=== PATIENT | male | born 1995 | race American Indian/Alaskan Native ===

== ENCOUNTER 2018-01-07 13:49 | Inpatient (IN) | payer OTHER ==
--- NOTE | 2018-01-07 14:10 | C.PDOC ---
History Of Present Illness 22 y/o male, BIB EMS, presents to the ER complaining of SOB and diffuse, sharp chest pain over the past two days. He reports the pain is slightly alleviated when he leans forward. The patient admits to being diagnosed with pneumonia that required hospital admission one month ago. He denies any drug use, productive cough or fever. Time Seen by Provider: 01/07/18 14:14 Chief Complaint (Nursing): Weakness/Neurological Deficit History Per: Patient History/Exam Limitations: no limitations Onset/Duration Of Symptoms: Days Current Symptoms Are (Timing): Still Present Recent travel outside of the [place] States: No Past Medical History Reviewed: Historical Data, Nursing Documentation, Vital Signs Vital Signs: Last Vital Signs Temp 97.9 F 01/07/18 16:30 Pulse 102 H 01/07/18 18:00 Resp 38 H 01/07/18 18:00 BP 110/61 01/07/18 17:36 Pulse Ox 97 01/07/18 18:04 - Medical History PMH: Asthma, Fractures (lt.shoulder dislocation in the past) Denies: Chronic Kidney Disease Surgical History: No Surg Hx Family History: States: Unknown Family Hx - Social History Hx Alcohol Use: No Hx Substance Use: No - Immunization History Hx Tetanus Toxoid Vaccination: Yes (june 2015) Hx Influenza Vaccination: No Hx Pneumococcal Vaccination: No Review Of Systems Except As Marked, All Systems Reviewed And Found Negative. Constitutional: Negative for: Fever Cardiovascular: Positive for: Chest Pain Respiratory: Positive for: Shortness of Breath. Negative for: Cough Physical Exam - Physical Exam Appears: Other (Mild/ Moderate Distress) Skin: Normal Color, Warm, Dry Head: Atraumatic, Normacephalic Eye(s): bilateral: Normal Inspection, PERRL, EOMI Ear(s): Bilateral: Normal Nose: Normal Oral Mucosa: Moist Throat: Normal Neck: Normal ROM Cardiovascular: Rhythm Regular, No JVD Respiratory: Normal Breath Sounds, No Rales, No Rhonchi, No Wheezing Gastrointestinal/Abdominal: Normal Exam, Bowel Sounds, Soft, No Tenderness Extremity: Normal ROM Extremity: Bilateral: Atraumatic, Normal Color And Temperature, Normal ROM Pulses: Left Radial: Normal, Right Radial: Normal Neurological/Psych: Oriented x3 Gait: Steady ED Course And Treatment - Laboratory Results Result Diagrams: 01/07/18 14:26 08/09/18 14:26 ECG Rhythm: Sinus Rhythm (sinus tachycardic (110bpm)) Interpretation Of ECG: Normal [place]. MT interval shows depressions and diffuse ST elevation in all leads. O2 Sat by Pulse Oximetry: 97 (RA) Pulse Ox Interpretation: Normal - Other Rad Chest X-Ray: Viewed By Me, Read By Radiologist Interpretation: FINDINGS: LUNGS: Perihilar infiltrate right lung. Mild volume loss sella show elevation of the right hemidiaphragm. These are new findings compared to the prior study. PLEURA: No pneumothorax or pleural fluid seen. CARDIOVASCULAR: Normal. OSSEOUS STRUCTURES: No significant abnormalities. VISUALIZED UPPER ABDOMEN: Normal. OTHER FINDINGS: None. IMPRESSION: Left upper lobe/ perihilar infiltrate. Secondary signs of atelectasis/volume loss. - CT Scan/US Chest Other Rad Studies (CT/US): Read By Radiologist, Radiology Report Reviewed CT/US Interpretation: FINDINGS: LUNGS: Right lower lobe consolidation with air bronchograms. Minimal left lower lobe consolidation/ atelectasis. MEDIASTINUM: Unremarkable thoracic aorta. No aneurysm. Normal sized heart. Moderate pericardial effusion. No dilatation of the main pulmonary artery. No lymphadenopathy. PLEURA: There is a body contacts pleural fluid collection along the right posterior chest wall measuring approximately 2.7 x 5.6 x 6.7 cm. Cannot rule out empyema. No free pleural effusion bilaterally. No pneumothorax. BONES: No fracture. No destructive lesion. UPPER ABDOMEN: Grossly unremarkable. OTHER FINDINGS: None. IMPRESSION: Moderate pericardial effusion. Loculated biconvex pleural fluid collection along the right posterior chest wall. Right lower lobe consolidation with left lower lobe consolidations/ bandlike atelectasis. No additional abnormality. Medical Decision Making Medical Decision Making: Impression: 22 y/o male c/o SOB and diffuse, sharp chest pain Plan: --VBG --EKG --CMP --Troponin I --Echo --CBC --D-Dimer --PTT --PT --Chest X-Ray --Duoneb 3mg/0.5 mg (3ml) --SOLU-Medrol 125 mg IV --IV Fluids --Toradol 30 mg IV --Blood Culture --Nebulizer Treatment --Peak Flow pre/post Tx BID --Vasclab Progress note: Spoke to intesivist who recommended admission to ICU. Medicine consulting it architect agreed to admission to ICU. ICU team contacted CT surgery after bedside echocardiogram complete. Critical care time: 2hrs Disposition - Disposition Disposition: HOSPITALIZED Disposition Time: 16:00 Condition: CRITICAL - Clinical Impression Clinical Impression: Pericarditis, Pericardial effusion - PA / EMT / Resident Statement MD/DO has reviewed & agrees with the documentation as recorded. - Scribe Statement The provider has reviewed the documentation as recorded by the Scribe (Amparo Dai) Provider Attestation: All medical record entries made by the Scribe were at my direction and personally dictated by me. I have reviewed the chart and agree that the record accurately reflects my personal performance of the history, physical exam, medical decision making, and the department course for this patient. I have also personally directed, reviewed, and agree with the discharge instructions and disposition.
[2018-01-07] MEDS ORDERED: Albuterol-Ipratrop 3 mg / 0.5 (3 ml) UD INH STA (14:11)
[2018-01-07] MEDS ORDERED: Albuterol-Ipratrop 3 mg / 0.5 (3 ml) UD ONE (14:23)
[2018-01-07 14:30] LABS: BASO # 0.2 K/uL (0.0-0.2); BASO % 0.8 % (0.0-2.0); LYMPH # 0.7 K/uL (1.0-4.3); LYMPH % 2.3 % (20.0-40.0); MEAN CORPUSCULAR HEMOGLOBIN 22.6 pg (27.0-31.0); MEAN CORPUSCULAR HGB CONC 32.6 g/dL (33.0-37.0); MEAN PLATELET VOLUME 7.3 fL (7.2-11.7); MONO # 2.2 K/uL (0.0-0.8); MONO % 7.1 % (0.0-10.0); NEUT # 27.7 K/uL (1.8-7.0); NEUT % 89.8 % (50.0-75.0)
[2018-01-07 14:37] LABS: HEMOGLOBIN 10.2 g/dL (12.0-18.0); MEAN CELL VOLUME 69.1 fL (80.0-94.0); PLATELET COUNT 773 K/uL (130-400); WHITE BLOOD COUNT 30.9 K/uL (4.8-10.8)
[2018-01-07 14:43] LABS: VENOUS BLOOD GAS BASE EXCESS -7.5 mmol/L (0.0-2.0); VENOUS BLOOD GAS PCO2 37 mmHg (40-60); VENOUS BLOOD GAS PO2 20 mm/Hg (30-55)
[2018-01-07 14:47] LABS: ALB/GLOB RATIO 1.3 (1.0-2.1); ALBUMIN 3.5 g/dL (3.5-5.0); ALT/SGPT 190 U/L (21-72); AST/SGOT 316 U/L (17-59); BLOOD UREA NITROGEN 28 mg/dL (9-20); GFR AFRICAN-AMERICAN > 60; GFR NON-AFRICAN AMERICAN > 60
[2018-01-07 15:01] LABS: BANDS 9 % (0-2); LYMPHOCYTE 3 % (20-40); MONOCYTE 8 % (0-10); NEUTROPHIL 80 % (50-75); TOTAL CELLS COUNTED 100
[2018-01-07 15:02] LABS: ANISOCYTOSIS SLIGHT; HYPOCHROMIC SLIGHT; MICROCYTOSIS SLIGHT; PLATELET ESTIMATE INCREASED (NORMAL)
[2018-01-07] MEDS ORDERED: Sodium Chloride 0.9% 1,000 ML IV ONE ×2 (15:13→16:05)
[2018-01-07] MEDS ORDERED: Sodium Chloride 0.9% 1,000 ML ONE (15:19)
--- NOTE | 2018-01-07 15:27 | RAD ---
Date of service: 01/07/2018 PROCEDURE: CHEST RADIOGRAPH, 1 VIEW HISTORY: SOB COMPARISON: 10/28/2015. FINDINGS: LUNGS: Perihilar infiltrate right lung. Mild volume loss sella show elevation of the right hemidiaphragm. These are new findings compared to the prior study. PLEURA: No pneumothorax or pleural fluid seen. CARDIOVASCULAR: Normal. OSSEOUS STRUCTURES: No significant abnormalities. VISUALIZED UPPER ABDOMEN: Normal. OTHER FINDINGS: None. IMPRESSION: Left upper lobe/ perihilar infiltrate. Secondary signs of atelectasis/volume loss.
[2018-01-07 15:35] LABS: INR 1.6
[2018-01-07] MEDS ORDERED: Vancomycin 1 gm/NS 200 ml 1 GM/200 ML BAG IVPB SCH ×2 (16:00→20:00)
[2018-01-07] MEDS ORDERED: Moxifloxacin IV 400mg/250ml NS 400 MG/250 ML BAG IVPB ONE (16:04)
--- NOTE | 2018-01-07 16:45 | CP.PCM.CON ---
<Felipe Garcia - Last Filed: 01/07/18 18:26> Meds Allergies/Adverse Reactions: Allergies Allergy/AdvReac Type Severity Reaction Status Date / Time Penicillins Allergy Verified 10/27/15 21:39 - Medications Medications: Current Medications Colchicine (Colocrys) 0.6 mg PO BID [facility] Vancomycin/Sodium Chloride (Vancomycin 1 Gm/Ns 200 Ml) 1 gm in 200 mls @ 133.333 mls/hr IVPB Q24H [facility] PRN Reason: Protocol Stop: 01/12/18 16:01 Last Admin: 01/07/18 16:37 Dose: 133.333 mls/hr Sodium Chloride (Sodium Chloride 0.9%) 1,000 mls @ 150 mls/hr IV .Q6H40M [facility] Last Admin: 01/07/18 18:02 Dose: 150 mls/hr Ibuprofen (Motrin Tab) 600 mg PO Q8H [facility] Last Admin: 01/07/18 17:32 Dose: 600 mg Pantoprazole Sodium (Protonix Ec Tab) 40 mg PO DAILY [facility] Last Admin: 01/07/18 17:33 Dose: 40 mg Results - Vital Signs Recent Vital Signs: Last Vital Signs Temp 97.9 F 01/07/18 16:30 Pulse 102 H 01/07/18 18:00 Resp 38 H 01/07/18 18:00 BP 110/61 01/07/18 17:36 Pulse Ox 97 01/07/18 18:04 - Labs Result Diagrams: 01/07/18 14:26 01/07/18 14:26 Labs: Laboratory Results - last 24 hr 01/07/18 01/07/18 01/07/18 14:26 14:26 14:26 WBC 30.9 H D RBC 4.50 Hgb 10.2 L D Hct 31.1 L MCV 69.1 L D MCH 22.6 L MCHC 32.6 L RDW 17.0 H Plt Count 773 H D MPV 7.3 Neut % (Auto) 89.8 H Lymph % (Auto) 2.3 L Cowley % (Auto) 7.1 Eos % (Auto) 0.0 Baso % (Auto) 0.8 Neut # (Auto) 27.7 H Lymph # (Auto) 0.7 L Cowley # (Auto) 2.2 H Eos # (Auto) 0.0 Baso # (Auto) 0.2 Neutrophils % (Manual) 80 H Band Neutrophils % 9 H Lymphocytes % (Manual) 3 L Monocytes % (Manual) 8 Platelet Estimate Increased H Hypochromasia (manual) Slight Anisocytosis (manual) Slight Microcytosis (manual) Slight PT INR APTT D-Dimer, Quantitative 2632 H pO2 VBG pH VBG pCO2 VBG HCO3 VBG Total CO2 VBG O2 Sat (Calc) VBG Base Excess VBG Potassium Glucose Lactate Sodium 137 Potassium 5.4 H Chloride 95 L Carbon Dioxide 22 Anion Gap 26 H BUN 28 H Creatinine 1.3 Est GFR ( Amer) > 60 Est GFR (Non-Af Amer) > 60 Random Glucose 150 H Calcium 9.0 Total Bilirubin 4.8 H AST 316 H ALT 190 H D Alkaline Phosphatase 339 H Troponin I < 0.0120 Total Protein 6.2 L Albumin 3.5 D Globulin 2.8 Albumin/Globulin Ratio 1.3 Venous Blood Potassium Influenza Typ A,B (EIA) 01/07/18 01/07/18 01/07/18 14:40 15:19 17:46 WBC RBC Hgb Hct MCV MCH MCHC RDW Plt Count MPV Neut % (Auto) Lymph % (Auto) Cowley % (Auto) Eos % (Auto) Baso % (Auto) Neut # (Auto) Lymph # (Auto) Cowley # (Auto) Eos # (Auto) Baso # (Auto) Neutrophils % (Manual) Band Neutrophils % Lymphocytes % (Manual) Monocytes % (Manual) Platelet Estimate Hypochromasia (manual) Anisocytosis (manual) Microcytosis (manual) PT 17.0 H INR 1.6 APTT 30 D-Dimer, Quantitative pO2 20 L VBG pH 7.30 L VBG pCO2 37 L VBG HCO3 17.1 VBG Total CO2 19.3 L VBG O2 Sat (Calc) 23.9 L VBG Base Excess -7.5 L VBG Potassium 4.3 Glucose 126 H Lactate 3.6 H Sodium 137.0 Potassium Chloride 102.0 Carbon Dioxide Anion Gap BUN Creatinine Est GFR ( Amer) Est GFR (Non-Af Amer) Random Glucose Calcium Total Bilirubin AST ALT Alkaline Phosphatase Troponin I Total Protein Albumin Globulin Albumin/Globulin Ratio Venous Blood Potassium 4.3 Influenza Typ A,B (EIA) Negative for flu a/b Attending/Attestation - Attestation I have personally seen and examined this patient.: Yes I have fully participated in the care of the patient.: Yes I have reviewed all pertinent clinical information: Yes Notes (Text): 01/07/18 18:26 I have seen and examined the patient. Medical records, lab studies, and imaging were reviewed by me and a management plan was formulated on multidisciplinary rounds with resident Dr. Batista. I agree with their documented assessment and plan. Patient p/w pericarditis of unknown etiology, possibly viral with recent unresolving pneumonia. Empiric tx with abx, Avelox and Vancomycin, f/u blood cultures, f/u flu testing. ID consulted - Dr. Croft. Fluid bolusing and maintenance of NS@150. Dr. Adams - Cardiology consulted. Diagnostic pericardiocentesis scheduled for tomorrow. No signs of tamponade on echo currently. Continue on colchicine and high dose ibuprofen. CT surgery consulted - Dr. Silva, no intervention needed currently. Continue monitoring in ICU. Critical Care Time 35 minutes. Multi-disciplinary rounds were performed with house staff, nursing, speech therapy, respiratory therapy, pharmacy and nutrition with integrated input from the primary team/attending and other consulting services. The documented time is cumulative and includes review of patient data/exams/labs/chart review and examination of the patient on rounds and throughout the day; time is exclusive of any procedures or teaching time. <Bari Batista - Last Filed: 01/07/18 18:59> History of Present Illness - History of Present Illness History of Present Illness: Bari Batista DO PGY-1, ICU consult note for Dr. Garcia Pt chart and records were reviewed prior to evaluation. This is a 22 year old AA male who was BIBA to the ED with complaints of chest pain, shortness of breath and lightheadedness. In the ED, pt received solumedrol an 125 mg IVP, toradol 30 mg IVP, duoneb and NS 1 L IV bolus. ICU was consulted due to chest pain, shortness of breath with diffuse st elevations consistent with pericarditis. Pt was seen and examined at bedside. Pt is complaining of a left sided chest pain associated with intermittent shortness of breath for the past few days, worsening today. Chest pain is described as constant, 10/10 left sided chest pain that is nonradiating at baseline. When the pt coughs, the pain goes to his bilateral chest and upper abdomen. Pain is alleviated when he sits up and leans forward. Pt also reports a cough productive of yellow sputum. He endorses tactile fevers, with night sweats and decreased appetite over the past few days. He denies visual changes, falls, trauma, abdominal pain at rest, n/v/d, numbness or tingling, recent travel, sick contacts. A 12-point ROS was reviewed and is otherwise unremarkable. Pt reports being treated for pneumonia twice over the past 2 months. He states the was seen in [facility] ED in early november due to cough productive of dark yellow sputum and left sided chest pain, where he was diagnosed with left sided pneumonia and discharged with levoquin po. He states that he finished the entire course of levaquin and felt better for 1 week. At that time his same cough returned, and he had right sided chest pain. Approximately 3 weeks ago, pt was admitted to [facility] with right sided pneumonia and treated with IV antibiotics (he thinks levaquin) for 6 days. He felt better after being discharged, but his cough returned again. Approximately 1 week ago, pt states that he was in [facility] ER due to shortness of breath and cough, where they gave him breathing treatments and he was discharged after feeling better. PMHx: Asthma (no history of intubations, and states that he rarely uses his inhaler), elbow fracture PSH: unsure FMhx: no immediate family members with medical problems Meds: Asthma inhaler (rarely used) Allx: PCN (anaphylaxis as a child) Social history: works at [email or web address], denies illicit drug use, smoking Review of Systems - Review of Systems All systems: reviewed and no additional remarkable complaints except (see HPI) Past Patient History - Infectious Disease Hx of Infectious Diseases: None - Past Medical History & Family History Past Medical History?: Yes - Past Social History Smoking Status: Never Smoked - CARDIAC Hx Cardiac Disorders: No - PULMONARY Hx Asthma: Yes - NEUROLOGICAL Hx Neurological Disorder: No - HEENT Hx HEENT Problems: No - RENAL Hx Chronic Kidney Disease: No - ENDOCRINE/METABOLIC Hx Endocrine Disorders: No - HEMATOLOGICAL/ONCOLOGICAL Hx Blood Disorders: No - INTEGUMENTARY Hx Dermatological Problems: No - MUSCULOSKELETAL/RHEUMATOLOGICAL Hx Fractures: Yes (lt.shoulder dislocation in the past) - GASTROINTESTINAL Hx Gastrointestinal Disorders: No - GENITOURINARY/GYNECOLOGICAL Hx Genitourinary Disorders: No - PSYCHIATRIC Hx Substance Use: No - SURGICAL HISTORY Hx Surgeries: No - ANESTHESIA Hx Anesthesia: No Hx Anesthesia Reactions: No Hx Malignant Hyperthermia: No Meds - Medications Medications: Current Medications Colchicine (Colocrys) 0.[address] Vancomycin/Sodium Chloride (Vancomycin 1 Gm/Ns 200 Ml) 1 gm in 200 mls @ 133.333 mls/hr IVPB Q24H AVE PRN Reason: Protocol Stop: 01/12/18 16:01 Moxifloxacin HCl (Avelox Iv 400mg/250ml Ns) 400 mg in 250 mls @ 167 mls/hr IVPB ONCE ONE PRN Reason: Protocol Stop: 01/07/18 17:33 Sodium Chloride (Sodium Chloride 0.9%) 1,000 mls @ 1,000 mls/hr IV .Q1H ONE Stop: 01/07/18 17:04 Last Admin: 01/07/18 16:12 Dose: 1,000 mls/hr Ibuprofen (Motrin Tab) [address] Pantoprazole Sodium (Protonix Ec Tab) [address] Physical Exam - Constitutional Appears: In Acute Distress - Head Exam Head Exam: ATRAUMATIC, NORMAL INSPECTION - Eye Exam Eye Exam: EOMI, Normal appearance Pupil Exam: PERRL - ENT Exam ENT Exam: Mucous Membranes Moist - Neck Exam Neck exam: Positive for: Full Rom, Normal Inspection. Negative for: Meningismus , Tenderness Additional comments: (-) jvd - Respiratory Exam Respiratory Exam: Accessory Muscle Use, Clear to Auscultation Bilateral, Respiratory Distress (tachypnea in the 50s) - Cardiovascular Exam Cardiovascular Exam: Tachycardia, +S1, +S2. absent: Gallop, Rubs - GI/Abdominal Exam GI & Abdominal Exam: Normal Bowel Sounds, Soft. absent: Tenderness - Extremities Exam Extremities exam: Positive for: normal inspection, pedal pulses present. Negative for: pedal edema, tenderness - Back Exam Back exam: NORMAL INSPECTION - Neurological Exam Neurological exam: Alert, Oriented x3 - Psychiatric Exam Psychiatric exam: Normal Affect, Normal Mood - Skin Skin Exam: Dry, Normal Color, Warm Results - Vital Signs Recent Vital Signs: Last Vital Signs Temp 97.8 F 01/07/18 15:09 Pulse 109 H 01/07/18 15:09 Resp 40 H 01/07/18 15:09 BP 101/57 L 01/07/18 15:09 Pulse Ox 100 01/07/18 15:09 - Labs Result Diagrams: 01/07/18 14:26 01/07/18 14:26 Labs: Laboratory Results - last 24 hr 01/07/18 01/07/18 01/07/18 14:26 14:26 14:26 WBC 30.9 H D RBC 4.50 Hgb 10.2 L D Hct 31.1 L MCV 69.1 L D MCH 22.6 L MCHC 32.6 L RDW 17.0 H Plt Count 773 H D MPV 7.3 Neut % (Auto) 89.8 H Lymph % (Auto) 2.3 L Cowley % (Auto) 7.1 Eos % (Auto) 0.0 Baso % (Auto) 0.8 Neut # (Auto) 27.7 H Lymph # (Auto) 0.7 L Cowley # (Auto) 2.2 H Eos # (Auto) 0.0 Baso # (Auto) 0.2 Neutrophils % (Manual) 80 H Band Neutrophils % 9 H Lymphocytes % (Manual) 3 L Monocytes % (Manual) 8 Platelet Estimate Increased H Hypochromasia (manual) Slight Anisocytosis (manual) Slight Microcytosis (manual) Slight PT INR APTT D-Dimer, Quantitative 2632 H pO2 VBG pH VBG pCO2 VBG HCO3 VBG Total CO2 VBG O2 Sat (Calc) VBG Base Excess VBG Potassium Glucose Lactate Sodium 137 Potassium 5.4 H Chloride 95 L Carbon Dioxide 22 Anion Gap 26 H BUN 28 H Creatinine 1.3 Est GFR ( Amer) > 60 Est GFR (Non-Af Amer) > 60 Random Glucose 150 H Calcium 9.0 Total Bilirubin 4.8 H AST 316 H ALT 190 H D Alkaline Phosphatase 339 H Troponin I < 0.0120 Total Protein 6.2 L Albumin 3.5 D Globulin 2.8 Albumin/Globulin Ratio 1.3 Venous Blood Potassium 01/07/18 01/07/18 14:40 15:19 WBC RBC Hgb Hct MCV MCH MCHC RDW Plt Count MPV Neut % (Auto) Lymph % (Auto) Cowley % (Auto) Eos % (Auto) Baso % (Auto) Neut # (Auto) Lymph # (Auto) Cowley # (Auto) Eos # (Auto) Baso # (Auto) Neutrophils % (Manual) Band Neutrophils % Lymphocytes % (Manual) Monocytes % (Manual) Platelet Estimate Hypochromasia (manual) Anisocytosis (manual) Microcytosis (manual) PT 17.0 H INR 1.6 APTT 30 D-Dimer, Quantitative pO2 20 L VBG pH 7.30 L VBG pCO2 37 L VBG HCO3 17.1 VBG Total CO2 19.3 L VBG O2 Sat (Calc) 23.9 L VBG Base Excess -7.5 L VBG Potassium 4.3 Glucose 126 H Lactate 3.6 H Sodium 137.0 Potassium Chloride 102.0 Carbon Dioxide Anion Gap BUN Creatinine Est GFR ( Amer) Est GFR (Non-Af Amer) Random Glucose Calcium Total Bilirubin AST ALT Alkaline Phosphatase Troponin I Total Protein Albumin Globulin Albumin/Globulin Ratio Venous Blood Potassium 4.3 Assessment & Plan - Assessment and Plan (Free Text) Assessment: This is a 22 year old AA male who was BIBA to the ED with complaints of chest pain, shortness of breath and lightheadedness. In the ED, pt received solumedrol an 125 mg IVP, toradol 30 mg IVP, duoneb and NS 1 L IV bolus. ICU was consulted due to chest pain, shortness of breath with diffuse st elevations consistent with pericarditis. CXR in the ED showed a much larger cardiac silhouette than prior CXR done in 2016. Labile BP noted (SBP 90-110, DBP in the 60s, MAP in the 70s); tachypnea in the 50s, no jvd. Stat echocardiogram showed moderately sized pericardial effusion. Cardiothoracic surgeon consulted. baby nurse consulted. Pt will be accepted to the ICU for cardiovascular and neurological monitoring. Neuro: - monitor for mental status changes - Pt is AAOx3 Cardio: - CXR shows large cardiac silhouette, HALEY perihilar infiltrate, secondary signs of atelectasis/volume loss - Chest CT w/o contrast shows pericardial effusion. Loculated biconvex plueral fluid collection along the right posterior chest wall. Right lower lobe consolidation with left lower consolidations/bandlike atelectasis. - Echocardiogram shows LVEF of 72.6%. Large eccentric pericardial effusion Anterio>posterior with fibrin densities suggestive of an exudate. IVC plethora noted with spontaneous echogenic smoke noted in the right chambers suggestive of stasis/slow flow. Right ventricle appears dilated in the short axis views with no evidence of collapse. There is no definitive evidence of tamponade. Left ventricle is normal in size and systolic function. Mild concentric thickening. Mild aortic sclerosis; normal mitral valve. - ekg shows st at 110, diffuse ST elevations - colchicine and high dose ibuprofen for pericarditis of unknown origin - sinus tachycardia in the low 100s - hypotension (sbp in 100s, dbp in 60s, MAP in 70s) - troponin negative x1 - NS 1L IV bolus x2, followed by NS at 150 mL/hr - cardiothoracic surgery consult, who states that there is no need for intervention at this time - interventional cardiology consulted, who plans for diagnostic pericardiocentesis tommorrow Pulm: - cxr shows HALEY/perihilar infiltrate - empiric antibiotics and ID consult - maintain spo2 >95% - spo2 is currently >95% on ra GI: - transaminitis of unknown etiology - f/u hepatitis panel - NPO past midnight due to planned diagnostic pericardiocentesis tomorrow - protonix for pud ppx Renal: - BUN/cr is wnl - continue NS IVF at 150 mL/hr after 2L bolus - maintain euvolemia ID: - pericarditis of unknown etiology, possibly viral due to recent unresolving pneumonia - empiric treatment with avelox, vancomycin - leukocytosis (30.9) with bandemia (9) - lactate elevated at 4.4 - f/u blood culture - flu a and b are negative - Infectious disease consulted, recs appreciated Endo: - maintain euglycemia - accucheck achs Heme: - microcytic anemia - ddimer elvated at 2632 - prelim bilateral lower extremity dopplar study is negative for dvt bilaterally - f/u official dopplar reading - no anticoagulation at this time due to planned pericardiocentesis tomorrow - SCDs for vte ppx PPX: protonix for pud; scds for vte Dispo: Continue to monitor in the ICU Case was reviewed and discussed with attending physician, Dr. Garcia.
[2018-01-07] MEDS ORDERED: Sodium Chloride 0.9% 2,000 ML IV ONE (16:48)
--- NOTE | 2018-01-07 16:51 | CT ---
Date of service: 01/07/2018 PROCEDURE: CT Chest without contrast HISTORY: pericardial effusion COMPARISON: None available. TECHNIQUE: Contiguous axial images were obtained through the chest without intravenous contrast enhancement. Sagittal and coronal reconstructions were performed. Radiation dose (DLP): 234.59 mGy-cm. This CT exam was performed using one or more of the following dose reduction techniques: Automated exposure control, adjustment of the mA and/or kV according to patient size, and/or use of iterative reconstruction technique. FINDINGS: LUNGS: Right lower lobe consolidation with air bronchograms. Minimal left lower lobe consolidation/ atelectasis. MEDIASTINUM: Unremarkable thoracic aorta. No aneurysm. Normal sized heart. Moderate pericardial effusion. No dilatation of the main pulmonary artery. No lymphadenopathy. PLEURA: There is a body contacts pleural fluid collection along the right posterior chest wall measuring approximately 2.7 x 5.6 x 6.7 cm. Cannot rule out empyema. No free pleural effusion bilaterally. No pneumothorax. BONES: No fracture. No destructive lesion. UPPER ABDOMEN: Grossly unremarkable. OTHER FINDINGS: None. IMPRESSION: Moderate pericardial effusion. Loculated biconvex pleural fluid collection along the right posterior chest wall. Right lower lobe consolidation with left lower lobe consolidations/ bandlike atelectasis. No additional abnormality.
--- NOTE | 2018-01-07 16:57 | CARD ---
APPROVED REPORT Date of service: 01/07/2018 EXAM: Two-dimensional and M-mode echocardiogram with Doppler and color Doppler. INDICATION Pericardial Effusion Dyspnea 2D DIMENSIONS IVSd1.1 (0.7-1.1cm)Aortic Root (2D)2.5 (2.0-3.7cm) LVDd3.3 (3.9-5.9cm)PWd1.3 (0.7-1.1cm) LVDs2.0 (2.5-4.0cm)FS (%) 40.6 % LVEF (%)72.6 (>50%) M-Mode DIMENSIONS RVDd2.43 (2.1-3.2cm)Left Atrium (MM)2.64 (2.5-4.0cm) IVSd1.28 (0.7-1.1cm)Aortic Root2.40 (2.2-3.7cm) LVDd3.58 (4.0-5.6cm)Aortic Cusp Exc.2.28 (1.5-2.0cm) PWd1.28 (0.7-1.1cm)FS (%) 37 % LVDs2.25 (2.0-3.8cm)LVEF (%)68 (>50%) Mitral Valve MV E Eahcmzip60.7cm/sMV A Xhpyqzrj18.4cm/sE/A ratio1.8 TDI E/Lateral E'0.0E/Medial E'0.0 Tricuspid Valve TR Peak Eqkshgwg249yd/sTR Peak Gr.[id number] <Conclusion> Large eccencentric pericardial effusion Anterio>posterior with fibrin densities suggestive of an exudate; IVC plethora noted with spontaneous echogenic smoke noted in the right chambers suggestive of stasis/slow flow Right ventricle appears dilated in the short axis views with no evidence of collapse Transvalvular phasic variation was indeterminate There is no definitive evidence of tamponade The left ventricle is normal in size and systolic function Mild concentric thickening Mild aortic sclerosis; Normal mitral valve
[2018-01-07] MEDS: Pantoprazole 40 mg EC Tab PO SCH (17:33)
--- NOTE | 2018-01-07 18:01 | PCM.SEPTIC ---
<Felipe Garcia - Last Filed: 01/07/18 18:02> Sepsis Progress Note - Non Invasive Reassessment Vital Sign (Latest): Temp Pulse Resp BP Pulse Ox 97.9 F 102 H 61 H 110/61 97 01/07/18 16:30 01/07/18 17:50 01/07/18 17:50 01/07/18 17:36 01/07/18 17:59 Attending/Attestation - Attestation I have personally seen and examined this patient.: Yes I have fully participated in the care of the patient.: Yes I have reviewed all pertinent clinical information, including history, physical exam and plan: Yes <Bari Batista - Last Filed: 01/07/18 18:34> Sepsis Progress Note - Reassessment Type Date of Evaluation: 01/07/18 Time of Evaluation: 17:00 Reassessment Type: Non-invasive reassessment - Non Invasive Reassessment Were the most recent vital sign reviewed: Yes Vital Sign (Latest): Temp Pulse Resp BP Pulse Ox 97.9 F 102 H 61 H 110/61 97 01/07/18 16:30 01/07/18 17:50 01/07/18 17:50 01/07/18 17:36 01/07/18 17:59 Cardiovascular: Yes: Tachycardia. No: Friction Rub Respiratory: Yes: Accessory Muscle Use, Respiratory Distress (tachypnew in the 40s). No: Rales, Rhonchi, Stridor, Wheezing Capillary Refill: Normal (Less than 2 sec) Pulses: Normal Radial, Normal Dorsalis Pedis, Normal Posterior Tibialis Skin: Warm, Dry
[2018-01-07] MEDS: Sodium Chloride 0.9% 1,000 ML IV SCH (18:02)
--- NOTE | 2018-01-07 18:20 | CP.PCM.CON ---
History of Present Illness - History of Present Illness History of Present Illness: THORACIC SURGERY CONSULT NOTE FOR DR. MELARA 22yo M with PMHx of asthma, pneumonia presents to the ED with Chest pain, SOB and lightheadedness. The symptoms have been present for the past few days but worsened today. The CP is on the left and non radiating. Pt also reports a cough productive of yellow sputum. He endorses tactile fevers, with night sweats and decreased appetite over the past few days. He denies visual changes, falls, trauma, abdominal pain at rest, n/v/d, numbness or tingling, recent travel, sick contacts. Pt reports being treated for pneumonia twice over the past 2 months at [facility] Pt found to have large pericardial effusion. ECHO did not show signs of tamponade. Pt being admitted to ICU. PMHx: Asthma (no history of intubations, and states that he rarely uses his inhaler), elbow fracture, pneumonia treated at [facility] PSH: denies Meds: Asthma inhaler (rarely used) Allx: PCN (anaphylaxis as a child) Social history: works at [employer], denies illicit drug use, smoking Review of Systems - Review of Systems All systems: reviewed and no additional remarkable complaints except (as per HPI ) Past Patient History - Infectious Disease Hx of Infectious Diseases: None - Past Medical History & Family History Past Medical History?: Yes - Past Social History Smoking Status: Never Smoked - CARDIAC Hx Cardiac Disorders: No - PULMONARY Hx Asthma: Yes - NEUROLOGICAL Hx Neurological Disorder: No - HEENT Hx HEENT Problems: No - RENAL Hx Chronic Kidney Disease: No - ENDOCRINE/METABOLIC Hx Endocrine Disorders: No - HEMATOLOGICAL/ONCOLOGICAL Hx Blood Disorders: No - INTEGUMENTARY Hx Dermatological Problems: No - MUSCULOSKELETAL/RHEUMATOLOGICAL Hx Fractures: Yes (lt.shoulder dislocation in the past) - GASTROINTESTINAL Hx Gastrointestinal Disorders: No - GENITOURINARY/GYNECOLOGICAL Hx Genitourinary Disorders: No - PSYCHIATRIC Hx Substance Use: No - SURGICAL HISTORY Hx Surgeries: No - ANESTHESIA Hx Anesthesia: No Hx Anesthesia Reactions: No Hx Malignant Hyperthermia: No Meds Allergies/Adverse Reactions: Allergies Allergy/AdvReac Type Severity Reaction Status Date / Time Penicillins Allergy Verified 10/27/15 21:39 - Medications Medications: Current Medications Colchicine (Colocrys) 0.[address] Vancomycin/Sodium Chloride (Vancomycin 1 Gm/Ns 200 Ml) 1 gm in 200 mls @ 133.333 mls/hr IVPB Q24H [facility] PRN Reason: Protocol Stop: 01/12/18 16:01 Last Admin: 01/07/18 16:37 Dose: 133.333 mls/hr Sodium Chloride (Sodium Chloride 0.9%) 1,000 mls @ 150 mls/hr IV .Q6H40M [facility] Last Admin: 01/07/18 18:02 Dose: 150 mls/hr Ibuprofen (Motrin Tab) 600 mg PO Q8H [facility] Last Admin: 01/07/18 17:32 Dose: 600 mg Pantoprazole Sodium (Protonix Ec Tab) 40 mg PO DAILY [facility] Last Admin: 01/07/18 17:33 Dose: 40 mg Physical Exam - Constitutional Appears: Non-toxic - Neck Exam Neck exam: Positive for: Normal Inspection (no JVD) - Respiratory Exam Additional comments: tachypneic - Cardiovascular Exam Cardiovascular Exam: Tachycardia - GI/Abdominal Exam GI & Abdominal Exam: Soft. absent: Tenderness - Neurological Exam Neurological exam: Alert, Oriented x3 - Psychiatric Exam Psychiatric exam: Anxious - Skin Skin Exam: Dry, Warm Results - Vital Signs Recent Vital Signs: Last Vital Signs Temp 97.9 F 01/07/18 16:30 Pulse 102 H 01/07/18 18:00 Resp 38 H 01/07/18 18:00 BP 110/61 01/07/18 17:36 Pulse Ox 97 01/07/18 18:04 - Labs Result Diagrams: 01/07/18 14:26 01/07/18 14:26 Labs: Laboratory Results - last 24 hr 01/07/18 01/07/18 01/07/18 14:26 14:26 14:26 WBC 30.9 H D RBC 4.50 Hgb 10.2 L D Hct 31.1 L MCV 69.1 L D MCH 22.6 L MCHC 32.6 L RDW 17.0 H Plt Count 773 H D MPV 7.3 Neut % (Auto) 89.8 H Lymph % (Auto) 2.3 L [place] % (Auto) 7.1 Eos % (Auto) 0.0 Baso % (Auto) 0.8 Neut # (Auto) 27.7 H Lymph # (Auto) 0.7 L [place] # (Auto) 2.2 H Eos # (Auto) 0.0 Baso # (Auto) 0.2 Neutrophils % (Manual) 80 H Band Neutrophils % 9 H Lymphocytes % (Manual) 3 L Monocytes % (Manual) 8 Platelet Estimate Increased H Hypochromasia (manual) Slight Anisocytosis (manual) Slight Microcytosis (manual) Slight PT INR APTT D-Dimer, Quantitative 2632 H pO2 VBG pH VBG pCO2 VBG HCO3 VBG Total CO2 VBG O2 Sat (Calc) VBG Base Excess VBG Potassium Glucose Lactate Sodium 137 Potassium 5.4 H Chloride 95 L Carbon Dioxide 22 Anion Gap 26 H BUN 28 H Creatinine 1.3 Est GFR ( Amer) > 60 Est GFR (Non-Af Amer) > 60 Random Glucose 150 H Calcium 9.0 Total Bilirubin 4.8 H AST 316 H ALT 190 H D Alkaline Phosphatase 339 H Troponin I < 0.0120 Total Protein 6.2 L Albumin 3.5 D Globulin 2.8 Albumin/Globulin Ratio 1.3 Venous Blood Potassium Influenza Typ A,B (EIA) 01/07/18 01/07/18 01/07/18 14:40 15:19 17:46 WBC RBC Hgb Hct MCV MCH MCHC RDW Plt Count MPV Neut % (Auto) Lymph % (Auto) [place] % (Auto) Eos % (Auto) Baso % (Auto) Neut # (Auto) Lymph # (Auto) [place] # (Auto) Eos # (Auto) Baso # (Auto) Neutrophils % (Manual) Band Neutrophils % Lymphocytes % (Manual) Monocytes % (Manual) Platelet Estimate Hypochromasia (manual) Anisocytosis (manual) Microcytosis (manual) PT 17.0 H INR 1.6 APTT 30 D-Dimer, Quantitative pO2 20 L VBG pH 7.30 L VBG pCO2 37 L VBG HCO3 17.1 VBG Total CO2 19.3 L VBG O2 Sat (Calc) 23.9 L VBG Base Excess -7.5 L VBG Potassium 4.3 Glucose 126 H Lactate 3.6 H Sodium 137.0 Potassium Chloride 102.0 Carbon Dioxide Anion Gap BUN Creatinine Est GFR ( Amer) Est GFR (Non-Af Amer) Random Glucose Calcium Total Bilirubin AST ALT Alkaline Phosphatase Troponin I Total Protein Albumin Globulin Albumin/Globulin Ratio Venous Blood Potassium 4.3 Influenza Typ A,B (EIA) Negative for flu a/b Assessment & Plan - Assessment and Plan (Free Text) Assessment: 22yo M with PMHx of asthma, pneumonia presents with Chest pain, SOB and found to have pericardial effusion of unknown etiology without signs of tamponade on ECHO - ECHO: large eccencentric pericardial effusion with fibrin densities suggestive of an exudate, no definitive evidence of tamponade - CT Chest: moderate pericardial effusion, loculated biconvex pleural fluid collection along right posterior chest wall, right lower consolidation w/ left lower lobe consolidations/bandlike atelectasis, no aneurysm - No surgical intervention unless pt decompensates or develops tamponade - Recommend cardiology for drainage to determine etiology - Discussed plan with Dr. Shira Costa PGY-4
[2018-01-07 18:37] LABS: HEPATITIS B SURFACE AG Negative (NEGATIVE)
[2018-01-07 18:43] LABS: HEPATITIS A IGM NEGATIVE (NEGATIVE); HEPATITIS B CORE AB NEGATIVE (NEGATIVE)
[2018-01-07 18:54] LABS: HEPATITIS C ANTIBODY NEGATIVE (NEGATIVE)
--- NOTE | 2018-01-07 19:06 | CP.PCM.CON ---
History of Present Illness - History of Present Illness History of Present Illness: 22yo M with\ recent hx of pneumonia x2 a [facility] presents to the ED with mid Chest pain, SOB Pt also reports a cough productive of yellow sputum. He endorses tactile fevers, with night sweats and decreased appetite over the past few days. He denies visual changes, falls, trauma, abdominal pain at rest, n/v/d, numbness or tingling, recent travel, sick contacts. Pt reports being treated for pneumonia twice over the past 2 months at [facility]. PMHx: Asthma (no history of intubations, and states that he rarely uses his inhaler), elbow fracture, pneumonia treated at [facility] PSH: denies Meds: Asthma inhaler (rarely used) Allx: PCN (anaphylaxis as a child) Social history: works at [employer], denies illicit drug use, smoking Review of Systems - Review of Systems All systems: reviewed and no additional remarkable complaints except - Constitutional Constitutional: As Per HPI - EENT Eyes: absent: As Per HPI, Blind Spots, Blurred Vision, Change in Vision, Decreased Night Vision, Diplopia, Discharge, Dry Eye, Exophthalmos, Floaters, Irritation, Itchy Eyes, Loss of Peripheral Vision, Pain, Photophobia, Requires Corrective Lenses, Sees Flashes, Spots in Vision, Tunnel Vision, Other Visual Disturbances, Loss of Vision, Other Ears: absent: As Per HPI, Decreased Hearing, Ear Discharge, Ear Pain, Tinnitus, Abnormal Hearing, Disequilibrium, Dizziness, Other Nose/Mouth/Throat: absent: As Per HPI, Epistaxis, Nasal Congestion, Nasal Discharge, Nasal Obstruction, Nasal Trauma, Nose Pain, Post Nasal Drip, Sinus Pain, Sinus Pressure, Bleeding Gums, Change in Voice, Dental Pain, Dry Mouth, Dysphagia, Halitosis, Hoarsness, Lip Swelling, Mouth Lesions, Mouth Pain, Odynophagia, Sore Throat, Throat Swelling, Tongue Swelling, Facial Pain, Neck Pain, Neck Mass, Other - Cardiovascular Cardiovascular: As Per HPI - Respiratory Respiratory: As Per HPI, Cough - Gastrointestinal Gastrointestinal: absent: As Per HPI, Abdominal Pain, Belching, Bloating, Change in Bowel Habits, Change in Stool Character, Coffee Ground Emesis, Constipation, Cramping, Diarrhea, Dyspepsia, Dysphagia, Early Satiety, Excessive Flatus, Fecal Incontinence, Heartburn, Hematemesis, Hematochezia, Loose Stools, Melena, Nausea, Odynophagia, Temesmus, Vomiting, Other - Genitourinary Genitourinary: absent: As Per HPI, Change in Urinary Stream, Difficulty Urinating, Dysuria, Flank Pain, Hematuria, Pyuria, Nocturia, Urinary Incontinence, Urinary Frequency, Urinary Hesitance, Urinary Urgency, Voiding Freq/Small Amts, Freq UTI, Hx Renal/Bladder Calculi, Hx /Renal Surgery, Bladder Distension, Other - Musculoskeletal Musculoskeletal: absent: As Per HPI, Abnormal Gait, Arthralgias, Atrophy, Back Pain, Deformity, Joint Swelling, Limited Range of Motion, Loss of Height, Muscle Cramps, Muscle Weakness, Myalgias, Neck Pain, Numbness, Radiating Pain into Limb, Stiffness, Tingling, Other - Integumentary Integumentary: absent: As Per HPI, Acne, Alopecia, Bleeding Lesions, Change in Hair, Change in Nails, Change in Pigmentation, Changing Lesions, Dry Skin, Erythema, Furuncle, Hirsutism, Lesions, New Lesions, Non-Healing Lesions, Photosensitivity, Pruritus, Rash, Skin Pain, Skin Ulcer, Sores, Striae, Swelling , Unusual Bruising, Wounds, Jaundice, Other - Neurological Neurological: absent: As Per HPI, Abnormal Gait, Abnormal Hearing, Abnormal Movements, Abnormal Speech, Behavioral Changes, Burning Sensations, Confusion, Convulsions, Disequilibrium, Dizziness, Numbness, Focal Weakness, Frequent Falls , Headaches, Lack of Coordination, Loss of Vision, Memory Loss, Paresthesias, Radicular Pain, Restless Legs, Sensory Deficit, Syncope, Tingling, Tremor, Vertigo, Weakness, Other Visual Disturbances, Other - Psychiatric Psychiatric: absent: As Per HPI, Abnormal Sleep Pattern, Anhedonia, Anxiety, Auditory Hallucinations, Behavioral Changes, Change in Appetite, Change in Libido, Confusion, Depression, Difficulty Concentrating, Hallucinations, Homicidal Ideation, Hopelessness, Irritability, Memory Loss, Mood Swings, Panic Attacks, Paranoia, Suicidal Ideation, Visual Hallucinations, Tactile Hallucinations, Other - Endocrine Endocrine: absent: As Per HPI, Change in Body Appearance, Change in Libido, Cold Intolorance, Deepening of Voice, Excessive Sweating, Fatigue, Flushing, Heat Intolorance, Increase in Ring/Shoe/Hat Size, Palpitations, Polydipsia, Polyphagia, Polyuria, Other - Hematologic/Lymphatic Hematologic: absent: As Per HPI, Easy Bleeding, Easy Bruising, Lymphadenopathy, Other Past Patient History - Infectious Disease Hx of Infectious Diseases: None - Past Medical History & Family History Past Medical History?: Yes - Past Social History Smoking Status: Never Smoked - CARDIAC Hx Cardiac Disorders: No - PULMONARY Hx Asthma: Yes - NEUROLOGICAL Hx Neurological Disorder: No - HEENT Hx HEENT Problems: No - RENAL Hx Chronic Kidney Disease: No - ENDOCRINE/METABOLIC Hx Endocrine Disorders: No - HEMATOLOGICAL/ONCOLOGICAL Hx Blood Disorders: No - INTEGUMENTARY Hx Dermatological Problems: No - MUSCULOSKELETAL/RHEUMATOLOGICAL Hx Fractures: Yes (lt.shoulder dislocation in the past) - GASTROINTESTINAL Hx Gastrointestinal Disorders: No - GENITOURINARY/GYNECOLOGICAL Hx Genitourinary Disorders: No - PSYCHIATRIC Hx Substance Use: No - SURGICAL HISTORY Hx Surgeries: No - ANESTHESIA Hx Anesthesia: No Hx Anesthesia Reactions: No Hx Malignant Hyperthermia: No Meds Allergies/Adverse Reactions: Allergies Allergy/AdvReac Type Severity Reaction Status Date / Time Penicillins Allergy Verified 10/27/15 21:39 - Medications Medications: Current Medications Colchicine (Colocrys) 0.6 mg PO BID [facility] Last Admin: 01/07/18 18:56 Dose: 0.6 mg Vancomycin/Sodium Chloride (Vancomycin 1 Gm/Ns 200 Ml) 1 gm in 200 mls @ 133.333 mls/hr IVPB Q24H [facility] PRN Reason: Protocol Stop: 01/12/18 16:01 Last Admin: 01/07/18 16:37 Dose: 133.333 mls/hr Sodium Chloride (Sodium Chloride 0.9%) 1,000 mls @ 150 mls/hr IV .Q6H40M [facility] Last Admin: 01/07/18 18:02 Dose: 150 mls/hr Ibuprofen (Motrin Tab) 600 mg PO Q8H [facility] Last Admin: 01/07/18 17:32 Dose: 600 mg Pantoprazole Sodium (Protonix Ec Tab) 40 mg PO DAILY [facility] Last Admin: 01/07/18 17:33 Dose: 40 mg Physical Exam - Constitutional Appears: No Acute Distress - Head Exam Head Exam: ATRAUMATIC, NORMOCEPHALIC - Eye Exam Eye Exam: absent: Nystagmus - ENT Exam ENT Exam: Mucous Membranes Dry, Normal External Ear Exam - Neck Exam Neck exam: Negative for: Lymphadenopathy - Respiratory Exam Respiratory Exam: Decreased Breath Sounds, Rales, Rhonchi - Cardiovascular Exam Cardiovascular Exam: REGULAR RHYTHM, +S1, +S2 - GI/Abdominal Exam GI & Abdominal Exam: Diminished Bowel Sounds, Soft. absent: Tenderness - Rectal Exam Rectal Exam: Deferred - Exam Exam: NORMAL INSPECTION - Extremities Exam Extremities exam: Positive for: pedal pulses present. Negative for: calf tenderness, pedal edema, tenderness - Back Exam Back exam: absent: CVA tenderness (L), CVA tenderness (R), paraspinal tenderness - Neurological Exam Neurological exam: Alert, CN II-XII Intact, Oriented x3, Reflexes Normal - Psychiatric Exam Psychiatric exam: Normal Mood - Skin Skin Exam: Dry, Intact Results - Vital Signs Recent Vital Signs: Last Vital Signs Temp 97.9 F 01/07/18 16:30 Pulse 102 H 01/07/18 18:00 Resp 38 H 01/07/18 18:00 BP 110/61 01/07/18 17:36 Pulse Ox 97 01/07/18 18:48 - Labs Result Diagrams: 01/07/18 14:26 01/07/18 14:26 Labs: Laboratory Results - last 24 hr 01/07/18 01/07/18 01/07/18 14:26 14:26 14:26 WBC 30.9 H D RBC 4.50 Hgb 10.2 L D Hct 31.1 L MCV 69.1 L D MCH 22.6 L MCHC 32.6 L RDW 17.0 H Plt Count 773 H D MPV 7.3 Neut % (Auto) 89.8 H Lymph % (Auto) 2.3 L [place] % (Auto) 7.1 Eos % (Auto) 0.0 Baso % (Auto) 0.8 Neut # (Auto) 27.7 H Lymph # (Auto) 0.7 L [place] # (Auto) 2.2 H Eos # (Auto) 0.0 Baso # (Auto) 0.2 Neutrophils % (Manual) 80 H Band Neutrophils % 9 H Lymphocytes % (Manual) 3 L Monocytes % (Manual) 8 Platelet Estimate Increased H Hypochromasia (manual) Slight Anisocytosis (manual) Slight Microcytosis (manual) Slight PT INR APTT D-Dimer, Quantitative 2632 H pO2 VBG pH VBG pCO2 VBG HCO3 VBG Total CO2 VBG O2 Sat (Calc) VBG Base Excess VBG Potassium Glucose Lactate Sodium 137 Potassium 5.4 H Chloride 95 L Carbon Dioxide 22 Anion Gap 26 H BUN 28 H Creatinine 1.3 Est GFR ( Amer) > 60 Est GFR (Non-Af Amer) > 60 Random Glucose 150 H Lactic Acid Calcium 9.0 Total Bilirubin 4.8 H AST 316 H ALT 190 H D Alkaline Phosphatase 339 H Troponin I < 0.0120 Total Protein 6.2 L Albumin 3.5 D Globulin 2.8 Albumin/Globulin Ratio 1.3 Venous Blood Potassium Hepatitis A IgM Ab Hep Bs Antigen Hep B Core IgM Ab Hepatitis C Antibody Influenza Typ A,B (EIA) 01/07/18 01/07/18 01/07/18 14:40 15:19 17:46 WBC RBC Hgb Hct MCV MCH MCHC RDW Plt Count MPV Neut % (Auto) Lymph % (Auto) [place] % (Auto) Eos % (Auto) Baso % (Auto) Neut # (Auto) Lymph # (Auto) [place] # (Auto) Eos # (Auto) Baso # (Auto) Neutrophils % (Manual) Band Neutrophils % Lymphocytes % (Manual) Monocytes % (Manual) Platelet Estimate Hypochromasia (manual) Anisocytosis (manual) Microcytosis (manual) PT 17.0 H INR 1.6 APTT 30 D-Dimer, Quantitative pO2 20 L VBG pH 7.30 L VBG pCO2 37 L VBG HCO3 17.1 VBG Total CO2 19.3 L VBG O2 Sat (Calc) 23.9 L VBG Base Excess -7.5 L VBG Potassium 4.3 Glucose 126 H Lactate 3.6 H Sodium 137.0 Potassium Chloride 102.0 Carbon Dioxide Anion Gap BUN Creatinine Est GFR ( Amer) Est GFR (Non-Af Amer) Random Glucose Lactic Acid Calcium Total Bilirubin AST ALT Alkaline Phosphatase Troponin I Total Protein Albumin Globulin Albumin/Globulin Ratio Venous Blood Potassium 4.3 Hepatitis A IgM Ab Hep Bs Antigen Hep B Core IgM Ab Hepatitis C Antibody Influenza Typ A,B (EIA) Negative for flu a/b 01/07/18 01/07/18 17:46 17:56 WBC RBC Hgb Hct MCV MCH MCHC RDW Plt Count MPV Neut % (Auto) Lymph % (Auto) [place] % (Auto) Eos % (Auto) Baso % (Auto) Neut # (Auto) Lymph # (Auto) [place] # (Auto) Eos # (Auto) Baso # (Auto) Neutrophils % (Manual) Band Neutrophils % Lymphocytes % (Manual) Monocytes % (Manual) Platelet Estimate Hypochromasia (manual) Anisocytosis (manual) Microcytosis (manual) PT INR APTT D-Dimer, Quantitative pO2 VBG pH VBG pCO2 VBG HCO3 VBG Total CO2 VBG O2 Sat (Calc) VBG Base Excess VBG Potassium Glucose Lactate Sodium Potassium Chloride Carbon Dioxide Anion Gap BUN Creatinine Est GFR ( Amer) Est GFR (Non-Af Amer) Random Glucose Lactic Acid 4.4 H* Calcium Total Bilirubin AST ALT Alkaline Phosphatase Troponin I Total Protein Albumin Globulin Albumin/Globulin Ratio Venous Blood Potassium Hepatitis A IgM Ab Negative Hep Bs Antigen Negative Hep B Core IgM Ab Negative Hepatitis C Antibody Negative Influenza Typ A,B (EIA) Assessment & Plan (1) Pericarditis Status: Acute (2) Sepsis Status: Acute (3) Pneumonia Status: Acute (4) Pneumonia Status: Acute (5) Pleurisy with effusion Status: Acute - Assessment and Plan (Free Text) Assessment: acute pericarditis with tamponade hx or recurrent pneumonia r/o infectious, autoimmune, malignant, inflammatory may need pericardiocentesis empiric IV antibiotics
[2018-01-07] MEDS: Moxifloxacin IV 400mg/250ml NS 400 MG/250 ML BAG IVPB SCH (20:10)
--- NOTE | 2018-01-07 20:51 | CP.PCM.PN ---
Subjective - Date & Time of Evaluation Date of Evaluation: 01/07/18 Time of Evaluation: 20:51 - Subjective Subjective: H & P dictated # [id number] Objective - Vital Signs/Intake and Output Vital Signs (last 24 hours): Temp Pulse Resp BP Pulse Ox 97.9 F 97 H 43 H 110/62 99 01/07/18 16:30 01/07/18 19:36 01/07/18 19:36 01/07/18 19:36 01/07/18 19:36 Intake and Output: 01/07/18 01/08/18 18:59 06:59 Intake Total 1670 150 Output Total 200 Balance 1470 150 - Medications Medications: Current Medications Colchicine (Colocrys) 0.6 mg PO BID [facility] Last Admin: 01/07/18 18:56 Dose: 0.6 mg Sodium Chloride (Sodium Chloride 0.9%) 1,000 mls @ 150 mls/hr IV .Q6H40M [facility] Last Admin: 01/07/18 18:02 Dose: 150 mls/hr Moxifloxacin HCl (Avelox Iv 400mg/250ml Ns) 400 mg in 250 mls @ 167 mls/hr IVPB Q24H [facility]VE PRN Reason: Protocol Vancomycin/Sodium Chloride (Vancomycin 1 Gm/Ns 200 Ml) 1 gm in 200 mls @ 133 mls/hr IVPB Q12H [facility] PRN Reason: Protocol Stop: 01/13/18 04:31 Ibuprofen (Motrin Tab) 600 mg PO Q8H [facility] Last Admin: 01/07/18 17:32 Dose: 600 mg Pantoprazole Sodium (Protonix Ec Tab) 40 mg PO DAILY [facility] Last Admin: 01/07/18 17:33 Dose: 40 mg Vitamin A (Vitamin A & D Oint Ud Foilpak) 1 ea TOP Q8 PRN PRN Reason: Dry mouth - Labs Labs: 01/07/18 14:26 01/07/18 14:26 PT 17.0 SECONDS (9.7-12.2) H 01/07/18 15:19 INR 1.6 01/07/18 15:19 APTT 30 SECONDS (21-34) 01/07/18 15:19
[2018-01-07] MEDS: Vitamins A & D Oint UD Foilpak TOP PRN (21:00)
[2018-01-08 02:00] LABS: SQUAMOUS EPITHIAL 1 /hpf (0-5); URINE BILIRUBIN 1+ (NEGATIVE); URINE BLOOD 2+ (NEGATIVE); URINE CLARITY Hazy (Clear); URINE COLOR Amber (YELLOW); URINE GLUCOSE (UA) NORMAL (Normal); URINE LEUKOCYTE ESTERASE TRACE Leu/uL (Negative); URINE PROTEIN 1+ mg/dL (NEGATIVE)
[2018-01-08 02:01] LABS: IRON 19 ug/dL (49-181)
[2018-01-08 02:06] LABS: BARBITURATES, UR NEGATIVE (NEGATIVE); BENZODIAZEPINES, UR NEGATIVE (NEGATIVE); OPIATES, UR NEGATIVE (NEGATIVE); PHENCYCLIDINE, UR NEGATIVE (NEGATIVE)
[2018-01-08 02:09] LABS: COMPLEMENT C4 24.1 mg/dL (14.0-44.0)
[2018-01-08 02:12] LABS: % IRON SATURATION 9 (20-55); TOTAL IRON BINDING CAPACITY 206 ug/dL (250-450)
[2018-01-08 03:27] LABS: FOLATE 12.2 ng/mL
[2018-01-08] MEDS: Sodium Chloride 0.9% 1,000 ML IV SCH ×3 (05:00→17:11)
[2018-01-08] MEDS: Vancomycin 1 gm/NS 200 ml 1 GM/200 ML BAG IVPB SCH ×2 (05:30→17:11)
[2018-01-08 06:11] LABS: BASO # 0.5 K/uL (0.0-0.2); BASO % 1.4 % (0.0-2.0); HEMOGLOBIN 8.4 g/dL (12.0-18.0); LYMPH # 0.8 K/uL (1.0-4.3); LYMPH % 2.3 % (20.0-40.0); MEAN CORPUSCULAR HEMOGLOBIN 22.3 pg (27.0-31.0); MEAN CORPUSCULAR HGB CONC 32.3 g/dL (33.0-37.0); MEAN PLATELET VOLUME 7.8 fL (7.2-11.7); MONO # 1.6 K/uL (0.0-0.8); MONO % 4.6 % (0.0-10.0); NEUT # 31.9 K/uL (1.8-7.0); NEUT % 91.7 % (50.0-75.0); RBC 3.75 Mil/uL (4.40-5.90); RED CELL DISTRIBUTION WIDTH 17.1 % (11.5-14.5); WHITE BLOOD COUNT 34.8 K/uL (4.8-10.8)
[2018-01-08 06:15] LABS: PLATELET COUNT 541 K/uL (130-400)
[2018-01-08 06:24] LABS: INR 1.9; PROTHROMBIN TIME 20.8 SECONDS (9.7-12.2)
--- NOTE | 2018-01-08 06:31 | HP ---
Copied To: Luke Lu MD Attending MD: Luke Lu MD CHIEF COMPLAINT: Progressive worsening of chest pain, shortness of breath, orthopnea, and PND over the past three to four days. HISTORY OF PRESENT ILLNESS: Mr. Martinez is a 22-year-old male with past medical history of asthma since childhood, who was admitted to [facility] for pneumonia in the month of November. Initially, he was treated in the emergency room with Levaquin, and he went back to [facility] with failed outpatient therapy where the patient was admitted to the hospital for one week. He was given medications and kept in the hospital for a week and discharged home with Levaquin for five days. Until he completed the course of antibiotics, he was feeling okay for about two weeks, then he developed right knee swelling for which he was evaluated by primary care physician, who recommended him to follow up with Orthopedics because the swelling was more and he was not able to ambulate. He was again evaluated at the [facility] for right knee swelling about two weeks ago, and the patient was given pain medication. Then he started having cough with a [id number] sputum production for the past few days. Cough was progressively getting worse. Denies any fever, but complaining of dizziness, and for the past three to four days, his cough was worse and he developed sharp left-sided chest pain, worse with deep inspiration and gets better with a bending forward position. He also developed orthopnea, PND, not able to sleep at night, and diaphoresis which made him come to the emergency room today. He denies any fever, complaining of decreased appetite, and has been having dark urine. Denies any headache. Denies any nausea, vomiting, abdominal pain, diarrhea, or constipation. His right knee swelling has improved, and now there is no swelling. Denies any other joint swelling. Denies any joint pains or any other neurologic symptoms. In the emergency room, the patient was found to be tachypneic, tachycardic, and his chest x-ray was consistent with cardiomegaly, elevated D-dimers, elevated WBC count, and the patient is being admitted for further evaluation. PAST MEDICAL HISTORY: Asthma since childhood, bladder infection when he was in his teens. PAST SURGICAL HISTORY: Underwent some kind of skin surgery at age 4, unknown to him. FAMILY HISTORY: Diabetes mellitus in grandmother and hypertension in great grandmother. PERSONAL HISTORY: He is single, not , claims he is not sexually active. Lives with his aunt and uncle. He works at [employer]. SOCIAL HISTORY: Denies smoking, alcohol, or any drug abuse. ALLERGIES: HE IS ALLERGIC TO PENICILLIN. MEDICATIONS: His home medications include naproxen 500 mg daily, Ventolin inhaler as needed. REVIEW OF SYSTEMS: As described in history of present illness. All other systems reviewed and were found to be negative. PHYSICAL EXAMINATION: GENERAL: Young, thin-built male, lying in bed, in mild distress. VITAL SIGNS: Blood pressure is 110/62, pulse 97, respirations in 40s, O2 sats 99% on room air. HEENT: Pupils equal, round, reacting to light and accommodation. Extraocular muscles intact. No icterus. Slight pallor. No oral thrush. Dry mucous membranes. No pharyngeal congestion. NECK: Supple. No JVD. LUNGS: Bilateral vesicular breath sounds. No wheezing. Basal rhonchi heard. CVS: S1, S2 present, tachycardic. ABDOMEN: Soft and nontender. Bowel sounds present. No guarding. No rigidity. No rebound tenderness noted. COW RIDER: Alert, awake, and oriented x3. No focal deficits noted. EXTREMITIES: No edema. Palpable peripheral pulses. LABORATORY DATA: Labs done from the emergency room: WBC 30.9, hemoglobin 10.2, hematocrit 31.1, MCV 69.1, platelets 773, bands 9%, lactic acid 4.4. Hepatitis serology negative. HIV negative. Influenza A and B negative. Procalcitonin is 15.89. Troponin less than 0.0120. AST 316, ALT 190, alkaline phosphatase 339, total bilirubin 4.8. Calcium 9, glucose 150, creatinine 1.3, BUN 28, bicarb 22, chloride 95, potassium 5.4, sodium 137. Blood cultures sent from the ED. Chest x-ray consistent with left upper lobe perihilar infiltrate, secondary signs of atelectasis, volume loss. Echocardiogram shows large eccentric pericardial effusion, anterior more than posterior with fibrin density suggestive of an exudate. IVC plethora noted with spontaneous echogenic smoke noted in the right chamber, suggestive of stasis, slow flow. Right ventricle appears dilated in the short axis views with no evidence of collapse. Transvalvular space variation was indeterminate. There is no definitive evidence of tamponade. The left ventricle is normal in size and systolic function. Mild concentric thickening. Mild aortic sclerosis. Normal mitral valve. CT of the chest consistent with moderate pericardial effusion, loculated biconvex pleural fluid collection along the right posterior chest wall. Right lower lobe consolidation with left lower lobe consolidations, band-like atelectasis. ASSESSMENT: Young male with a history of asthma with recent history of pneumonia x2, admitted to [facility] in the month of November, was in the hospital for a week, was given Levaquin upon discharge for five days, developed right knee effusion, given anti-inflammatory medications with which his symptoms improved, came into the emergency room with three- to four-day history of sharp left-sided chest pain, pleuritic chest pain, orthopnea, paroxysmal nocturnal dyspnea , diaphoresis, and dizziness progressively getting worse over the past few days. In the emergency department, the patient was found to be tachycardic, tachypneic with elevated WBC counts, elevated bands, abnormal liver function test, and elevated D-dimer. The patient was given Solu-Medrol nebulizer treatments, and the patient underwent echocardiogram which showed pericardial effusion, and the patient is being admitted for further management. 1. Pericardial effusion. 2. Bilateral lower lobe infiltrates with loculated pleural effusion, rule out infectious versus inflammatory etiology. 3. Elevated white blood cell count with elevated procalcitonin and lactate level with tachycardia, tachypnea consistent with possible sepsis. 4. Anemia. 5. Thrombocytosis. 6. Abnormal liver function test. 7. History of asthma. PLAN: The patient is being admitted to ICU. We will monitor his respiratory status closely. The patient was given nebulizer treatments. We will continue with nebulizer treatments [id number]. Continue with fluid resuscitation. We will do serial cardiac enzymes. The patient is being started on colchicine and NSAIDs. Cardiothoracic Surgery and Cardiology consults were requested. Infectious Disease consult appreciated. The patient is being started on vancomycin and Avelox. We will obtain pulmonary evaluation. We will monitor liver function test. Hepatitis serology is negative. Viral titers were ordered. HIV is negative. We will check iron studies. We will give Protonix for GI prophylaxis. We will hold DVT prophylaxis as the patient is being scheduled for possible pericardiocentesis in a.m. We will keep the patient n.p.o. We will monitor the patient closely. We will add further recommendations as his clinical course progresses. Luke Lu MD
[2018-01-08 08:14] LABS: ANISOCYTOSIS SLIGHT; BANDS 9 % (0-2); HYPOCHROMIC MODERATE; LYMPHOCYTE 4 % (20-40); MONOCYTE 6 % (0-10); NEUTROPHIL 81 % (50-75); OVALOCYTES SLIGHT; PLATELET ESTIMATE INCREASED (NORMAL); POIKILOCYTOSIS SLIGHT; TOTAL CELLS COUNTED 100
[2018-01-08 08:15] LABS: BURR CELLS SLIGHT; TARGET CELLS SLIGHT
--- NOTE | 2018-01-08 08:28 | RAD ---
Date of service: 01/08/2018 HISTORY: pneumonia, pericardial effusion COMPARISON: 01/07/2018. FINDINGS: LUNGS: The lungs are well inflated. There is hazy opacity in the perihilar regions. PLEURA: No significant pleural effusion identified, no pneumothorax apparent. CARDIOVASCULAR: Persistent cardiomegaly with globular appearance of the heart consistent with known pericardial effusion. OSSEOUS STRUCTURES: No significant abnormalities. VISUALIZED UPPER ABDOMEN: Normal. OTHER FINDINGS: None. IMPRESSION: Cardiomegaly and developing pulmonary edema.
[2018-01-08 08:47] LABS: ALB/GLOB RATIO 1.2 (1.0-2.1); ALBUMIN 2.9 g/dL (3.5-5.0); ALT/SGPT 560 U/L (21-72); AST/SGOT 681 U/L (17-59); BLOOD UREA NITROGEN 25 mg/dL (9-20); CALCIUM 8.4 mg/dl (8.6-10.4); GFR AFRICAN-AMERICAN > 60; GFR NON-AFRICAN AMERICAN > 60
--- NOTE | 2018-01-08 09:59 | CP.CCUPN ---
<Bari Batista - Last Filed: 01/08/18 13:11> CCU Subjective - Physician Review Subjective (Free Text): Bari Batista DO PGY-1, ICU progress note for Dr. Marlene Sadler Pt was seen and examined at bedside. Pt states that he feels slightly better than yesterday. Pt continues to complain of left sided chest pain that does not radiate and is worse with coughing and improved with leaning forward. Pt denies fever, chills, lightheadedness, weakness, numbness or tingling, shortness of breath, abdominal pain, n/v/d. Overnight, Pt's blood pressure has been stable and his oxygen saturation has been >95 % on 3L NC. A 12 point ROS was reviewed and is otherwise unremarkable. CCU Objective - Vital Signs / Intake & Output Vital Signs (Last 4 hours): Vital Signs Temp Pulse Resp BP Pulse Ox 01/08/18 08:10 86 46 H 100 01/08/18 08:06 83 35 H 106/52 L 100 01/08/18 08:05 83 38 H 109/61 100 01/08/18 08:04 81 39 H 110/60 100 01/08/18 08:00 77 33 H 100 01/08/18 07:50 80 34 H 100 01/08/18 07:48 82 37 H 108/61 100 01/08/18 07:40 71 32 H 100 01/08/18 07:36 82 32 H 113/70 100 01/08/18 07:30 77 35 H 100 01/08/18 07:20 77 35 H 99 01/08/18 07:10 82 39 H 100 01/08/18 07:00 82 39 H 100 01/08/18 06:50 79 31 H 100 01/08/18 06:41 80 35 H 105/60 100 01/08/18 06:40 83 39 H 100 01/08/18 06:30 88 37 H 100 01/08/18 06:20 78 33 H 100 01/08/18 06:10 81 40 H 100 01/08/18 06:00 97.9 F 90 29 H 105/60 100 Intake and Output (Last 8hrs): Intake & Output 01/07/18 01/08/18 01/08/18 22:59 06:59 14:59 Intake Total 2270 1250 300 Output Total 500 750 0 Balance 1770 500 300 Weight 69.853 kg 75 kg Intake: Intake, IV Amount 2150 1250 300 Left AC 400 Left Antecubital 1750 1250 300 Oral 120 0 Output: Urine 500 750 Urine, Voided 500 750 Emesis 0 Other: # Voids Urine, Voided 1 1 # Bowel Movements 1 0 - Physical Exam Head: Positive for: Atraumatic, Normocephalic Pupils: Positive for: PERRL Extroacular Muscles: Positive for: EOMI Conjunctiva: Positive for: Normal Mouth: Positive for: Moist Mucous Membranes Neck: Positive for: Normal Range of Motion Respiratory/Chest: Positive for: Clear to Auscultation. Negative for: Respiratory Distress (tachypnea in the 30s), Accessory Muscle Use, Wheezes Cardiovascular: Positive for: Regular Rate and Rhythm, Normal S1, S2. Negative for: Murmurs Abdomen: Positive for: Tenderness (diffuse chest pain on palpation of abdomen), Normal Bowel Sounds, Guarding Upper Extremity: Positive for: Normal Inspection, NORMAL PULSES. Negative for: Edema Lower Extremity: Positive for: Normal Inspection, NORMAL PULSES. Negative for: Edema, CALF TENDERNESS Neurological: Positive for: GCS=15, CN II-XII Intact, Speech Normal Skin: Positive for: Warm, Dry, Normal Color Psychiatric: Positive for: Alert, Oriented x 3 - Medications Active Medications: Active Medications Generic Name Dose Route Start Last Admin Trade Name Freq PRN Reason Stop Dose Admin Colchicine 0.6 mg 01/07/18 18:00 01/07/18 18:[address] Colocrys PO 0.[address] Administration Sodium Chloride 1,000 mls @ 150 mls/hr 01/07/18 19:00 01/08/18 05:00 Sodium Chloride 0.9% IV 150 mls/hr .[id number] AVE Administration Moxifloxacin HCl 400 mg in 250 mls @ 167 mls/hr 01/07/18 20:00 01/07/18 20:10 Avelox Iv 400mg/250ml Ns IVPB Not Given Q24H AVE Protocol Vancomycin/Sodium Chloride 1 gm in 200 mls @ 133 mls/hr 01/08/18 04:30 05:30 Vancomycin 1 Gm/Ns 200 Ml IVPB 01/13/18 04:31 133 mls/hr Q12H AVE Administration Protocol Ibuprofen 600 mg 01/07/18 15:30 01/08/18 07:30 Motrin Tab PO Not Given Q8H AVE Pantoprazole Sodium 40 mg 01/07/18 15:30 01/07/18 17:33 Protonix Ec Tab PO [address] Administration Vitamin A 1 ea 01/07/18 20:44 01/07/18 21:00 Vitamin A & D Oint Ud Foilpak TOP 1 ea Q8 PRN Administration Dry mouth - Patient Studies Lab Studies: Microbiology Studies 01/07/18 14:59 Gram Stain - Final Blood 01/07/18 14:59 Gram Stain - Final Blood Lab Studies 01/08/18 01/08/18 01/08/18 Range/Units 08:27 08:13 06:55 WBC (4.8-10.8) K/uL RBC (4.40-5.90) Mil/uL Hgb (12.0-18.0) g/dL Hct (35.0-51.0) % MCV (80.0-94.0) fL MCH (27.0-31.0) pg MCHC (33.0-37.0) g/dL RDW (11.5-14.5) % Plt Count (130-400) K/uL MPV (7.2-11.7) fL Neut % (Auto) (50.0-75.0) % Lymph % (Auto) (20.0-40.0) % [place] % (Auto) (0.0-10.0) % Eos % (Auto) (0.0-4.0) % Baso % (Auto) (0.0-2.0) % Neut # (Auto) (1.8-7.0) K/uL Lymph # (Auto) (1.0-4.3) K/uL [place] # (Auto) (0.0-0.8) K/uL Eos # (Auto) (0.0-0.7) K/uL Baso # (Auto) (0.0-0.2) K/uL Neutrophils % (Manual) (50-75) % Band Neutrophils % (0-2) % Lymphocytes % (Manual) (20-40) % Monocytes % (Manual) (0-10) % Platelet Estimate (NORMAL) Hypochromasia (manual) Poikilocytosis (manual Anisocytosis (manual) Microcytosis (manual) Target Cells Ovalocytes [place] Cells Retic Count (0.5-1.5) % PT (9.7-12.2) SECONDS INR APTT (21-34) SECONDS D-Dimer, Quantitative (0-243) ng/mlDDU pO2 (30-55) mm/Hg VBG pH (7.32-7.43) VBG pCO2 (40-60) mmHg VBG HCO3 mmol/L VBG Total CO2 (22-28) mmol/L VBG O2 Sat (Calc) (40-65) % VBG Base Excess (0.0-2.0) mmol/L VBG Potassium (3.6-5.2) mmol/L Glucose (75-110) mg/dl Lactate (0.7-2.1) mmol/L Sodium 137 (132-148) mmol/L Potassium 5.3 H (3.6-5.2) mmol/L Chloride 104 (98-107) mmol/L Carbon Dioxide 22 (22-30) mmol/L Anion Gap 17 (10-20) BUN 25 H (9-20) mg/dL Creatinine 0.8 (0.8-1.5) mg/dL Est GFR ( Amer) > 60 Est GFR (Non-Af Amer) > 60 Random Glucose 120 H (75-110) mg/dL Hemoglobin A1c (4.2-6.5) % Lactic Acid (0.7-2.1) mmol/L Calcium 8.4 L (8.6-10.4) mg/dl Phosphorus 3.7 (2.5-4.5) mg/dL Magnesium 2.1 (1.6-2.3) mg/dL Iron (49-181) ug/dL TIBC (250-450) ug/dL % Saturation (20-55) Ferritin ng/mL Total Bilirubin 1.7 H (0.2-1.3) mg/dL AST 681 H D (17-59) U/L ALT 560 H D (21-72) U/L Alkaline Phosphatase 272 H (38-126) U/L Troponin I < 0.0120 (0.00-0.120) ng/mL Total Protein 5.4 L (6.3-8.3) g/dL Albumin 2.9 L (3.5-5.0) g/dL Globulin 2.5 (2.2-3.9) gm/dL Albumin/Globulin Ratio 1.2 (1.0-2.1) Vitamin B12 (239-931) pg/mL Folate ng/mL Procalcitonin (0.19-0.49) NG/ML Venous Blood Potassium (3.6-5.2) mmol/L Urine Color (YELLOW) Urine Clarity (Clear) Urine pH (5.0-8.0) Ur Specific [place] (1.003-1.030) Urine Protein (NEGATIVE) mg/dL Urine Glucose (UA) (Normal) mg/dL Urine Ketones (NEGATIVE) mg/dL Urine Blood (NEGATIVE) Urine Nitrate (NEGATIVE) Urine Bilirubin (NEGATIVE) Urine Urobilinogen (0.2-1.0) mg/dL Ur Leukocyte Esterase (Negative) Chapis/uL Urine WBC (Auto) (0-5) /hpf Urine RBC (Auto) (0-3) /hpf Ur Squamous Epith Cells (0-5) /hpf Hyaline Casts (0-2) /lpf Urine Opiates Screen (NEGATIVE) Urine Methadone Screen (NEGATIVE) Ur Barbiturates Screen (NEGATIVE) Ur Phencyclidine Scrn (NEGATIVE) Ur Amphetamines Screen (NEGATIVE) U Benzodiazepines Scrn (NEGATIVE) U Oth Cocaine Metabols (NEGATIVE) U Cannabinoids Screen (NEGATIVE) Complement C3 (88.0-165.0) mg/dL Complement C4 (14.0-44.0) mg/dL Hepatitis A IgM Ab (NEGATIVE) Hep Bs Antigen (NEGATIVE) Hep B Core IgM Ab (NEGATIVE) Hepatitis C Antibody (NEGATIVE) HIV 1&2 Antibody Screen (NEGATIVE) Influenza Typ A,B (EIA) (NEGATIVE) Grp A Beta Strep Ag Negative (NEGATIVE) Blood Type O POSITIVE Antibody Screen Negative 01/08/18 01/08/18 01/08/18 Range/Units 06:06 06:06 06:06 WBC (4.8-10.8) K/uL RBC (4.40-5.90) Mil/uL Hgb (12.0-18.0) g/dL Hct (35.0-51.0) % MCV (80.0-94.0) fL MCH (27.0-31.0) pg MCHC (33.0-37.0) g/dL RDW (11.5-14.5) % Plt Count (130-400) K/uL MPV (7.2-11.7) fL Neut % (Auto) (50.0-75.0) % Lymph % (Auto) (20.0-40.0) % [place] % (Auto) (0.0-10.0) % Eos % (Auto) (0.0-4.0) % Baso % (Auto) (0.0-2.0) % Neut # (Auto) (1.8-7.0) K/uL Lymph # (Auto) (1.0-4.3) K/uL [place] # (Auto) (0.0-0.8) K/uL Eos # (Auto) (0.0-0.7) K/uL Baso # (Auto) (0.0-0.2) K/uL Neutrophils % (Manual) (50-75) % Band Neutrophils % (0-2) % Lymphocytes % (Manual) (20-40) % Monocytes % (Manual) (0-10) % Platelet Estimate (NORMAL) Hypochromasia (manual) Poikilocytosis (manual Anisocytosis (manual) Microcytosis (manual) Target Cells Ovalocytes [place] Cells Retic Count 2.3 H (0.5-1.5) % PT (9.7-12.2) SECONDS INR APTT (21-34) SECONDS D-Dimer, Quantitative (0-243) ng/mlDDU pO2 (30-55) mm/Hg VBG pH (7.32-7.43) VBG pCO2 (40-60) mmHg VBG HCO3 mmol/L VBG Total CO2 (22-28) mmol/L VBG O2 Sat (Calc) (40-65) % VBG Base Excess (0.0-2.0) mmol/L VBG Potassium (3.6-5.2) mmol/L Glucose (75-110) mg/dl Lactate (0.7-2.1) mmol/L Sodium (132-148) mmol/L Potassium (3.6-5.2) mmol/L Chloride (98-107) mmol/L Carbon Dioxide (22-30) mmol/L Anion Gap (10-20) BUN (9-20) mg/dL Creatinine (0.8-1.5) mg/dL Est GFR ( Amer) Est GFR (Non-Af Amer) Random Glucose (75-110) mg/dL Hemoglobin A1c 6.3 (4.2-6.5) % Lactic Acid 2.5 H (0.7-2.1) mmol/L Calcium (8.6-10.4) mg/dl Phosphorus (2.5-4.5) mg/dL Magnesium (1.6-2.3) mg/dL Iron (49-181) ug/dL TIBC (250-450) ug/dL % Saturation (20-55) Ferritin ng/mL Total Bilirubin (0.2-1.3) mg/dL AST (17-59) U/L ALT (21-72) U/L Alkaline Phosphatase (38-126) U/L Troponin I (0.00-0.120) ng/mL Total Protein (6.3-8.3) g/dL Albumin (3.5-5.0) g/dL Globulin (2.2-3.9) gm/dL Albumin/Globulin Ratio (1.0-2.1) Vitamin B12 (239-931) pg/mL Folate ng/mL Procalcitonin (0.19-0.49) NG/ML Venous Blood Potassium (3.6-5.2) mmol/L Urine Color (YELLOW) Urine Clarity (Clear) Urine pH (5.0-8.0) Ur Specific [place] (1.003-1.030) Urine Protein (NEGATIVE) mg/dL Urine Glucose (UA) (Normal) mg/dL Urine Ketones (NEGATIVE) mg/dL Urine Blood (NEGATIVE) Urine Nitrate (NEGATIVE) Urine Bilirubin (NEGATIVE) Urine Urobilinogen (0.2-1.0) mg/dL Ur Leukocyte Esterase (Negative) Chap[place]/uL Urine WBC (Auto) (0-5) /hpf Urine RBC (Auto) (0-3) /hpf Ur Squamous Epith Cells (0-5) /hpf Hyaline Casts (0-2) /lpf Urine Opiates Screen (NEGATIVE) Urine Methadone Screen (NEGATIVE) Ur Barbiturates Screen (NEGATIVE) Ur Phencyclidine Scrn (NEGATIVE) Ur Amphetamines Screen (NEGATIVE) U Benzodiazepines Scrn (NEGATIVE) U Oth Cocaine Metabols (NEGATIVE) U Cannabinoids Screen (NEGATIVE) Complement C3 (88.0-165.0) mg/dL Complement C4 (14.0-44.0) mg/dL Hepatitis A IgM Ab (NEGATIVE) Hep Bs Antigen (NEGATIVE) Hep B Core IgM Ab (NEGATIVE) Hepatitis C Antibody (NEGATIVE) HIV 1&2 Antibody Screen (NEGATIVE) Influenza Typ A,B (EIA) (NEGATIVE) Grp A Beta Strep Ag (NEGATIVE) Blood Type Antibody Screen 01/08/18 01/08/18 01/08/18 Range/Units 06:06 06:06 02:47 WBC 34.8 H (4.8-10.8) K/uL RBC 3.75 L (4.40-5.90) Mil/uL Hgb 8.4 L (12.0-18.0) g/dL Hct 25.9 L (35.0-51.0) % MCV 69.0 L (80.0-94.0) fL MCH 22.3 L (27.0-31.0) pg MCHC 32.3 L (33.0-37.0) g/dL RDW 17.1 H (11.5-14.5) % Plt Count 541 H D (130-400) K/uL MPV 7.8 (7.2-11.7) fL Neut % (Auto) 91.7 H (50.0-75.0) % Lymph % (Auto) 2.3 L (20.0-40.0) % [place] % (Auto) 4.6 (0.0-10.0) % Eos % (Auto) 0.0 (0.0-4.0) % Baso % (Auto) 1.4 (0.0-2.0) % Neut # (Auto) 31.9 H (1.8-7.0) K/uL Lymph # (Auto) 0.8 L (1.0-4.3) K/uL [place] # (Auto) 1.6 H (0.0-0.8) K/uL Eos # (Auto) 0.0 (0.0-0.7) K/uL Baso # (Auto) 0.5 H (0.0-0.2) K/uL Neutrophils % (Manual) 81 H (50-75) % Band Neutrophils % 9 H (0-2) % Lymphocytes % (Manual) 4 L (20-40) % Monocytes % (Manual) 6 (0-10) % Platelet Estimate Increased H (NORMAL) Hypochromasia (manual) Moderate Poikilocytosis (manual Slight Anisocytosis (manual) Slight Microcytosis (manual) Target Cells Slight Ovalocytes Slight [place] Cells Slight Retic Count (0.5-1.5) % PT 20.8 H (9.7-12.2) SECONDS INR 1.9 APTT 20 L D (21-34) SECONDS D-Dimer, Quantitative (0-243) ng/mlDDU pO2 (30-55) mm/Hg VBG pH (7.32-7.43) VBG pCO2 (40-60) mmHg VBG HCO3 mmol/L VBG Total CO2 (22-28) mmol/L VBG O2 Sat (Calc) (40-65) % VBG Base Excess (0.0-2.0) mmol/L VBG Potassium (3.6-5.2) mmol/L Glucose (75-110) mg/dl Lactate (0.7-2.1) mmol/L Sodium (132-148) mmol/L Potassium (3.6-5.2) mmol/L Chloride (98-107) mmol/L Carbon Dioxide (22-30) mmol/L Anion Gap (10-20) BUN (9-20) mg/dL Creatinine (0.8-1.5) mg/dL Est GFR ( Amer) Est GFR (Non-Af Amer) Random Glucose (75-110) mg/dL Hemoglobin A1c (4.2-6.5) % Lactic Acid (0.7-2.1) mmol/L Calcium (8.6-10.4) mg/dl Phosphorus (2.5-4.5) mg/dL Magnesium (1.6-2.3) mg/dL Iron (49-181) ug/dL TIBC (250-450) ug/dL % Saturation (20-55) Ferritin ng/mL Total Bilirubin (0.2-1.3) mg/dL AST (17-59) U/L ALT (21-72) U/L Alkaline Phosphatase (38-126) U/L Troponin I < 0.0120 (0.00-0.120) ng/mL Total Protein (6.3-8.3) g/dL Albumin (3.5-5.0) g/dL Globulin (2.2-3.9) gm/dL Albumin/Globulin Ratio (1.0-2.1) Vitamin B12 (239-931) pg/mL Folate ng/mL Procalcitonin (0.19-0.49) NG/ML Venous Blood Potassium (3.6-5.2) mmol/L Urine Color (YELLOW) Urine Clarity (Clear) Urine pH (5.0-8.0) Ur Specific [place] (1.003-1.030) Urine Protein (NEGATIVE) mg/dL Urine Glucose (UA) (Normal) mg/dL Urine Ketones (NEGATIVE) mg/dL Urine Blood (NEGATIVE) Urine Nitrate (NEGATIVE) Urine Bilirubin (NEGATIVE) Urine Urobilinogen (0.2-1.0) mg/dL Ur Leukocyte Esterase (Negative) Chapis/uL Urine WBC (Auto) (0-5) /hpf Urine RBC (Auto) (0-3) /hpf Ur Squamous Epith Cells (0-5) /hpf Hyaline Casts (0-2) /lpf Urine Opiates Screen (NEGATIVE) Urine Methadone Screen (NEGATIVE) Ur Barbiturates Screen (NEGATIVE) Ur Phencyclidine Scrn (NEGATIVE) Ur Amphetamines Screen (NEGATIVE) U Benzodiazepines Scrn (NEGATIVE) U Oth Cocaine Metabols (NEGATIVE) U Cannabinoids Screen (NEGATIVE) Complement C3 (88.0-165.0) mg/dL Complement C4 (14.0-44.0) mg/dL Hepatitis A IgM Ab (NEGATIVE) Hep Bs Antigen (NEGATIVE) Hep B Core IgM Ab (NEGATIVE) Hepatitis C Antibody (NEGATIVE) HIV 1&2 Antibody Screen (NEGATIVE) Influenza Typ A,B (EIA) (NEGATIVE) Grp A Beta Strep Ag (NEGATIVE) Blood Type Antibody Screen 01/08/18 01/08/18 01/08/18 Range/Units 01:40 01:40 01:40 WBC (4.8-10.8) K/uL RBC (4.40-5.90) Mil/uL Hgb (12.0-18.0) g/dL Hct (35.0-51.0) % MCV (80.0-94.0) fL MCH (27.0-31.0) pg MCHC (33.0-37.0) g/dL RDW (11.5-14.5) % Plt Count (130-400) K/uL MPV (7.2-11.7) fL Neut % (Auto) (50.0-75.0) % Lymph % (Auto) (20.0-40.0) % [place] % (Auto) (0.0-10.0) % Eos % (Auto) (0.0-4.0) % Baso % (Auto) (0.0-2.0) % Neut # (Auto) (1.8-7.0) K/uL Lymph # (Auto) (1.0-4.3) K/uL [place] # (Auto) (0.0-0.8) K/uL Eos # (Auto) (0.0-0.7) K/uL Baso # (Auto) (0.0-0.2) K/uL Neutrophils % (Manual) (50-75) % Band Neutrophils % (0-2) % Lymphocytes % (Manual) (20-40) % Monocytes % (Manual) (0-10) % Platelet Estimate (NORMAL) Hypochromasia (manual) Poikilocytosis (manual Anisocytosis (manual) Microcytosis (manual) Target Cells Ovalocytes [place] Cells Retic Count (0.5-1.5) % PT (9.7-12.2) SECONDS INR APTT (21-34) SECONDS D-Dimer, Quantitative (0-243) ng/mlDDU pO2 (30-55) mm/Hg VBG pH (7.32-7.43) VBG pCO2 (40-60) mmHg VBG HCO3 mmol/L VBG Total CO2 (22-28) mmol/L VBG O2 Sat (Calc) (40-65) % VBG Base Excess (0.0-2.0) mmol/L VBG Potassium (3.6-5.2) mmol/L Glucose (75-110) mg/dl Lactate (0.7-2.1) mmol/L Sodium (132-148) mmol/L Potassium (3.6-5.2) mmol/L Chloride (98-107) mmol/L Carbon Dioxide (22-30) mmol/L Anion Gap (10-20) BUN (9-20) mg/dL Creatinine (0.8-1.5) mg/dL Est GFR ( Amer) Est GFR (Non-Af Amer) Random Glucose (75-110) mg/dL Hemoglobin A1c (4.2-6.5) % Lactic Acid 2.9 H (0.7-2.1) mmol/L Calcium (8.6-10.4) mg/dl Phosphorus (2.5-4.5) mg/dL Magnesium (1.6-2.3) mg/dL Iron (49-181) ug/dL TIBC (250-450) ug/dL % Saturation (20-55) Ferritin ng/mL Total Bilirubin (0.2-1.3) mg/dL AST (17-59) U/L ALT (21-72) U/L Alkaline Phosphatase (38-126) U/L Troponin I (0.00-0.120) ng/mL Total Protein (6.3-8.3) g/dL Albumin (3.5-5.0) g/dL Globulin (2.2-3.9) gm/dL Albumin/Globulin Ratio (1.0-2.1) Vitamin B12 (239-931) pg/mL Folate ng/mL Procalcitonin (0.19-0.49) NG/ML Venous Blood Potassium (3.6-5.2) mmol/L Urine Color (YELLOW) Urine Clarity (Clear) Urine pH (5.0-8.0) Ur Specific [place] (1.003-1.030) Urine Protein (NEGATIVE) mg/dL Urine Glucose (UA) (Normal) mg/dL Urine Ketones (NEGATIVE) mg/dL Urine Blood (NEGATIVE) Urine Nitrate (NEGATIVE) Urine Bilirubin (NEGATIVE) Urine Urobilinogen (0.2-1.0) mg/dL Ur Leukocyte Esterase (Negative) Chapis/uL Urine WBC (Auto) (0-5) /hpf Urine RBC (Auto) (0-3) /hpf Ur Squamous Epith Cells (0-5) /hpf Hyaline Casts (0-2) /lpf Urine Opiates Screen Negative (NEGATIVE) Urine Methadone Screen Negative (NEGATIVE) Ur Barbiturates Screen Negative (NEGATIVE) Ur Phencyclidine Scrn Negative (NEGATIVE) Ur Amphetamines Screen Negative (NEGATIVE) U Benzodiazepines Scrn Negative (NEGATIVE) U Oth Cocaine Metabols Negative (NEGATIVE) U Cannabinoids Screen Negative (NEGATIVE) Complement C3 101.0 (88.0-165.0) mg/dL Complement C4 24.1 (14.0-44.0) mg/dL Hepatitis A IgM Ab (NEGATIVE) Hep Bs Antigen (NEGATIVE) Hep B Core IgM Ab (NEGATIVE) Hepatitis C Antibody (NEGATIVE) HIV 1&2 Antibody Screen (NEGATIVE) Influenza Typ A,B (EIA) (NEGATIVE) Grp A Beta Strep Ag (NEGATIVE) Blood Type Antibody Screen 01/08/18 01/08/18 01/07/18 Range/Units 01:40 01:40 23:11 WBC (4.8-10.8) K/uL RBC (4.40-5.90) Mil/uL Hgb (12.0-18.0) g/dL Hct (35.0-51.0) % MCV (80.0-94.0) fL MCH (27.0-31.0) pg MCHC (33.0-37.0) g/dL RDW (11.5-14.5) % Plt Count (130-400) K/uL MPV (7.2-11.7) fL Neut % (Auto) (50.0-75.0) % Lymph % (Auto) (20.0-40.0) % [place] % (Auto) (0.0-10.0) % Eos % (Auto) (0.0-4.0) % Baso % (Auto) (0.0-2.0) % Neut # (Auto) (1.8-7.0) K/uL Lymph # (Auto) (1.0-4.3) K/uL [place] # (Auto) (0.0-0.8) K/uL Eos # (Auto) (0.0-0.7) K/uL Baso # (Auto) (0.0-0.2) K/uL Neutrophils % (Manual) (50-75) % Band Neutrophils % (0-2) % Lymphocytes % (Manual) (20-40) % Monocytes % (Manual) (0-10) % Platelet Estimate (NORMAL) Hypochromasia (manual) Poikilocytosis (manual Anisocytosis (manual) Microcytosis (manual) Target Cells Ovalocytes [place] Cells Retic Count (0.5-1.5) % PT (9.7-12.2) SECONDS INR APTT (21-34) SECONDS D-Dimer, Quantitative (0-243) ng/mlDDU pO2 (30-55) mm/Hg VBG pH (7.32-7.43) VBG pCO2 (40-60) mmHg VBG HCO3 mmol/L VBG Total CO2 (22-28) mmol/L VBG O2 Sat (Calc) (40-65) % VBG Base Excess (0.0-2.0) mmol/L VBG Potassium (3.6-5.2) mmol/L Glucose (75-110) mg/dl Lactate (0.7-2.1) mmol/L Sodium (132-148) mmol/L Potassium (3.6-5.2) mmol/L Chloride (98-107) mmol/L Carbon Dioxide (22-30) mmol/L Anion Gap (10-20) BUN (9-20) mg/dL Creatinine (0.8-1.5) mg/dL Est GFR ( Amer) Est GFR (Non-Af Amer) Random Glucose (75-110) mg/dL Hemoglobin A1c (4.2-6.5) % Lactic Acid (0.7-2.1) mmol/L Calcium (8.6-10.4) mg/dl Phosphorus (2.5-4.5) mg/dL Magnesium (1.6-2.3) mg/dL Iron 19 L (49-181) ug/dL TIBC 206 L (250-450) ug/dL % Saturation 9 L (20-55) Ferritin 1570.0 ng/mL Total Bilirubin (0.2-1.3) mg/dL AST (17-59) U/L ALT (21-72) U/L Alkaline Phosphatase (38-126) U/L Troponin I (0.00-0.120) ng/mL Total Protein (6.3-8.3) g/dL Albumin (3.5-5.0) g/dL Globulin (2.2-3.9) gm/dL Albumin/Globulin Ratio (1.0-2.1) Vitamin B12 846 (239-931) pg/mL Folate 12.2 ng/mL Procalcitonin (0.19-0.49) NG/ML Venous Blood Potassium (3.6-5.2) mmol/L Urine Color [place] (YELLOW) Urine Clarity Hazy (Clear) Urine pH 5.0 (5.0-8.0) Ur Specific [place] 1.027 (1.003-1.030) Urine Protein 1+ H (NEGATIVE) mg/dL Urine Glucose (UA) Normal (Normal) mg/dL Urine Ketones Negative (NEGATIVE) mg/dL Urine Blood 2+ H (NEGATIVE) Urine Nitrate Negative (NEGATIVE) Urine Bilirubin 1+ H (NEGATIVE) Urine Urobilinogen 4.0 (0.2-1.0) mg/dL Ur Leukocyte Esterase Trace (Negative) [place]/uL Urine WBC (Auto) 7 H (0-5) /hpf Urine RBC (Auto) 41 H (0-3) /hpf Ur Squamous Epith Cells 1 (0-5) /hpf Hyaline Casts 11-20 H (0-2) /lpf Urine Opiates Screen (NEGATIVE) Urine Methadone Screen (NEGATIVE) Ur Barbiturates Screen (NEGATIVE) Ur Phencyclidine Scrn (NEGATIVE) Ur Amphetamines Screen (NEGATIVE) U Benzodiazepines Scrn (NEGATIVE) U Oth Cocaine Metabols (NEGATIVE) U Cannabinoids Screen (NEGATIVE) Complement C3 (88.0-165.0) mg/dL Complement C4 (14.0-44.0) mg/dL Hepatitis A IgM Ab (NEGATIVE) Hep Bs Antigen (NEGATIVE) Hep B Core IgM Ab (NEGATIVE) Hepatitis C Antibody (NEGATIVE) HIV 1&2 Antibody Screen (NEGATIVE) Influenza Typ A,B (EIA) (NEGATIVE) Grp A Beta Strep Ag (NEGATIVE) Blood Type Antibody Screen 01/07/18 01/07/18 01/07/18 Range/Units 21:36 20:57 20:57 WBC (4.8-10.8) K/uL RBC (4.40-5.90) Mil/uL Hgb (12.0-18.0) g/dL Hct (35.0-51.0) % MCV (80.0-94.0) fL MCH (27.0-31.0) pg MCHC (33.0-37.0) g/dL RDW (11.5-14.5) % Plt Count (130-400) K/uL MPV (7.2-11.7) fL Neut % (Auto) (50.0-75.0) % Lymph % (Auto) (20.0-40.0) % [place] % (Auto) (0.0-10.0) % Eos % (Auto) (0.0-4.0) % Baso % (Auto) (0.0-2.0) % Neut # (Auto) (1.8-7.0) K/uL Lymph # (Auto) (1.0-4.3) K/uL [place] # (Auto) (0.0-0.8) K/uL Eos # (Auto) (0.0-0.7) K/uL Baso # (Auto) (0.0-0.2) K/uL Neutrophils % (Manual) (50-75) % Band Neutrophils % (0-2) % Lymphocytes % (Manual) (20-40) % Monocytes % (Manual) (0-10) % Platelet Estimate (NORMAL) Hypochromasia (manual) Poikilocytosis (manual Anisocytosis (manual) Microcytosis (manual) Target Cells Ovalocytes [place] Cells Retic Count (0.5-1.5) % PT (9.7-12.2) SECONDS INR APTT (21-34) SECONDS D-Dimer, Quantitative (0-243) ng/mlDDU pO2 (30-55) mm/Hg VBG pH (7.32-7.43) VBG pCO2 (40-60) mmHg VBG HCO3 mmol/L VBG Total CO2 (22-28) mmol/L VBG O2 Sat (Calc) (40-65) % VBG Base Excess (0.0-2.0) mmol/L VBG Potassium (3.6-5.2) mmol/L Glucose (75-110) mg/dl Lactate (0.7-2.1) mmol/L Sodium (132-148) mmol/L Potassium (3.6-5.2) mmol/L Chloride (98-107) mmol/L Carbon Dioxide (22-30) mmol/L Anion Gap (10-20) BUN (9-20) mg/dL Creatinine (0.8-1.5) mg/dL Est GFR ( Amer) Est GFR (Non-Af Amer) Random Glucose (75-110) mg/dL Hemoglobin A1c (4.2-6.5) % Lactic Acid 3.2 H (0.7-2.1) mmol/L Calcium (8.6-10.4) mg/dl Phosphorus (2.5-4.5) mg/dL Magnesium (1.6-2.3) mg/dL Iron (49-181) ug/dL TIBC (250-450) ug/dL % Saturation (20-55) Ferritin ng/mL Total Bilirubin (0.2-1.3) mg/dL AST (17-59) U/L ALT (21-72) U/L Alkaline Phosphatase (38-126) U/L Troponin I (0.00-0.120) ng/mL Total Protein (6.3-8.3) g/dL Albumin (3.5-5.0) g/dL Globulin (2.2-3.9) gm/dL Albumin/Globulin Ratio (1.0-2.1) Vitamin B12 (239-931) pg/mL Folate ng/mL Procalcitonin 15.89 H (0.19-0.49) NG/ML Venous Blood Potassium (3.6-5.2) mmol/L Urine Color (YELLOW) Urine Clarity (Clear) Urine pH (5.0-8.0) Ur Specific [place] (1.003-1.030) Urine Protein (NEGATIVE) mg/dL Urine Glucose (UA) (Normal) mg/dL Urine Ketones (NEGATIVE) mg/dL Urine Blood (NEGATIVE) Urine Nitrate (NEGATIVE) Urine Bilirubin (NEGATIVE) Urine Urobilinogen (0.2-1.0) mg/dL Ur Leukocyte Esterase (Negative) [place]/uL Urine WBC (Auto) (0-5) /hpf Urine RBC (Auto) (0-3) /hpf Ur Squamous Epith Cells (0-5) /hpf Hyaline Casts (0-2) /lpf Urine Opiates Screen (NEGATIVE) Urine Methadone Screen (NEGATIVE) Ur Barbiturates Screen (NEGATIVE) Ur Phencyclidine Scrn (NEGATIVE) Ur Amphetamines Screen (NEGATIVE) U Benzodiazepines Scrn (NEGATIVE) U Oth Cocaine Metabols (NEGATIVE) U Cannabinoids Screen (NEGATIVE) Complement C3 (88.0-165.0) mg/dL Complement C4 (14.0-44.0) mg/dL Hepatitis A IgM Ab (NEGATIVE) Hep Bs Antigen (NEGATIVE) Hep B Core IgM Ab (NEGATIVE) Hepatitis C Antibody (NEGATIVE) HIV 1&2 Antibody Screen Negative (NEGATIVE) Influenza Typ A,B (EIA) (NEGATIVE) Grp A Beta Strep Ag (NEGATIVE) Blood Type Antibody Screen 01/07/18 01/07/18 01/07/18 Range/Units 17:56 17:46 17:46 WBC (4.8-10.8) K/uL RBC (4.40-5.90) Mil/uL Hgb (12.0-18.0) g/dL Hct (35.0-51.0) % MCV (80.0-94.0) fL MCH (27.0-31.0) pg MCHC (33.0-37.0) g/dL RDW (11.5-14.5) % Plt Count (130-400) K/uL MPV (7.2-11.7) fL Neut % (Auto) (50.0-75.0) % Lymph % (Auto) (20.0-40.0) % [place] % (Auto) (0.0-10.0) % Eos % (Auto) (0.0-4.0) % Baso % (Auto) (0.0-2.0) % Neut # (Auto) (1.8-7.0) K/uL Lymph # (Auto) (1.0-4.3) K/uL [place] # (Auto) (0.0-0.8) K/uL Eos # (Auto) (0.0-0.7) K/uL Baso # (Auto) (0.0-0.2) K/uL Neutrophils % (Manual) (50-75) % Band Neutrophils % (0-2) % Lymphocytes % (Manual) (20-40) % Monocytes % (Manual) (0-10) % Platelet Estimate (NORMAL) Hypochromasia (manual) Poikilocytosis (manual Anisocytosis (manual) Microcytosis (manual) Target Cells Ovalocytes [place] Cells Retic Count (0.5-1.5) % PT (9.7-12.2) SECONDS INR APTT (21-34) SECONDS D-Dimer, Quantitative (0-243) ng/mlDDU pO2 (30-55) mm/Hg VBG pH (7.32-7.43) VBG pCO2 (40-60) mmHg VBG HCO3 mmol/L VBG Total CO2 (22-28) mmol/L VBG O2 Sat (Calc) (40-65) % VBG Base Excess (0.0-2.0) mmol/L VBG Potassium (3.6-5.2) mmol/L Glucose (75-110) mg/dl Lactate (0.7-2.1) mmol/L Sodium (132-148) mmol/L Potassium (3.6-5.2) mmol/L Chloride (98-107) mmol/L Carbon Dioxide (22-30) mmol/L Anion Gap (10-20) BUN (9-20) mg/dL Creatinine (0.8-1.5) mg/dL Est GFR ( Amer) Est GFR (Non-Af Amer) Random Glucose (75-110) mg/dL Hemoglobin A1c (4.2-6.5) % Lactic Acid 4.4 H* (0.7-2.1) mmol/L Calcium (8.6-10.4) mg/dl Phosphorus (2.5-4.5) mg/dL Magnesium (1.6-2.3) mg/dL Iron (49-181) ug/dL TIBC (250-450) ug/dL % Saturation (20-55) Ferritin ng/mL Total Bilirubin (0.2-1.3) mg/dL AST (17-59) U/L ALT (21-72) U/L Alkaline Phosphatase (38-126) U/L Troponin I (0.00-0.120) ng/mL Total Protein (6.3-8.3) g/dL Albumin (3.5-5.0) g/dL Globulin (2.2-3.9) gm/dL Albumin/Globulin Ratio (1.0-2.1) Vitamin B12 (239-931) pg/mL Folate ng/mL Procalcitonin (0.19-0.49) NG/ML Venous Blood Potassium (3.6-5.2) mmol/L Urine Color (YELLOW) Urine Clarity (Clear) Urine pH (5.0-8.0) Ur Specific [place] (1.003-1.030) Urine Protein (NEGATIVE) mg/dL Urine Glucose (UA) (Normal) mg/dL Urine Ketones (NEGATIVE) mg/dL Urine Blood (NEGATIVE) Urine Nitrate (NEGATIVE) Urine Bilirubin (NEGATIVE) Urine Urobilinogen (0.2-1.0) mg/dL Ur Leukocyte Esterase (Negative) [place]/uL Urine WBC (Auto) (0-5) /hpf Urine RBC (Auto) (0-3) /hpf Ur Squamous Epith Cells (0-5) /hpf Hyaline Casts (0-2) /lpf Urine Opiates Screen (NEGATIVE) Urine Methadone Screen (NEGATIVE) Ur Barbiturates Screen (NEGATIVE) Ur Phencyclidine Scrn (NEGATIVE) Ur Amphetamines Screen (NEGATIVE) U Benzodiazepines Scrn (NEGATIVE) U Oth Cocaine Metabols (NEGATIVE) U Cannabinoids Screen (NEGATIVE) Complement C3 (88.0-165.0) mg/dL Complement C4 (14.0-44.0) mg/dL Hepatitis A IgM Ab Negative (NEGATIVE) Hep Bs Antigen Negative (NEGATIVE) Hep B Core IgM Ab Negative (NEGATIVE) Hepatitis C Antibody Negative (NEGATIVE) HIV 1&2 Antibody Screen (NEGATIVE) Influenza Typ A,B (EIA) Negative for flu a/b (NEGATIVE) Grp A Beta Strep Ag (NEGATIVE) Blood Type Antibody Screen 01/07/18 01/07/18 01/07/18 Range/Units 15:19 14:40 14:26 WBC (4.8-10.8) K/uL RBC (4.40-5.90) Mil/uL Hgb (12.0-18.0) g/dL Hct (35.0-51.0) % MCV (80.0-94.0) fL MCH (27.0-31.0) pg MCHC (33.0-37.0) g/dL RDW (11.5-14.5) % Plt Count (130-400) K/uL MPV (7.2-11.7) fL Neut % (Auto) (50.0-75.0) % Lymph % (Auto) (20.0-40.0) % [place] % (Auto) (0.0-10.0) % Eos % (Auto) (0.0-4.0) % Baso % (Auto) (0.0-2.0) % Neut # (Auto) (1.8-7.0) K/uL Lymph # (Auto) (1.0-4.3) K/uL [place] # (Auto) (0.0-0.8) K/uL Eos # (Auto) (0.0-0.7) K/uL Baso # (Auto) (0.0-0.2) K/uL Neutrophils % (Manual) (50-75) % Band Neutrophils % (0-2) % Lymphocytes % (Manual) (20-40) % Monocytes % (Manual) (0-10) % Platelet Estimate (NORMAL) Hypochromasia (manual) Poikilocytosis (manual Anisocytosis (manual) Microcytosis (manual) Target Cells Ovalocytes [place] Cells Retic Count (0.5-1.5) % PT 17.0 H (9.7-12.2) SECONDS INR 1.6 APTT 30 (21-34) SECONDS D-Dimer, Quantitative (0-243) ng/mlDDU pO2 20 L (30-55) mm/Hg VBG pH 7.30 L (7.32-7.43) VBG pCO2 37 L (40-60) mmHg VBG HCO3 17.1 mmol/L VBG Total CO2 19.3 L (22-28) mmol/L VBG O2 Sat (Calc) 23.9 L (40-65) % VBG Base Excess -7.5 L (0.0-2.0) mmol/L VBG Potassium 4.3 (3.6-5.2) mmol/L Glucose 126 H (75-110) mg/dl Lactate 3.6 H (0.7-2.1) mmol/L Sodium 137.0 137 (132-148) mmol/L Potassium 5.4 H (3.6-5.2) mmol/L Chloride 102.0 95 L (98-107) mmol/L Carbon Dioxide 22 (22-30) mmol/L Anion Gap 26 H (10-20) BUN 28 H (9-20) mg/dL Creatinine 1.3 (0.8-1.5) mg/dL Est GFR ( Amer) > 60 Est GFR (Non-Af Amer) > 60 Random Glucose 150 H (75-110) mg/dL Hemoglobin A1c (4.2-6.5) % Lactic Acid (0.7-2.1) mmol/L Calcium 9.0 (8.6-10.4) mg/dl Phosphorus (2.5-4.5) mg/dL Magnesium (1.6-2.3) mg/dL Iron (49-181) ug/dL TIBC (250-450) ug/dL % Saturation (20-55) Ferritin ng/mL Total Bilirubin 4.8 H (0.2-1.3) mg/dL AST 316 H (17-59) U/L ALT 190 H D (21-72) U/L Alkaline Phosphatase 339 H (38-126) U/L Troponin I < 0.0120 (0.00-0.120) ng/mL Total Protein 6.2 L (6.3-8.3) g/dL Albumin 3.5 D (3.5-5.0) g/dL Globulin 2.8 (2.2-3.9) gm/dL Albumin/Globulin Ratio 1.3 (1.0-2.1) Vitamin B12 (239-931) pg/mL Folate ng/mL Procalcitonin (0.19-0.49) NG/ML Venous Blood Potassium 4.3 (3.6-5.2) mmol/L Urine Color (YELLOW) Urine Clarity (Clear) Urine pH (5.0-8.0) Ur Specific [place] (1.003-1.030) Urine Protein (NEGATIVE) mg/dL Urine Glucose (UA) (Normal) mg/dL Urine Ketones (NEGATIVE) mg/dL Urine Blood (NEGATIVE) Urine Nitrate (NEGATIVE) Urine Bilirubin (NEGATIVE) Urine Urobilinogen (0.2-1.0) mg/dL Ur Leukocyte Esterase (Negative) [place]/uL Urine WBC (Auto) (0-5) /hpf Urine RBC (Auto) (0-3) /hpf Ur Squamous Epith Cells (0-5) /hpf Hyaline Casts (0-2) /lpf Urine Opiates Screen (NEGATIVE) Urine Methadone Screen (NEGATIVE) Ur Barbiturates Screen (NEGATIVE) Ur Phencyclidine Scrn (NEGATIVE) Ur Amphetamines Screen (NEGATIVE) U Benzodiazepines Scrn (NEGATIVE) U Oth Cocaine Metabols (NEGATIVE) U Cannabinoids Screen (NEGATIVE) Complement C3 (88.0-165.0) mg/dL Complement C4 (14.0-44.0) mg/dL Hepatitis A IgM Ab (NEGATIVE) Hep Bs Antigen (NEGATIVE) Hep B Core IgM Ab (NEGATIVE) Hepatitis C Antibody (NEGATIVE) HIV 1&2 Antibody Screen (NEGATIVE) Influenza Typ A,B (EIA) (NEGATIVE) Grp A Beta Strep Ag (NEGATIVE) Blood Type Antibody Screen 01/07/18 01/07/18 Range/Units 14:26 14:26 WBC 30.9 H D (4.8-10.8) K/uL RBC 4.50 (4.40-5.90) Mil/uL Hgb 10.2 L D (12.0-18.0) g/dL Hct 31.1 L (35.0-51.0) % MCV 69.1 L D (80.0-94.0) fL MCH 22.6 L (27.0-31.0) pg MCHC 32.6 L (33.0-37.0) g/dL RDW 17.0 H (11.5-14.5) % Plt Count 773 H D (130-400) K/uL MPV 7.3 (7.2-11.7) fL Neut % (Auto) 89.8 H (50.0-75.0) % Lymph % (Auto) 2.3 L (20.0-40.0) % [place] % (Auto) 7.1 (0.0-10.0) % Eos % (Auto) 0.0 (0.0-4.0) % Baso % (Auto) 0.8 (0.0-2.0) % Neut # (Auto) 27.7 H (1.8-7.0) K/uL Lymph # (Auto) 0.7 L (1.0-4.3) K/uL [place] # (Auto) 2.2 H (0.0-0.8) K/uL Eos # (Auto) 0.0 (0.0-0.7) K/uL Baso # (Auto) 0.2 (0.0-0.2) K/uL Neutrophils % (Manual) 80 H (50-75) % Band Neutrophils % 9 H (0-2) % Lymphocytes % (Manual) 3 L (20-40) % Monocytes % (Manual) 8 (0-10) % Platelet Estimate Increased H (NORMAL) Hypochromasia (manual) Slight Poikilocytosis (manual Anisocytosis (manual) Slight Microcytosis (manual) Slight Target Cells Ovalocytes [place] Cells Retic Count (0.5-1.5) % PT (9.7-12.2) SECONDS INR APTT (21-34) SECONDS D-Dimer, Quantitative 2632 H (0-243) ng/mlDDU pO2 (30-55) mm/Hg VBG pH (7.32-7.43) VBG pCO2 (40-60) mmHg VBG HCO3 mmol/L VBG Total CO2 (22-28) mmol/L VBG O2 Sat (Calc) (40-65) % VBG Base Excess (0.0-2.0) mmol/L VBG Potassium (3.6-5.2) mmol/L Glucose (75-110) mg/dl Lactate (0.7-2.1) mmol/L Sodium (132-148) mmol/L Potassium (3.6-5.2) mmol/L Chloride (98-107) mmol/L Carbon Dioxide (22-30) mmol/L Anion Gap (10-20) BUN (9-20) mg/dL Creatinine (0.8-1.5) mg/dL Est GFR ( Amer) Est GFR (Non-Af Amer) Random Glucose (75-110) mg/dL Hemoglobin A1c (4.2-6.5) % Lactic Acid (0.7-2.1) mmol/L Calcium (8.6-10.4) mg/dl Phosphorus (2.5-4.5) mg/dL Magnesium (1.6-2.3) mg/dL Iron (49-181) ug/dL TIBC (250-450) ug/dL % Saturation (20-55) Ferritin ng/mL Total Bilirubin (0.2-1.3) mg/dL AST (17-59) U/L ALT (21-72) U/L Alkaline Phosphatase (38-126) U/L Troponin I (0.00-0.120) ng/mL Total Protein (6.3-8.3) g/dL Albumin (3.5-5.0) g/dL Globulin (2.2-3.9) gm/dL Albumin/Globulin Ratio (1.0-2.1) Vitamin B12 (239-931) pg/mL Folate ng/mL Procalcitonin (0.19-0.49) NG/ML Venous Blood Potassium (3.6-5.2) mmol/L Urine Color (YELLOW) Urine Clarity (Clear) Urine pH (5.0-8.0) Ur Specific [place] (1.003-1.030) Urine Protein (NEGATIVE) mg/dL Urine Glucose (UA) (Normal) mg/dL Urine Ketones (NEGATIVE) mg/dL Urine Blood (NEGATIVE) Urine Nitrate (NEGATIVE) Urine Bilirubin (NEGATIVE) Urine Urobilinogen (0.2-1.0) mg/dL Ur Leukocyte Esterase (Negative) [place]/uL Urine WBC (Auto) (0-5) /hpf Urine RBC (Auto) (0-3) /hpf Ur Squamous Epith Cells (0-5) /hpf Hyaline Casts (0-2) /lpf Urine Opiates Screen (NEGATIVE) Urine Methadone Screen (NEGATIVE) Ur Barbiturates Screen (NEGATIVE) Ur Phencyclidine Scrn (NEGATIVE) Ur Amphetamines Screen (NEGATIVE) U Benzodiazepines Scrn (NEGATIVE) U Oth Cocaine Metabols (NEGATIVE) U Cannabinoids Screen (NEGATIVE) Complement C3 (88.0-165.0) mg/dL Complement C4 (14.0-44.0) mg/dL Hepatitis A IgM Ab (NEGATIVE) Hep Bs Antigen (NEGATIVE) Hep B Core IgM Ab (NEGATIVE) Hepatitis C Antibody (NEGATIVE) HIV 1&2 Antibody Screen (NEGATIVE) Influenza Typ A,B (EIA) (NEGATIVE) Grp A Beta Strep Ag (NEGATIVE) Blood Type Antibody Screen Laboratory Results - last 24 hr 01/07/18 01/07/18 01/07/18 14:26 14:26 14:26 WBC 30.9 H D RBC 4.50 Hgb 10.2 L D Hct 31.1 L MCV 69.1 L D MCH 22.6 L MCHC 32.6 L RDW 17.0 H Plt Count 773 H D MPV 7.3 Neut % (Auto) 89.8 H Lymph % (Auto) 2.3 L [place] % (Auto) 7.1 Eos % (Auto) 0.0 Baso % (Auto) 0.8 Neut # (Auto) 27.7 H Lymph # (Auto) 0.7 L [place] # (Auto) 2.2 H Eos # (Auto) 0.0 Baso # (Auto) 0.2 Neutrophils % (Manual) 80 H Band Neutrophils % 9 H Lymphocytes % (Manual) 3 L Monocytes % (Manual) 8 Platelet Estimate Increased H Hypochromasia (manual) Slight Poikilocytosis (manual Anisocytosis (manual) Slight Microcytosis (manual) Slight Target Cells Ovalocytes [place] Cells Retic Count PT INR APTT D-Dimer, Quantitative 2632 H pO2 VBG pH VBG pCO2 VBG HCO3 VBG Total CO2 VBG O2 Sat (Calc) VBG Base Excess VBG Potassium Glucose Lactate Sodium 137 Potassium 5.4 H Chloride 95 L Carbon Dioxide 22 Anion Gap 26 H BUN 28 H Creatinine 1.3 Est GFR ( Amer) > 60 Est GFR (Non-Af Amer) > 60 Random Glucose 150 H Hemoglobin A1c Lactic Acid Calcium 9.0 Phosphorus Magnesium Iron TIBC % Saturation Ferritin Total Bilirubin 4.8 H AST 316 H ALT 190 H D Alkaline Phosphatase 339 H Troponin I < 0.0120 Total Protein 6.2 L Albumin 3.5 D Globulin 2.8 Albumin/Globulin Ratio 1.3 Vitamin B12 Folate Procalcitonin Venous Blood Potassium Urine Color Urine Clarity Urine pH Ur Specific [place] Urine Protein Urine Glucose (UA) Urine Ketones Urine Blood Urine Nitrate Urine Bilirubin Urine Urobilinogen Ur Leukocyte Esterase Urine WBC (Auto) Urine RBC (Auto) Ur Squamous Epith Cells Hyaline Casts Urine Opiates Screen Urine Methadone Screen Ur Barbiturates Screen Ur Phencyclidine Scrn Ur Amphetamines Screen U Benzodiazepines Scrn U Oth Cocaine Metabols U Cannabinoids Screen Complement C3 Complement C4 Hepatitis A IgM Ab Hep Bs Antigen Hep B Core IgM Ab Hepatitis C Antibody HIV 1&2 Antibody Screen Influenza Typ A,B (EIA) Grp A Beta Strep Ag Blood Type Antibody Screen 01/07/18 01/07/18 01/07/18 14:40 15:19 17:46 WBC RBC Hgb Hct MCV MCH MCHC RDW Plt Count MPV Neut % (Auto) Lymph % (Auto) [place] % (Auto) Eos % (Auto) Baso % (Auto) Neut # (Auto) Lymph # (Auto) [place] # (Auto) Eos # (Auto) Baso # (Auto) Neutrophils % (Manual) Band Neutrophils % Lymphocytes % (Manual) Monocytes % (Manual) Platelet Estimate Hypochromasia (manual) Poikilocytosis (manual Anisocytosis (manual) Microcytosis (manual) Target Cells Ovalocytes [place] Cells Retic Count PT 17.0 H INR 1.6 APTT 30 D-Dimer, Quantitative pO2 20 L VBG pH 7.30 L VBG pCO2 37 L VBG HCO3 17.1 VBG Total CO2 19.3 L VBG O2 Sat (Calc) 23.9 L VBG Base Excess -7.5 L VBG Potassium 4.3 Glucose 126 H Lactate 3.6 H Sodium 137.0 Potassium Chloride 102.0 Carbon Dioxide Anion Gap BUN Creatinine Est GFR ( Amer) Est GFR (Non-Af Amer) Random Glucose Hemoglobin A1c Lactic Acid Calcium Phosphorus Magnesium Iron TIBC % Saturation Ferritin Total Bilirubin AST ALT Alkaline Phosphatase Troponin I Total Protein Albumin Globulin Albumin/Globulin Ratio Vitamin B12 Folate Procalcitonin Venous Blood Potassium 4.3 Urine Color Urine Clarity Urine pH Ur Specific [place] Urine Protein Urine Glucose (UA) Urine Ketones Urine Blood Urine Nitrate Urine Bilirubin Urine Urobilinogen Ur Leukocyte Esterase Urine WBC (Auto) Urine RBC (Auto) Ur Squamous Epith Cells Hyaline Casts Urine Opiates Screen Urine Methadone Screen Ur Barbiturates Screen Ur Phencyclidine Scrn Ur Amphetamines Screen U Benzodiazepines Scrn U Oth Cocaine Metabols U Cannabinoids Screen Complement C3 Complement C4 Hepatitis A IgM Ab Hep Bs Antigen Hep B Core IgM Ab Hepatitis C Antibody HIV 1&2 Antibody Screen Influenza Typ A,B (EIA) Negative for flu a/b Grp A Beta Strep Ag Blood Type Antibody Screen 01/07/18 01/07/18 01/07/18 17:46 17:56 20:57 WBC RBC Hgb Hct MCV MCH MCHC RDW Plt Count MPV Neut % (Auto) Lymph % (Auto) [place] % (Auto) Eos % (Auto) Baso % (Auto) Neut # (Auto) Lymph # (Auto) [place] # (Auto) Eos # (Auto) Baso # (Auto) Neutrophils % (Manual) Band Neutrophils % Lymphocytes % (Manual) Monocytes % (Manual) Platelet Estimate Hypochromasia (manual) Poikilocytosis (manual Anisocytosis (manual) Microcytosis (manual) Target Cells Ovalocytes [place] Cells Retic Count PT INR APTT D-Dimer, Quantitative pO2 VBG pH VBG pCO2 VBG HCO3 VBG Total CO2 VBG O2 Sat (Calc) VBG Base Excess VBG Potassium Glucose Lactate Sodium Potassium Chloride Carbon Dioxide Anion Gap BUN Creatinine Est GFR ( Amer) Est GFR (Non-Af Amer) Random Glucose Hemoglobin A1c Lactic Acid 4.4 H* Calcium Phosphorus Magnesium Iron TIBC % Saturation Ferritin Total Bilirubin AST ALT Alkaline Phosphatase Troponin I Total Protein Albumin Globulin Albumin/Globulin Ratio Vitamin B12 Folate Procalcitonin 15.89 H Venous Blood Potassium Urine Color Urine Clarity Urine pH Ur Specific [place] Urine Protein Urine Glucose (UA) Urine Ketones Urine Blood Urine Nitrate Urine Bilirubin Urine Urobilinogen Ur Leukocyte Esterase Urine WBC (Auto) Urine RBC (Auto) Ur Squamous Epith Cells Hyaline Casts Urine Opiates Screen Urine Methadone Screen Ur Barbiturates Screen Ur Phencyclidine Scrn Ur Amphetamines Screen U Benzodiazepines Scrn U Oth Cocaine Metabols U Cannabinoids Screen Complement C3 Complement C4 Hepatitis A IgM Ab Negative Hep Bs Antigen Negative Hep B Core IgM Ab Negative Hepatitis C Antibody Negative HIV 1&2 Antibody Screen Influenza Typ A,B (EIA) Grp A Beta Strep Ag Blood Type Antibody Screen 01/07/18 01/07/18 01/07/18 20:57 21:36 23:11 WBC RBC Hgb Hct MCV MCH MCHC RDW Plt Count MPV Neut % (Auto) Lymph % (Auto) [place] % (Auto) Eos % (Auto) Baso % (Auto) Neut # (Auto) Lymph # (Auto) [place] # (Auto) Eos # (Auto) Baso # (Auto) Neutrophils % (Manual) Band Neutrophils % Lymphocytes % (Manual) Monocytes % (Manual) Platelet Estimate Hypochromasia (manual) Poikilocytosis (manual Anisocytosis (manual) Microcytosis (manual) Target Cells Ovalocytes [place] Cells Retic Count PT INR APTT D-Dimer, Quantitative pO2 VBG pH VBG pCO2 VBG HCO3 VBG Total CO2 VBG O2 Sat (Calc) VBG Base Excess VBG Potassium Glucose Lactate Sodium Potassium Chloride Carbon Dioxide Anion Gap BUN Creatinine Est GFR ( Amer) Est GFR (Non-Af Amer) Random Glucose Hemoglobin A1c Lactic Acid 3.2 H Calcium Phosphorus Magnesium Iron TIBC % Saturation Ferritin 1570.0 Total Bilirubin AST ALT Alkaline Phosphatase Troponin I Total Protein Albumin Globulin Albumin/Globulin Ratio Vitamin B12 846 Folate 12.2 Procalcitonin Venous Blood Potassium Urine Color Urine Clarity Urine pH Ur Specific [place] Urine Protein Urine Glucose (UA) Urine Ketones Urine Blood Urine Nitrate Urine Bilirubin Urine Urobilinogen Ur Leukocyte Esterase Urine WBC (Auto) Urine RBC (Auto) Ur Squamous Epith Cells Hyaline Casts Urine Opiates Screen Urine Methadone Screen Ur Barbiturates Screen Ur Phencyclidine Scrn Ur Amphetamines Screen U Benzodiazepines Scrn U Oth Cocaine Metabols U Cannabinoids Screen Complement C3 Complement C4 Hepatitis A IgM Ab Hep Bs Antigen Hep B Core IgM Ab Hepatitis C Antibody HIV 1&2 Antibody Screen Negative Influenza Typ A,B (EIA) Grp A Beta Strep Ag Blood Type Antibody Screen 01/08/18 01/08/18 01/08/18 01:40 01:40 01:40 WBC RBC Hgb Hct MCV MCH MCHC RDW Plt Count MPV Neut % (Auto) Lymph % (Auto) [place] % (Auto) Eos % (Auto) Baso % (Auto) Neut # (Auto) Lymph # (Auto) [place] # (Auto) Eos # (Auto) Baso # (Auto) Neutrophils % (Manual) Band Neutrophils % Lymphocytes % (Manual) Monocytes % (Manual) Platelet Estimate Hypochromasia (manual) Poikilocytosis (manual Anisocytosis (manual) Microcytosis (manual) Target Cells Ovalocytes [place] Cells Retic Count PT INR APTT D-Dimer, Quantitative pO2 VBG pH VBG pCO2 VBG HCO3 VBG Total CO2 VBG O2 Sat (Calc) VBG Base Excess VBG Potassium Glucose Lactate Sodium Potassium Chloride Carbon Dioxide Anion Gap BUN Creatinine Est GFR ( Amer) Est GFR (Non-Af Amer) Random Glucose Hemoglobin A1c Lactic Acid Calcium Phosphorus Magnesium Iron 19 L TIBC 206 L % Saturation 9 L Ferritin Total Bilirubin AST ALT Alkaline Phosphatase Troponin I Total Protein Albumin Globulin Albumin/Globulin Ratio Vitamin B12 Folate Procalcitonin Venous Blood Potassium Urine Color [place] Urine Clarity Hazy Urine pH 5.0 Ur Specific [place] 1.027 Urine Protein 1+ H Urine Glucose (UA) Normal Urine Ketones Negative Urine Blood 2+ H Urine Nitrate Negative Urine Bilirubin 1+ H Urine Urobilinogen 4.0 Ur Leukocyte Esterase Trace Urine WBC (Auto) 7 H Urine RBC (Auto) 41 H Ur Squamous Epith Cells 1 Hyaline Casts 11-20 H Urine Opiates Screen Urine Methadone Screen Ur Barbiturates Screen Ur Phencyclidine Scrn Ur Amphetamines Screen U Benzodiazepines Scrn U Oth Cocaine Metabols U Cannabinoids Screen Complement C3 101.0 Complement C4 24.1 Hepatitis A IgM Ab Hep Bs Antigen Hep B Core IgM Ab Hepatitis C Antibody HIV 1&2 Antibody Screen Influenza Typ A,B (EIA) Grp A Beta Strep Ag Blood Type Antibody Screen 01/08/18 01/08/18 01/08/18 01:40 01:40 02:47 WBC RBC Hgb Hct MCV MCH MCHC RDW Plt Count MPV Neut % (Auto) Lymph % (Auto) [place] % (Auto) Eos % (Auto) Baso % (Auto) Neut # (Auto) Lymph # (Auto) [place] # (Auto) Eos # (Auto) Baso # (Auto) Neutrophils % (Manual) Band Neutrophils % Lymphocytes % (Manual) Monocytes % (Manual) Platelet Estimate Hypochromasia (manual) Poikilocytosis (manual Anisocytosis (manual) Microcytosis (manual) Target Cells Ovalocytes [place] Cells Retic Count PT INR APTT D-Dimer, Quantitative pO2 VBG pH VBG pCO2 VBG HCO3 VBG Total CO2 VBG O2 Sat (Calc) VBG Base Excess VBG Potassium Glucose Lactate Sodium Potassium Chloride Carbon Dioxide Anion Gap BUN Creatinine Est GFR ( Amer) Est GFR (Non-Af Amer) Random Glucose Hemoglobin A1c Lactic Acid 2.9 H Calcium Phosphorus Magnesium Iron TIBC % Saturation Ferritin Total Bilirubin AST ALT Alkaline Phosphatase Troponin I < 0.0120 Total Protein Albumin Globulin Albumin/Globulin Ratio Vitamin B12 Folate Procalcitonin Venous Blood Potassium Urine Color Urine Clarity Urine pH Ur Specific [place] Urine Protein Urine Glucose (UA) Urine Ketones Urine Blood Urine Nitrate Urine Bilirubin Urine Urobilinogen Ur Leukocyte Esterase Urine WBC (Auto) Urine RBC (Auto) Ur Squamous Epith Cells Hyaline Casts Urine Opiates Screen Negative Urine Methadone Screen Negative Ur Barbiturates Screen Negative Ur Phencyclidine Scrn Negative Ur Amphetamines Screen Negative U Benzodiazepines Scrn Negative U Oth Cocaine Metabols Negative U Cannabinoids Screen Negative Complement C3 Complement C4 Hepatitis A IgM Ab Hep Bs Antigen Hep B Core IgM Ab Hepatitis C Antibody HIV 1&2 Antibody Screen Influenza Typ A,B (EIA) Grp A Beta Strep Ag Blood Type Antibody Screen 01/08/18 01/08/18 01/08/18 06:06 06:06 06:06 WBC 34.8 H RBC 3.75 L Hgb 8.4 L Hct 25.9 L MCV 69.0 L MCH 22.3 L MCHC 32.3 L RDW 17.1 H Plt Count 541 H D MPV 7.8 Neut % (Auto) 91.7 H Lymph % (Auto) 2.3 L [place] % (Auto) 4.6 Eos % (Auto) 0.0 Baso % (Auto) 1.4 Neut # (Auto) 31.9 H Lymph # (Auto) 0.8 L [place] # (Auto) 1.6 H Eos # (Auto) 0.0 Baso # (Auto) 0.5 H Neutrophils % (Manual) 81 H Band Neutrophils % 9 H Lymphocytes % (Manual) 4 L Monocytes % (Manual) 6 Platelet Estimate Increased H Hypochromasia (manual) Moderate Poikilocytosis (manual Slight Anisocytosis (manual) Slight Microcytosis (manual) Target Cells Slight Ovalocytes Slight [place] Cells Slight Retic Count 2.3 H PT 20.8 H INR 1.9 APTT 20 L D D-Dimer, Quantitative pO2 VBG pH VBG pCO2 VBG HCO3 VBG Total CO2 VBG O2 Sat (Calc) VBG Base Excess VBG Potassium Glucose Lactate Sodium Potassium Chloride Carbon Dioxide Anion Gap BUN Creatinine Est GFR ( Amer) Est GFR (Non-Af Amer) Random Glucose Hemoglobin A1c Lactic Acid Calcium Phosphorus Magnesium Iron TIBC % Saturation Ferritin Total Bilirubin AST ALT Alkaline Phosphatase Troponin I Total Protein Albumin Globulin Albumin/Globulin Ratio Vitamin B12 Folate Procalcitonin Venous Blood Potassium Urine Color Urine Clarity Urine pH Ur Specific [place] Urine Protein Urine Glucose (UA) Urine Ketones Urine Blood Urine Nitrate Urine Bilirubin Urine Urobilinogen Ur Leukocyte Esterase Urine WBC (Auto) Urine RBC (Auto) Ur Squamous Epith Cells Hyaline Casts Urine Opiates Screen Urine Methadone Screen Ur Barbiturates Screen Ur Phencyclidine Scrn Ur Amphetamines Screen U Benzodiazepines Scrn U Oth Cocaine Metabols U Cannabinoids Screen Complement C3 Complement C4 Hepatitis A IgM Ab Hep Bs Antigen Hep B Core IgM Ab Hepatitis C Antibody HIV 1&2 Antibody Screen Influenza Typ A,B (EIA) Grp A Beta Strep Ag Blood Type Antibody Screen 01/08/18 01/08/18 01/08/18 06:06 06:06 06:55 WBC RBC Hgb Hct MCV MCH MCHC RDW Plt Count MPV Neut % (Auto) Lymph % (Auto) [place] % (Auto) Eos % (Auto) Baso % (Auto) Neut # (Auto) Lymph # (Auto) [place] # (Auto) Eos # (Auto) Baso # (Auto) Neutrophils % (Manual) Band Neutrophils % Lymphocytes % (Manual) Monocytes % (Manual) Platelet Estimate Hypochromasia (manual) Poikilocytosis (manual Anisocytosis (manual) Microcytosis (manual) Target Cells Ovalocytes [place] Cells Retic Count PT INR APTT D-Dimer, Quantitative pO2 VBG pH VBG pCO2 VBG HCO3 VBG Total CO2 VBG O2 Sat (Calc) VBG Base Excess VBG Potassium Glucose Lactate Sodium Potassium Chloride Carbon Dioxide Anion Gap BUN Creatinine Est GFR ( Amer) Est GFR (Non-Af Amer) Random Glucose Hemoglobin A1c 6.3 Lactic Acid 2.5 H Calcium Phosphorus Magnesium Iron TIBC % Saturation Ferritin Total Bilirubin AST ALT Alkaline Phosphatase Troponin I Total Protein Albumin Globulin Albumin/Globulin Ratio Vitamin B12 Folate Procalcitonin Venous Blood Potassium Urine Color Urine Clarity Urine pH Ur Specific [place] Urine Protein Urine Glucose (UA) Urine Ketones Urine Blood Urine Nitrate Urine Bilirubin Urine Urobilinogen Ur Leukocyte Esterase Urine WBC (Auto) Urine RBC (Auto) Ur Squamous Epith Cells Hyaline Casts Urine Opiates Screen Urine Methadone Screen Ur Barbiturates Screen Ur Phencyclidine Scrn Ur Amphetamines Screen U Benzodiazepines Scrn U Oth Cocaine Metabols U Cannabinoids Screen Complement C3 Complement C4 Hepatitis A IgM Ab Hep Bs Antigen Hep B Core IgM Ab Hepatitis C Antibody HIV 1&2 Antibody Screen Influenza Typ A,B (EIA) Grp A Beta Strep Ag Negative Blood Type Antibody Screen 01/08/18 01/08/18 08:13 08:27 WBC RBC Hgb Hct MCV MCH MCHC RDW Plt Count MPV Neut % (Auto) Lymph % (Auto) [place] % (Auto) Eos % (Auto) Baso % (Auto) Neut # (Auto) Lymph # (Auto) [place] # (Auto) Eos # (Auto) Baso # (Auto) Neutrophils % (Manual) Band Neutrophils % Lymphocytes % (Manual) Monocytes % (Manual) Platelet Estimate Hypochromasia (manual) Poikilocytosis (manual Anisocytosis (manual) Microcytosis (manual) Target Cells Ovalocytes [place] Cells Retic Count PT INR APTT D-Dimer, Quantitative pO2 VBG pH VBG pCO2 VBG HCO3 VBG Total CO2 VBG O2 Sat (Calc) VBG Base Excess VBG Potassium Glucose Lactate Sodium 137 Potassium 5.3 H Chloride 104 Carbon Dioxide 22 Anion Gap 17 BUN 25 H Creatinine 0.8 Est GFR ( Amer) > 60 Est GFR (Non-Af Amer) > 60 Random Glucose 120 H Hemoglobin A1c Lactic Acid Calcium 8.4 L Phosphorus 3.7 Magnesium 2.1 Iron TIBC % Saturation Ferritin Total Bilirubin 1.7 H AST 681 H D ALT 560 H D Alkaline Phosphatase 272 H Troponin I < 0.0120 Total Protein 5.4 L Albumin 2.9 L Globulin 2.5 Albumin/Globulin Ratio 1.2 Vitamin B12 Folate Procalcitonin Venous Blood Potassium Urine Color Urine Clarity Urine pH Ur Specific [place] Urine Protein Urine Glucose (UA) Urine Ketones Urine Blood Urine Nitrate Urine Bilirubin Urine Urobilinogen Ur Leukocyte Esterase Urine WBC (Auto) Urine RBC (Auto) Ur Squamous Epith Cells Hyaline Casts Urine Opiates Screen Urine Methadone Screen Ur Barbiturates Screen Ur Phencyclidine Scrn Ur Amphetamines Screen U Benzodiazepines Scrn U Oth Cocaine Metabols U Cannabinoids Screen Complement C3 Complement C4 Hepatitis A IgM Ab Hep Bs Antigen Hep B Core IgM Ab Hepatitis C Antibody HIV 1&2 Antibody Screen Influenza Typ A,B (EIA) Grp A Beta Strep Ag Blood Type O POSITIVE Antibody Screen Negative EKG/Cardiology Studies: Cardiology / EKG Studies 01/07/18 14:10 ELECTROCARDIOGRAM Stat Comment: Mode Of Transportation: BED Reason For Exam: SOB 01/08/18 06:00 EKG [ELECTROCARDIOGRAM] DAILY Comment: Mode Of Transportation: Reason For Exam: pericarditis Review of Systems - Review of Systems All systems: reviewed and no additional remarkable complaints except (as per HPI ) Critical Care Progress Note - Prophylaxis GI Prophylaxis GI: PPI - Prophylaxis DVT Prophylaxis DVT: SCDs - Nutrition Nutrition: Nutrition Category Date Time Status NPO Diet [DIET] Diets 01/08/18 Breakfast Active Assessment/Plan - Assessment and Plan (Free Text) Assessment: This is a 22 year old AA male who was BIBA to the ED with complaints of chest pain, shortness of breath and lightheadedness. In the ED, pt received solumedrol an 125 mg IVP, toradol 30 mg IVP, duoneb and NS 1 L IV bolus. ICU was consulted due to chest pain, shortness of breath with diffuse st elevations consistent with pericarditis. CXR in the ED showed a much larger cardiac silhouette than prior CXR done in 2016. Labile BP noted (SBP 90-110, DBP in the 60s, MAP in the 70s); tachypnea in the 50s, no jvd. Stat echocardiogram showed moderately sized pericardial effusion. Cardiothoracic surgeon consulted. commissary officer consulted. On 01/08, pericardiocentesis by interventional cardiology was unsuccessful. Pt is in the ICU for cardiovascular and neurological monitoring. Neuro: - monitor for mental status changes - Pt is AAOx3 Cardio: - CXR (01/08) shows cardiomegaly and developing pulmonary edema. - Chest CT (01/07) w/o contrast shows pericardial effusion. Loculated biconvex plueral fluid collection along the right posterior chest wall. Right lower lobe consolidation with left lower consolidations/bandlike atelectasis. - Echocardiogram (01/07) shows LVEF of 72.6%. Large eccentric pericardial effusion Anterio>posterior with fibrin densities suggestive of an exudate. IVC plethora noted with spontaneous echogenic smoke noted in the right chambers suggestive of stasis/slow flow. Right ventricle appears dilated in the short axis views with no evidence of collapse. There is NO DEFINITIVE EVIDENCE OF TAMPONADE. Left ventricle is normal in size and systolic function. Mild concentric thickening. Mild aortic sclerosis; normal mitral valve. - ekg shows NSR at 80, diffuse ST elevations consistent with pericarditis - continue colchicine and high dose ibuprofen for pericarditis of unknown origin - hypotension is unchanged (sbp in 100s, dbp in 60s, MAP in 70s). May be baseline for pt. - troponin negative x3 - diagnositic pericardiocentesis by interventional cardiology was unsuccessfu; recommended cardiothoracic surgery evaluation - cardiothoracic surgery reports that there is no need for intervention at this time - will closely monitor pt's vital signs Pulm: - CXR (01/08) shows cardiomegaly and developing pulmonary edema. - continue antibiotics for CAP - maintain spo2 >95% - spo2 is currently >95% on 3L NC GI: - uptrending transaminitis of unknown etiology - hepatitis panel is negative for Hepatis a, b and c - NPO as there is potential for cardiothoracic procedure - protonix for pud ppx Renal: - BUN/cr is wnl - continue NS IVF at 150 mL/hr - maintain euvolemia ID: - pericarditis of unknown etiology, possibly viral due to recent unresolving pneumonia - gram positive cocci in chains in the blood culture - empiric CAP treatment with avelox, vancomycin - leukocytosis is uptrending (34.8) with bandemia (9) - lactate is downtrending (2.5) - f/u blood culture - flu a and b are negative - Infectious disease consulted, recs appreciated Endo: - maintain euglycemia - accucheck achs Heme: - microcytic anemia - bilateral lower extremity dopplar shows no evidence of thrombosis bilaterally - no anticoagulation at this time due to potential for procedure - SCDs for vte ppx PPX: protonix for pud; scds for vte Dispo: Continue to monitor in the ICU Case was reviewed and discussed with attending physician, Dr. Marlene Sadler. <Bonita Sadler - Last Filed: 01/08/18 18:14> CCU Objective - Vital Signs / Intake & Output Intake and Output (Last 8hrs): Intake & Output 01/08/18 01/08/18 01/08/18 06:59 14:59 22:59 Intake Total 1250 845 Output Total 750 200 Balance 500 645 Weight 165 lb 5.547 oz 165 lb Intake: Intake, IV Amount 1250 725 Left AC 0 Left Antecubital 1250 725 Oral 120 Output: Urine 750 200 Urine, Voided 750 200 Emesis 0 Other: # Voids Urine, Voided 1 1 # Bowel Movements 0 - Medications Active Medications: Active Medications Generic Name Dose Route Start Last Admin Trade Name Freq PRN Reason Stop Dose Admin Colchicine 0.6 mg 01/07/18 18:00 01/08/18 17:[address]ocrys PO 0.[address] Administration Moxifloxacin HCl 400 mg in 250 mls @ 167 mls/hr 01/07/18 20:00 01/07/18 20:10 Avelox Iv 400mg/250ml Ns IVPB Not Given Q24H AVE Protocol Vancomycin/Sodium Chloride 1 gm in 200 mls @ 133 mls/hr 01/08/18 04:30 17:11 Vancomycin 1 Gm/Ns 200 Ml IVPB 01/13/18 04:31 133 mls/hr Q12H AVE Administration Protocol Sodium Chloride 1,000 mls @ 75 mls/hr 01/08/18 15:45 01/08/18 17:11 Sodium Chloride 0.9% IV Not Given .[id number] AVE Ibuprofen 600 mg 01/07/18 15:30 01/08/18 17:14 Motrin Tab PO [address] Administration Pantoprazole Sodium 40 mg 01/07/18 15:30 01/08/18 14:11 Protonix Ec Tab PO Not Given DAILY AVE Vitamin A 1 ea 01/07/18 20:44 01/07/18 21:00 Vitamin A & D Oint Ud Foilpak TOP 1 ea Q8 PRN Administration Dry mouth - Patient Studies Lab Studies: Microbiology Studies 01/07/18 06:10 Gram Stain - Final Sputum 01/07/18 14:59 Gram Stain - Final Blood 01/07/18 14:59 Gram Stain - Final Blood Lab Studies 01/08/18 01/08/18 01/08/18 Range/Units 08:27 08:13 06:55 WBC (4.8-10.8) K/uL RBC (4.40-5.90) Mil/uL Hgb (12.0-18.0) g/dL Hct (35.0-51.0) % MCV (80.0-94.0) fL MCH (27.0-31.0) pg MCHC (33.0-37.0) g/dL RDW (11.5-14.5) % Plt Count (130-400) K/uL MPV (7.2-11.7) fL Neut % (Auto) (50.0-75.0) % Lymph % (Auto) (20.0-40.0) % [place] % (Auto) (0.0-10.0) % Eos % (Auto) (0.0-4.0) % Baso % (Auto) (0.0-2.0) % Neut # (Auto) (1.8-7.0) K/uL Lymph # (Auto) (1.0-4.3) K/uL [place] # (Auto) (0.0-0.8) K/uL Eos # (Auto) (0.0-0.7) K/uL Baso # (Auto) (0.0-0.2) K/uL Neutrophils % (Manual) (50-75) % Band Neutrophils % (0-2) % Lymphocytes % (Manual) (20-40) % Monocytes % (Manual) (0-10) % Platelet Estimate (NORMAL) Hypochromasia (manual) Poikilocytosis (manual Anisocytosis (manual) Target Cells Ovalocytes [place] Cells Retic Count (0.5-1.5) % PT (9.7-12.2) SECONDS INR APTT (21-34) SECONDS Sodium 137 (132-148) mmol/L Potassium 5.3 H (3.6-5.2) mmol/L Chloride 104 (98-107) mmol/L Carbon Dioxide 22 (22-30) mmol/L Anion Gap 17 (10-20) BUN 25 H (9-20) mg/dL Creatinine 0.8 (0.8-1.5) mg/dL Est GFR ( Amer) > 60 Est GFR (Non-Af Amer) > 60 Random Glucose 120 H (75-110) mg/dL Hemoglobin A1c (4.2-6.5) % Lactic Acid (0.7-2.1) mmol/L Calcium 8.4 L (8.6-10.4) mg/dl Phosphorus 3.7 (2.5-4.5) mg/dL Magnesium 2.1 (1.6-2.3) mg/dL Iron (49-181) ug/dL TIBC (250-450) ug/dL % Saturation (20-55) Ferritin ng/mL Total Bilirubin 1.7 H (0.2-1.3) mg/dL AST 681 H D (17-59) U/L ALT 560 H D (21-72) U/L Alkaline Phosphatase 272 H (38-126) U/L Troponin I < 0.0120 (0.00-0.120) ng/mL Total Protein 5.4 L (6.3-8.3) g/dL Albumin 2.9 L (3.5-5.0) g/dL Globulin 2.5 (2.2-3.9) gm/dL Albumin/Globulin Ratio 1.2 (1.0-2.1) Vitamin B12 (239-931) pg/mL Folate ng/mL Procalcitonin (0.19-0.49) NG/ML Urine Color (YELLOW) Urine Clarity (Clear) Urine pH (5.0-8.0) Ur Specific [place] (1.003-1.030) Urine Protein (NEGATIVE) mg/dL Urine Glucose (UA) (Normal) mg/dL Urine Ketones (NEGATIVE) mg/dL Urine Blood (NEGATIVE) Urine Nitrate (NEGATIVE) Urine Bilirubin (NEGATIVE) Urine Urobilinogen (0.2-1.0) mg/dL Ur Leukocyte Esterase (Negative) Chapis/uL Urine WBC (Auto) (0-5) /hpf Urine RBC (Auto) (0-3) /hpf Ur Squamous Epith Cells (0-5) /hpf Hyaline Casts (0-2) /lpf Urine Opiates Screen (NEGATIVE) Urine Methadone Screen (NEGATIVE) Ur Barbiturates Screen (NEGATIVE) Ur Phencyclidine Scrn (NEGATIVE) Ur Amphetamines Screen (NEGATIVE) U Benzodiazepines Scrn (NEGATIVE) U Oth Cocaine Metabols (NEGATIVE) U Cannabinoids Screen (NEGATIVE) Cold Agglutinins (NEGATIVE) Complement C3 (88.0-165.0) mg/dL Complement C4 (14.0-44.0) mg/dL Hepatitis A IgM Ab (NEGATIVE) Hep Bs Antigen (NEGATIVE) Hep B Core IgM Ab (NEGATIVE) Hepatitis C Antibody (NEGATIVE) HIV 1&2 Antibody Screen (NEGATIVE) Ur L.pneumophila Ag (NEGATIVE) Grp A Beta Strep Ag Negative (NEGATIVE) Blood Type O POSITIVE Antibody Screen Negative 01/08/18 01/08/18 01/08/18 Range/Units 06:06 06:06 06:06 WBC (4.8-10.8) K/uL RBC (4.40-5.90) Mil/uL Hgb (12.0-18.0) g/dL Hct (35.0-51.0) % MCV (80.0-94.0) fL MCH (27.0-31.0) pg MCHC (33.0-37.0) g/dL RDW (11.5-14.5) % Plt Count (130-400) K/uL MPV (7.2-11.7) fL Neut % (Auto) (50.0-75.0) % Lymph % (Auto) (20.0-40.0) % [place] % (Auto) (0.0-10.0) % Eos % (Auto) (0.0-4.0) % Baso % (Auto) (0.0-2.0) % Neut # (Auto) (1.8-7.0) K/uL Lymph # (Auto) (1.0-4.3) K/uL [place] # (Auto) (0.0-0.8) K/uL Eos # (Auto) (0.0-0.7) K/uL Baso # (Auto) (0.0-0.2) K/uL Neutrophils % (Manual) (50-75) % Band Neutrophils % (0-2) % Lymphocytes % (Manual) (20-40) % Monocytes % (Manual) (0-10) % Platelet Estimate (NORMAL) Hypochromasia (manual) Poikilocytosis (manual Anisocytosis (manual) Target Cells Ovalocytes [place] Cells Retic Count 2.3 H (0.5-1.5) % PT (9.7-12.2) SECONDS INR APTT (21-34) SECONDS Sodium (132-148) mmol/L Potassium (3.6-5.2) mmol/L Chloride (98-107) mmol/L Carbon Dioxide (22-30) mmol/L Anion Gap (10-20) BUN (9-20) mg/dL Creatinine (0.8-1.5) mg/dL Est GFR ( Amer) Est GFR (Non-Af Amer) Random Glucose (75-110) mg/dL Hemoglobin A1c 6.3 (4.2-6.5) % Lactic Acid 2.5 H (0.7-2.1) mmol/L Calcium (8.6-10.4) mg/dl Phosphorus (2.5-4.5) mg/dL Magnesium (1.6-2.3) mg/dL Iron (49-181) ug/dL TIBC (250-450) ug/dL % Saturation (20-55) Ferritin ng/mL Total Bilirubin (0.2-1.3) mg/dL AST (17-59) U/L ALT (21-72) U/L Alkaline Phosphatase (38-126) U/L Troponin I (0.00-0.120) ng/mL Total Protein (6.3-8.3) g/dL Albumin (3.5-5.0) g/dL Globulin (2.2-3.9) gm/dL Albumin/Globulin Ratio (1.0-2.1) Vitamin B12 (239-931) pg/mL Folate ng/mL Procalcitonin (0.19-0.49) NG/ML Urine Color (YELLOW) Urine Clarity (Clear) Urine pH (5.0-8.0) Ur Specific [place] (1.003-1.030) Urine Protein (NEGATIVE) mg/dL Urine Glucose (UA) (Normal) mg/dL Urine Ketones (NEGATIVE) mg/dL Urine Blood (NEGATIVE) Urine Nitrate (NEGATIVE) Urine Bilirubin (NEGATIVE) Urine Urobilinogen (0.2-1.0) mg/dL Ur Leukocyte Esterase (Negative) [place]/uL Urine WBC (Auto) (0-5) /hpf Urine RBC (Auto) (0-3) /hpf Ur Squamous Epith Cells (0-5) /hpf Hyaline Casts (0-2) /lpf Urine Opiates Screen (NEGATIVE) Urine Methadone Screen (NEGATIVE) Ur Barbiturates Screen (NEGATIVE) Ur Phencyclidine Scrn (NEGATIVE) Ur Amphetamines Screen (NEGATIVE) U Benzodiazepines Scrn (NEGATIVE) U Oth Cocaine Metabols (NEGATIVE) U Cannabinoids Screen (NEGATIVE) Cold Agglutinins (NEGATIVE) Complement C3 (88.0-165.0) mg/dL Complement C4 (14.0-44.0) mg/dL Hepatitis A IgM Ab (NEGATIVE) Hep Bs Antigen (NEGATIVE) Hep B Core IgM Ab (NEGATIVE) Hepatitis C Antibody (NEGATIVE) HIV 1&2 Antibody Screen (NEGATIVE) Ur L.pneumophila Ag (NEGATIVE) Grp A Beta Strep Ag (NEGATIVE) Blood Type Antibody Screen 01/08/18 01/08/18 01/08/18 Range/Units 06:06 06:06 02:47 WBC 34.8 H (4.8-10.8) K/uL RBC 3.75 L (4.40-5.90) Mil/uL Hgb 8.4 L (12.0-18.0) g/dL Hct 25.9 L (35.0-51.0) % MCV 69.0 L (80.0-94.0) fL MCH 22.3 L (27.0-31.0) pg MCHC 32.3 L (33.0-37.0) g/dL RDW 17.1 H (11.5-14.5) % Plt Count 541 H D (130-400) K/uL MPV 7.8 (7.2-11.7) fL Neut % (Auto) 91.7 H (50.0-75.0) % Lymph % (Auto) 2.3 L (20.0-40.0) % [place] % (Auto) 4.6 (0.0-10.0) % Eos % (Auto) 0.0 (0.0-4.0) % Baso % (Auto) 1.4 (0.0-2.0) % Neut # (Auto) 31.9 H (1.8-7.0) K/uL Lymph # (Auto) 0.8 L (1.0-4.3) K/uL [place] # (Auto) 1.6 H (0.0-0.8) K/uL Eos # (Auto) 0.0 (0.0-0.7) K/uL Baso # (Auto) 0.5 H (0.0-0.2) K/uL Neutrophils % (Manual) 81 H (50-75) % Band Neutrophils % 9 H (0-2) % Lymphocytes % (Manual) 4 L (20-40) % Monocytes % (Manual) 6 (0-10) % Platelet Estimate Increased H (NORMAL) Hypochromasia (manual) Moderate Poikilocytosis (manual Slight Anisocytosis (manual) Slight Target Cells Slight Ovalocytes Slight [place] Cells Slight Retic Count (0.5-1.5) % PT 20.8 H (9.7-12.2) SECONDS INR 1.9 APTT 20 L D (21-34) SECONDS Sodium (132-148) mmol/L Potassium (3.6-5.2) mmol/L Chloride (98-107) mmol/L Carbon Dioxide (22-30) mmol/L Anion Gap (10-20) BUN (9-20) mg/dL Creatinine (0.8-1.5) mg/dL Est GFR ( Amer) Est GFR (Non-Af Amer) Random Glucose (75-110) mg/dL Hemoglobin A1c (4.2-6.5) % Lactic Acid (0.7-2.1) mmol/L Calcium (8.6-10.4) mg/dl Phosphorus (2.5-4.5) mg/dL Magnesium (1.6-2.3) mg/dL Iron (49-181) ug/dL TIBC (250-450) ug/dL % Saturation (20-55) Ferritin ng/mL Total Bilirubin (0.2-1.3) mg/dL AST (17-59) U/L ALT (21-72) U/L Alkaline Phosphatase (38-126) U/L Troponin I < 0.0120 (0.00-0.120) ng/mL Total Protein (6.3-8.3) g/dL Albumin (3.5-5.0) g/dL Globulin (2.2-3.9) gm/dL Albumin/Globulin Ratio (1.0-2.1) Vitamin B12 (239-931) pg/mL Folate ng/mL Procalcitonin (0.19-0.49) NG/ML Urine Color (YELLOW) Urine Clarity (Clear) Urine pH (5.0-8.0) Ur Specific [place] (1.003-1.030) Urine Protein (NEGATIVE) mg/dL Urine Glucose (UA) (Normal) mg/dL Urine Ketones (NEGATIVE) mg/dL Urine Blood (NEGATIVE) Urine Nitrate (NEGATIVE) Urine Bilirubin (NEGATIVE) Urine Urobilinogen (0.2-1.0) mg/dL Ur Leukocyte Esterase (Negative) [place]/uL Urine WBC (Auto) (0-5) /hpf Urine RBC (Auto) (0-3) /hpf Ur Squamous Epith Cells (0-5) /hpf Hyaline Casts (0-2) /lpf Urine Opiates Screen (NEGATIVE) Urine Methadone Screen (NEGATIVE) Ur Barbiturates Screen (NEGATIVE) Ur Phencyclidine Scrn (NEGATIVE) Ur Amphetamines Screen (NEGATIVE) U Benzodiazepines Scrn (NEGATIVE) U Oth Cocaine Metabols (NEGATIVE) U Cannabinoids Screen (NEGATIVE) Cold Agglutinins (NEGATIVE) Complement C3 (88.0-165.0) mg/dL Complement C4 (14.0-44.0) mg/dL Hepatitis A IgM Ab (NEGATIVE) Hep Bs Antigen (NEGATIVE) Hep B Core IgM Ab (NEGATIVE) Hepatitis C Antibody (NEGATIVE) HIV 1&2 Antibody Screen (NEGATIVE) Ur L.pneumophila Ag (NEGATIVE) Grp A Beta Strep Ag (NEGATIVE) Blood Type Antibody Screen 01/08/18 01/08/18 01/08/18 Range/Units 01:40 01:40 01:40 WBC (4.8-10.8) K/uL RBC (4.40-5.90) Mil/uL Hgb (12.0-18.0) g/dL Hct (35.0-51.0) % MCV (80.0-94.0) fL MCH (27.0-31.0) pg MCHC (33.0-37.0) g/dL RDW (11.5-14.5) % Plt Count (130-400) K/uL MPV (7.2-11.7) fL Neut % (Auto) (50.0-75.0) % Lymph % (Auto) (20.0-40.0) % [place] % (Auto) (0.0-10.0) % Eos % (Auto) (0.0-4.0) % Baso % (Auto) (0.0-2.0) % Neut # (Auto) (1.8-7.0) K/uL Lymph # (Auto) (1.0-4.3) K/uL [place] # (Auto) (0.0-0.8) K/uL Eos # (Auto) (0.0-0.7) K/uL Baso # (Auto) (0.0-0.2) K/uL Neutrophils % (Manual) (50-75) % Band Neutrophils % (0-2) % Lymphocytes % (Manual) (20-40) % Monocytes % (Manual) (0-10) % Platelet Estimate (NORMAL) Hypochromasia (manual) Poikilocytosis (manual Anisocytosis (manual) Target Cells Ovalocytes [place] Cells Retic Count (0.5-1.5) % PT (9.7-12.2) SECONDS INR APTT (21-34) SECONDS Sodium (132-148) mmol/L Potassium (3.6-5.2) mmol/L Chloride (98-107) mmol/L Carbon Dioxide (22-30) mmol/L Anion Gap (10-20) BUN (9-20) mg/dL Creatinine (0.8-1.5) mg/dL Est GFR ( Amer) Est GFR (Non-Af Amer) Random Glucose (75-110) mg/dL Hemoglobin A1c (4.2-6.5) % Lactic Acid 2.9 H (0.7-2.1) mmol/L Calcium (8.6-10.4) mg/dl Phosphorus (2.5-4.5) mg/dL Magnesium (1.6-2.3) mg/dL Iron (49-181) ug/dL TIBC (250-450) ug/dL % Saturation (20-55) Ferritin ng/mL Total Bilirubin (0.2-1.3) mg/dL AST (17-59) U/L ALT (21-72) U/L Alkaline Phosphatase (38-126) U/L Troponin I (0.00-0.120) ng/mL Total Protein (6.3-8.3) g/dL Albumin (3.5-5.0) g/dL Globulin (2.2-3.9) gm/dL Albumin/Globulin Ratio (1.0-2.1) Vitamin B12 (239-931) pg/mL Folate ng/mL Procalcitonin (0.19-0.49) NG/ML Urine Color (YELLOW) Urine Clarity (Clear) Urine pH (5.0-8.0) Ur Specific [place] (1.003-1.030) Urine Protein (NEGATIVE) mg/dL Urine Glucose (UA) (Normal) mg/dL Urine Ketones (NEGATIVE) mg/dL Urine Blood (NEGATIVE) Urine Nitrate (NEGATIVE) Urine Bilirubin (NEGATIVE) Urine Urobilinogen (0.2-1.0) mg/dL Ur Leukocyte Esterase (Negative) Chap[place]/uL Urine WBC (Auto) (0-5) /hpf Urine RBC (Auto) (0-3) /hpf Ur Squamous Epith Cells (0-5) /hpf Hyaline Casts (0-2) /lpf Urine Opiates Screen Negative (NEGATIVE) Urine Methadone Screen Negative (NEGATIVE) Ur Barbiturates Screen Negative (NEGATIVE) Ur Phencyclidine Scrn Negative (NEGATIVE) Ur Amphetamines Screen Negative (NEGATIVE) U Benzodiazepines Scrn Negative (NEGATIVE) U Oth Cocaine Metabols Negative (NEGATIVE) U Cannabinoids Screen Negative (NEGATIVE) Cold Agglutinins (NEGATIVE) Complement C3 101.0 (88.0-165.0) mg/dL Complement C4 24.1 (14.0-44.0) mg/dL Hepatitis A IgM Ab (NEGATIVE) Hep Bs Antigen (NEGATIVE) Hep B Core IgM Ab (NEGATIVE) Hepatitis C Antibody (NEGATIVE) HIV 1&2 Antibody Screen (NEGATIVE) Ur L.pneumophila Ag (NEGATIVE) Grp A Beta Strep Ag (NEGATIVE) Blood Type Antibody Screen 01/08/18 01/08/18 01/08/18 Range/Units 01:40 01:40 01:40 WBC (4.8-10.8) K/uL RBC (4.40-5.90) Mil/uL Hgb (12.0-18.0) g/dL Hct (35.0-51.0) % MCV (80.0-94.0) fL MCH (27.0-31.0) pg MCHC (33.0-37.0) g/dL RDW (11.5-14.5) % Plt Count (130-400) K/uL MPV (7.2-11.7) fL Neut % (Auto) (50.0-75.0) % Lymph % (Auto) (20.0-40.0) % [place] % (Auto) (0.0-10.0) % Eos % (Auto) (0.0-4.0) % Baso % (Auto) (0.0-2.0) % Neut # (Auto) (1.8-7.0) K/uL Lymph # (Auto) (1.0-4.3) K/uL [place] # (Auto) (0.0-0.8) K/uL Eos # (Auto) (0.0-0.7) K/uL Baso # (Auto) (0.0-0.2) K/uL Neutrophils % (Manual) (50-75) % Band Neutrophils % (0-2) % Lymphocytes % (Manual) (20-40) % Monocytes % (Manual) (0-10) % Platelet Estimate (NORMAL) Hypochromasia (manual) Poikilocytosis (manual Anisocytosis (manual) Target Cells Ovalocytes [place] Cells Retic Count (0.5-1.5) % PT (9.7-12.2) SECONDS INR APTT (21-34) SECONDS Sodium (132-148) mmol/L Potassium (3.6-5.2) mmol/L Chloride (98-107) mmol/L Carbon Dioxide (22-30) mmol/L Anion Gap (10-20) BUN (9-20) mg/dL Creatinine (0.8-1.5) mg/dL Est GFR ( Amer) Est GFR (Non-Af Amer) Random Glucose (75-110) mg/dL Hemoglobin A1c (4.2-6.5) % Lactic Acid (0.7-2.1) mmol/L Calcium (8.6-10.4) mg/dl Phosphorus (2.5-4.5) mg/dL Magnesium (1.6-2.3) mg/dL Iron 19 L (49-181) ug/dL TIBC 206 L (250-450) ug/dL % Saturation 9 L (20-55) Ferritin ng/mL Total Bilirubin (0.2-1.3) mg/dL AST (17-59) U/L ALT (21-72) U/L Alkaline Phosphatase (38-126) U/L Troponin I (0.00-0.120) ng/mL Total Protein (6.3-8.3) g/dL Albumin (3.5-5.0) g/dL Globulin (2.2-3.9) gm/dL Albumin/Globulin Ratio (1.0-2.1) Vitamin B12 (239-931) pg/mL Folate ng/mL Procalcitonin (0.19-0.49) NG/ML Urine Color [place] (YELLOW) Urine Clarity Hazy (Clear) Urine pH 5.0 (5.0-8.0) Ur Specific [place] 1.027 (1.003-1.030) Urine Protein 1+ H (NEGATIVE) mg/dL Urine Glucose (UA) Normal (Normal) mg/dL Urine Ketones Negative (NEGATIVE) mg/dL Urine Blood 2+ H (NEGATIVE) Urine Nitrate Negative (NEGATIVE) Urine Bilirubin 1+ H (NEGATIVE) Urine Urobilinogen 4.0 (0.2-1.0) mg/dL Ur Leukocyte Esterase Trace (Negative) Chap[place]/uL Urine WBC (Auto) 7 H (0-5) /hpf Urine RBC (Auto) 41 H (0-3) /hpf Ur Squamous Epith Cells 1 (0-5) /hpf Hyaline Casts 11-20 H (0-2) /lpf Urine Opiates Screen (NEGATIVE) Urine Methadone Screen (NEGATIVE) Ur Barbiturates Screen (NEGATIVE) Ur Phencyclidine Scrn (NEGATIVE) Ur Amphetamines Screen (NEGATIVE) U Benzodiazepines Scrn (NEGATIVE) U Oth Cocaine Metabols (NEGATIVE) U Cannabinoids Screen (NEGATIVE) Cold Agglutinins (NEGATIVE) Complement C3 (88.0-165.0) mg/dL Complement C4 (14.0-44.0) mg/dL Hepatitis A IgM Ab (NEGATIVE) Hep Bs Antigen (NEGATIVE) Hep B Core IgM Ab (NEGATIVE) Hepatitis C Antibody (NEGATIVE) HIV 1&2 Antibody Screen (NEGATIVE) Ur L.pneumophila Ag Negative (NEGATIVE) Grp A Beta Strep Ag (NEGATIVE) Blood Type Antibody Screen 01/07/18 01/07/18 01/07/18 Range/Units 23:11 21:36 20:57 WBC (4.8-10.8) K/uL RBC (4.40-5.90) Mil/uL Hgb (12.0-18.0) g/dL Hct (35.0-51.0) % MCV (80.0-94.0) fL MCH (27.0-31.0) pg MCHC (33.0-37.0) g/dL RDW (11.5-14.5) % Plt Count (130-400) K/uL MPV (7.2-11.7) fL Neut % (Auto) (50.0-75.0) % Lymph % (Auto) (20.0-40.0) % [place] % (Auto) (0.0-10.0) % Eos % (Auto) (0.0-4.0) % Baso % (Auto) (0.0-2.0) % Neut # (Auto) (1.8-7.0) K/uL Lymph # (Auto) (1.0-4.3) K/uL [place] # (Auto) (0.0-0.8) K/uL Eos # (Auto) (0.0-0.7) K/uL Baso # (Auto) (0.0-0.2) K/uL Neutrophils % (Manual) (50-75) % Band Neutrophils % (0-2) % Lymphocytes % (Manual) (20-40) % Monocytes % (Manual) (0-10) % Platelet Estimate (NORMAL) Hypochromasia (manual) Poikilocytosis (manual Anisocytosis (manual) Target Cells Ovalocytes [place] Cells Retic Count (0.5-1.5) % PT (9.7-12.2) SECONDS INR APTT (21-34) SECONDS Sodium (132-148) mmol/L Potassium (3.6-5.2) mmol/L Chloride (98-107) mmol/L Carbon Dioxide (22-30) mmol/L Anion Gap (10-20) BUN (9-20) mg/dL Creatinine (0.8-1.5) mg/dL Est GFR ( Amer) Est GFR (Non-Af Amer) Random Glucose (75-110) mg/dL Hemoglobin A1c (4.2-6.5) % Lactic Acid 3.2 H (0.7-2.1) mmol/L Calcium (8.6-10.4) mg/dl Phosphorus (2.5-4.5) mg/dL Magnesium (1.6-2.3) mg/dL Iron (49-181) ug/dL TIBC (250-450) ug/dL % Saturation (20-55) Ferritin 1570.0 ng/mL Total Bilirubin (0.2-1.3) mg/dL AST (17-59) U/L ALT (21-72) U/L Alkaline Phosphatase (38-126) U/L Troponin I (0.00-0.120) ng/mL Total Protein (6.3-8.3) g/dL Albumin (3.5-5.0) g/dL Globulin (2.2-3.9) gm/dL Albumin/Globulin Ratio (1.0-2.1) Vitamin B12 846 (239-931) pg/mL Folate 12.2 ng/mL Procalcitonin (0.19-0.49) NG/ML Urine Color (YELLOW) Urine Clarity (Clear) Urine pH (5.0-8.0) Ur Specific [place] (1.003-1.030) Urine Protein (NEGATIVE) mg/dL Urine Glucose (UA) (Normal) mg/dL Urine Ketones (NEGATIVE) mg/dL Urine Blood (NEGATIVE) Urine Nitrate (NEGATIVE) Urine Bilirubin (NEGATIVE) Urine Urobilinogen (0.2-1.0) mg/dL Ur Leukocyte Esterase (Negative) [place]/uL Urine WBC (Auto) (0-5) /hpf Urine RBC (Auto) (0-3) /hpf Ur Squamous Epith Cells (0-5) /hpf Hyaline Casts (0-2) /lpf Urine Opiates Screen (NEGATIVE) Urine Methadone Screen (NEGATIVE) Ur Barbiturates Screen (NEGATIVE) Ur Phencyclidine Scrn (NEGATIVE) Ur Amphetamines Screen (NEGATIVE) U Benzodiazepines Scrn (NEGATIVE) U Oth Cocaine Metabols (NEGATIVE) U Cannabinoids Screen (NEGATIVE) Cold Agglutinins Negative (NEGATIVE) Complement C3 (88.0-165.0) mg/dL Complement C4 (14.0-44.0) mg/dL Hepatitis A IgM Ab (NEGATIVE) Hep Bs Antigen (NEGATIVE) Hep B Core IgM Ab (NEGATIVE) Hepatitis C Antibody (NEGATIVE) HIV 1&2 Antibody Screen (NEGATIVE) Ur L.pneumophila Ag (NEGATIVE) Grp A Beta Strep Ag (NEGATIVE) Blood Type Antibody Screen 01/07/18 01/07/18 01/07/18 Range/Units 20:57 20:57 17:56 WBC (4.8-10.8) K/uL RBC (4.40-5.90) Mil/uL Hgb (12.0-18.0) g/dL Hct (35.0-51.0) % MCV (80.0-94.0) fL MCH (27.0-31.0) pg MCHC (33.0-37.0) g/dL RDW (11.5-14.5) % Plt Count (130-400) K/uL MPV (7.2-11.7) fL Neut % (Auto) (50.0-75.0) % Lymph % (Auto) (20.0-40.0) % [place] % (Auto) (0.0-10.0) % Eos % (Auto) (0.0-4.0) % Baso % (Auto) (0.0-2.0) % Neut # (Auto) (1.8-7.0) K/uL Lymph # (Auto) (1.0-4.3) K/uL [place] # (Auto) (0.0-0.8) K/uL Eos # (Auto) (0.0-0.7) K/uL Baso # (Auto) (0.0-0.2) K/uL Neutrophils % (Manual) (50-75) % Band Neutrophils % (0-2) % Lymphocytes % (Manual) (20-40) % Monocytes % (Manual) (0-10) % Platelet Estimate (NORMAL) Hypochromasia (manual) Poikilocytosis (manual Anisocytosis (manual) Target Cells Ovalocytes [place] Cells Retic Count (0.5-1.5) % PT (9.7-12.2) SECONDS INR APTT (21-34) SECONDS Sodium (132-148) mmol/L Potassium (3.6-5.2) mmol/L Chloride (98-107) mmol/L Carbon Dioxide (22-30) mmol/L Anion Gap (10-20) BUN (9-20) mg/dL Creatinine (0.8-1.5) mg/dL Est GFR ( Amer) Est GFR (Non-Af Amer) Random Glucose (75-110) mg/dL Hemoglobin A1c (4.2-6.5) % Lactic Acid (0.7-2.1) mmol/L Calcium (8.6-10.4) mg/dl Phosphorus (2.5-4.5) mg/dL Magnesium (1.6-2.3) mg/dL Iron (49-181) ug/dL TIBC (250-450) ug/dL % Saturation (20-55) Ferritin ng/mL Total Bilirubin (0.2-1.3) mg/dL AST (17-59) U/L ALT (21-72) U/L Alkaline Phosphatase (38-126) U/L Troponin I (0.00-0.120) ng/mL Total Protein (6.3-8.3) g/dL Albumin (3.5-5.0) g/dL Globulin (2.2-3.9) gm/dL Albumin/Globulin Ratio (1.0-2.1) Vitamin B12 (239-931) pg/mL Folate ng/mL Procalcitonin 15.89 H (0.19-0.49) NG/ML Urine Color (YELLOW) Urine Clarity (Clear) Urine pH (5.0-8.0) Ur Specific [place] (1.003-1.030) Urine Protein (NEGATIVE) mg/dL Urine Glucose (UA) (Normal) mg/dL Urine Ketones (NEGATIVE) mg/dL Urine Blood (NEGATIVE) Urine Nitrate (NEGATIVE) Urine Bilirubin (NEGATIVE) Urine Urobilinogen (0.2-1.0) mg/dL Ur Leukocyte Esterase (Negative) [place]/uL Urine WBC (Auto) (0-5) /hpf Urine RBC (Auto) (0-3) /hpf Ur Squamous Epith Cells (0-5) /hpf Hyaline Casts (0-2) /lpf Urine Opiates Screen (NEGATIVE) Urine Methadone Screen (NEGATIVE) Ur Barbiturates Screen (NEGATIVE) Ur Phencyclidine Scrn (NEGATIVE) Ur Amphetamines Screen (NEGATIVE) U Benzodiazepines Scrn (NEGATIVE) U Oth Cocaine Metabols (NEGATIVE) U Cannabinoids Screen (NEGATIVE) Cold Agglutinins (NEGATIVE) Complement C3 (88.0-165.0) mg/dL Complement C4 (14.0-44.0) mg/dL Hepatitis A IgM Ab Negative (NEGATIVE) Hep Bs Antigen Negative (NEGATIVE) Hep B Core IgM Ab Negative (NEGATIVE) Hepatitis C Antibody Negative (NEGATIVE) HIV 1&2 Antibody Screen Negative (NEGATIVE) Ur L.pneumophila Ag (NEGATIVE) Grp A Beta Strep Ag (NEGATIVE) Blood Type Antibody Screen 01/07/18 Range/Units 17:46 WBC (4.8-10.8) K/uL RBC (4.40-5.90) Mil/uL Hgb (12.0-18.0) g/dL Hct (35.0-51.0) % MCV (80.0-94.0) fL MCH (27.0-31.0) pg MCHC (33.0-37.0) g/dL RDW (11.5-14.5) % Plt Count (130-400) K/uL MPV (7.2-11.7) fL Neut % (Auto) (50.0-75.0) % Lymph % (Auto) (20.0-40.0) % [place] % (Auto) (0.0-10.0) % Eos % (Auto) (0.0-4.0) % Baso % (Auto) (0.0-2.0) % Neut # (Auto) (1.8-7.0) K/uL Lymph # (Auto) (1.0-4.3) K/uL [place] # (Auto) (0.0-0.8) K/uL Eos # (Auto) (0.0-0.7) K/uL Baso # (Auto) (0.0-0.2) K/uL Neutrophils % (Manual) (50-75) % Band Neutrophils % (0-2) % Lymphocytes % (Manual) (20-40) % Monocytes % (Manual) (0-10) % Platelet Estimate (NORMAL) Hypochromasia (manual) Poikilocytosis (manual Anisocytosis (manual) Target Cells Ovalocytes [place] Cells Retic Count (0.5-1.5) % PT (9.7-12.2) SECONDS INR APTT (21-34) SECONDS Sodium (132-148) mmol/L Potassium (3.6-5.2) mmol/L Chloride (98-107) mmol/L Carbon Dioxide (22-30) mmol/L Anion Gap (10-20) BUN (9-20) mg/dL Creatinine (0.8-1.5) mg/dL Est GFR ( Amer) Est GFR (Non-Af Amer) Random Glucose (75-110) mg/dL Hemoglobin A1c (4.2-6.5) % Lactic Acid 4.4 H* (0.7-2.1) mmol/L Calcium (8.6-10.4) mg/dl Phosphorus (2.5-4.5) mg/dL Magnesium (1.6-2.3) mg/dL Iron (49-181) ug/dL TIBC (250-450) ug/dL % Saturation (20-55) Ferritin ng/mL Total Bilirubin (0.2-1.3) mg/dL AST (17-59) U/L ALT (21-72) U/L Alkaline Phosphatase (38-126) U/L Troponin I (0.00-0.120) ng/mL Total Protein (6.3-8.3) g/dL Albumin (3.5-5.0) g/dL Globulin (2.2-3.9) gm/dL Albumin/Globulin Ratio (1.0-2.1) Vitamin B12 (239-931) pg/mL Folate ng/mL Procalcitonin (0.19-0.49) NG/ML Urine Color (YELLOW) Urine Clarity (Clear) Urine pH (5.0-8.0) Ur Specific [place] (1.003-1.030) Urine Protein (NEGATIVE) mg/dL Urine Glucose (UA) (Normal) mg/dL Urine Ketones (NEGATIVE) mg/dL Urine Blood (NEGATIVE) Urine Nitrate (NEGATIVE) Urine Bilirubin (NEGATIVE) Urine Urobilinogen (0.2-1.0) mg/dL Ur Leukocyte Esterase (Negative) [place]/uL Urine WBC (Auto) (0-5) /hpf Urine RBC (Auto) (0-3) /hpf Ur Squamous Epith Cells (0-5) /hpf Hyaline Casts (0-2) /lpf Urine Opiates Screen (NEGATIVE) Urine Methadone Screen (NEGATIVE) Ur Barbiturates Screen (NEGATIVE) Ur Phencyclidine Scrn (NEGATIVE) Ur Amphetamines Screen (NEGATIVE) U Benzodiazepines Scrn (NEGATIVE) U Oth Cocaine Metabols (NEGATIVE) U Cannabinoids Screen (NEGATIVE) Cold Agglutinins (NEGATIVE) Complement C3 (88.0-165.0) mg/dL Complement C4 (14.0-44.0) mg/dL Hepatitis A IgM Ab (NEGATIVE) Hep Bs Antigen (NEGATIVE) Hep B Core IgM Ab (NEGATIVE) Hepatitis C Antibody (NEGATIVE) HIV 1&2 Antibody Screen (NEGATIVE) Ur L.pneumophila Ag (NEGATIVE) Grp A Beta Strep Ag (NEGATIVE) Blood Type Antibody Screen Laboratory Results - last 24 hr 01/07/18 01/07/18 01/07/18 17:46 17:56 20:57 WBC RBC Hgb Hct MCV MCH MCHC RDW Plt Count MPV Neut % (Auto) Lymph % (Auto) [place] % (Auto) Eos % (Auto) Baso % (Auto) Neut # (Auto) Lymph # (Auto) [place] # (Auto) Eos # (Auto) Baso # (Auto) Neutrophils % (Manual) Band Neutrophils % Lymphocytes % (Manual) Monocytes % (Manual) Platelet Estimate Hypochromasia (manual) Poikilocytosis (manual Anisocytosis (manual) Target Cells Ovalocytes [place] Cells Retic Count PT INR APTT Sodium Potassium Chloride Carbon Dioxide Anion Gap BUN Creatinine Est GFR ( Amer) Est GFR (Non-Af Amer) Random Glucose Hemoglobin A1c Lactic Acid 4.4 H* Calcium Phosphorus Magnesium Iron TIBC % Saturation Ferritin Total Bilirubin AST ALT Alkaline Phosphatase Troponin I Total Protein Albumin Globulin Albumin/Globulin Ratio Vitamin B12 Folate Procalcitonin 15.89 H Urine Color Urine Clarity Urine pH Ur Specific [place] Urine Protein Urine Glucose (UA) Urine Ketones Urine Blood Urine Nitrate Urine Bilirubin Urine Urobilinogen Ur Leukocyte Esterase Urine WBC (Auto) Urine RBC (Auto) Ur Squamous Epith Cells Hyaline Casts Urine Opiates Screen Urine Methadone Screen Ur Barbiturates Screen Ur Phencyclidine Scrn Ur Amphetamines Screen U Benzodiazepines Scrn U Oth Cocaine Metabols U Cannabinoids Screen Cold Agglutinins Complement C3 Complement C4 Hepatitis A IgM Ab Negative Hep Bs Antigen Negative Hep B Core IgM Ab Negative Hepatitis C Antibody Negative HIV 1&2 Antibody Screen Ur L.pneumophila Ag Grp A Beta Strep Ag Blood Type Antibody Screen 01/07/18 01/07/18 01/07/18 20:57 20:57 21:36 WBC RBC Hgb Hct MCV MCH MCHC RDW Plt Count MPV Neut % (Auto) Lymph % (Auto) [place] % (Auto) Eos % (Auto) Baso % (Auto) Neut # (Auto) Lymph # (Auto) [place] # (Auto) Eos # (Auto) Baso # (Auto) Neutrophils % (Manual) Band Neutrophils % Lymphocytes % (Manual) Monocytes % (Manual) Platelet Estimate Hypochromasia (manual) Poikilocytosis (manual Anisocytosis (manual) Target Cells Ovalocytes [place] Cells Retic Count PT INR APTT Sodium Potassium Chloride Carbon Dioxide Anion Gap BUN Creatinine Est GFR ( Amer) Est GFR (Non-Af Amer) Random Glucose Hemoglobin A1c Lactic Acid 3.2 H Calcium Phosphorus Magnesium Iron TIBC % Saturation Ferritin Total Bilirubin AST ALT Alkaline Phosphatase Troponin I Total Protein Albumin Globulin Albumin/Globulin Ratio Vitamin B12 Folate Procalcitonin Urine Color Urine Clarity Urine pH Ur Specific [place] Urine Protein Urine Glucose (UA) Urine Ketones Urine Blood Urine Nitrate Urine Bilirubin Urine Urobilinogen Ur Leukocyte Esterase Urine WBC (Auto) Urine RBC (Auto) Ur Squamous Epith Cells Hyaline Casts Urine Opiates Screen Urine Methadone Screen Ur Barbiturates Screen Ur Phencyclidine Scrn Ur Amphetamines Screen U Benzodiazepines Scrn U Oth Cocaine Metabols U Cannabinoids Screen Cold Agglutinins Negative Complement C3 Complement C4 Hepatitis A IgM Ab Hep Bs Antigen Hep B Core IgM Ab Hepatitis C Antibody HIV 1&2 Antibody Screen Negative Ur L.pneumophila Ag Grp A Beta Strep Ag Blood Type Antibody Screen 01/07/18 01/08/18 01/08/18 23:11 01:40 01:40 WBC RBC Hgb Hct MCV MCH MCHC RDW Plt Count MPV Neut % (Auto) Lymph % (Auto) [place] % (Auto) Eos % (Auto) Baso % (Auto) Neut # (Auto) Lymph # (Auto) [place] # (Auto) Eos # (Auto) Baso # (Auto) Neutrophils % (Manual) Band Neutrophils % Lymphocytes % (Manual) Monocytes % (Manual) Platelet Estimate Hypochromasia (manual) Poikilocytosis (manual Anisocytosis (manual) Target Cells Ovalocytes [place] Cells Retic Count PT INR APTT Sodium Potassium Chloride Carbon Dioxide Anion Gap BUN Creatinine Est GFR ( Amer) Est GFR (Non-Af Amer) Random Glucose Hemoglobin A1c Lactic Acid Calcium Phosphorus Magnesium Iron 19 L TIBC 206 L % Saturation 9 L Ferritin 1570.0 Total Bilirubin AST ALT Alkaline Phosphatase Troponin I Total Protein Albumin Globulin Albumin/Globulin Ratio Vitamin B12 846 Folate 12.2 Procalcitonin Urine Color Urine Clarity Urine pH Ur Specific [place] Urine Protein Urine Glucose (UA) Urine Ketones Urine Blood Urine Nitrate Urine Bilirubin Urine Urobilinogen Ur Leukocyte Esterase Urine WBC (Auto) Urine RBC (Auto) Ur Squamous Epith Cells Hyaline Casts Urine Opiates Screen Urine Methadone Screen Ur Barbiturates Screen Ur Phencyclidine Scrn Ur Amphetamines Screen U Benzodiazepines Scrn U Oth Cocaine Metabols U Cannabinoids Screen Cold Agglutinins Complement C3 Complement C4 Hepatitis A IgM Ab Hep Bs Antigen Hep B Core IgM Ab Hepatitis C Antibody HIV 1&2 Antibody Screen Ur L.pneumophila Ag Negative Grp A Beta Strep Ag Blood Type Antibody Screen 01/08/18 01/08/18 01/08/18 01:40 01:40 01:40 WBC RBC Hgb Hct MCV MCH MCHC RDW Plt Count MPV Neut % (Auto) Lymph % (Auto) [place] % (Auto) Eos % (Auto) Baso % (Auto) Neut # (Auto) Lymph # (Auto) [place] # (Auto) Eos # (Auto) Baso # (Auto) Neutrophils % (Manual) Band Neutrophils % Lymphocytes % (Manual) Monocytes % (Manual) Platelet Estimate Hypochromasia (manual) Poikilocytosis (manual Anisocytosis (manual) Target Cells Ovalocytes [place] Cells Retic Count PT INR APTT Sodium Potassium Chloride Carbon Dioxide Anion Gap BUN Creatinine Est GFR ( Amer) Est GFR (Non-Af Amer) Random Glucose Hemoglobin A1c Lactic Acid Calcium Phosphorus Magnesium Iron TIBC % Saturation Ferritin Total Bilirubin AST ALT Alkaline Phosphatase Troponin I Total Protein Albumin Globulin Albumin/Globulin Ratio Vitamin B12 Folate Procalcitonin Urine Color [place] Urine Clarity Hazy Urine pH 5.0 Ur Specific [place] 1.027 Urine Protein 1+ H Urine Glucose (UA) Normal Urine Ketones Negative Urine Blood 2+ H Urine Nitrate Negative Urine Bilirubin 1+ H Urine Urobilinogen 4.0 Ur Leukocyte Esterase Trace Urine WBC (Auto) 7 H Urine RBC (Auto) 41 H Ur Squamous Epith Cells 1 Hyaline Casts 11-20 H Urine Opiates Screen Negative Urine Methadone Screen Negative Ur Barbiturates Screen Negative Ur Phencyclidine Scrn Negative Ur Amphetamines Screen Negative U Benzodiazepines Scrn Negative U Oth Cocaine Metabols Negative U Cannabinoids Screen Negative Cold Agglutinins Complement C3 101.0 Complement C4 24.1 Hepatitis A IgM Ab Hep Bs Antigen Hep B Core IgM Ab Hepatitis C Antibody HIV 1&2 Antibody Screen Ur L.pneumophila Ag Grp A Beta Strep Ag Blood Type Antibody Screen 01/08/18 01/08/18 01/08/18 01:40 02:47 06:06 WBC 34.8 H RBC 3.75 L Hgb 8.4 L Hct 25.9 L MCV 69.0 L MCH 22.3 L MCHC 32.3 L RDW 17.1 H Plt Count 541 H D MPV 7.8 Neut % (Auto) 91.7 H Lymph % (Auto) 2.3 L [place] % (Auto) 4.6 Eos % (Auto) 0.0 Baso % (Auto) 1.4 Neut # (Auto) 31.9 H Lymph # (Auto) 0.8 L [place] # (Auto) 1.6 H Eos # (Auto) 0.0 Baso # (Auto) 0.5 H Neutrophils % (Manual) 81 H Band Neutrophils % 9 H Lymphocytes % (Manual) 4 L Monocytes % (Manual) 6 Platelet Estimate Increased H Hypochromasia (manual) Moderate Poikilocytosis (manual Slight Anisocytosis (manual) Slight Target Cells Slight Ovalocytes Slight [place] Cells Slight Retic Count PT INR APTT Sodium Potassium Chloride Carbon Dioxide Anion Gap BUN Creatinine Est GFR ( Amer) Est GFR (Non-Af Amer) Random Glucose Hemoglobin A1c Lactic Acid 2.9 H Calcium Phosphorus Magnesium Iron TIBC % Saturation Ferritin Total Bilirubin AST ALT Alkaline Phosphatase Troponin I < 0.0120 Total Protein Albumin Globulin Albumin/Globulin Ratio Vitamin B12 Folate Procalcitonin Urine Color Urine Clarity Urine pH Ur Specific [place] Urine Protein Urine Glucose (UA) Urine Ketones Urine Blood Urine Nitrate Urine Bilirubin Urine Urobilinogen Ur Leukocyte Esterase Urine WBC (Auto) Urine RBC (Auto) Ur Squamous Epith Cells Hyaline Casts Urine Opiates Screen Urine Methadone Screen Ur Barbiturates Screen Ur Phencyclidine Scrn Ur Amphetamines Screen U Benzodiazepines Scrn U Oth Cocaine Metabols U Cannabinoids Screen Cold Agglutinins Complement C3 Complement C4 Hepatitis A IgM Ab Hep Bs Antigen Hep B Core IgM Ab Hepatitis C Antibody HIV 1&2 Antibody Screen Ur L.pneumophila Ag Grp A Beta Strep Ag Blood Type Antibody Screen 01/08/18 01/08/18 01/08/18 06:06 06:06 06:06 WBC RBC Hgb Hct MCV MCH MCHC RDW Plt Count MPV Neut % (Auto) Lymph % (Auto) [place] % (Auto) Eos % (Auto) Baso % (Auto) Neut # (Auto) Lymph # (Auto) [place] # (Auto) Eos # (Auto) Baso # (Auto) Neutrophils % (Manual) Band Neutrophils % Lymphocytes % (Manual) Monocytes % (Manual) Platelet Estimate Hypochromasia (manual) Poikilocytosis (manual Anisocytosis (manual) Target Cells Ovalocytes [place] Cells Retic Count 2.3 H PT 20.8 H INR 1.9 APTT 20 L D Sodium Potassium Chloride Carbon Dioxide Anion Gap BUN Creatinine Est GFR ( Amer) Est GFR (Non-Af Amer) Random Glucose Hemoglobin A1c Lactic Acid 2.5 H Calcium Phosphorus Magnesium Iron TIBC % Saturation Ferritin Total Bilirubin AST ALT Alkaline Phosphatase Troponin I Total Protein Albumin Globulin Albumin/Globulin Ratio Vitamin B12 Folate Procalcitonin Urine Color Urine Clarity Urine pH Ur Specific [place] Urine Protein Urine Glucose (UA) Urine Ketones Urine Blood Urine Nitrate Urine Bilirubin Urine Urobilinogen Ur Leukocyte Esterase Urine WBC (Auto) Urine RBC (Auto) Ur Squamous Epith Cells Hyaline Casts Urine Opiates Screen Urine Methadone Screen Ur Barbiturates Screen Ur Phencyclidine Scrn Ur Amphetamines Screen U Benzodiazepines Scrn U Oth Cocaine Metabols U Cannabinoids Screen Cold Agglutinins Complement C3 Complement C4 Hepatitis A IgM Ab Hep Bs Antigen Hep B Core IgM Ab Hepatitis C Antibody HIV 1&2 Antibody Screen Ur L.pneumophila Ag Grp A Beta Strep Ag Blood Type Antibody Screen 01/08/18 01/08/18 01/08/18 06:06 06:55 08:13 WBC RBC Hgb Hct MCV MCH MCHC RDW Plt Count MPV Neut % (Auto) Lymph % (Auto) [place] % (Auto) Eos % (Auto) Baso % (Auto) Neut # (Auto) Lymph # (Auto) [place] # (Auto) Eos # (Auto) Baso # (Auto) Neutrophils % (Manual) Band Neutrophils % Lymphocytes % (Manual) Monocytes % (Manual) Platelet Estimate Hypochromasia (manual) Poikilocytosis (manual Anisocytosis (manual) Target Cells Ovalocytes [place] Cells Retic Count PT INR APTT Sodium 137 Potassium 5.3 H Chloride 104 Carbon Dioxide 22 Anion Gap 17 BUN 25 H Creatinine 0.8 Est GFR ( Amer) > 60 Est GFR (Non-Af Amer) > 60 Random Glucose 120 H Hemoglobin A1c 6.3 Lactic Acid Calcium 8.4 L Phosphorus 3.7 Magnesium 2.1 Iron TIBC % Saturation Ferritin Total Bilirubin 1.7 H AST 681 H D ALT 560 H D Alkaline Phosphatase 272 H Troponin I < 0.0120 Total Protein 5.4 L Albumin 2.9 L Globulin 2.5 Albumin/Globulin Ratio 1.2 Vitamin B12 Folate Procalcitonin Urine Color Urine Clarity Urine pH Ur Specific [place] Urine Protein Urine Glucose (UA) Urine Ketones Urine Blood Urine Nitrate Urine Bilirubin Urine Urobilinogen Ur Leukocyte Esterase Urine WBC (Auto) Urine RBC (Auto) Ur Squamous Epith Cells Hyaline Casts Urine Opiates Screen Urine Methadone Screen Ur Barbiturates Screen Ur Phencyclidine Scrn Ur Amphetamines Screen U Benzodiazepines Scrn U Oth Cocaine Metabols U Cannabinoids Screen Cold Agglutinins Complement C3 Complement C4 Hepatitis A IgM Ab Hep Bs Antigen Hep B Core IgM Ab Hepatitis C Antibody HIV 1&2 Antibody Screen Ur L.pneumophila Ag Grp A Beta Strep Ag Negative Blood Type Antibody Screen 01/08/18 08:27 WBC RBC Hgb Hct MCV MCH MCHC RDW Plt Count MPV Neut % (Auto) Lymph % (Auto) [place] % (Auto) Eos % (Auto) Baso % (Auto) Neut # (Auto) Lymph # (Auto) [place] # (Auto) Eos # (Auto) Baso # (Auto) Neutrophils % (Manual) Band Neutrophils % Lymphocytes % (Manual) Monocytes % (Manual) Platelet Estimate Hypochromasia (manual) Poikilocytosis (manual Anisocytosis (manual) Target Cells Ovalocytes [place] Cells Retic Count PT INR APTT Sodium Potassium Chloride Carbon Dioxide Anion Gap BUN Creatinine Est GFR ( Amer) Est GFR (Non-Af Amer) Random Glucose Hemoglobin A1c Lactic Acid Calcium Phosphorus Magnesium Iron TIBC % Saturation Ferritin Total Bilirubin AST ALT Alkaline Phosphatase Troponin I Total Protein Albumin Globulin Albumin/Globulin Ratio Vitamin B12 Folate Procalcitonin Urine Color Urine Clarity Urine pH Ur Specific [place] Urine Protein Urine Glucose (UA) Urine Ketones Urine Blood Urine Nitrate Urine Bilirubin Urine Urobilinogen Ur Leukocyte Esterase Urine WBC (Auto) Urine RBC (Auto) Ur Squamous Epith Cells Hyaline Casts Urine Opiates Screen Urine Methadone Screen Ur Barbiturates Screen Ur Phencyclidine Scrn Ur Amphetamines Screen U Benzodiazepines Scrn U Oth Cocaine Metabols U Cannabinoids Screen Cold Agglutinins Complement C3 Complement C4 Hepatitis A IgM Ab Hep Bs Antigen Hep B Core IgM Ab Hepatitis C Antibody HIV 1&2 Antibody Screen Ur L.pneumophila Ag Grp A Beta Strep Ag Blood Type O POSITIVE Antibody Screen Negative EKG/Cardiology Studies: Cardiology / EKG Studies 01/08/18 06:00 EKG [ELECTROCARDIOGRAM] DAILY Comment: Mode Of Transportation: Reason For Exam: pericarditis Critical Care Progress Note - Nutrition Nutrition: Nutrition Category Date Time Status NPO Diet [DIET] Diets 01/10/18 Dinner Active Regular Diet [DIET] Diets 01/08/18 Dinner Active Assessment/Plan - Assessment and Plan (Free Text) Assessment: Above patient seen and examined at bedside. Above resident documents my clinical findings and managemnt -PAtient with h/o Sever GPC (liekly strep pneumo) baceteremia. -Lactic normalized -continue iVF -continue abx as per ID -source control with drainage with pericardial window -unsuccessful attempt at US guided pericardiocentesis -continue to monitor -awaiting pericardial window on thursday by CT surgery. - Date & Time Date: 01/08/18 Time: 18:14
--- NOTE | 2018-01-08 10:34 | VASCLAB ---
Date of service: 01/07/2018 PROCEDURE: Lower Extremity Venous Duplex Exam. HISTORY: Shortness of breath, r/o DVT PRIORS: None. TECHNIQUE: Bilateral common femoral, femoral, popliteal and posterior tibial, peroneal and great saphenous veins were evaluated. Flow was assessed with color Doppler, compressibility, assessment of phasic flow and augmentation response. Report prepared by ELLE Dougherty FINDINGS: RIGHT: 1. Common Femoral Vein: 1.1. Compressibility - Fully compressible: Thrombus - None : Flow - Phasic: Augmentation -Normal: Reflux - None. 2. Femoral Vein: 2.1. Compressibility - Fully compressible: Thrombus - None : Flow - Phasic: Augmentation -Normal: Reflux - None. 3. Popliteal Vein: 3.1. Compressibility - Fully compressible: Thrombus - None : Flow - Phasic: Augmentation -Normal: Reflux - None. 4. Posterior Tibial Vein: 4.1. Compressibility - Fully compressible: Thrombus - None: Flow - Phasic: Augmentation -Normal: Reflux - None. 5. Peroneal Vein: 5.1. Compressibility - Fully compressible: Thrombus - None: Flow - Phasic: Augmentation -Normal: Reflux - None. 6. Great Saphenous Vein: 6.1. Compressibility - Fully compressible: Thrombus - None: Flow - Phasic: Augmentation - Normal: Reflux - None. LEFT: 1. Common Femoral Vein: 1.1. Compressibility - Fully compressible: Thrombus - None: Flow - Phasic: Augmentation -Normal: Reflux - None. 2. Femoral Vein: 2.1. Compressibility - Fully compressible: Thrombus - None: Flow - Phasic: Augmentation -Normal: Reflux - None. 3. Popliteal Vein: 3.1. Compressibility - Fully compressible: Thrombus - None : Flow - Phasic: Augmentation -Normal: Reflux - None. 4. Posterior Tibial Vein: 4.1. Compressibility - Fully compressible: Thrombus - None: Flow - Phasic: Augmentation -Normal: Reflux - None. 5. Peroneal Vein: 5.1. Compressibility - Fully compressible: Thrombus - None: Flow - Phasic: Augmentation -Normal: Reflux - None. 6. Great Saphenous Vein: 6.1. Compressibility - Fully compressible: Thrombus - None: Flow - Phasic: Augmentation - Normal: Reflux - None. OTHER FINDINGS: Right: None significant. Left: None significant. IMPRESSION: Right: No evidence of deep or superficial vein thrombosis of the right lower extremity. Normal valve function noted of the right side. Left: No evidence of deep or superficial vein thrombosis of the left lower extremity. Normal valve function noted of the left side.
--- NOTE | 2018-01-08 11:05 | CP.PCM.PN ---
Subjective - Date & Time of Evaluation Date of Evaluation: 01/08/18 Time of Evaluation: 15:00 - Subjective Subjective: Progress note dictated #[id number] Objective - Vital Signs/Intake and Output Vital Signs (last 24 hours): Temp Pulse Resp BP Pulse Ox 97.9 F 86 46 H 106/52 L 100 01/08/18 06:00 01/08/18 08:10 01/08/18 08:10 01/08/18 08:06 01/08/18 08:10 Intake and Output: 01/08/18 01/08/18 06:59 18:59 Intake Total 1850 300 Output Total 1050 0 Balance 800 300 - Medications Medications: Current Medications Colchicine (Colocrys) 0.6 mg PO BID [facility] Last Admin: 01/07/18 18:56 Dose: 0.6 mg Sodium Chloride (Sodium Chloride 0.9%) 1,000 mls @ 150 mls/hr IV .[id number] [facility] Last Admin: 01/08/18 05:00 Dose: 150 mls/hr Moxifloxacin HCl (Avelox Iv 400mg/250ml Ns) 400 mg in 250 mls @ 167 mls/hr IVPB Q24H [address] PRN Reason: Protocol Last Admin: 01/07/18 20:10 Dose: Not Given Vancomycin/Sodium Chloride (Vancomycin 1 Gm/Ns 200 Ml) 1 gm in 200 mls @ 133 mls/hr IVPB Q12H AVE PRN Reason: Protocol Stop: 01/13/18 04:31 Last Admin: 01/08/18 05:30 Dose: 133 mls/hr Ibuprofen (Motrin Tab) [address] Last Admin: 01/08/18 07:30 Dose: Not Given Pantoprazole Sodium (Protonix Ec Tab) 40 mg PO DAILY [facility] Last Admin: 01/07/18 17:33 Dose: 40 mg Vitamin A (Vitamin A & D Oint Ud Foilpak) 1 ea TOP Q8 PRN PRN Reason: Dry mouth Last Admin: 01/07/18 21:00 Dose: 1 ea - Labs Labs: 01/08/18 06:06 01/08/18 08:13 PT 20.8 SECONDS (9.7-12.2) H 01/08/18 06:06 INR 1.9 01/08/18 06:06 APTT 20 SECONDS (21-34) L D 01/08/18 06:06
[2018-01-08] MEDS ORDERED: Lidocaine 2% MPF (5 ml) Inj ONE (11:29)
[2018-01-08] MEDS ORDERED: Midazolam 2 MG/2 ML VIAL ONE (11:29)
[2018-01-08] MEDS: Pantoprazole 40 mg EC Tab PO SCH (14:11)
--- NOTE | 2018-01-08 15:55 | CT ---
Date of service: 01/08/2018 PROCEDURE: CT Chest without contrast HISTORY: Pericardial effusion possible tamponade COMPARISON: Comparison made with CT scan chest dated 01/07/18. TECHNIQUE: Contiguous axial images were obtained through the chest without intravenous contrast enhancement. Sagittal and coronal reconstructions were performed. Radiation dose (DLP): 388 mGy-cm. This CT exam was performed using one or more of the following dose reduction techniques: Automated exposure control, adjustment of the mA and/or kV according to patient size, and/or use of iterative reconstruction technique. FINDINGS: LUNGS: Re- demonstrated is a right lower lobe consolidation again elliptical shaped central area of low-attenuation that exhibits Hounsfield units in the single digits. This could represent abscess or loculated pleural effusion. Small right-sided effusion is also felt be present. Minor left basilar atelectasis and or consolidation. Tiny left-sided effusion. Mediastinum Heart size within range of normal. Large pericardial effusion slight which appears to be minimally decreased from prior study likely related to recent pericardiocentesis. Findings size suggest pericarditis. Questionable upper mediastinal adenopathy or fluid ; rule out mediastinitis.. Evaluation limited due to the lack of circulating intravenous contrast. PLEURA: As above. No pneumothorax. BONES: No fracture. No destructive lesion. UPPER ABDOMEN: Grossly unremarkable. OTHER FINDINGS: None. IMPRESSION: Limited study due to the lack of circulating intravenous contrast material. Large pericardial effusion which appears to be slightly decreased from prior exam. Right lower lobe consolidation with apparent loculated effusion ; rule out abscess component. There also appears to be small right-sided effusion. Mild left lower lobe atelectasis and/or consolidation with small left effusion. Questionable mediastinal adenopathy and/or fluid ; rule out mediastinitis. Findings discussed with Dr. Sadler at approximately 3:45 p.m. with written down and read back.
--- NOTE | 2018-01-08 17:02 | CP.PCM.PN ---
Subjective - Date & Time of Evaluation Date of Evaluation: 01/08/18 Time of Evaluation: 08:00 - Subjective Subjective: seen in ICU appears less SOB denies headache or fever Objective - Vital Signs/Intake and Output Vital Signs (last 24 hours): Temp Pulse Resp BP Pulse Ox 97.5 F L 83 31 H 108/66 100 01/08/18 08:00 01/08/18 13:00 01/08/18 13:00 01/08/18 12:29 01/08/18 13:00 Intake and Output: 01/08/18 01/08/18 06:59 18:59 Intake Total 1850 845 Output Total 1050 200 Balance 800 645 - Medications Medications: Current Medications Colchicine (Colocrys) 0.6 mg PO BID [facility] Last Admin: 01/08/18 14:12 Dose: Not Given Moxifloxacin HCl (Avelox Iv 400mg/250ml Ns) 400 mg in 250 mls @ 167 mls/hr IVPB Q24H AVE PRN Reason: Protocol Last Admin: 01/07/18 20:10 Dose: Not Given Vancomycin/Sodium Chloride (Vancomycin 1 Gm/Ns 200 Ml) 1 gm in 200 mls @ 133 mls/hr IVPB Q12H AVE PRN Reason: Protocol Stop: 01/13/18 04:31 Last Admin: 01/08/18 05:30 Dose: 133 mls/hr Sodium Chloride (Sodium Chloride 0.9%) 1,000 mls @ 75 mls/hr IV .[id number] AVE Ibuprofen (Motrin Tab) 600 mg PO Q8H [facility] Last Admin: 01/08/18 07:30 Dose: Not Given Pantoprazole Sodium (Protonix Ec Tab) 40 mg PO DAILY [facility] Last Admin: 01/08/18 14:11 Dose: Not Given Vitamin A (Vitamin A & D Oint Ud Foilpak) 1 ea TOP Q8 PRN PRN Reason: Dry mouth Last Admin: 01/07/18 21:00 Dose: 1 ea - Labs Labs: 01/08/18 06:06 01/08/18 08:13 PT 20.8 SECONDS (9.7-12.2) H 01/08/18 06:06 INR 1.9 01/08/18 06:06 APTT 20 SECONDS (21-34) L D 01/08/18 06:06 - Constitutional Appears: Non-toxic, Chronically Ill - Head Exam Head Exam: NORMOCEPHALIC - Eye Exam Eye Exam: PERRL - ENT Exam ENT Exam: Mucous Membranes Dry - Neck Exam Neck Exam: absent: Lymphadenopathy - Respiratory Exam Respiratory Exam: Decreased Breath Sounds - Cardiovascular Exam Cardiovascular Exam: REGULAR RHYTHM - GI/Abdominal Exam GI & Abdominal Exam: Distended, Soft - Rectal Exam Rectal Exam: Deferred - Exam Exam: NORMAL INSPECTION - Extremities Exam Extremities Exam: absent: Pedal Edema - Back Exam Back Exam: absent: CVA tenderness (L), CVA tenderness (R) - Neurological Exam Neurological Exam: Alert, Awake, Oriented x3 - Psychiatric Exam Psychiatric exam: Depressed - Skin Skin Exam: Dry Assessment and Plan (1) Pericarditis Status: Acute (2) Sepsis Status: Acute (3) Pneumonia Status: Acute (4) Pneumonia Status: Acute (5) Pleurisy with effusion Status: Acute (6) Common variable immunodeficiency Status: Acute - Assessment and Plan (Free Text) Assessment: 22 yo male was admitted with sepsis and pericarditis recently also treated for pneiumonia at [facility] ( + strep pneumonia in blood) 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
--- NOTE | 2018-01-08 17:34 | CP.PCM.PN ---
Subjective - Date & Time of Evaluation Date of Evaluation: 01/08/18 Time of Evaluation: 07:00 - Subjective Subjective: THORACIC SURGERY PROGRESS NOTE FOR DR. MELARA Patient seen and examined at bedside in the ICU. Pt states that his CP and SOB have improved. Dr. Adams attempted pericardiocentesis today with US and fluoroscopy, however, was unable to aspirate any fluid. Objective - Vital Signs/Intake and Output Vital Signs (last 24 hours): Temp Pulse Resp BP Pulse Ox 97.5 F L 83 31 H 108/66 100 01/08/18 08:00 01/08/18 13:00 01/08/18 13:00 01/08/18 12:29 01/08/18 13:00 Intake and Output: 01/08/18 01/08/18 06:59 18:59 Intake Total 1850 845 Output Total 1050 200 Balance 800 645 - Medications Medications: Current Medications Colchicine (Colocrys) 0.6 mg PO BID [facility] Last Admin: 01/08/18 17:15 Dose: 0.6 mg Moxifloxacin HCl (Avelox Iv 400mg/250ml Ns) 400 mg in 250 mls @ 167 mls/hr IVPB Q24H AVE PRN Reason: Protocol Last Admin: 01/07/18 20:10 Dose: Not Given Vancomycin/Sodium Chloride (Vancomycin 1 Gm/Ns 200 Ml) 1 gm in 200 mls @ 133 mls/hr IVPB Q12H AVE PRN Reason: Protocol Stop: 01/13/18 04:31 Last Admin: 01/08/18 17:11 Dose: 133 mls/hr Sodium Chloride (Sodium Chloride 0.9%) 1,000 mls @ 75 mls/hr IV .[id number] AVE Last Admin: 01/08/18 17:11 Dose: Not Given Ibuprofen (Motrin Tab) [address] Last Admin: 01/08/18 17:14 Dose: 600 mg Pantoprazole Sodium (Protonix Ec Tab) 40 mg PO DAILY [facility] Last Admin: 01/08/18 14:11 Dose: Not Given Vitamin A (Vitamin A & D Oint Ud Foilpak) 1 ea TOP Q8 PRN PRN Reason: Dry mouth Last Admin: 01/07/18 21:00 Dose: 1 ea - Labs Labs: 01/08/18 06:06 01/08/18 08:13 PT 20.8 SECONDS (9.7-12.2) H 01/08/18 06:06 INR 1.9 01/08/18 06:06 APTT 20 SECONDS (21-34) L D 01/08/18 06:06 - Constitutional Appears: Non-toxic, No Acute Distress - Head Exam Head Exam: ATRAUMATIC, NORMAL INSPECTION - Respiratory Exam Additional comments: tachypneic - Cardiovascular Exam Cardiovascular Exam: +S1, +S2 - GI/Abdominal Exam GI & Abdominal Exam: Soft. absent: Tenderness - Neurological Exam Neurological Exam: Alert, Awake - Psychiatric Exam Psychiatric exam: Normal Affect, Normal Mood - Skin Skin Exam: Dry, Normal Color, Warm Assessment and Plan - Assessment and Plan (Free Text) Assessment: 22yo M with PMHx of asthma, pneumonia presents with Chest pain, SOB and found to have pericardial effusion of unknown etiology without signs of tamponade on ECHO - ECHO: large eccencentric pericardial effusion with fibrin densities suggestive of an exudate, no definitive evidence of tamponade - CT Chest: moderate pericardial effusion, loculated biconvex pleural fluid collection along right posterior chest wall, right lower consolidation w/ left lower lobe consolidations/bandlike atelectasis, no aneurysm - Pericardiocentesis unsuccessful - Will plan for OR on Thursday for pericardial window - Discussed plan with Dr. Shira Costa PGY-4
[2018-01-08 18:27] LABS: IMMUNOGLOBULIN A < 40.0 mg/dL (70.0-400.0); IMMUNOGLOBULIN G < 270.0 mg/dL (700.0-1600.0); IMMUNOGLOBULIN M < 25.0 mg/dL (40.0-230.0)
--- NOTE | 2018-01-08 19:33 | CARD ---
APPROVED REPORT Date of service: 01/08/2018 EXAM: LIMITED Two-dimensional and M-mode echocardiogram with Doppler and color Doppler. Other Information Quality : GoodRhythm : INDICATION Pericardial Effusion LEFT VENTRICLE The left ventricle is normal size. There is normal left ventricular wall thickness. The left ventricular function is normal. The left ventricular ejection fraction is within the normal range. There is normal LV segmental wall motion. RIGHT VENTRICLE The right ventricle is normal size. The right ventricular systolic function is normal. ATRIA The left atrium size is normal. The right atrium size is normal. AORTIC VALVE The aortic valve is normal in structure. MITRAL VALVE The mitral valve is normal in structure.Transvalvular doppler pattern shows no significant respiratory variation. TRICUSPID VALVE The tricuspid valve is normal in structure. PERICARDIAL EFFUSION There is a small-moderate pericardial effusion. <Conclusion> LIMITED FOLLOW UP STUDY Small to moderate pericardial effusion. No evidence of cardiac tamponade. Normal bi-ventricular function.
[2018-01-08] MEDS: Moxifloxacin IV 400mg/250ml NS 400 MG/250 ML BAG IVPB SCH (19:47)
--- NOTE | 2018-01-08 21:15 | CP.PCM.CON ---
History of Present Illness - History of Present Illness History of Present Illness: 22 year old male with a history of asthma, common variable immunodeficiency, recent pneumonia x 2, admitted with shortness of breath, found to have pericardial effusion requiring pericardial window. The patient had been on IVIG prophylaxis but has not been treated for about 3 years due to insurance issues. He feels he has not fully recovered from his pneumonia treated a few weeks ago. Past medical history: asthma, CVID Past surgical history: Elbow surgery Family history: Denies hematologic and oncologic problems Social history: Denies tobacco, alcohol, and illicit drug use. Allergies: Penicillins Review of systems: All remaining review of systems including HEENT, cardiovascular, respiratory, gastrointestinal, genitourinary, musculoskeletal, dermatologic, neurologic, and psychiatric are negative unless mentioned in the HPI. Past Patient History - Infectious Disease Hx of Infectious Diseases: None - Past Medical History & Family History Past Medical History?: Yes - Past Social History Smoking Status: Never Smoked - CARDIAC Hx Cardiac Disorders: No - PULMONARY Hx Asthma: Yes - NEUROLOGICAL Hx Neurological Disorder: No - HEENT Hx HEENT Problems: No - RENAL Hx Chronic Kidney Disease: No - ENDOCRINE/METABOLIC Hx Endocrine Disorders: No - HEMATOLOGICAL/ONCOLOGICAL Hx Blood Disorders: No - INTEGUMENTARY Hx Dermatological Problems: No - MUSCULOSKELETAL/RHEUMATOLOGICAL Hx Fractures: Yes (lt.shoulder dislocation in the past) - GASTROINTESTINAL Hx Gastrointestinal Disorders: No - GENITOURINARY/GYNECOLOGICAL Hx Genitourinary Disorders: No - PSYCHIATRIC Hx Substance Use: No - SURGICAL HISTORY Hx Surgeries: No - ANESTHESIA Hx Anesthesia: No Hx Anesthesia Reactions: No Hx Malignant Hyperthermia: No Meds Allergies/Adverse Reactions: Allergies Allergy/AdvReac Type Severity Reaction Status Date / Time Penicillins Allergy Verified 10/27/15 21:39 - Medications Medications: Current Medications Colchicine (Colocrys) 0.[address] Last Admin: 01/08/18 17:15 Dose: 0.6 mg Moxifloxacin HCl (Avelox Iv 400mg/250ml Ns) 400 mg in 250 mls @ 167 mls/hr IVPB Q24H AVE PRN Reason: Protocol Last Admin: 01/08/18 19:47 Dose: 167 mls/hr Vancomycin/Sodium Chloride (Vancomycin 1 Gm/Ns 200 Ml) 1 gm in 200 mls @ 133 mls/hr IVPB Q12H AVE PRN Reason: Protocol Stop: 01/13/18 04:31 Last Admin: 01/08/18 17:11 Dose: 133 mls/hr Sodium Chloride (Sodium Chloride 0.9%) 1,000 mls @ 75 mls/hr IV .[id number] [facility] Last Admin: 01/08/18 17:11 Dose: Not Given Ibuprofen (Motrin Tab) 600 mg PO Q8H [facility] Last Admin: 01/08/18 17:14 Dose: 600 mg Pantoprazole Sodium (Protonix Ec Tab) 40 mg PO DAILY [facility] Last Admin: 01/08/18 14:11 Dose: Not Given Pneumococcal Polyvalent Vaccine (Pneumovax 23 Vaccine) 0.5 ml IM .ONCE ONE Stop: 01/09/18 10:01 Vitamin A (Vitamin A & D Oint Ud Foilpak) 1 ea TOP Q8 PRN PRN Reason: Dry mouth Last Admin: 01/07/18 21:00 Dose: 1 ea Physical Exam - Head Exam Head Exam: ATRAUMATIC - Eye Exam Eye Exam: Normal appearance - ENT Exam ENT Exam: Mucous Membranes Dry - Respiratory Exam Respiratory Exam: NORMAL BREATHING PATTERN - Cardiovascular Exam Cardiovascular Exam: +S1, +S2 - GI/Abdominal Exam GI & Abdominal Exam: Normal Bowel Sounds - Extremities Exam Extremities exam: Positive for: normal inspection - Neurological Exam Neurological exam: Oriented x3 - Psychiatric Exam Psychiatric exam: Normal Affect, Normal Mood - Skin Skin Exam: Warm Results - Vital Signs Recent Vital Signs: Last Vital Signs Temp 98.3 F 01/08/18 18:00 Pulse 88 01/08/18 19:30 Resp 29 H 01/08/18 19:30 BP 114/54 L 01/08/18 19:30 Pulse Ox 99 01/08/18 19:30 - Labs Result Diagrams: 01/08/18 06:06 01/08/18 08:13 Labs: Laboratory Results - last 24 hr 01/07/18 01/07/18 01/07/18 20:57 20:57 20:57 WBC RBC Hgb Hct MCV MCH MCHC RDW Plt Count MPV Neut % (Auto) Lymph % (Auto) [place] % (Auto) Eos % (Auto) Baso % (Auto) Neut # (Auto) Lymph # (Auto) [place] # (Auto) Eos # (Auto) Baso # (Auto) Neutrophils % (Manual) Band Neutrophils % Lymphocytes % (Manual) Monocytes % (Manual) Platelet Estimate Hypochromasia (manual) Poikilocytosis (manual Anisocytosis (manual) Target Cells Ovalocytes [place] Cells Retic Count PT INR APTT Sodium Potassium Chloride Carbon Dioxide Anion Gap BUN Creatinine Est GFR ( Amer) Est GFR (Non-Af Amer) Random Glucose Hemoglobin A1c Lactic Acid Calcium Phosphorus Magnesium Iron TIBC % Saturation Ferritin Total Bilirubin AST ALT Alkaline Phosphatase Troponin I Total Protein Albumin Globulin Albumin/Globulin Ratio Vitamin B12 Folate Procalcitonin 15.89 H Urine Color Urine Clarity Urine pH Ur Specific [place] Urine Protein Urine Glucose (UA) Urine Ketones Urine Blood Urine Nitrate Urine Bilirubin Urine Urobilinogen Ur Leukocyte Esterase Urine WBC (Auto) Urine RBC (Auto) Ur Squamous Epith Cells Hyaline Casts Urine Opiates Screen Urine Methadone Screen Ur Barbiturates Screen Ur Phencyclidine Scrn Ur Amphetamines Screen U Benzodiazepines Scrn U Oth Cocaine Metabols U Cannabinoids Screen IgG IgA IgM Cold Agglutinins Negative Complement C3 Complement C4 HIV 1&2 Antibody Screen Negative Ur L.pneumophila Ag Grp A Beta Strep Ag Blood Type Antibody Screen 01/07/18 01/07/18 01/08/18 21:36 23:11 01:40 WBC RBC Hgb Hct MCV MCH MCHC RDW Plt Count MPV Neut % (Auto) Lymph % (Auto) [place] % (Auto) Eos % (Auto) Baso % (Auto) Neut # (Auto) Lymph # (Auto) [place] # (Auto) Eos # (Auto) Baso # (Auto) Neutrophils % (Manual) Band Neutrophils % Lymphocytes % (Manual) Monocytes % (Manual) Platelet Estimate Hypochromasia (manual) Poikilocytosis (manual Anisocytosis (manual) Target Cells Ovalocytes Emanuel Cells Retic Count PT INR APTT Sodium Potassium Chloride Carbon Dioxide Anion Gap BUN Creatinine Est GFR ( Amer) Est GFR (Non-Af Amer) Random Glucose Hemoglobin A1c Lactic Acid 3.2 H Calcium Phosphorus Magnesium Iron TIBC % Saturation Ferritin 1570.0 Total Bilirubin AST ALT Alkaline Phosphatase Troponin I Total Protein Albumin Globulin Albumin/Globulin Ratio Vitamin B12 846 Folate 12.2 Procalcitonin Urine Color Urine Clarity Urine pH Ur Specific [place] Urine Protein Urine Glucose (UA) Urine Ketones Urine Blood Urine Nitrate Urine Bilirubin Urine Urobilinogen Ur Leukocyte Esterase Urine WBC (Auto) Urine RBC (Auto) Ur Squamous Epith Cells Hyaline Casts Urine Opiates Screen Urine Methadone Screen Ur Barbiturates Screen Ur Phencyclidine Scrn Ur Amphetamines Screen U Benzodiazepines Scrn U Oth Cocaine Metabols U Cannabinoids Screen IgG IgA IgM Cold Agglutinins Complement C3 Complement C4 HIV 1&2 Antibody Screen Ur L.pneumophila Ag Negative Grp A Beta Strep Ag Blood Type Antibody Screen 01/08/18 01/08/18 01/08/18 01:40 01:40 01:40 WBC RBC Hgb Hct MCV MCH MCHC RDW Plt Count MPV Neut % (Auto) Lymph % (Auto) [place] % (Auto) Eos % (Auto) Baso % (Auto) Neut # (Auto) Lymph # (Auto) [place] # (Auto) Eos # (Auto) Baso # (Auto) Neutrophils % (Manual) Band Neutrophils % Lymphocytes % (Manual) Monocytes % (Manual) Platelet Estimate Hypochromasia (manual) Poikilocytosis (manual Anisocytosis (manual) Target Cells Ovalocytes [place] Cells Retic Count PT INR APTT Sodium Potassium Chloride Carbon Dioxide Anion Gap BUN Creatinine Est GFR ( Amer) Est GFR (Non-Af Amer) Random Glucose Hemoglobin A1c Lactic Acid Calcium Phosphorus Magnesium Iron 19 L TIBC 206 L % Saturation 9 L Ferritin Total Bilirubin AST ALT Alkaline Phosphatase Troponin I Total Protein Albumin Globulin Albumin/Globulin Ratio Vitamin B12 Folate Procalcitonin Urine Color Jory Urine Clarity Hazy Urine pH 5.0 Ur Specific [place] 1.027 Urine Protein 1+ H Urine Glucose (UA) Normal Urine Ketones Negative Urine Blood 2+ H Urine Nitrate Negative Urine Bilirubin 1+ H Urine Urobilinogen 4.0 Ur Leukocyte Esterase Trace Urine WBC (Auto) 7 H Urine RBC (Auto) 41 H Ur Squamous Epith Cells 1 Hyaline Casts 11-20 H Urine Opiates Screen Urine Methadone Screen Ur Barbiturates Screen Ur Phencyclidine Scrn Ur Amphetamines Screen U Benzodiazepines Scrn U Oth Cocaine Metabols U Cannabinoids Screen IgG IgA IgM Cold Agglutinins Complement C3 101.0 Complement C4 24.1 HIV 1&2 Antibody Screen Ur L.pneumophila Ag Grp A Beta Strep Ag Blood Type Antibody Screen 01/08/18 01/08/18 01/08/18 01:40 01:40 02:47 WBC RBC Hgb Hct MCV MCH MCHC RDW Plt Count MPV Neut % (Auto) Lymph % (Auto) [place] % (Auto) Eos % (Auto) Baso % (Auto) Neut # (Auto) Lymph # (Auto) [place] # (Auto) Eos # (Auto) Baso # (Auto) Neutrophils % (Manual) Band Neutrophils % Lymphocytes % (Manual) Monocytes % (Manual) Platelet Estimate Hypochromasia (manual) Poikilocytosis (manual Anisocytosis (manual) Target Cells Ovalocytes Emanuel Cells Retic Count PT INR APTT Sodium Potassium Chloride Carbon Dioxide Anion Gap BUN Creatinine Est GFR ( Amer) Est GFR (Non-Af Amer) Random Glucose Hemoglobin A1c Lactic Acid 2.9 H Calcium Phosphorus Magnesium Iron TIBC % Saturation Ferritin Total Bilirubin AST ALT Alkaline Phosphatase Troponin I < 0.0120 Total Protein Albumin Globulin Albumin/Globulin Ratio Vitamin B12 Folate Procalcitonin Urine Color Urine Clarity Urine pH Ur Specific [place] Urine Protein Urine Glucose (UA) Urine Ketones Urine Blood Urine Nitrate Urine Bilirubin Urine Urobilinogen Ur Leukocyte Esterase Urine WBC (Auto) Urine RBC (Auto) Ur Squamous Epith Cells Hyaline Casts Urine Opiates Screen Negative Urine Methadone Screen Negative Ur Barbiturates Screen Negative Ur Phencyclidine Scrn Negative Ur Amphetamines Screen Negative U Benzodiazepines Scrn Negative U Oth Cocaine Metabols Negative U Cannabinoids Screen Negative IgG IgA IgM Cold Agglutinins Complement C3 Complement C4 HIV 1&2 Antibody Screen Ur L.pneumophila Ag Grp A Beta Strep Ag Blood Type Antibody Screen 01/08/18 01/08/18 01/08/18 06:06 06:06 06:06 WBC 34.8 H RBC 3.75 L Hgb 8.4 L Hct 25.9 L MCV 69.0 L MCH 22.3 L MCHC 32.3 L RDW 17.1 H Plt Count 541 H D MPV 7.8 Neut % (Auto) 91.7 H Lymph % (Auto) 2.3 L Lawrence % (Auto) 4.6 Eos % (Auto) 0.0 Baso % (Auto) 1.4 Neut # (Auto) 31.9 H Lymph # (Auto) 0.8 L [place] # (Auto) 1.6 H Eos # (Auto) 0.0 Baso # (Auto) 0.5 H Neutrophils % (Manual) 81 H Band Neutrophils % 9 H Lymphocytes % (Manual) 4 L Monocytes % (Manual) 6 Platelet Estimate Increased H Hypochromasia (manual) Moderate Poikilocytosis (manual Slight Anisocytosis (manual) Slight Target Cells Slight Ovalocytes Slight [place] Cells Slight Retic Count 2.3 H PT 20.8 H INR 1.9 APTT 20 L D Sodium Potassium Chloride Carbon Dioxide Anion Gap BUN Creatinine Est GFR ( Amer) Est GFR (Non-Af Amer) Random Glucose Hemoglobin A1c Lactic Acid Calcium Phosphorus Magnesium Iron TIBC % Saturation Ferritin Total Bilirubin AST ALT Alkaline Phosphatase Troponin I Total Protein Albumin Globulin Albumin/Globulin Ratio Vitamin B12 Folate Procalcitonin Urine Color Urine Clarity Urine pH Ur Specific [place] Urine Protein Urine Glucose (UA) Urine Ketones Urine Blood Urine Nitrate Urine Bilirubin Urine Urobilinogen Ur Leukocyte Esterase Urine WBC (Auto) Urine RBC (Auto) Ur Squamous Epith Cells Hyaline Casts Urine Opiates Screen Urine Methadone Screen Ur Barbiturates Screen Ur Phencyclidine Scrn Ur Amphetamines Screen U Benzodiazepines Scrn U Oth Cocaine Metabols U Cannabinoids Screen IgG IgA IgM Cold Agglutinins Complement C3 Complement C4 HIV 1&2 Antibody Screen Ur L.pneumophila Ag Grp A Beta Strep Ag Blood Type Antibody Screen 01/08/18 01/08/18 01/08/18 06:06 06:06 06:55 WBC RBC Hgb Hct MCV MCH MCHC RDW Plt Count MPV Neut % (Auto) Lymph % (Auto) [place] % (Auto) Eos % (Auto) Baso % (Auto) Neut # (Auto) Lymph # (Auto) [place] # (Auto) Eos # (Auto) Baso # (Auto) Neutrophils % (Manual) Band Neutrophils % Lymphocytes % (Manual) Monocytes % (Manual) Platelet Estimate Hypochromasia (manual) Poikilocytosis (manual Anisocytosis (manual) Target Cells Ovalocytes [place] Cells Retic Count PT INR APTT Sodium Potassium Chloride Carbon Dioxide Anion Gap BUN Creatinine Est GFR ( Amer) Est GFR (Non-Af Amer) Random Glucose Hemoglobin A1c 6.3 Lactic Acid 2.5 H Calcium Phosphorus Magnesium Iron TIBC % Saturation Ferritin Total Bilirubin AST ALT Alkaline Phosphatase Troponin I Total Protein Albumin Globulin Albumin/Globulin Ratio Vitamin B12 Folate Procalcitonin Urine Color Urine Clarity Urine pH Ur Specific [place] Urine Protein Urine Glucose (UA) Urine Ketones Urine Blood Urine Nitrate Urine Bilirubin Urine Urobilinogen Ur Leukocyte Esterase Urine WBC (Auto) Urine RBC (Auto) Ur Squamous Epith Cells Hyaline Casts Urine Opiates Screen Urine Methadone Screen Ur Barbiturates Screen Ur Phencyclidine Scrn Ur Amphetamines Screen U Benzodiazepines Scrn U Oth Cocaine Metabols U Cannabinoids Screen IgG IgA IgM Cold Agglutinins Complement C3 Complement C4 HIV 1&2 Antibody Screen Ur L.pneumophila Ag Grp A Beta Strep Ag Negative Blood Type Antibody Screen 01/08/18 01/08/18 01/08/18 08:13 08:27 17:02 WBC RBC Hgb Hct MCV MCH MCHC RDW Plt Count MPV Neut % (Auto) Lymph % (Auto) [place] % (Auto) Eos % (Auto) Baso % (Auto) Neut # (Auto) Lymph # (Auto) [place] # (Auto) Eos # (Auto) Baso # (Auto) Neutrophils % (Manual) Band Neutrophils % Lymphocytes % (Manual) Monocytes % (Manual) Platelet Estimate Hypochromasia (manual) Poikilocytosis (manual Anisocytosis (manual) Target Cells Ovalocytes Emanuel Cells Retic Count PT INR APTT Sodium 137 Potassium 5.3 H Chloride 104 Carbon Dioxide 22 Anion Gap 17 BUN 25 H Creatinine 0.8 Est GFR ( Amer) > 60 Est GFR (Non-Af Amer) > 60 Random Glucose 120 H Hemoglobin A1c Lactic Acid Calcium 8.4 L Phosphorus 3.7 Magnesium 2.1 Iron TIBC % Saturation Ferritin Total Bilirubin 1.7 H AST 681 H D ALT 560 H D Alkaline Phosphatase 272 H Troponin I < 0.0120 Total Protein 5.4 L Albumin 2.9 L Globulin 2.5 Albumin/Globulin Ratio 1.2 Vitamin B12 Folate Procalcitonin Urine Color Urine Clarity Urine pH Ur Specific [place] Urine Protein Urine Glucose (UA) Urine Ketones Urine Blood Urine Nitrate Urine Bilirubin Urine Urobilinogen Ur Leukocyte Esterase Urine WBC (Auto) Urine RBC (Auto) Ur Squamous Epith Cells Hyaline Casts Urine Opiates Screen Urine Methadone Screen Ur Barbiturates Screen Ur Phencyclidine Scrn Ur Amphetamines Screen U Benzodiazepines Scrn U Oth Cocaine Metabols U Cannabinoids Screen IgG < 270.0 L IgA < 40.0 L IgM < 25.0 L Cold Agglutinins Complement C3 Complement C4 HIV 1&2 Antibody Screen Ur L.pneumophila Ag Grp A Beta Strep Ag Blood Type O POSITIVE Antibody Screen Negative Assessment & Plan (1) Common variable immunodeficiency Assessment and Plan: would benefit from IVIG infusion given lung infection will plan to treat with IVIG 400mg/kg ~ 30gm in AM on antibiotics ?lung abscess Status: Acute (2) Leukocytosis Assessment and Plan: on antibiotics Status: Acute (3) Anemia Assessment and Plan: anemia of chronic disease rule out hemoglobinopathy Status: Acute (4) Coagulopathy Assessment and Plan: likely nutritional Thank you for this interesting consult. Status: Acute
--- NOTE | 2018-01-08 23:45 | PN ---
Copied To: Luke Lu MD Attending MD: Luke Lu MD DATE: 01/08/2018 SUBJECTIVE: The patient is seen and examined at bedside. Events from last night and this morning noted. Pericardiocentesis was unsuccessful. The patient is less short of breath but still complaining of persistent cough and pleuritic chest pain. Denies any fever. Denies any headache or dizziness. Denies any nausea or vomiting. PHYSICAL EXAMINATION: GENERAL: Young thin built male, lying in bed, in no acute distress. VITAL SIGNS: Blood pressure 108/66, pulse 82, respirations 30, temperature 98.6 degrees Fahrenheit, O2 sat 100% on 2 liters nasal cannula. HEENT: Pupils are equal, round, and reacting to light and accommodation. Extraocular muscles intact. No icterus. Slightly positive pallor. No oral thrush. No pharyngeal congestion. NECK: Supple. No JVD. LUNGS: Bilateral vesicular breath sounds. Decreased breath sounds at the bases. CARDIOVASCULAR SYSTEM: S1, S2 present. Regular. Tachycardic. ABDOMEN: Soft, nontender. Bowel sounds present. No guarding. No rigidity. No rebound tenderness noted. CENTRAL NERVOUS SYSTEM: Alert, awake, oriented x3. No focal deficits noted. EXTREMITIES: No edema. Palpable peripheral pulses. MEDICATIONS: Include colchicine 0.6 mg p.o. b.i.d., ibuprofen 600 mg p.o. every 8 hours, Avelox 400 mg IV daily, Protonix 40 mg p.o. daily, sodium chloride 75 mL/hour, vancomycin 1 g IV every 12 hours. LABORATORY DATA: Labs from today: WBC 34.8, hemoglobin 8.4, hematocrit 25.9, platelets 541,000. Sodium 137, potassium 5.3, chloride 104, bicarb 22, BUN 25, creatinine 0.8, glucose 120, hemoglobin A1c is 6.3, calcium 8.4, phosphorus 3.7, magnesium 2.1. Total bilirubin 1.7, AST 681, ALT 560, alkaline phosphatase 272. Troponin negative. UA: Specific gravity 1.027, pH of 5, protein 1+, blood 2+, wbc's 7, rbc's 41. Urine drug screen negative. Cold agglutinin negative. C3 normal. C4 normal. Hepatitis serology negative. HIV negative. Influenza A and B negative. Legionella negative. Group B strep negative. Blood cultures positive for Staphylococcus aureus and coagulase-negative Staphylococcus. Sputum cultures pending. Urine cultures pending. Repeat CT chest from this morning, shows large pericardial effusion, right lower lobe consolidation with apparent loculated effusion. There also appears to be small right-sided effusion. Mild left lower lobe atelectasis. mediastinal adenopathy or fluid. Rule out mediastinitis. ASSESSMENT AND PLAN: Young male with prior history of asthma. Admitted to [facility] for pneumonia two times in 11/2017, was treated with Levaquin. Had Streptococcus pneumonia in the blood. Later developed right knee effusion for which he was given anti-inflammatory medications. Returned to [facility] with shortness of breath. He is found to be having pericardial effusion, sepsis, anemia, mild hyperkalemia, abnormal liver function tests. All the workup so far is negative for any hepatitis, human immunodeficiency virus or any other infectious etiology. Blood cultures are positive, preliminary report with Staphylococcus aureus. The patient today admitted that he has been getting intravenous immunoglobulins every month until two years ago for many years and he claimed that Dr. Langston was giving him intravenous immunoglobulin injections. I called Dr. Langston at her office at [phone]. As per Dr. Langston, she has no one him for few years. He was evaluated at [facility] for recurrent infections. He was diagnosed with common variable immunodeficiency at [facility] and was recommended to get intravenous immunoglobulin every month , but the patient stopped getting intravenous immunoglobulin about two years ago when he lost his health benefit coverage. Since then, he has not been getting any intravenous immunoglobulin injections as per Dr. Langston. Discussed the same with Dr. Croft who also agrees that the patient should be given intravenous immunoglobulin in view of his sepsis and his critical condition. We will request hematology consult with Dr. Rose, discussed with registered nurse. We will continue with current antibiotics, vancomycin and Avelox. We will repeat blood cultures in the morning. Pericardiocentesis was unsuccessful. The patient is scheduled for possible pericardial window on Thursday morning. We will continue with supportive care. We will add further recommendation as his clinical course progresses. We will do anemia workup. Luke Lu MD
[2018-01-09] MEDS: Vancomycin 1 gm/NS 200 ml 1 GM/200 ML BAG IVPB SCH ×2 (03:57→17:36)
[2018-01-09] MEDS: Sodium Chloride 0.9% 1,000 ML IV SCH ×2 (04:04→21:17)
--- NOTE | 2018-01-09 06:08 | CP.PCM.PN ---
Subjective - Date & Time of Evaluation Date of Evaluation: 01/08/18 Time of Evaluation: 14:15 - Subjective Subjective: Unsuccessful pericardial tap Loculated pericardial effusion No Tamonade CT surgery eveal for pericardial window D/W / Shira Thursday to OR for window Objective - Vital Signs/Intake and Output Vital Signs (last 24 hours): Temp Pulse Resp BP Pulse Ox 98.5 F 78 32 H 104/45 L 97 01/09/18 02:00 01/09/18 03:29 01/09/18 03:29 01/09/18 03:29 01/09/18 03:29 Intake and Output: 01/08/18 01/09/18 18:59 06:59 Intake Total 1310 1058 Output Total 600 350 Balance 710 708 - Medications Medications: Current Medications Colchicine (Colocrys) 0.6 mg PO BID [facility] Last Admin: 01/08/18 17:15 Dose: 0.6 mg Moxifloxacin HCl (Avelox Iv 400mg/250ml Ns) 400 mg in 250 mls @ 167 mls/hr IVPB Q24H AVE PRN Reason: Protocol Last Admin: 01/08/18 19:47 Dose: 167 mls/hr Vancomycin/Sodium Chloride (Vancomycin 1 Gm/Ns 200 Ml) 1 gm in 200 mls @ 133 mls/hr IVPB Q12H AVE PRN Reason: Protocol Stop: 01/13/18 04:31 Last Admin: 01/09/18 03:57 Dose: 133 mls/hr Sodium Chloride (Sodium Chloride 0.9%) 1,000 mls @ 75 mls/hr IV .[id number] [facility] Last Admin: 01/09/18 04:04 Dose: 75 mls/hr Ibuprofen (Motrin Tab) [address] Last Admin: 01/08/18 23:05 Dose: 600 mg Pantoprazole Sodium (Protonix Ec Tab) 40 mg PO DAILY [facility] Last Admin: 01/08/18 14:11 Dose: Not Given Pneumococcal Polyvalent Vaccine (Pneumovax 23 Vaccine) 0.5 ml IM .ONCE ONE Stop: 01/09/18 10:01 Vitamin A (Vitamin A & D Oint Ud Foilpak) 1 ea TOP Q8 PRN PRN Reason: Dry mouth Last Admin: 01/07/18 21:00 Dose: 1 ea - Labs Labs: 01/08/18 06:06 01/08/18 08:13 PT 20.8 SECONDS (9.7-12.2) H 01/08/18 06:06 INR 1.9 01/08/18 06:06 APTT 20 SECONDS (21-34) L D 01/08/18 06:06
[2018-01-09 06:31] LABS: BASO % 0.1 % (0.0-2.0); HEMOGLOBIN 7.7 g/dL (12.0-18.0); LYMPH # 1.4 K/uL (1.0-4.3); LYMPH % 5.1 % (20.0-40.0); MEAN CELL VOLUME 68.7 fL (80.0-94.0); MEAN CORPUSCULAR HEMOGLOBIN 22.4 pg (27.0-31.0); MEAN CORPUSCULAR HGB CONC 32.5 g/dL (33.0-37.0); MEAN PLATELET VOLUME 7.6 fL (7.2-11.7); MONO # 1.3 K/uL (0.0-0.8); MONO % 4.8 % (0.0-10.0); NEUT # 24.4 K/uL (1.8-7.0); PLATELET COUNT 553 K/uL (130-400); RBC 3.45 Mil/uL (4.40-5.90); RED CELL DISTRIBUTION WIDTH 17.1 % (11.5-14.5); WHITE BLOOD COUNT 27.1 K/uL (4.8-10.8)
[2018-01-09 06:36] LABS: INR 1.5; PROTHROMBIN TIME 16.5 SECONDS (9.7-12.2)
[2018-01-09 06:47] LABS: ALB/GLOB RATIO 1.1 (1.0-2.1); ALBUMIN 2.7 g/dL (3.5-5.0); ALT/SGPT 454 U/L (21-72); AST/SGOT 435 U/L (17-59); BLOOD UREA NITROGEN 22 mg/dL (9-20); CALCIUM 8.4 mg/dl (8.6-10.4); GFR AFRICAN-AMERICAN > 60; GFR NON-AFRICAN AMERICAN > 60
[2018-01-09 08:26] LABS: BANDS 3 % (0-2); LYMPHOCYTE 5 % (20-40); MONOCYTE 4 % (0-10); NEUTROPHIL 88 % (50-75); PLATELET ESTIMATE INCREASED (NORMAL); TOTAL CELLS COUNTED 100
[2018-01-09 08:27] LABS: ANISOCYTOSIS MODERATE; BURR CELLS SLIGHT; HYPOCHROMIC MODERATE; POIKILOCYTOSIS SLIGHT; POLYCHROMIC SLIGHT
[2018-01-09 08:28] LABS: LARGE PLATELETS PRESENT; MICROCYTOSIS SLIGHT; OVALOCYTES SLIGHT
[2018-01-09 08:29] LABS: SCHISTOCYTES SLIGHT
--- NOTE | 2018-01-09 08:32 | CP.PCM.PN ---
Subjective - Date & Time of Evaluation Date of Evaluation: 01/09/18 Time of Evaluation: 07:00 - Subjective Subjective: THORACIC SURGERY PROGRESS NOTE FOR DR. MELARA Patient seen and examined at bedside in the ICU. Pt denies CP or SOB. He admits to a productive cough. Objective - Vital Signs/Intake and Output Vital Signs (last 24 hours): Temp Pulse Resp BP Pulse Ox 99.0 F 75 30 H 100/56 L 99 01/09/18 06:00 01/09/18 07:29 01/09/18 07:29 01/09/18 07:29 01/09/18 07:29 Intake and Output: 01/09/18 01/09/18 06:59 18:59 Intake Total 1200 75 Output Total 1050 0 Balance 150 75 - Medications Medications: Current Medications Colchicine (Colocrys) 0.6 mg PO BID [facility] Last Admin: 01/08/18 17:15 Dose: 0.6 mg Moxifloxacin HCl (Avelox Iv 400mg/250ml Ns) 400 mg in 250 mls @ 167 mls/hr IVPB Q24H AVE PRN Reason: Protocol Last Admin: 01/08/18 19:47 Dose: 167 mls/hr Vancomycin/Sodium Chloride (Vancomycin 1 Gm/Ns 200 Ml) 1 gm in 200 mls @ 133 mls/hr IVPB Q12H AVE PRN Reason: Protocol Stop: 01/13/18 04:31 Last Admin: 01/09/18 03:57 Dose: 133 mls/hr Sodium Chloride (Sodium Chloride 0.9%) 1,000 mls @ 75 mls/hr IV .[id number] AVE Last Admin: 01/09/18 04:04 Dose: 75 mls/hr Ibuprofen (Motrin Tab) [address] Last Admin: 01/08/18 23:05 Dose: 600 mg Pantoprazole Sodium (Protonix Ec Tab) 40 mg PO DAILY [facility] Last Admin: 01/08/18 14:11 Dose: Not Given Pneumococcal Polyvalent Vaccine (Pneumovax 23 Vaccine) 0.5 ml IM .ONCE ONE Stop: 01/09/18 10:01 Vitamin A (Vitamin A & D Oint Ud Foilpak) 1 ea TOP Q8 PRN PRN Reason: Dry mouth Last Admin: 01/07/18 21:00 Dose: 1 ea - Labs Labs: 01/09/18 06:21 01/09/18 06:17 PT 16.5 SECONDS (9.7-12.2) H 01/09/18 06:24 INR 1.5 01/09/18 06:24 APTT 26 SECONDS (21-34) D 01/09/18 06:24 - Constitutional Appears: Non-toxic, No Acute Distress - Head Exam Head Exam: ATRAUMATIC, NORMAL INSPECTION - Respiratory Exam Respiratory Exam: NORMAL BREATHING PATTERN. absent: Respiratory Distress - Cardiovascular Exam Cardiovascular Exam: +S1, +S2 - GI/Abdominal Exam GI & Abdominal Exam: Soft. absent: Tenderness - Neurological Exam Neurological Exam: Alert, Awake, Oriented x3 - Psychiatric Exam Psychiatric exam: Normal Affect, Normal Mood - Skin Skin Exam: Dry, Warm Assessment and Plan - Assessment and Plan (Free Text) Assessment: 22yo M with PMHx of asthma, pneumonia, common variable immunodeficiency, now with pericarditis, pericardial effusion without signs of tamponade on ECHO - Blood & sputum gram stain = gram + cocci in chains - ECHO: large eccencentric pericardial effusion with fibrin densities suggestive of an exudate, no definitive evidence of tamponade - CT Chest: moderate pericardial effusion, loculated biconvex pleural fluid collection along right posterior chest wall, right lower consolidation w/ left lower lobe consolidations/bandlike atelectasis, no aneurysm - Pericardiocentesis unsuccessful - Will plan for OR on Thursday for pericardial window - NPO past midnight on Thursday - Type and crossed - Discussed plan with Dr. Shira Costa PGY-4
--- NOTE | 2018-01-09 09:40 | CP.PCM.PN ---
Subjective - Date & Time of Evaluation Date of Evaluation: 01/09/18 Time of Evaluation: 09:40 - Subjective Subjective: Progress note dictated #[id number] Objective - Vital Signs/Intake and Output Vital Signs (last 24 hours): Temp Pulse Resp BP Pulse Ox 99.0 F 75 30 H 100/56 L 99 01/09/18 06:00 01/09/18 07:29 01/09/18 07:29 01/09/18 07:29 01/09/18 07:29 Intake and Output: 01/09/18 01/09/18 06:59 18:59 Intake Total 1200 75 Output Total 1050 0 Balance 150 75 - Medications Medications: Current Medications Colchicine (Colocrys) 0.6 mg PO BID [facility] Last Admin: 01/08/18 17:15 Dose: 0.6 mg Moxifloxacin HCl (Avelox Iv 400mg/250ml Ns) 400 mg in 250 mls @ 167 mls/hr IVPB Q24H AVE PRN Reason: Protocol Last Admin: 01/08/18 19:47 Dose: 167 mls/hr Vancomycin/Sodium Chloride (Vancomycin 1 Gm/Ns 200 Ml) 1 gm in 200 mls @ 133 mls/hr IVPB Q12H AVE PRN Reason: Protocol Stop: 01/13/18 04:31 Last Admin: 01/09/18 03:57 Dose: 133 mls/hr Sodium Chloride (Sodium Chloride 0.9%) 1,000 mls @ 75 mls/hr IV .[id number] AVE Last Admin: 01/09/18 04:04 Dose: 75 mls/hr Ibuprofen (Motrin Tab) [address] Last Admin: 01/08/18 23:05 Dose: 600 mg Pantoprazole Sodium (Protonix Ec Tab) 40 mg PO DAILY [facility] Last Admin: 01/08/18 14:11 Dose: Not Given Pneumococcal Polyvalent Vaccine (Pneumovax 23 Vaccine) 0.5 ml IM .ONCE ONE Stop: 01/09/18 10:01 Vitamin A (Vitamin A & D Oint Ud Foilpak) 1 ea TOP Q8 PRN PRN Reason: Dry mouth Last Admin: 01/07/18 21:00 Dose: 1 ea - Labs Labs: 01/09/18 06:21 01/09/18 06:17 PT 16.5 SECONDS (9.7-12.2) H 01/09/18 06:24 INR 1.5 01/09/18 06:24 APTT 26 SECONDS (21-34) D 01/09/18 06:24
[2018-01-09] MEDS ORDERED: Pneumococcal 23-Valent Vaccine IM ONE (10:00)
[2018-01-09] MEDS: Pantoprazole 40 mg EC Tab PO SCH (10:41)
--- NOTE | 2018-01-09 10:50 | CP.PCM.PN ---
Subjective - Date & Time of Evaluation Date of Evaluation: 01/09/18 Time of Evaluation: 08:45 - Subjective Subjective: PAtient had no complaints overnight Objective - Vital Signs/Intake and Output Vital Signs (last 24 hours): Temp Pulse Resp BP Pulse Ox 99.0 F 84 34 H 100/53 L 99 01/09/18 06:00 01/09/18 10:00 01/09/18 10:00 01/09/18 09:29 01/09/18 10:00 Intake and Output: 01/09/18 01/09/18 06:59 18:59 Intake Total 1200 75 Output Total 1050 0 Balance 150 75 - Medications Medications: Current Medications Colchicine (Colocrys) 0.6 mg PO BID [facility] Last Admin: 01/08/18 17:15 Dose: 0.6 mg Moxifloxacin HCl (Avelox Iv 400mg/250ml Ns) 400 mg in 250 mls @ 167 mls/hr IVPB Q24H AVE PRN Reason: Protocol Last Admin: 01/08/18 19:47 Dose: 167 mls/hr Vancomycin/Sodium Chloride (Vancomycin 1 Gm/Ns 200 Ml) 1 gm in 200 mls @ 133 mls/hr IVPB Q12H AVE PRN Reason: Protocol Stop: 01/13/18 04:31 Last Admin: 01/09/18 03:57 Dose: 133 mls/hr Sodium Chloride (Sodium Chloride 0.9%) 1,000 mls @ 75 mls/hr IV .[id number] AVE Last Admin: 01/09/18 04:04 Dose: 75 mls/hr Ibuprofen (Motrin Tab) [address] Last Admin: 01/08/18 23:05 Dose: 600 mg Pantoprazole Sodium (Protonix Ec Tab) 40 mg PO DAILY [facility] Last Admin: 01/08/18 14:11 Dose: Not Given Vitamin A (Vitamin A & D Oint Ud Foilpak) 1 ea TOP Q8 PRN PRN Reason: Dry mouth Last Admin: 01/07/18 21:00 Dose: 1 ea - Labs Labs: 01/09/18 06:21 01/09/18 06:17 PT 16.5 SECONDS (9.7-12.2) H 01/09/18 06:24 INR 1.5 01/09/18 06:24 APTT 26 SECONDS (21-34) D 01/09/18 06:24 Assessment and Plan - Assessment and Plan (Free Text) Assessment: 22 y/o male admitted to [facility] with chest pain, shortness of breath and lightheadedness dx with infectious pericarditis with right lower lobe PNA liekly GPC baceteria -INfectious pericarditis with lobar pneumonia and GPC bacteremia:continue abx as per ID -pericardial effusion: obtain cardiothoracic eval for pericardail window -Lobar PNA: possible draiange of abcess/effusion -transministis: avoid hepatotoxic drugs, -Anemia: significant loss of blood since admission, will transfuse to keep hemodynamic stability, check Fecal occult blood PPX: protonix for pud; scds for vte Patient remains hemodynamic stability.
[2018-01-09 11:20] LABS: BASO # 0.1 K/uL (0.0-0.2); BASO % 0.4 % (0.0-2.0); EOS % 0.1 % (0.0-4.0); HEMOGLOBIN 7.8 g/dL (12.0-18.0); LYMPH # 1.1 K/uL (1.0-4.3); LYMPH % 4.1 % (20.0-40.0); MEAN CELL VOLUME 69.2 fL (80.0-94.0); MEAN CORPUSCULAR HEMOGLOBIN 21.7 pg (27.0-31.0); MEAN CORPUSCULAR HGB CONC 31.3 g/dL (33.0-37.0); MEAN PLATELET VOLUME 7.7 fL (7.2-11.7); MONO # 1.3 K/uL (0.0-0.8); MONO % 4.6 % (0.0-10.0); NEUT # 25.5 K/uL (1.8-7.0); NEUT % 90.8 % (50.0-75.0); PLATELET COUNT 561 K/uL (130-400); RBC 3.62 Mil/uL (4.40-5.90); RED CELL DISTRIBUTION WIDTH 17.1 % (11.5-14.5); WHITE BLOOD COUNT 28.1 K/uL (4.8-10.8)
[2018-01-09 11:48] LABS: BANDS 3 % (0-2); EOSINOPHIL 1 % (0-4); LYMPHOCYTE 7 % (20-40); MONOCYTE 4 % (0-10); NEUTROPHIL 85 % (50-75); PLATELET ESTIMATE INCREASED (NORMAL); TOTAL CELLS COUNTED 100
[2018-01-09 11:49] LABS: ANISOCYTOSIS MODERATE; HYPOCHROMIC SLIGHT; LARGE PLATELETS PRESENT; MICROCYTOSIS SLIGHT; POLYCHROMIC SLIGHT
[2018-01-09 12:19] LABS: RNP <1.0 AI (<1.0)
--- NOTE | 2018-01-09 12:27 | CARD ---
APPROVED REPORT Date of service: 01/08/2018 EKG Measurement Heart [id number] <Conclusion> Normal sinus rhythm Acute pericarditis Abnormal ECG
--- NOTE | 2018-01-09 12:28 | CARD ---
APPROVED REPORT Date of service: 01/07/2018 EKG Measurement Heart [id number] <Conclusion> Sinus tachycardia ST elevation, consider Pericarditis Abnormal ECG
--- NOTE | 2018-01-09 18:36 | CP.PCM.PN ---
Subjective - Date & Time of Evaluation Date of Evaluation: 01/09/18 Time of Evaluation: 17:54 - Subjective Subjective: Reason for consultation: Pericardial effusion. Requested by Aly Salinas s/e. Progresss notes and imaging studies reviewed. 22 year old male with pmh of common variable immunodeficiency disease +other comorbidities presented to ER with hx of sob and chest pain. ct chest: Moderated pericardal effusion + consolidation, right lower lobe and loculated pleural effusion. Consolidation left, small.(01-07-18). Pericardial effusion(01-08-18) appears somewhat decreased. Echo-limited study(01/08/18) but no evidence of cardiac tamponade. Blood and sputum-G+ cocci in chains. I am inclined to conclude that the patient's primary issue is infection due to CVID. Since physiological function of the heart is not compromised at this time , I am going to cancel pericardial window scheduled for Thursday. I would recommend antibiotics and CVID Rx+ other supportive care, and serial followup reassessments of pericardial effusion with ECHO, and CT chest with contrast for pericardial effusion + lung consolidations and pleural effusion. Surgical interventions may be helpful in the future. a/p: 1. Pericardial effusion. Non-tamponading. 2. Consolidations and pleural effusion. 3. G+ concci in chains(blood and sputum) 4.Antibiotics and CVID treatment. 5. Serial followup ECHO and CT chest with contrast. 6. CVID 7. d/w Dr Sadler(ICU attending). 8. will follow. Objective - Vital Signs/Intake and Output Vital Signs (last 24 hours): Temp Pulse Resp BP Pulse Ox 98.9 F 90 35 H 110/59 L 99 01/09/18 14:00 01/09/18 16:00 01/09/18 16:00 01/09/18 14:29 01/09/18 16:00 Intake and Output: 01/09/18 01/09/18 06:59 18:59 Intake Total 1200 75 Output Total 1050 0 Balance 150 75 - Medications Medications: Current Medications Colchicine (Colocrys) 0.6 mg PO BID [facility] Last Admin: 01/09/18 17:36 Dose: 0.6 mg Moxifloxacin HCl (Avelox Iv 400mg/250ml Ns) 400 mg in 250 mls @ 167 mls/hr IVPB Q24H AVE PRN Reason: Protocol Last Admin: 01/08/18 19:47 Dose: 167 mls/hr Vancomycin/Sodium Chloride (Vancomycin 1 Gm/Ns 200 Ml) 1 gm in 200 mls @ 133 mls/hr IVPB Q12H AVE PRN Reason: Protocol Stop: 01/13/18 04:31 Last Admin: 01/09/18 17:36 Dose: 133 mls/hr Sodium Chloride (Sodium Chloride 0.9%) 1,000 mls @ 75 mls/hr IV .[id number] [facility] Last Admin: 01/09/18 04:04 Dose: 75 mls/hr Ibuprofen (Motrin Tab) 600 mg PO Q8H [facility] Last Admin: 01/09/18 17:36 Dose: 600 mg Pantoprazole Sodium (Protonix Ec Tab) 40 mg PO DAILY [facility] Last Admin: 01/09/18 10:41 Dose: 40 mg Vitamin A (Vitamin A & D Oint Ud Foilpak) 1 ea TOP Q8 PRN PRN Reason: Dry mouth Last Admin: 01/07/18 21:00 Dose: 1 ea - Labs Labs: 01/09/18 11:15 01/09/18 06:17 PT 16.5 SECONDS (9.7-12.2) H 01/09/18 06:24 INR 1.5 01/09/18 06:24 APTT 26 SECONDS (21-34) D 01/09/18 06:24
--- NOTE | 2018-01-09 19:28 | CP.PCM.PN ---
Subjective - Date & Time of Evaluation Date of Evaluation: 01/09/18 Time of Evaluation: 18:00 - Subjective Subjective: Feeling better. Objective - Vital Signs/Intake and Output Vital Signs (last 24 hours): Temp Pulse Resp BP Pulse Ox 98.9 F 84 39 H 100/55 L 82 L 01/09/18 18:00 01/09/18 18:29 01/09/18 18:29 01/09/18 18:29 01/09/18 18:29 Intake and Output: 01/09/18 01/10/18 18:59 06:59 Intake Total 75 Output Total 0 Balance 75 - Medications Medications: Current Medications Colchicine (Colocrys) 0.6 mg PO BID [facility] Last Admin: 01/09/18 17:36 Dose: 0.6 mg Moxifloxacin HCl (Avelox Iv 400mg/250ml Ns) 400 mg in 250 mls @ 167 mls/hr IVPB Q24H AVE PRN Reason: Protocol Last Admin: 01/08/18 19:47 Dose: 167 mls/hr Vancomycin/Sodium Chloride (Vancomycin 1 Gm/Ns 200 Ml) 1 gm in 200 mls @ 133 mls/hr IVPB Q12H AVE PRN Reason: Protocol Stop: 01/13/18 04:31 Last Admin: 01/09/18 17:36 Dose: 133 mls/hr Sodium Chloride (Sodium Chloride 0.9%) 1,000 mls @ 75 mls/hr IV .[id number] AVE Last Admin: 01/09/18 04:04 Dose: 75 mls/hr Ibuprofen (Motrin Tab) [address] Last Admin: 01/09/18 17:36 Dose: 600 mg Pantoprazole Sodium (Protonix Ec Tab) 40 mg PO DAILY [facility] Last Admin: 01/09/18 10:41 Dose: 40 mg Vitamin A (Vitamin A & D Oint Ud Foilpak) 1 ea TOP Q8 PRN PRN Reason: Dry mouth Last Admin: 01/07/18 21:00 Dose: 1 ea - Labs Labs: 01/09/18 11:15 01/09/18 06:17 PT 16.5 SECONDS (9.7-12.2) H 01/09/18 06:24 INR 1.5 01/09/18 06:24 APTT 26 SECONDS (21-34) D 01/09/18 06:24 - Head Exam Head Exam: ATRAUMATIC - Eye Exam Eye Exam: Normal appearance - ENT Exam ENT Exam: Mucous Membranes Dry - Respiratory Exam Respiratory Exam: Decreased Breath Sounds - Cardiovascular Exam Cardiovascular Exam: +S1, +S2 - GI/Abdominal Exam GI & Abdominal Exam: Normal Bowel Sounds Assessment and Plan (1) Common variable immunodeficiency Assessment & Plan: would benefit from IVIG infusion given lung infection will plan to treat with IVIG 400mg/kg ~ 30gm discussed with pharmacy; will need administrative approval Thursday on antibiotics ?lung abscess Status: Acute (2) Leukocytosis Assessment & Plan: improving with antibiotics Status: Acute (3) Anemia Assessment & Plan: chronic disease f/u hgb electropheresis to rule out hemoglobinopathy Status: Acute (4) Coagulopathy Assessment & Plan: improved s/p vit k Status: Acute
[2018-01-09] MEDS: Moxifloxacin IV 400mg/250ml NS 400 MG/250 ML BAG IVPB SCH (21:00)
[2018-01-09 22:06] LABS: BASO # 0.1 K/uL (0.0-0.2); BASO % 0.3 % (0.0-2.0); EOS # 0.1 K/uL (0.0-0.7); EOS % 0.3 % (0.0-4.0); LYMPH # 1.8 K/uL (1.0-4.3); LYMPH % 6.7 % (20.0-40.0); MEAN CELL VOLUME 69.2 fL (80.0-94.0); MEAN CORPUSCULAR HEMOGLOBIN 22.3 pg (27.0-31.0); MEAN CORPUSCULAR HGB CONC 32.2 g/dL (33.0-37.0); MEAN PLATELET VOLUME 7.5 fL (7.2-11.7); MONO # 1.3 K/uL (0.0-0.8); MONO % 4.7 % (0.0-10.0); NEUT # 23.3 K/uL (1.8-7.0); NRBC % 0.1 % (0.0-2.0); PLATELET COUNT 587 K/uL (130-400); RBC 3.57 Mil/uL (4.40-5.90); RED CELL DISTRIBUTION WIDTH 17.6 % (11.5-14.5); WHITE BLOOD COUNT 26.5 K/uL (4.8-10.8)
[2018-01-09 22:26] LABS: ANISOCYTOSIS SLIGHT; BANDS 3 % (0-2); HYPOCHROMIC SLIGHT; LARGE PLATELETS PRESENT; LYMPHOCYTE 8 % (20-40); MICROCYTOSIS SLIGHT; MONOCYTE 3 % (0-10); NEUTROPHIL 86 % (50-75); PLATELET ESTIMATE INCREASED (NORMAL); TOTAL CELLS COUNTED 100
--- NOTE | 2018-01-09 22:38 | PN ---
Copied To: Luke Lu MD Attending MD: Luke Lu MD DATE: 01/09/2018 SUBJECTIVE: The patient was seen and examined at bedside this morning. The patient is feeling slightly better than yesterday, but still complaining of pleuritic chest pain. Offers no new complaints. No acute events overnight noted. All other systems reviewed and were found to be negative. PHYSICAL EXAMINATION GENERAL: Young thin built male, lying in bed, in no acute distress. VITAL SIGNS: Blood pressure 110/59, pulse 92, respirations 25, temperature 98.9 degrees Fahrenheit, and O2 sat 100% on room air. HEENT: Pupils are equal, round, and reacting to light and accommodation. Extraocular muscles intact. No icterus. Positive pallor. No oral thrush. No oropharyngeal congestion. Dry mucous membranes. NECK: Supple. No JVD. LUNGS: Bilateral vesicular breath sounds. Bilateral decreased breath sounds at the bases. No wheezing heard. CARDIOVASCULAR SYSTEM: S1, S2 present. Regular. ABDOMEN: Soft, nontender. Bowel sounds present. No guarding. No rigidity. No rebound tenderness noted. CENTRAL NERVOUS SYSTEM: Alert, awake, oriented x3. No focal deficits noted. EXTREMITIES: No edema. Palpable peripheral pulses. MEDICATIONS: Include colchicine 0.6 mg p.o. b.i.d., ibuprofen 600 mg p.o. every 8 hours, Avelox 400 mg IV daily, Protonix 40 mg daily, normal saline at 75 mL/hour, vancomycin 1 g IV every 12 hours and vitamin A and D. LABORATORY DATA: Labs from this morning: WBC 28.1, hemoglobin 7.8, hematocrit 25, and platelets 561. Sodium 137, potassium 5, chloride 102, bicarb 25, BUN 22, creatinine 0.8, glucose 99, lactic acid 1.4, calcium 8.4, phosphorus 3.1, magnesium 2.3, AST 435, ALT 454, alkaline phosphatase 284, total protein 5.1, and albumin 2.7. Vancomycin trough 21.8. IgG immunoglobulin less than 270, IgA less than 40, and IgM less than 25. Blood culture done from ED shows gram positive cocci. ASSESSMENT AND PLAN: Young male with prior history of asthma, common variable immunodeficiency was on intravenous immunoglobulin every monthly injections up until 2 years ago and discontinued about 2 years ago, with recent history of pneumonia with admissions x2 to [facility] admitted here for bilateral pneumonia and effusion, pericardial effusion, anemia, sepsis, elevated liver function tests, very low IgG, IgA, and IgM levels. We will continue with current antibiotics. We will repeat blood cultures in a.m. for possible pericardial window on Thursday and possible drainage of plural effusion. His liver function tests are improving. Hemoglobin and hematocrit dropped from yesterday. Iron studies are consistent with iron deficiency anemia. We will supplement iron and will transfuse as per Hematology. Infectious disease and Hematology input appreciated for possible Intravenous immunoglobulin today. His white count is slightly better than yesterday. We will give Protonix for gastrointestinal prophylaxis. We will add further recommendations as his clinical course progresses. Luke Lu MD
--- NOTE | 2018-01-10 00:23 | CP.PCM.PN ---
Subjective - Date & Time of Evaluation Date of Evaluation: 01/09/18 Time of Evaluation: 13:50 - Subjective Subjective: Patient seen and evaluated feeling better No chest pain and improved breathing Objective - Vital Signs/Intake and Output Vital Signs (last 24 hours): Temp Pulse Resp BP Pulse Ox 98.9 F 89 43 H 109/60 100 01/09/18 18:00 01/09/18 21:23 01/09/18 21:23 01/09/18 21:23 01/09/18 21:23 Intake and Output: 01/09/18 01/10/18 18:59 06:59 Intake Total 75 Output Total 0 Balance 75 - Medications Medications: Current Medications Colchicine (Colocrys) 0.6 mg PO BID [facility] Last Admin: 01/09/18 17:36 Dose: 0.6 mg Moxifloxacin HCl (Avelox Iv 400mg/250ml Ns) 400 mg in 250 mls @ 167 mls/hr IVPB Q24H AVE PRN Reason: Protocol Last Admin: 01/09/18 21:00 Dose: 167 mls/hr Vancomycin/Sodium Chloride (Vancomycin 1 Gm/Ns 200 Ml) 1 gm in 200 mls @ 133 mls/hr IVPB Q12H AVE PRN Reason: Protocol Stop: 01/13/18 04:31 Last Admin: 01/09/18 17:36 Dose: 133 mls/hr Sodium Chloride (Sodium Chloride 0.9%) 1,000 mls @ 75 mls/hr IV .[id number] [facility] Last Admin: 01/09/18 21:17 Dose: 75 mls/hr Ibuprofen (Motrin Tab) [address] Last Admin: 01/09/18 23:45 Dose: 600 mg Pantoprazole Sodium (Protonix Ec Tab) 40 mg PO DAILY [facility] Last Admin: 01/09/18 10:41 Dose: 40 mg Vitamin A (Vitamin A & D Oint Ud Foilpak) 1 ea TOP Q8 PRN PRN Reason: Dry mouth Last Admin: 01/07/18 21:00 Dose: 1 ea - Labs Labs: 01/09/18 22:03 01/09/18 06:17 PT 16.5 SECONDS (9.7-12.2) H 01/09/18 06:24 INR 1.5 01/09/18 06:24 APTT 26 SECONDS (21-34) D 01/09/18 06:24
[2018-01-10] MEDS: Vancomycin 1 gm/NS 200 ml 1 GM/200 ML BAG IVPB SCH ×2 (04:16→16:22)
[2018-01-10 06:12] LABS: MCH 22.7 pg (27.0-33.0); MCV 71.6 fL (80.0-100.0)
[2018-01-10 06:47] LABS: BASO # 0.1 K/uL (0.0-0.2); BASO % 0.5 % (0.0-2.0); EOS # 0.1 K/uL (0.0-0.7); EOS % 0.3 % (0.0-4.0); HEMOGLOBIN 7.7 g/dL (12.0-18.0); LYMPH # 1.3 K/uL (1.0-4.3); LYMPH % 5.5 % (20.0-40.0); MEAN CELL VOLUME 69.4 fL (80.0-94.0); MEAN CORPUSCULAR HEMOGLOBIN 22.1 pg (27.0-31.0); MEAN CORPUSCULAR HGB CONC 31.8 g/dL (33.0-37.0); MEAN PLATELET VOLUME 7.6 fL (7.2-11.7); MONO # 1.3 K/uL (0.0-0.8); MONO % 5.5 % (0.0-10.0); NEUT # 20.6 K/uL (1.8-7.0); NEUT % 88.2 % (50.0-75.0); PLATELET COUNT 566 K/uL (130-400); RBC 3.47 Mil/uL (4.40-5.90); RED CELL DISTRIBUTION WIDTH 17.1 % (11.5-14.5); WHITE BLOOD COUNT 23.4 K/uL (4.8-10.8)
[2018-01-10 06:47] LABS: INR 1.3; PROTHROMBIN TIME 14.4 SECONDS (9.7-12.2)
[2018-01-10 06:51] LABS: ALB/GLOB RATIO 1.3 (1.0-2.1); ALBUMIN 2.9 g/dL (3.5-5.0); ALT/SGPT 449 U/L (21-72); AST/SGOT 384 U/L (17-59); BLOOD UREA NITROGEN 23 mg/dL (9-20); CALCIUM 8.4 mg/dl (8.6-10.4); GFR AFRICAN-AMERICAN > 60; GFR NON-AFRICAN AMERICAN > 60
[2018-01-10 08:32] LABS: BANDS 1 % (0-2); BASOPHIL 1 % (0-2); EOSINOPHIL 2 % (0-4); LYMPHOCYTE 5 % (20-40); MONOCYTE 5 % (0-10); NEUTROPHIL 86 % (50-75); TOTAL CELLS COUNTED 100
[2018-01-10 08:33] LABS: PLATELET ESTIMATE INCREASED (NORMAL)
[2018-01-10 08:37] LABS: ANISOCYTOSIS SLIGHT
[2018-01-10 08:38] LABS: HYPOCHROMIC MODERATE; MICROCYTOSIS SLIGHT; POLYCHROMIC SLIGHT
[2018-01-10] MEDS: Sodium Chloride 0.9% 1,000 ML IV SCH ×2 (09:00→23:48)
--- NOTE | 2018-01-10 09:28 | RAD ---
Date of service: 01/09/2018 HISTORY: f/u pneumonia COMPARISON: 01/08/2018 FINDINGS: LUNGS: Diffuse hazy opacity noted at the mid and lower right lung. No evidence of acute pathology in the left lung. PLEURA: Right pleural effusion is again noted. CARDIOVASCULAR: Normal. OSSEOUS STRUCTURES: No significant abnormalities. VISUALIZED UPPER ABDOMEN: Normal. OTHER FINDINGS: None. IMPRESSION: Right pleural effusion associated with hazy opacity at the right lung likely atelectasis. The possibility of underlying pneumonia should be considered.
[2018-01-10] MEDS: Pantoprazole 40 mg EC Tab PO SCH (10:24)
--- NOTE | 2018-01-10 13:37 | CP.PCM.PN ---
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 Objective - Vital Signs/Intake and Output Vital Signs (last 24 hours): Temp Pulse Resp BP Pulse Ox 98.8 F 88 44 H 101/56 L 98 01/10/18 06:00 01/10/18 01:29 01/10/18 01:29 01/10/18 01:29 01/10/18 06:00 - Medications Medications: Current Medications Colchicine (Colocrys) 0.6 mg PO BID [facility] Last Admin: 01/09/18 17:36 Dose: 0.6 mg Moxifloxacin HCl (Avelox Iv 400mg/250ml Ns) 400 mg in 250 mls @ 167 mls/hr IVPB Q24H AVE PRN Reason: Protocol Last Admin: 01/09/18 21:00 Dose: 167 mls/hr Vancomycin/Sodium Chloride (Vancomycin 1 Gm/Ns 200 Ml) 1 gm in 200 mls @ 133 mls/hr IVPB Q12H AVE PRN Reason: Protocol Stop: 01/13/18 04:31 Last Admin: 01/10/18 04:16 Dose: 133 mls/hr Sodium Chloride (Sodium Chloride 0.9%) 1,000 mls @ 75 mls/hr IV .[id number] AVE Last Admin: 01/09/18 21:17 Dose: 75 mls/hr Ibuprofen (Motrin Tab) [address] Last Admin: 01/09/18 23:45 Dose: 600 mg Pantoprazole Sodium (Protonix Ec Tab) 40 mg PO DAILY [facility] Last Admin: 01/09/18 10:41 Dose: 40 mg Vitamin A (Vitamin A & D Oint Ud Foilpak) 1 ea TOP Q8 PRN PRN Reason: Dry mouth Last Admin: 01/07/18 21:00 Dose: 1 ea - Labs Labs: 01/10/18 06:26 01/10/18 06:26 PT 14.4 SECONDS (9.7-12.2) H 01/10/18 06:00 INR 1.3 08/12/18 06:00 APTT 28 SECONDS (21-34) 01/10/18 06:00 - Constitutional Appears: Non-toxic, Chronically Ill - Head Exam Head Exam: NORMOCEPHALIC - Eye Exam Eye Exam: PERRL - ENT Exam ENT Exam: Mucous Membranes Dry - Neck Exam Neck Exam: absent: Lymphadenopathy - Respiratory Exam Respiratory Exam: Decreased Breath Sounds - Cardiovascular Exam Cardiovascular Exam: REGULAR RHYTHM - GI/Abdominal Exam GI & Abdominal Exam: Distended, Soft - Rectal Exam Rectal Exam: Deferred - Exam Exam: NORMAL INSPECTION - Extremities Exam Extremities Exam: absent: Pedal Edema - Back Exam Back Exam: absent: CVA tenderness (L), CVA tenderness (R) - Neurological Exam Neurological Exam: Alert, Awake, Oriented x3 Assessment and Plan (1) Pericarditis Status: Acute (2) Sepsis Status: Acute (3) Pneumonia Status: Acute (4) Pneumonia Status: Acute (5) Pleurisy with effusion Status: Acute (6) Common variable immunodeficiency Status: Acute - Assessment and Plan (Free Text) Assessment: blood c/s still growing strp pneumo sens to vanco - pt has severe PCN allergy pt was hospitalized at [facility] for same in November- repeat cultures were negative on IV Levaquin echo here reportedly neg for vegetation 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
--- NOTE | 2018-01-10 17:07 | RAD ---
Date of service: 01/10/2018 HISTORY: f/u pneumonia COMPARISON: Chest radiograph dated 01/09/2018 FINDINGS: LUNGS: Right lower lobe consolidation. Bibasilar atelectasis. PLEURA: Bilateral pleural effusions. No appreciable pneumothorax. CARDIOVASCULAR: Cardiomediastinal silhouette stably enlarged OSSEOUS STRUCTURES: No significant abnormalities. VISUALIZED UPPER ABDOMEN: Normal. OTHER FINDINGS: None. IMPRESSION: Right lower lobe consolidation. Bibasilar atelectasis and/or small effusions.
--- NOTE | 2018-01-10 18:14 | CP.PCM.PN ---
Subjective - Date & Time of Evaluation Date of Evaluation: 01/10/18 Time of Evaluation: 18:14 - Subjective Subjective: Progress note dictated # [id number] Objective - Vital Signs/Intake and Output Vital Signs (last 24 hours): Temp Pulse Resp BP Pulse Ox 98.9 F 82 40 H 101/56 L 98 01/10/18 14:00 01/10/18 16:00 01/10/18 16:00 01/10/18 01:29 01/10/18 06:00 - Medications Medications: Current Medications Colchicine (Colocrys) 0.6 mg PO BID [facility] Last Admin: 01/09/18 17:36 Dose: 0.6 mg Moxifloxacin HCl (Avelox Iv 400mg/250ml Ns) 400 mg in 250 mls @ 167 mls/hr IVPB Q24H AVE PRN Reason: Protocol Last Admin: 01/09/18 21:00 Dose: 167 mls/hr Sodium Chloride (Sodium Chloride 0.9%) 1,000 mls @ 75 mls/hr IV .[id number] [facility] Last Admin: 01/09/18 21:17 Dose: 75 mls/hr Vancomycin/Sodium Chloride (Vancomycin 1 Gm/Ns 200 Ml) 1 gm in 200 mls @ 133 mls/hr IVPB Q8H AVE PRN Reason: Protocol Stop: 01/15/18 16:31 Ibuprofen (Motrin Tab) 600 mg PO Q8H [facility] Last Admin: 01/09/18 23:45 Dose: 600 mg Pantoprazole Sodium (Protonix Ec Tab) 40 mg PO DAILY [facility] Last Admin: 01/09/18 10:41 Dose: 40 mg Vitamin A (Vitamin A & D Oint Ud Foilpak) 1 ea TOP Q8 PRN PRN Reason: Dry mouth Last Admin: 01/07/18 21:00 Dose: 1 ea - Labs Labs: 01/10/18 06:26 01/10/18 06:26 PT 14.4 SECONDS (9.7-12.2) H 01/10/18 06:00 INR 1.3 01/10/18 06:00 APTT 28 SECONDS (21-34) 01/10/18 06:00
[2018-01-10] MEDS: Moxifloxacin IV 400mg/250ml NS 400 MG/250 ML BAG IVPB SCH (20:06)
--- NOTE | 2018-01-10 22:20 | CP.PCM.PN ---
Subjective - Date & Time of Evaluation Date of Evaluation: 01/10/18 Time of Evaluation: 10:05 - Subjective Subjective: Patient without cardiac events Physical examination - Constitutional Appears: Non-toxic, Chronically Ill - Head Exam Head Exam: NORMOCEPHALIC - Eye Exam Eye Exam: PERRL - ENT Exam ENT Exam: Mucous Membranes Dry - Neck Exam Neck Exam: absent: Lymphadenopathy - Respiratory Exam Respiratory Exam: Decreased Breath Sounds - Cardiovascular Exam Cardiovascular Exam: REGULAR RHYTHM - GI/Abdominal Exam GI & Abdominal Exam: Distended, Soft - Rectal Exam Rectal Exam: Deferred - Exam Exam: NORMAL INSPECTION - Extremities Exam Extremities Exam: absent: Pedal Edema - Back Exam Back Exam: absent: CVA tenderness (L), CVA tenderness (R) - Neurological Exam Neurological Exam: Alert, Awake, Oriented x3 Objective - Vital Signs/Intake and Output Vital Signs (last 24 hours): Temp Pulse Resp BP Pulse Ox 98.1 F 79 50 H 110/62 97 01/10/18 20:00 01/10/18 20:16 01/10/18 20:16 01/10/18 20:16 01/10/18 20:16 Intake and Output: 01/10/18 01/11/18 18:59 06:59 Intake Total 375 Output Total 400 Balance -25 - Medications Medications: Current Medications Colchicine (Colocrys) 0.6 mg PO BID [facility] Last Admin: 01/10/18 18:24 Dose: 0.6 mg Moxifloxacin HCl (Avelox Iv 400mg/250ml Ns) 400 mg in 250 mls @ 167 mls/hr IVPB Q24H AVE PRN Reason: Protocol Last Admin: 01/10/18 20:06 Dose: 167 mls/hr Sodium Chloride (Sodium Chloride 0.9%) 1,000 mls @ 75 mls/hr IV .[id number] [facility] Last Admin: 01/10/18 09:00 Dose: 75 mls/hr Vancomycin/Sodium Chloride (Vancomycin 1 Gm/Ns 200 Ml) 1 gm in 200 mls @ 133 mls/hr IVPB Q8H AVE PRN Reason: Protocol Stop: 01/15/18 16:31 Last Admin: 01/10/18 16:22 Dose: 133 mls/hr Ibuprofen (Motrin Tab) 600 mg PO Q8H [facility] Last Admin: 01/10/18 15:10 Dose: 600 mg Pantoprazole Sodium (Protonix Ec Tab) [address] Last Admin: 01/10/18 10:24 Dose: 40 mg Vitamin A (Vitamin A & D Oint Ud Foilpak) 1 ea TOP Q8 PRN PRN Reason: Dry mouth Last Admin: 01/07/18 21:00 Dose: 1 ea - Labs Labs: 01/10/18 06:26 01/10/18 06:26 PT 14.4 SECONDS (9.7-12.2) H 01/10/18 06:00 INR 1.3 01/10/18 06:00 APTT 28 SECONDS (21-34) 01/10/18 06:00 Assessment and Plan - Assessment and Plan (Free Text) Assessment: Assessment and Plan (1) Pericarditis Status: Acute (2) Sepsis Status: Acute (3) Pneumonia Status: Acute (4) Pneumonia Status: Acute (5) Pleurisy with effusion Status: Acute (6) Common variable immunodeficiency Status: Acute
--- NOTE | 2018-01-11 00:21 | PN ---
Copied To: Luke Lu MD Attending MD: Luke Lu MD DATE: 01/10/2018 SUBJECTIVE: The patient is seen and examined at bedside. The patient is feeling much better. Clinically looking better. Denies any new complaints. Feeling less shortness of breath. Denies any other complaints. PHYSICAL EXAMINATION: GENERAL: Young male lying in bed in no acute distress. VITAL SIGNS: Blood pressure 101/56, pulse 91, respirations 27, temperature 98.9 degrees Fahrenheit, O2 sat 100% on room air. Intake is 2510. Output is 1650 mL. HEENT: Pupils are equal, round, and reacting to light and accommodation. Extraocular muscles intact. No icterus. Positive pallor. No oral thrush. No oropharyngeal congestion. NECK: Supple. No JVD. LUNGS: Bilateral vesicular breath sounds. Bilateral decreased breath sounds at the bases. CARDIOVASCULAR SYSTEM: S1, S2 present. Regular. ABDOMEN: Soft, nontender. Bowel sounds present. No guarding. No rigidity. No rebound tenderness noted. CENTRAL NERVOUS SYSTEM: Alert, awake, oriented x3. No focal deficits noted. EXTREMITIES: No edema. Palpable peripheral pulses. MEDICATIONS: Include colchicine 0.6 mg p.o. b.i.d., ibuprofen 600 mg p.o. every 8 hours, Avelox 400 mg IV daily, Protonix 40 mg p.o. daily, sodium chloride 0.9% 75 mL/hour, vancomycin 1 g IV every 8 hours. LABORATORY DATA: Labs from this morning: WBC 23.4, hemoglobin 7.7, hematocrit 24.1, platelets 566. Sodium 138, potassium 4.5, chloride 104, bicarb 21, BUN 26, creatinine 0.7, glucose 97, lactic acid 1.0, calcium 8.4, phosphorus 3.6, magnesium 2.1. Bilirubin 0.7, AST 384, ALT 449, alkaline phosphatase 325, total protein 5.2, albumin 2.9, vancomycin trough is less than 0.5. PT is 14.4, INR 1.3, PTT 28. Sputum culture, normal nuno. Blood culture, strep normal. Urine culture, negative growth. Chest x-ray from this morning consistent with right lower lobe consolidation, bibasilar atelectasis, and small effusion. ASSESSMENT AND PLAN: Young male with history of common variable immunodeficiency, history of asthma, not on any IVIG injections for the past three years. Admitted to [facility] for pneumonia twice in the past month. The Streptococcus pneumoniae bacteremia treated with Levaquin. Admitted to [facility] for sepsis, bilateral pneumonia with loculated effusion and pericardial effusion and pericarditis, anemia, and Streptococcus pneumoniae bacteremia and sepsis. We will continue with Avelox and vancomycin as per Infectious Disease recommendation. The patient is clinically improving. Improving white blood cell count and stable hemoglobin and hematocrit, awaiting IVIG approval. Hematology consult and followup appreciated. Infectious Disease input appreciated. Reviewed Cardiothoracic Surgery note. Pericardial window is on hold as per Cardiothoracic Surgery. We will monitor the patient closely. Repeat CT chest. Follow up with Cardiology. Continue with colchicine and Motrin. We will continue with gastrointestinal prophylaxis. We will repeat blood cultures in a.m. We will add further recommendation as his clinical course progresses. Luke Lu MD
[2018-01-11 06:26] LABS: BASO # 0.1 K/uL (0.0-0.2); BASO % 0.3 % (0.0-2.0); EOS # 0.1 K/uL (0.0-0.7); EOS % 0.6 % (0.0-4.0); HEMOGLOBIN 7.3 g/dL (12.0-18.0); LYMPH # 1.5 K/uL (1.0-4.3); LYMPH % 6.9 % (20.0-40.0); MEAN CELL VOLUME 69.9 fL (80.0-94.0); MEAN CORPUSCULAR HEMOGLOBIN 22.5 pg (27.0-31.0); MEAN CORPUSCULAR HGB CONC 32.2 g/dL (33.0-37.0); MEAN PLATELET VOLUME 7.6 fL (7.2-11.7); MONO # 2.2 K/uL (0.0-0.8); MONO % 9.8 % (0.0-10.0); NEUT # 18.2 K/uL (1.8-7.0); NEUT % 82.4 % (50.0-75.0); NRBC % 0.1 % (0.0-2.0); PLATELET COUNT 519 K/uL (130-400); RBC 3.23 Mil/uL (4.40-5.90); RED CELL DISTRIBUTION WIDTH 17.3 % (11.5-14.5); WHITE BLOOD COUNT 22.1 K/uL (4.8-10.8)
[2018-01-11 06:44] LABS: ALB/GLOB RATIO 1.2 (1.0-2.1); ALBUMIN 2.7 g/dL (3.5-5.0); ALT/SGPT 379 U/L (21-72); AST/SGOT 253 U/L (17-59); BLOOD UREA NITROGEN 17 mg/dL (9-20); CALCIUM 8.3 mg/dl (8.6-10.4); GFR AFRICAN-AMERICAN > 60; GFR NON-AFRICAN AMERICAN > 60; INR 1.5; PROTHROMBIN TIME 16.2 SECONDS (9.7-12.2)
[2018-01-11 08:30] LABS: BANDS 3 % (0-2); BASOPHIL 1 % (0-2); MONOCYTE 8 % (0-10); NEUTROPHIL 79 % (50-75); TOTAL CELLS COUNTED 100
[2018-01-11 08:31] LABS: ANISOCYTOSIS SLIGHT; BURR CELLS MODERATE; HYPOCHROMIC SLIGHT; LYMPHOCYTE 9 % (20-40); PLATELET ESTIMATE INCREASED (NORMAL); POIKILOCYTOSIS SLIGHT; TARGET CELLS SLIGHT
[2018-01-11 08:32] LABS: MICROCYTOSIS SLIGHT
[2018-01-11] MEDS: Vancomycin 1 gm/NS 200 ml 1 GM/200 ML BAG IVPB SCH ×3 (08:46→19:42)
--- NOTE | 2018-01-11 09:37 | CP.PCM.PN ---
<SamSavannah - Last Filed: 01/11/18 15:21> Subjective - Date & Time of Evaluation Date of Evaluation: 01/11/18 Time of Evaluation: 09:37 - Subjective Subjective: Cardiology Progress Note - Dr Adams Patient seen and examined at bedside. Per nursing on acute events overnight. Patient states that he is feeling better. Occasionally is short of breath. Denies any chest pain. Tolerating diet. Offers no other complaints at this time. Objective - Vital Signs/Intake and Output Vital Signs (last 24 hours): Temp Pulse Resp BP Pulse Ox 98.2 F 78 26 H 98/56 L 100 01/11/18 04:00 01/11/18 04:00 01/11/18 04:00 01/11/18 04:00 01/11/18 04:00 Intake and Output: 01/11/18 01/11/18 06:59 18:59 Intake Total 1250 75 Output Total 1000 Balance 250 75 - Medications Medications: Current Medications Colchicine (Colocrys) 0.6 mg PO BID [facility] Last Admin: 01/10/18 18:24 Dose: 0.6 mg Moxifloxacin HCl (Avelox Iv 400mg/250ml Ns) 400 mg in 250 mls @ 167 mls/hr IVPB Q24H AVE PRN Reason: Protocol Last Admin: 01/10/18 20:06 Dose: 167 mls/hr Sodium Chloride (Sodium Chloride 0.9%) 1,000 mls @ 75 mls/hr IV .[id number] [facility] Last Admin: 01/10/18 23:48 Dose: Not Given Vancomycin/Sodium Chloride (Vancomycin 1 Gm/Ns 200 Ml) 1 gm in 200 mls @ 133 mls/hr IVPB Q8H AVE PRN Reason: Protocol Stop: 01/15/18 16:31 Last Admin: 01/11/18 00:00 Dose: 133 mls/hr Ibuprofen (Motrin Tab) [address] Last Admin: 01/10/18 23:59 Dose: 600 mg Pantoprazole Sodium (Protonix Ec Tab) 40 mg PO DAILY [facility] Last Admin: 01/10/18 10:24 Dose: 40 mg Vitamin A (Vitamin A & D Oint Ud Foilpak) 1 ea TOP Q8 PRN PRN Reason: Dry mouth Last Admin: 01/07/18 21:00 Dose: 1 ea - Labs Labs: 01/11/18 06:17 18 06:17 PT 16.2 SECONDS (9.7-12.2) H 01/11/18 06:17 INR 1.5 01/11/18 06:17 APTT 27 SECONDS (21-34) 01/11/18 06:17 - Constitutional Appears: Well, No Acute Distress - Head Exam Head Exam: ATRAUMATIC, NORMAL INSPECTION, NORMOCEPHALIC - Eye Exam Eye Exam: EOMI, Normal appearance Pupil Exam: NORMAL ACCOMODATION - Neck Exam Neck Exam: Full ROM - Respiratory Exam Respiratory Exam: Decreased Breath Sounds, NORMAL BREATHING PATTERN. absent: Wheezes - Cardiovascular Exam Cardiovascular Exam: REGULAR RHYTHM, +S1, +S2 - GI/Abdominal Exam GI & Abdominal Exam: Soft. absent: Tenderness - Extremities Exam Extremities Exam: Normal Inspection - Neurological Exam Neurological Exam: Alert, Awake, Oriented x3 - Psychiatric Exam Psychiatric exam: Normal Affect, Normal Mood - Skin Skin Exam: Dry, Normal Color, Warm Assessment and Plan - Assessment and Plan (Free Text) Assessment: A/P: Patient is a 22 year old male with past medical history of common variable immunodeficiency who presented with chest pain and shortness of breath. Found to have pericarditis and pneumonia. Pericarditis/Pleural effusion -Stable, Afebrile -Leukocytosis downtrending -Pericardiocentesis was unsuccessful 01/08 -Currenlty, No evidence of cardiac tamponade -Continue IV antibiotics (Avelox and Vancomycin) -Repeat echo ordered to evaluate pericardial effusion -Dr Silva recommending antibiotics and CVID Rx+ other supportive care, and serial followup reassessments of pericardial effusion with ECHO, and CT chest with contrast for pericardial effusion + lung consolidations and pleural effusion -Pericardial window cancelled at this time Bacteremia -Blood cultures from admission growing streptococcus pneumonia -F/U repeat blood cultures -Continue IV antibiotics -Dr Croft on consult, help appreciated RLL Pneumonia -CXR 01/10 showing RLL consolidation -Sputum cultures negative -Continue IV antibiotics Common Variable Immunodeficiency -Patient to be started on IVIG -Dr Rose on consult Anemia -Hgb 7.3 today, asymptomatic -Dr Rose on consult Savannah Vargas DO PGY-2 <Porfirio Adams - Last Filed: 01/11/18 22:09> Objective - Vital Signs/Intake and Output Vital Signs (last 24 hours): Temp Pulse Resp BP Pulse Ox 98.0 F 86 20 105/60 99 01/11/18 16:00 01/11/18 20:33 01/11/18 16:00 01/11/18 16:00 01/11/18 16:00 Intake and Output: 01/11/18 01/12/18 18:59 06:59 Intake Total 600 Output Total 400 Balance 200 - Medications Medications: Current Medications Colchicine (Colocrys) 0.6 mg PO BID [facility] Last Admin: 01/11/18 19:49 Dose: 0.6 mg Moxifloxacin HCl (Avelox Iv 400mg/250ml Ns) 400 mg in 250 mls @ 167 mls/hr IVPB Q24H AVE PRN Reason: Protocol Last Admin: 01/10/18 20:06 Dose: 167 mls/hr Vancomycin/Sodium Chloride (Vancomycin 1 Gm/Ns 200 Ml) 1 gm in 200 mls @ 133 mls/hr IVPB Q8H AVE PRN Reason: Protocol Stop: 01/15/18 16:31 Last Admin: 01/11/18 19:42 Dose: 133 mls/hr Ibuprofen (Motrin Tab) [address] Last Admin: 01/11/18 19:42 Dose: 600 mg Pantoprazole Sodium (Protonix Ec Tab) 40 mg PO DAILY [facility] Last Admin: 01/11/18 09:51 Dose: 40 mg Vitamin A (Vitamin A & D Oint Ud Foilpak) 1 ea TOP Q8 PRN PRN Reason: Dry mouth Last Admin: 01/07/18 21:00 Dose: 1 ea - Labs Labs: 01/11/18 06:17 01/11/18 06:17 PT 16.2 SECONDS (9.7-12.2) H 01/11/18 06:17 INR 1.5 01/11/18 06:17 APTT 27 SECONDS (21-34) 01/11/18 06:17 Assessment and Plan - Assessment and Plan (Free Text) Assessment: Patient seen and evaluated personally by me. Plan of care d/w the director medical science and as documented
[2018-01-11] MEDS: Pantoprazole 40 mg EC Tab PO SCH (09:51)
--- NOTE | 2018-01-11 11:08 | CP.PCM.PN ---
Subjective - Date & Time of Evaluation Date of Evaluation: 01/11/18 Time of Evaluation: 11:08 - Subjective Subjective: Progress note dictated #[id number] Objective - Vital Signs/Intake and Output Vital Signs (last 24 hours): Temp Pulse Resp BP Pulse Ox 98.2 F 78 26 H 98/56 L 100 01/11/18 04:00 01/11/18 04:00 01/11/18 04:00 01/11/18 04:00 01/11/18 04:00 Intake and Output: 01/11/18 01/11/18 06:59 18:59 Intake Total 1250 75 Output Total 1000 Balance 250 75 - Medications Medications: Current Medications Colchicine (Colocrys) 0.6 mg PO BID [facility] Last Admin: 01/11/18 09:51 Dose: 0.6 mg Moxifloxacin HCl (Avelox Iv 400mg/250ml Ns) 400 mg in 250 mls @ 167 mls/hr IVPB Q24H AVE PRN Reason: Protocol Last Admin: 01/10/18 20:06 Dose: 167 mls/hr Sodium Chloride (Sodium Chloride 0.9%) 1,000 mls @ 75 mls/hr IV .[id number] AVE Last Admin: 01/10/18 23:48 Dose: Not Given Vancomycin/Sodium Chloride (Vancomycin 1 Gm/Ns 200 Ml) 1 gm in 200 mls @ 133 mls/hr IVPB Q8H AVE PRN Reason: Protocol Stop: 01/15/18 16:31 Last Admin: 01/11/18 08:46 Dose: 133 mls/hr Ibuprofen (Motrin Tab) [address] Last Admin: 01/11/18 09:45 Dose: 600 mg Pantoprazole Sodium (Protonix Ec Tab) 40 mg PO DAILY [facility] Last Admin: 01/11/18 09:51 Dose: 40 mg Vitamin A (Vitamin A & D Oint Ud Foilpak) 1 ea TOP Q8 PRN PRN Reason: Dry mouth Last Admin: 01/07/18 21:00 Dose: 1 ea - Labs Labs: 01/11/18 06:17 01/11/18 06:17 PT 16.2 SECONDS (9.7-12.2) H 01/11/18 06:17 INR 1.5 01/11/18 06:17 APTT 27 SECONDS (21-34) 01/11/18 06:17
--- NOTE | 2018-01-11 11:31 | CP.PCM.PN ---
Subjective - Date & Time of Evaluation Date of Evaluation: 01/11/18 Time of Evaluation: 08:00 - Subjective Subjective: blood c/s still growing strp pneumo sens to vanco - pt has severe PCN allergy pt was hospitalized at 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 Objective - Vital Signs/Intake and Output Vital Signs (last 24 hours): Temp Pulse Resp BP Pulse Ox 98.2 F 78 26 H 98/56 L 100 01/11/18 04:00 01/11/18 04:00 01/11/18 04:00 01/11/18 04:00 01/11/18 04:00 Intake and Output: 01/11/18 01/11/18 06:59 18:59 Intake Total 1250 75 Output Total 1000 Balance 250 75 - Medications Medications: Current Medications Colchicine (Colocrys) 0.6 mg PO BID [facility] Last Admin: 01/11/18 09:51 Dose: 0.6 mg Moxifloxacin HCl (Avelox Iv 400mg/250ml Ns) 400 mg in 250 mls @ 167 mls/hr IVPB Q24H AVE PRN Reason: Protocol Last Admin: 01/10/18 20:06 Dose: 167 mls/hr Sodium Chloride (Sodium Chloride 0.9%) 1,000 mls @ 75 mls/hr IV .[id number] [facility] Last Admin: 01/10/18 23:48 Dose: Not Given Vancomycin/Sodium Chloride (Vancomycin 1 Gm/Ns 200 Ml) 1 gm in 200 mls @ 133 mls/hr IVPB Q8H AVE PRN Reason: Protocol Stop: 01/15/18 16:31 Last Admin: 01/11/18 08:46 Dose: 133 mls/hr Ibuprofen (Motrin Tab) [address] Last Admin: 01/11/18 09:45 Dose: 600 mg Pantoprazole Sodium (Protonix Ec Tab) 40 mg PO DAILY [facility] Last Admin: 01/11/18 09:51 Dose: 40 mg Vitamin A (Vitamin A & D Oint Ud Foilpak) 1 ea TOP Q8 PRN PRN Reason: Dry mouth Last Admin: 01/07/18 21:00 Dose: 1 ea - Labs Labs: 01/11/18 06:17 01/11/18 06:17 PT 16.2 SECONDS (9.7-12.2) H 01/11/18 06:17 INR 1.5 01/11/18 06:17 APTT 27 SECONDS (21-34) 01/11/18 06:17 - Constitutional Appears: Non-toxic, Chronically Ill - Head Exam Head Exam: NORMOCEPHALIC - Eye Exam Eye Exam: PERRL - ENT Exam ENT Exam: Mucous Membranes Dry - Neck Exam Neck Exam: absent: Lymphadenopathy - Respiratory Exam Respiratory Exam: Decreased Breath Sounds - Cardiovascular Exam Cardiovascular Exam: REGULAR RHYTHM - GI/Abdominal Exam GI & Abdominal Exam: Distended - Rectal Exam Rectal Exam: Deferred - Exam Exam: NORMAL INSPECTION Assessment and Plan (1) Pericarditis Status: Acute (2) Sepsis Status: Acute (3) Pneumonia Status: Acute (4) Pneumonia Status: Acute (5) Pleurisy with effusion Status: Acute (6) Common variable immunodeficiency Status: Acute - Assessment and Plan (Free Text) Assessment: cont iv antbiotics
--- NOTE | 2018-01-11 12:14 | CP.PCM.PN ---
Subjective - Date & Time of Evaluation Date of Evaluation: 01/11/18 Time of Evaluation: 12:09 - Subjective Subjective: Pt s/e. Clinically stable. vss. wbc down to 22k Today's ECHO pending. a/p: 1. No clinical evidence of tamponade. 2. Continue current antibiotic regimen. 3. Will follow. Objective - Vital Signs/Intake and Output Vital Signs (last 24 hours): Temp Pulse Resp BP Pulse Ox 98.2 F 78 26 H 98/56 L 100 01/11/18 04:00 01/11/18 04:00 01/11/18 04:00 01/11/18 04:00 01/11/18 04:00 Intake and Output: 01/11/18 01/11/18 06:59 18:59 Intake Total 1250 75 Output Total 1000 Balance 250 75 - Medications Medications: Current Medications Colchicine (Colocrys) 0.6 mg PO BID [facility] Last Admin: 01/11/18 09:51 Dose: 0.6 mg Moxifloxacin HCl (Avelox Iv 400mg/250ml Ns) 400 mg in 250 mls @ 167 mls/hr IVPB Q24H AVE PRN Reason: Protocol Last Admin: 01/10/18 20:06 Dose: 167 mls/hr Sodium Chloride (Sodium Chloride 0.9%) 1,000 mls @ 75 mls/hr IV .[id number] [facility] Last Admin: 01/10/18 23:48 Dose: Not Given Vancomycin/Sodium Chloride (Vancomycin 1 Gm/Ns 200 Ml) 1 gm in 200 mls @ 133 mls/hr IVPB Q8H AVE PRN Reason: Protocol Stop: 01/15/18 16:31 Last Admin: 01/11/18 08:46 Dose: 133 mls/hr Ibuprofen (Motrin Tab) [address] Last Admin: 01/11/18 09:45 Dose: 600 mg Pantoprazole Sodium (Protonix Ec Tab) 40 mg PO DAILY [facility] Last Admin: 01/11/18 09:51 Dose: 40 mg Vitamin A (Vitamin A & D Oint Ud Foilpak) 1 ea TOP Q8 PRN PRN Reason: Dry mouth Last Admin: 01/07/18 21:00 Dose: 1 ea - Labs Labs: 01/11/18 06:17 01/11/18 06:17 PT 16.2 SECONDS (9.7-12.2) H 01/11/18 06:17 INR 1.5 01/11/18 06:17 APTT 27 SECONDS (21-34) 01/11/18 06:17
[2018-01-11] MEDS: Moxifloxacin IV 400mg/250ml NS 400 MG/250 ML BAG IVPB SCH (20:43)
--- NOTE | 2018-01-11 23:03 | CARD ---
APPROVED REPORT Date of service: 01/11/2018 EXAM: LIMITED Two-dimensional and M-mode echocardiogram with Doppler and color Doppler. Other Information Quality : GoodRhythm : INDICATION Pericardial Effusion LEFT VENTRICLE The left ventricle is normal size. There is normal left ventricular wall thickness. Left ventricle systolic function is normal. The Ejection Fraction is 60-65%. There is normal LV segmental wall motion. RIGHT VENTRICLE The right ventricle is normal size. The right ventricular systolic function is normal. ATRIA The left atrium size is normal. The right atrium size is normal. AORTIC VALVE The aortic valve is tri-cuspid. The aortic valve is normal in structure. MITRAL VALVE The mitral valve is normal in structure. There is no evidence of mitral valve prolapse. TRICUSPID VALVE The tricuspid valve is normal in structure. There is trace tricuspid regurgitation. PULMONIC VALVE The pulmonary valve is normal in structure. GREAT VESSELS The aortic root is normal in size. The ascending aorta is normal in size. PERICARDIAL EFFUSION The Doppler tracings are consistent with normal hemodynamics. There are no echocardiographic indications of cardiac tamponade. There is a small-moderate circumferential pericardial effusion. <Conclusion> Left ventricle systolic function is normal. The Ejection Fraction is 60-65%. There are no echocardiographic indications of cardiac tamponade. There is a small-moderate circumferential pericardial effusion. No change from 01/08/18
[2018-01-12] MEDS: Vancomycin 1 gm/NS 200 ml 1 GM/200 ML BAG IVPB SCH ×3 (01:18→16:30)
[2018-01-12 02:46] LABS: ANCA SCREEN NEGATIVE (NEGATIVE)
[2018-01-12 07:31] LABS: BASO # 0.1 K/uL (0.0-0.2); BASO % 0.3 % (0.0-2.0); EOS # 0.1 K/uL (0.0-0.7); EOS % 0.5 % (0.0-4.0); HEMOGLOBIN 7.7 g/dL (12.0-18.0); LYMPH # 1.4 K/uL (1.0-4.3); LYMPH % 5.5 % (20.0-40.0); MEAN CELL VOLUME 68.8 fL (80.0-94.0); MEAN CORPUSCULAR HEMOGLOBIN 22.6 pg (27.0-31.0); MEAN CORPUSCULAR HGB CONC 32.8 g/dL (33.0-37.0); MEAN PLATELET VOLUME 7.5 fL (7.2-11.7); MONO # 2.6 K/uL (0.0-0.8); NEUT # 21.8 K/uL (1.8-7.0); NEUT % 83.7 % (50.0-75.0); PLATELET COUNT 560 K/uL (130-400); RBC 3.43 Mil/uL (4.40-5.90); RED CELL DISTRIBUTION WIDTH 17.5 % (11.5-14.5)
[2018-01-12 07:56] LABS: ALB/GLOB RATIO 1.3 (1.0-2.1); ALBUMIN 2.8 g/dL (3.5-5.0); ALT/SGPT 309 U/L (21-72); AST/SGOT 157 U/L (17-59); BLOOD UREA NITROGEN 11 mg/dL (9-20); CALCIUM 8.5 mg/dl (8.6-10.4); GFR AFRICAN-AMERICAN > 60; GFR NON-AFRICAN AMERICAN > 60
--- NOTE | 2018-01-12 08:07 | PN ---
Copied To: Luke Lu MD Attending MD: Luke Lu MD DATE: 01/11/2018 SUBJECTIVE: The patient was seen and examined at bedside. He is more comfortable in bed, less shortness of breath; and denies any other complaints. PHYSICAL EXAMINATION: GENERAL: Young male, lying in bed, in no acute distress. VITAL SIGNS: Blood pressure 100/70, pulse 80, respirations 26, temperature 98 degrees Fahrenheit, O2 saturation 100% on room air. HEENT: Pupils equal, round, and reactive to light and accommodation. Extraocular muscles intact. No icterus or pallor present. NECK: Supple. No JVD. LUNGS: Bilateral vesicular breath sounds. No wheezing. No rhonchi. Decreased breath sounds at the bases. CVS: S1, S2 present and regular. ABDOMEN: Soft and nontender. Bowel sounds present. No guarding. No rigidity. No rebound tenderness noted. 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 No focal deficit noted. EXTREMITIES: No edema. Palpable peripheral pulses. MEDICATIONS: Include colchicine 0.6 mg p.o. b.i.d., ibuprofen 600 mg p.o. every 8 hours, Avelox 400 mg IV daily, Protonix 40 mg p.o. daily, vancomycin 1 g IV every 8 hours. LABORATORY DATA: From this morning, WBC 22.1, hemoglobin 7.3, hematocrit 22.6, platelets 519,000. Sodium 177, potassium 4.5, chloride 104, bicarb 23, BUN 17, creatinine 0.6, glucose 95, lactic acid 1, calcium 8.3, phosphorus 4, magnesium 2, AST 253, ALT 379, alkaline phosphatase 304, total protein 4.9, albumin 2.7. Repeat blood cultures pending. Echocardiogram done this morning, results pending. ASSESSMENT AND PLAN: Young male with history of asthma, common variable immunodeficiency, recent admission to [facility] for pneumonia x2 with Strep pneumo bacteremia and bilateral pneumonia, admitted again to [facility] for pericarditis, pericardial effusion, bilateral lower lobe infiltrates with loculated effusion, right lower lobe infiltrate, anemia, elevated liver function tests, improving liver function test. H and H are slowly decreasing. Awaiting for IVIG approval. Continue with vancomycin and Avelox as per Dr. Croft. Follow up with Hematology and Cardiology. Cardiothoracic Surgery input appreciated. Followup with echo report from this morning. I will consider transfusing 1 unit of PRBC in a.m. if H and H still are low. We will follow up with Hematology. Luke Lu MD
[2018-01-12 09:12] LABS: LYMPHOCYTE 6 % (20-40); TOTAL CELLS COUNTED 100
[2018-01-12] MEDS ORDERED: Immune Globulin 50 MG/ML (OCTAGAM 5%) 10 GM/200 ML IV ONE (09:12)
[2018-01-12 09:13] LABS: ANISOCYTOSIS SLIGHT; HYPOCHROMIC SLIGHT; MONOCYTE 9 % (0-10); NEUTROPHIL 85 % (50-75); PLATELET ESTIMATE INCREASED (NORMAL); POIKILOCYTOSIS SLIGHT
[2018-01-12 09:14] LABS: BURR CELLS SLIGHT; TARGET CELLS SLIGHT
[2018-01-12] MEDS ORDERED: Immune Globulin 50 MG/ML 600 ML IV ONE (10:00)
[2018-01-12] MEDS ORDERED: DiphenhydrAMINE 50 mg/ml Inj IVP ONE (10:00)
--- NOTE | 2018-01-12 10:00 | CP.PCM.PN ---
<Savannah Vargas - Last Filed: 01/12/18 14:31> Subjective - Date & Time of Evaluation Date of Evaluation: 01/12/18 Time of Evaluation: 10:00 - Subjective Subjective: Cardiology Progress Note - Dr Adams Patient seen and examined at bedside. Per nursing no acute events overnight. Patient is doing better. Breathing improving. Denies chest pain. Patient started on IV immunoglobulin today. Objective - Vital Signs/Intake and Output Vital Signs (last 24 hours): Temp Pulse Resp BP Pulse Ox 99.4 F 76 20 118/74 96 01/12/18 07:00 01/12/18 08:27 01/12/18 07:00 01/12/18 07:00 01/12/18 07:00 Intake and Output: 01/12/18 01/12/18 06:59 18:59 Output Total 850 Balance -850 - Medications Medications: Current Medications Acetaminophen (Tylenol 325mg Tab) 650 mg PO ONCE ONE Stop: 01/12/18 10:01 Colchicine (Colocrys) 0.6 mg PO BID [facility] Last Admin: 01/11/18 19:49 Dose: 0.6 mg Diphenhydramine HCl (Benadryl) 50 mg IVP ONCE ONE Stop: 01/12/18 10:01 Moxifloxacin HCl (Avelox Iv 400mg/250ml Ns) 400 mg in 250 mls @ 167 mls/hr IVPB Q24H AVE PRN Reason: Protocol Last Admin: 01/11/18 20:43 Dose: 167 mls/hr Vancomycin/Sodium Chloride (Vancomycin 1 Gm/Ns 200 Ml) 1 gm in 200 mls @ 133 mls/hr IVPB Q8H AVE PRN Reason: Protocol Stop: 01/15/18 16:31 Last Admin: 01/12/18 01:18 Dose: 133 mls/hr Immune Globulin (Octagam 5%) 600 mls @ 100 mls/hr IV ONCE ONE Stop: 01/12/18 15:59 Ibuprofen (Motrin Tab) 600 mg PO Q8H [facility] Last Admin: 01/11/18 19:42 Dose: 600 mg Pantoprazole Sodium (Protonix Ec Tab) 40 mg PO DAILY [facility] Last Admin: 01/11/18 09:51 Dose: 40 mg Vitamin A (Vitamin A & D Oint Ud Foilpak) 1 ea TOP Q8 PRN PRN Reason: Dry mouth Last Admin: 01/07/18 21:00 Dose: 1 ea - Labs Labs: 01/12/18 07:09 01/12/18 07:09 PT 16.2 SECONDS (9.7-12.2) H 01/11/18 06:17 INR 1.5 01/11/18 06:17 APTT 27 SECONDS (21-34) 01/11/18 06:17 - Constitutional Appears: Well, No Acute Distress - Head Exam Head Exam: ATRAUMATIC, NORMAL INSPECTION - Eye Exam Eye Exam: EOMI, Normal appearance - ENT Exam ENT Exam: Mucous Membranes Moist - Neck Exam Neck Exam: Full ROM - Respiratory Exam Respiratory Exam: Decreased Breath Sounds, NORMAL BREATHING PATTERN. absent: Rhonchi, Wheezes - Cardiovascular Exam Cardiovascular Exam: REGULAR RHYTHM, +S1, +S2 - GI/Abdominal Exam GI & Abdominal Exam: Soft. absent: Tenderness - Extremities Exam Extremities Exam: Normal Inspection. absent: Calf Tenderness - Back Exam Back Exam: NORMAL INSPECTION - Neurological Exam Neurological Exam: Alert, Awake, Oriented x3 - Psychiatric Exam Psychiatric exam: Normal Affect, Normal Mood - Skin Skin Exam: Dry, Normal Color, Warm Assessment and Plan - Assessment and Plan (Free Text) Assessment: A/P: Patient is a 22 year old male with past medical history of common variable immunodeficiency who presented with chest pain and shortness of breath. Found to have pericarditis and pneumonia. Pericarditis/Pleural effusion -Stable, Afebrile -Leukocytosis 26 today -Pericardiocentesis was unsuccessful 01/08 -Currently, No evidence of cardiac tamponade -Continue IV antibiotics (Avelox and Vancomycin) -Repeat echo shows stable pericardial effusion -Dr Silva recommending antibiotics and CVID Rx+ other supportive care, and serial followup reassessments of pericardial effusion with ECHO, and CT chest with contrast for pericardial effusion + lung consolidations and pleural effusion -Pericardial window cancelled at this time Bacteremia -Blood cultures from admission growing streptococcus pneumonia -Repeat blood cultures negative to date -Continue IV antibiotics -Dr Croft on consult, help appreciated RLL Pneumonia -CXR 01/10 showing RLL consolidation -Sputum cultures negative -Continue IV antibiotics Common Variable Immunodeficiency -Patient to be started on IVIG -Dr Rose on consult Anemia -Hgb 7.7 today, asymptomatic -Will receive 1 unit of PRBC later today -Dr Rose on consult Savannah Vargas DO PGY-2 <Porfirio Adams - Last Filed: 01/12/18 19:01> Objective - Vital Signs/Intake and Output Vital Signs (last 24 hours): Temp Pulse Resp BP Pulse Ox 98.3 F 86 20 96/54 L 97 01/12/18 15:05 01/12/18 15:05 01/12/18 15:05 01/12/18 15:05 01/12/18 15:05 Intake and Output: 01/12/18 01/13/18 18:59 06:59 Intake Total 600 Output Total 700 Balance -100 - Medications Medications: Current Medications Colchicine (Colocrys) 0.[address] Last Admin: 01/12/18 10:17 Dose: 0.6 mg Moxifloxacin HCl (Avelox Iv 400mg/250ml Ns) 400 mg in 250 mls @ 167 mls/hr IVPB Q24H AVE PRN Reason: Protocol Last Admin: 01/11/18 20:43 Dose: 167 mls/hr Vancomycin HCl 1 gm/ Sodium (Chloride) 250 mls @ 167 mls/hr IVPB Q8H AVE PRN Reason: Protocol Stop: 01/15/18 16:31 Ibuprofen (Motrin Tab) [address] Last Admin: 01/12/18 15:30 Dose: Not Given Pantoprazole Sodium (Protonix Ec Tab) [address] Last Admin: 01/12/18 10:18 Dose: 40 mg Vitamin A (Vitamin A & D Oint Ud Foilpak) 1 ea TOP Q8 PRN PRN Reason: Dry mouth Last Admin: 01/07/18 21:00 Dose: 1 ea - Labs Labs: 01/12/18 07:09 01/12/18 07:09 PT 16.2 SECONDS (9.7-12.2) H 01/11/18 06:17 INR 1.5 01/11/18 06:17 APTT 27 SECONDS (21-34) 01/11/18 06:17 Assessment and Plan - Assessment and Plan (Free Text) Assessment: Patient seen and evaluated personally by me. Plan of care d/w the resident and as documented
[2018-01-12] MEDS: Pantoprazole 40 mg EC Tab PO SCH (10:18)
--- NOTE | 2018-01-12 11:08 | CP.PCM.PN ---
Subjective - Date & Time of Evaluation Date of Evaluation: 01/12/18 Time of Evaluation: 07:30 - Subjective Subjective: Cardiothoracic surgery progress note for Dr. Silva Patient seen and examined this am at bedside. patient states he is feeling well and that his SOB is improving. patient otherwise denies f/c/n/v chest pain. pateint is resting comfortably in bed. Objective - Vital Signs/Intake and Output Vital Signs (last 24 hours): Temp Pulse Resp BP Pulse Ox 99.4 F 76 20 118/74 96 01/12/18 07:00 01/12/18 08:27 01/12/18 07:00 01/12/18 07:00 01/12/18 07:00 Intake and Output: 01/12/18 01/12/18 06:59 18:59 Output Total 850 Balance -850 - Medications Medications: Current Medications Colchicine (Colocrys) 0.6 mg PO BID [facility] Last Admin: 01/12/18 10:17 Dose: 0.6 mg Moxifloxacin HCl (Avelox Iv 400mg/250ml Ns) 400 mg in 250 mls @ 167 mls/hr IVPB Q24H AVE PRN Reason: Protocol Last Admin: 01/11/18 20:43 Dose: 167 mls/hr Vancomycin/Sodium Chloride (Vancomycin 1 Gm/Ns 200 Ml) 1 gm in 200 mls @ 133 mls/hr IVPB Q8H AVE PRN Reason: Protocol Stop: 01/15/18 16:31 Last Admin: 01/12/18 10:32 Dose: 133 mls/hr Immune Globulin (Octagam 5%) 600 mls @ 100 mls/hr IV ONCE ONE Stop: 01/12/18 15:59 Last Admin: 01/12/18 10:32 Dose: 100 mls/hr Ibuprofen (Motrin Tab) [address] Last Admin: 01/12/18 08:05 Dose: 600 mg Pantoprazole Sodium (Protonix Ec Tab) 40 mg PO DAILY [facility] Last Admin: 01/12/18 10:18 Dose: 40 mg Vitamin A (Vitamin A & D Oint Ud Foilpak) 1 ea TOP Q8 PRN PRN Reason: Dry mouth Last Admin: 01/07/18 21:00 Dose: 1 ea - Labs Labs: 01/12/18 07:01/12/18 07:09 PT 16.2 SECONDS (9.7-12.2) H 01/11/18 06:17 INR 1.5 01/11/18 06:17 APTT 27 SECONDS (21-34) 01/11/18 06:17 - Constitutional Appears: Well, Non-toxic, No Acute Distress - Head Exam Head Exam: ATRAUMATIC, NORMOCEPHALIC - ENT Exam ENT Exam: Mucous Membranes Moist - Respiratory Exam Respiratory Exam: NORMAL BREATHING PATTERN - Cardiovascular Exam Cardiovascular Exam: +S1, +S2 - GI/Abdominal Exam GI & Abdominal Exam: Soft. absent: Tenderness - Extremities Exam Extremities Exam: absent: Pedal Edema, Tenderness - Neurological Exam Neurological Exam: Alert, Awake, Oriented x3 - Psychiatric Exam Psychiatric exam: Normal Affect, Normal Mood - Skin Skin Exam: Dry, Intact, Normal Color, Warm Assessment and Plan - Assessment and Plan (Free Text) Assessment: 22yo M with PMHx of asthma, pneumonia, common variable immunodeficiency, now with pericarditis, pericardial effusion without signs of tamponade on ECHO Plan: -repeat echo shows small stable pericardial effusion, no signs of tampenade, normal LV function and EF - SOB improving, no chest pain - WBC 22 from 20, no fevers, continue abx per ID team - will continue to follow - will d/w Dr. Silva all further recs per him. Emili Oliveira, PGY 1
--- NOTE | 2018-01-12 11:30 | CP.PCM.PN ---
Subjective - Date & Time of Evaluation Date of Evaluation: 01/12/18 Time of Evaluation: 11:30 - Subjective Subjective: Progress note dictated #[id number] Objective - Vital Signs/Intake and Output Vital Signs (last 24 hours): Temp Pulse Resp BP Pulse Ox 99.4 F 76 20 118/74 96 01/12/18 07:00 01/12/18 08:27 01/12/18 07:00 01/12/18 07:00 01/12/18 07:00 Intake and Output: 01/12/18 01/12/18 06:59 18:59 Output Total 850 Balance -850 - Medications Medications: Current Medications Colchicine (Colocrys) 0.6 mg PO BID [facility] Last Admin: 01/12/18 10:17 Dose: 0.6 mg Moxifloxacin HCl (Avelox Iv 400mg/250ml Ns) 400 mg in 250 mls @ 167 mls/hr IVPB Q24H AVE PRN Reason: Protocol Last Admin: 01/11/18 20:43 Dose: 167 mls/hr Vancomycin/Sodium Chloride (Vancomycin 1 Gm/Ns 200 Ml) 1 gm in 200 mls @ 133 mls/hr IVPB Q8H AVE PRN Reason: Protocol Stop: 01/15/18 16:31 Last Admin: 01/12/18 10:32 Dose: 133 mls/hr Immune Globulin (Octagam 5%) 600 mls @ 100 mls/hr IV ONCE ONE Stop: 01/12/18 15:59 Last Admin: 01/12/18 10:32 Dose: 100 mls/hr Ibuprofen (Motrin Tab) [address] Last Admin: 01/12/18 08:05 Dose: 600 mg Pantoprazole Sodium (Protonix Ec Tab) [address] Last Admin: 01/12/18 10:18 Dose: 40 mg Vitamin A (Vitamin A & D Oint Ud Foilpak) 1 ea TOP Q8 PRN PRN Reason: Dry mouth Last Admin: 01/07/18 21:00 Dose: 1 ea - Labs Labs: 01/12/18 07:09 01/12/18 07:09 PT 16.2 SECONDS (9.7-12.2) H 01/11/18 06:17 INR 1.5 01/11/18 06:17 APTT 27 SECONDS (21-34) 01/11/18 06:17
--- NOTE | 2018-01-12 12:04 | CP.PCM.PN ---
Subjective - Date & Time of Evaluation Date of Evaluation: 01/12/18 Time of Evaluation: 09:00 - Subjective Subjective: events noted iv rx renewed Objective - Vital Signs/Intake and Output Vital Signs (last 24 hours): Temp Pulse Resp BP Pulse Ox 99.4 F 76 20 118/74 96 01/12/18 07:00 01/12/18 08:27 01/12/18 07:00 01/12/18 07:00 01/12/18 07:00 Intake and Output: 01/12/18 01/12/18 06:59 18:59 Output Total 850 Balance -850 - Medications Medications: Current Medications Colchicine (Colocrys) 0.6 mg PO BID [facility] Last Admin: 01/12/18 10:17 Dose: 0.6 mg Moxifloxacin HCl (Avelox Iv 400mg/250ml Ns) 400 mg in 250 mls @ 167 mls/hr IVPB Q24H AVE PRN Reason: Protocol Last Admin: 01/11/18 20:43 Dose: 167 mls/hr Vancomycin/Sodium Chloride (Vancomycin 1 Gm/Ns 200 Ml) 1 gm in 200 mls @ 133 mls/hr IVPB Q8H AVE PRN Reason: Protocol Stop: 01/15/18 16:31 Last Admin: 01/12/18 10:32 Dose: 133 mls/hr Immune Globulin (Octagam 5%) 600 mls @ 100 mls/hr IV ONCE ONE Stop: 01/12/18 15:59 Last Admin: 01/12/18 10:32 Dose: 100 mls/hr Ibuprofen (Motrin Tab) [address] Last Admin: 01/12/18 08:05 Dose: 600 mg Pantoprazole Sodium (Protonix Ec Tab) 40 mg PO DAILY [facility] Last Admin: 01/12/18 10:18 Dose: 40 mg Vitamin A (Vitamin A & D Oint Ud Foilpak) 1 ea TOP Q8 PRN PRN Reason: Dry mouth Last Admin: 01/07/18 21:00 Dose: 1 ea - Labs Labs: 01/12/18 07:09 01/12/18 07:09 PT 16.2 SECONDS (9.7-12.2) H 01/11/18 06:17 INR 1.5 01/11/18 06:17 APTT 27 SECONDS (21-34) 01/11/18 06:17 - Constitutional Appears: Non-toxic, Chronically Ill - Head Exam Head Exam: NORMOCEPHALIC - Eye Exam Eye Exam: absent: Scleral icterus - ENT Exam ENT Exam: Mucous Membranes Dry - Neck Exam Neck Exam: absent: Lymphadenopathy - Respiratory Exam Respiratory Exam: Decreased Breath Sounds - Cardiovascular Exam Cardiovascular Exam: REGULAR RHYTHM Assessment and Plan (1) Pericarditis Status: Acute (2) Sepsis Status: Acute (3) Pneumonia Status: Acute (4) Pneumonia Status: Acute (5) Pleurisy with effusion Status: Acute (6) Common variable immunodeficiency Status: Acute
[2018-01-12] MEDS ORDERED: DiphenhydrAMINE 50 mg/ml Inj IVP STA (16:26)
[2018-01-12] MEDS: Vitamins A & D Oint UD Foilpak TOP PRN (19:15)
--- NOTE | 2018-01-12 20:08 | CP.PCM.PN ---
Subjective - Date & Time of Evaluation Date of Evaluation: 01/11/18 Time of Evaluation: 21:00 - Subjective Subjective: Feeling better for IVIG in AM Objective - Vital Signs/Intake and Output Vital Signs (last 24 hours): Temp Pulse Resp BP Pulse Ox 98.3 F 86 20 96/54 L 97 01/12/18 15:05 01/12/18 15:05 01/12/18 15:05 01/12/18 15:05 01/12/18 15:05 Intake and Output: 01/12/18 01/13/18 18:59 06:59 Intake Total 600 Output Total 700 Balance -100 - Medications Medications: Current Medications Colchicine (Colocrys) 0.6 mg PO BID [facility] Last Admin: 01/12/18 19:13 Dose: 0.6 mg Moxifloxacin HCl (Avelox Iv 400mg/250ml Ns) 400 mg in 250 mls @ 167 mls/hr IVPB Q24H AVE PRN Reason: Protocol Last Admin: 01/11/18 20:43 Dose: 167 mls/hr Vancomycin HCl 1 gm/ Sodium (Chloride) 250 mls @ 167 mls/hr IVPB Q8H AVE PRN Reason: Protocol Stop: 01/15/18 16:31 Ibuprofen (Motrin Tab) [address] Last Admin: 01/12/18 15:30 Dose: Not Given Pantoprazole Sodium (Protonix Ec Tab) 40 mg PO DAILY [facility] Last Admin: 01/12/18 10:18 Dose: 40 mg Vitamin A (Vitamin A & D Oint Ud Foilpak) 1 ea TOP Q8 PRN PRN Reason: Dry mouth Last Admin: 01/12/18 19:15 Dose: 1 ea - Labs Labs: 01/12/18 07:09 01/12/18 07:09 PT 16.2 SECONDS (9.7-12.2) H 01/11/18 06:17 INR 1.5 01/11/18 06:17 APTT 27 SECONDS (21-34) 01/11/18 06:17 - Head Exam Head Exam: ATRAUMATIC - Eye Exam Eye Exam: Normal appearance - ENT Exam ENT Exam: Mucous Membranes Dry - Respiratory Exam Respiratory Exam: NORMAL BREATHING PATTERN - Cardiovascular Exam Cardiovascular Exam: +S1, +S2 - GI/Abdominal Exam GI & Abdominal Exam: Normal Bowel Sounds Assessment and Plan (1) Common variable immunodeficiency Assessment & Plan: For IVIG in AM given bacteremia and possible lung abscess Status: Acute (2) Leukocytosis Assessment & Plan: improving with antibiotics Status: Acute (3) Anemia Assessment & Plan: chronic disease transfusion support PRN Status: Acute (4) Coagulopathy Assessment & Plan: nutritional improved with vit k Status: Acute
--- NOTE | 2018-01-12 20:11 | CP.PCM.PN ---
Subjective - Date & Time of Evaluation Date of Evaluation: 01/12/18 Time of Evaluation: 19:00 - Subjective Subjective: No complaints, IVIG almost completed with no reaction Objective - Vital Signs/Intake and Output Vital Signs (last 24 hours): Temp Pulse Resp BP Pulse Ox 98.3 F 86 20 96/54 L 97 01/12/18 15:05 01/12/18 15:05 01/12/18 15:05 01/12/18 15:05 01/12/18 15:05 Intake and Output: 01/12/18 01/13/18 18:59 06:59 Intake Total 600 Output Total 700 Balance -100 - Medications Medications: Current Medications Colchicine (Colocrys) 0.6 mg PO BID [facility] Last Admin: 01/12/18 19:13 Dose: 0.6 mg Moxifloxacin HCl (Avelox Iv 400mg/250ml Ns) 400 mg in 250 mls @ 167 mls/hr IVPB Q24H AVE PRN Reason: Protocol Last Admin: 01/11/18 20:43 Dose: 167 mls/hr Vancomycin HCl 1 gm/ Sodium (Chloride) 250 mls @ 167 mls/hr IVPB Q8H AVE PRN Reason: Protocol Stop: 01/15/18 16:31 Ibuprofen (Motrin Tab) [address] Last Admin: 01/12/18 15:30 Dose: Not Given Pantoprazole Sodium (Protonix Ec Tab) 40 mg PO DAILY [facility] Last Admin: 01/12/18 10:18 Dose: 40 mg Vitamin A (Vitamin A & D Oint Ud Foilpak) 1 ea TOP Q8 PRN PRN Reason: Dry mouth Last Admin: 01/12/18 19:15 Dose: 1 ea - Labs Labs: 01/12/18 07:09 01/12/18 07:09 PT 16.2 SECONDS (9.7-12.2) H 01/11/18 06:17 INR 1.5 01/11/18 06:17 APTT 27 SECONDS (21-34) 01/11/18 06:17 - Head Exam Head Exam: ATRAUMATIC - Eye Exam Eye Exam: Normal appearance - ENT Exam ENT Exam: Mucous Membranes Dry - Respiratory Exam Respiratory Exam: NORMAL BREATHING PATTERN - Cardiovascular Exam Cardiovascular Exam: +S1, +S2 - GI/Abdominal Exam GI & Abdominal Exam: Normal Bowel Sounds Assessment and Plan (1) Common variable immunodeficiency Assessment & Plan: s/p IVIG today outpatient dosing in 3-4 weeks Status: Acute (2) Leukocytosis Assessment & Plan: slight rise today on antibiotics Status: Acute (3) Anemia Assessment & Plan: chronic disease for PRBC transfusion after IVIG completes Status: Acute (4) Coagulopathy Assessment & Plan: nutritional s/p vit k Status: Acute
--- NOTE | 2018-01-12 21:22 | PN ---
Copied To: Luke Lu MD Attending MD: Luke Lu MD DATE: 01/12/2018 SUBJECTIVE: The patient was seen and examined at bedside. The patient is feeling tired, undergoing IVIG infusion therapy, arousable but sleepy, claiming that he received Benadryl prior to IV infusion. Denies any new complaints. PHYSICAL EXAMINATION: GENERAL: Young male, lying in bed, in no acute distress. VITAL SIGNS: Blood pressure 118/74, pulse 74, respirations 20, temperature 99.4 degrees Fahrenheit, O2 sat is 96% on room air. HEENT: Pupils are equal, round, and reacting to light and accommodation. Extraocular muscles intact. No icterus. Positive pallor. No oral thrush. No pharyngeal congestion. NECK: Supple. No JVD. LUNGS: Bilateral vesicular breath sounds. No wheezing. No rhonchi. CARDIOVASCULAR SYSTEM: S1, S2 present and regular. ABDOMEN: Soft and nontender. Bowel sounds present. No guarding. No rigidity. No rebound tenderness noted. CENTRAL NERVOUS SYSTEM: Drowsy but arousable, responding to questions appropriately. Moving all the extremities. No focal deficits noted. EXTREMITIES: No edema. Palpable peripheral pulses. MEDICATIONS: Include colchicine 0.6 mg p.o. b.i.d., ibuprofen 600 mg p.o. every 8 hours, Avelox 400 mg daily, Protonix 40 mg p.o. daily, vancomycin 1 g IV every 8 hours. LABORATORY DATA: Labs from today: WBC 26, hemoglobin 7.7, hematocrit 23.6, platelets 560. Sodium 138, potassium 4.2, chloride 101, bicarb 25, BUN 11, creatinine 0.6, glucose 101, calcium 8.5. AST 157, ALT 309, alkaline phosphatase 361. Total protein 5, albumin 2.2. Repeat blood cultures negative so far. ASSESSMENT AND PLAN: Young male with history of common variable immunodeficiency, asthma, recent history of pneumonia x2 with Streptococcus pneumoniae, admitted for pericarditis, moderate pericardial effusion, bilateral lower lobe infiltrates with pleural effusion, Streptococcus pneumoniae septicemia, iron-deficiency anemia. The patient is receiving intravenous immunoglobulin infusion this morning. We will continue with vancomycin and Avelox. Repeat echocardiogram shows ejection fraction 60% to 65%, [id number] circumferential pericardial effusion, no change from 01/08/2018. Left ventricular systolic function is normal. We will give packed red blood cells transfusion and if his hemoglobin and hematocrit remained low, we will give intravenous iron therapy. Follow up with Hematology and Cardiology. Infectious Disease input and Vascular Surgery input appreciated. We will repeat labs in the morning. Luke Lu MD
[2018-01-12] MEDS: Moxifloxacin IV 400mg/250ml NS 400 MG/250 ML BAG IVPB SCH (22:36)
[2018-01-13 08:19] LABS: HEMOGLOBIN 8.2 g/dL (12.0-18.0); MEAN CORPUSCULAR HEMOGLOBIN 22.7 pg (27.0-31.0); MEAN PLATELET VOLUME 7.1 fL (7.2-11.7); RBC 3.59 Mil/uL (4.40-5.90); RED CELL DISTRIBUTION WIDTH 18.7 % (11.5-14.5); WHITE BLOOD COUNT 19.1 K/uL (4.8-10.8)
[2018-01-13 08:21] LABS: MEAN CELL VOLUME 70.8 fL (80.0-94.0)
[2018-01-13] MEDS: Pantoprazole 40 mg EC Tab PO SCH (09:18)
--- NOTE | 2018-01-13 10:50 | CP.PCM.PN ---
<Savannah Vargas - Last Filed: 01/13/18 17:36> Subjective - Date & Time of Evaluation Date of Evaluation: 01/13/18 Time of Evaluation: 10:49 - Subjective Subjective: Cardiology Progress Note - Dr Adams Patient seen and examined at bedside. Per nursing no acute events overnight. Patient is s/p 1 unit PRBC. Patient is doing well, denies SOB or chest pain. He is tolerating diet. Offers no complaints at this time. Objective - Vital Signs/Intake and Output Vital Signs (last 24 hours): Temp Pulse Resp BP Pulse Ox 98.2 F 86 20 109/65 98 01/13/18 07:00 01/13/18 07:46 01/13/18 07:00 01/13/18 07:00 01/13/18 07:00 Intake and Output: 01/13/18 01/13/18 06:59 18:59 Intake Total 1975 Balance 1974 - Medications Medications: Current Medications Colchicine (Colocrys) 0.6 mg PO BID [facility] Last Admin: 01/13/18 09:18 Dose: 0.6 mg Moxifloxacin HCl (Avelox Iv 400mg/250ml Ns) 400 mg in 250 mls @ 167 mls/hr IVPB Q24H AVE PRN Reason: Protocol Last Admin: 01/12/18 22:36 Dose: 167 mls/hr Vancomycin HCl 1 gm/ Sodium (Chloride) 250 mls @ 167 mls/hr IVPB Q8H AVE PRN Reason: Protocol Stop: 01/15/18 16:31 Last Admin: 01/13/18 08:21 Dose: 167 mls/hr Ibuprofen (Motrin Tab) [address] Last Admin: 01/13/18 08:19 Dose: 600 mg Pantoprazole Sodium (Protonix Ec Tab) 40 mg PO DAILY [facility] Last Admin: 01/13/18 09:18 Dose: 40 mg Vitamin A (Vitamin A & D Oint Ud Foilpak) 1 ea TOP Q8 PRN PRN Reason: Dry mouth Last Admin: 01/12/18 19:15 Dose: 1 ea - Labs Labs: 01/13/18 08:02 01/12/18 07:09 PT 16.2 SECONDS (9.7-12.2) H 01/11/18 06:17 INR 1.5 01/11/18 06:17 APTT 27 SECONDS (21-34) 01/11/18 06:17 - Constitutional Appears: Well, No Acute Distress - Head Exam Head Exam: ATRAUMATIC, NORMAL INSPECTION, NORMOCEPHALIC - Eye Exam Eye Exam: EOMI, Normal appearance Pupil Exam: NORMAL ACCOMODATION - ENT Exam ENT Exam: Mucous Membranes Moist - Neck Exam Neck Exam: Full ROM - Respiratory Exam Respiratory Exam: Decreased Breath Sounds, NORMAL BREATHING PATTERN. absent: Rales, Rhonchi, Wheezes - Cardiovascular Exam Cardiovascular Exam: REGULAR RHYTHM, +S1, +S2 - GI/Abdominal Exam GI & Abdominal Exam: Soft. absent: Guarding, Rigid, Tenderness - Extremities Exam Extremities Exam: Normal Inspection - Back Exam Back Exam: NORMAL INSPECTION - Neurological Exam Neurological Exam: Alert, Awake, Oriented x3 - Psychiatric Exam Psychiatric exam: Normal Affect, Normal Mood - Skin Skin Exam: Dry, Normal Color, Warm Assessment and Plan - Assessment and Plan (Free Text) Assessment: A/P: Patient is a 22 year old male with past medical history of common variable immunodeficiency who presented with chest pain and shortness of breath. Found to have pericarditis and pneumonia. Pericarditis/Pleural effusion -Stable, Afebrile -Leukocytosis trending down, 19.1 today -Pericardiocentesis was unsuccessful 01/08 -Currently, No evidence of cardiac tamponade -Continue IV antibiotics (Avelox and Vancomycin) -Repeat echo shows stable pericardial effusion -Dr Silva recommending antibiotics and CVID Rx+ other supportive care, and serial followup reassessments of pericardial effusion with ECHO, and CT chest with contrast for pericardial effusion + lung consolidations and pleural effusion -Pericardial window cancelled at this time -Encourage ambulation Gram + Bacteremia -Blood cultures from admission growing streptococcus pneumonia -Repeat blood cultures negative x 48 hours -Continue IV antibiotics -Dr Croft on consult, help appreciated RLL Pneumonia -CXR 01/10 showing RLL consolidation -Sputum cultures negative -Continue IV antibiotics Common Variable Immunodeficiency -S/P IVIG -Per heme/onc, to follow up in 3-4 weeks for outpatient dosing -Dr Rose on consult Anemia -Hgb 8.2 today, s/p 1 unit PRBC -Continue to monitor H/H -Dr Rose on consult Transaminitis -LFTs trending down -Continue to monitor Plan discussed with Dr Bryan Vargas DO PGY-2 <Porfirio Adams - Last Filed: 01/14/18 22:38> Objective - Vital Signs/Intake and Output Vital Signs (last 24 hours): Temp Pulse Resp BP Pulse Ox 98.0 F 76 20 110/69 98 01/14/18 15:00 01/14/18 15:00 01/14/18 15:00 01/14/18 15:00 01/14/18 15:00 - Medications Medications: Current Medications Colchicine (Colocrys) 0.6 mg PO BID [facility] Last Admin: 01/14/18 18:15 Dose: 0.6 mg Moxifloxacin HCl (Avelox Iv 400mg/250ml Ns) 400 mg in 250 mls @ 167 mls/hr IVPB Q24H AVE PRN Reason: Protocol Last Admin: 01/14/18 20:32 Dose: 167 mls/hr Vancomycin HCl 1 gm/ Sodium (Chloride) 200 mls @ 167 mls/hr IVPB Q8H AVE PRN Reason: Protocol Stop: 01/15/18 16:31 Last Admin: 01/14/18 17:35 Dose: 167 mls/hr Ibuprofen (Motrin Tab) 600 mg PO Q8H [facility] Last Admin: 01/14/18 22:31 Dose: 600 mg Pantoprazole Sodium (Protonix Ec Tab) 40 mg PO DAILY [facility] Last Admin: 01/14/18 09:57 Dose: 40 mg Vitamin A (Vitamin A & D Oint Ud Foilpak) 1 ea TOP Q8 PRN PRN Reason: Dry mouth Last Admin: 01/12/18 19:15 Dose: 1 ea - Labs Labs: 01/14/18 07:09 01/14/18 07:09 PT 16.2 SECONDS (9.7-12.2) H 01/11/18 06:17 INR 1.5 01/11/18 06:17 APTT 27 SECONDS (21-34) 01/11/18 06:17 Assessment and Plan - Assessment and Plan (Free Text) Assessment: Patient seen and evaluated personally by me Plan of care d/w the resident and as documented
--- NOTE | 2018-01-13 13:35 | CARD ---
APPROVED REPORT Date of service: 01/07/2018 EKG Measurement Heart [id number] <Conclusion> Sinus tachycardia Possible Left atrial enlargement ST elevation, consider Pericarditis Abnormal ECG
--- NOTE | 2018-01-13 14:05 | CP.PCM.PN ---
Subjective - Date & Time of Evaluation Date of Evaluation: 01/13/18 Time of Evaluation: 14:05 - Subjective Subjective: Progress note dictated #[id number] Objective - Vital Signs/Intake and Output Vital Signs (last 24 hours): Temp Pulse Resp BP Pulse Ox 98.2 F 86 20 109/65 98 01/13/18 07:00 01/13/18 07:46 01/13/18 07:00 01/13/18 07:00 01/13/18 07:00 Intake and Output: 01/13/18 01/13/18 06:59 18:59 Intake Total 1974 Balance 1974 - Medications Medications: Current Medications Colchicine (Colocrys) 0.6 mg PO BID [facility] Last Admin: 01/13/18 09:18 Dose: 0.6 mg Moxifloxacin HCl (Avelox Iv 400mg/250ml Ns) 400 mg in 250 mls @ 167 mls/hr IVPB Q24H AVE PRN Reason: Protocol Last Admin: 01/12/18 22:36 Dose: 167 mls/hr Vancomycin HCl 1 gm/ Sodium (Chloride) 250 mls @ 167 mls/hr IVPB Q8H AVE PRN Reason: Protocol Stop: 01/15/18 16:31 Last Admin: 01/13/18 08:21 Dose: 167 mls/hr Ibuprofen (Motrin Tab) [address] Last Admin: 01/13/18 08:19 Dose: 600 mg Pantoprazole Sodium (Protonix Ec Tab) [address] Last Admin: 01/13/18 09:18 Dose: 40 mg Vitamin A (Vitamin A & D Oint Ud Foilpak) 1 ea TOP Q8 PRN PRN Reason: Dry mouth Last Admin: 01/12/18 19:15 Dose: 1 ea - Labs Labs: 01/13/18 08:02 01/12/18 07:09 PT 16.2 SECONDS (9.7-12.2) H 01/11/18 06:17 INR 1.5 01/11/18 06:17 APTT 27 SECONDS (21-34) 01/11/18 06:17
[2018-01-13] MEDS: Vancomycin 1 GM in Sodium Chloride 0.9% 200 ML IVPB SCH (16:52)
--- NOTE | 2018-01-13 18:05 | CP.PCM.PN ---
Subjective - Date & Time of Evaluation Date of Evaluation: 01/13/18 Time of Evaluation: 09:00 - Subjective Subjective: afebrile awake less chest pain no fever Objective - Vital Signs/Intake and Output Vital Signs (last 24 hours): Temp Pulse Resp BP Pulse Ox 98.2 F 81 20 110/69 98 01/13/18 15:14 01/13/18 15:14 01/13/18 15:14 01/13/18 15:14 01/13/18 15:14 Intake and Output: 01/13/18 01/13/18 06:59 18:59 Intake Total 1975 Balance 1974 - Medications Medications: Current Medications Colchicine (Colocrys) 0.6 mg PO BID [facility] Last Admin: 01/13/18 09:18 Dose: 0.6 mg Moxifloxacin HCl (Avelox Iv 400mg/250ml Ns) 400 mg in 250 mls @ 167 mls/hr IVPB Q24H AVE PRN Reason: Protocol Last Admin: 01/12/18 22:36 Dose: 167 mls/hr Vancomycin HCl 1 gm/ Sodium (Chloride) 200 mls @ 167 mls/hr IVPB Q8H AVE PRN Reason: Protocol Stop: 01/15/18 16:31 Last Admin: 01/13/18 16:52 Dose: 167 mls/hr Ibuprofen (Motrin Tab) [address] Last Admin: 01/13/18 16:49 Dose: 600 mg Pantoprazole Sodium (Protonix Ec Tab) 40 mg PO DAILY [facility] Last Admin: 01/13/18 09:18 Dose: 40 mg Vitamin A (Vitamin A & D Oint Ud Foilpak) 1 ea TOP Q8 PRN PRN Reason: Dry mouth Last Admin: 01/12/18 19:15 Dose: 1 ea - Labs Labs: 01/13/18 08:02 01/12/18 07:09 PT 16.2 SECONDS (9.7-12.2) H 01/11/18 06:17 INR 1.5 01/11/18 06:17 APTT 27 SECONDS (21-34) 01/11/18 06:17 - Constitutional Appears: Non-toxic, Chronically Ill - Head Exam Head Exam: NORMOCEPHALIC - Eye Exam Eye Exam: PERRL - ENT Exam ENT Exam: Mucous Membranes Dry - Neck Exam Neck Exam: absent: Lymphadenopathy - Respiratory Exam Respiratory Exam: Decreased Breath Sounds, Rales - Cardiovascular Exam Cardiovascular Exam: REGULAR RHYTHM - GI/Abdominal Exam GI & Abdominal Exam: Distended, Soft. absent: Tenderness - Rectal Exam Rectal Exam: Deferred - Exam Exam: NORMAL INSPECTION - Extremities Exam Extremities Exam: absent: Pedal Edema - Back Exam Back Exam: absent: CVA tenderness (L), CVA tenderness (R) - Neurological Exam Neurological Exam: Alert, Awake, Oriented x3 Assessment and Plan (1) Pericarditis Status: Acute (2) Sepsis Status: Acute (3) Pneumonia Status: Acute (4) Pneumonia Status: Acute (5) Pleurisy with effusion Status: Acute (6) Common variable immunodeficiency Status: Acute - Assessment and Plan (Free Text) Assessment: cont iv rx
--- NOTE | 2018-01-13 18:32 | CP.PCM.PN ---
Subjective - Date & Time of Evaluation Date of Evaluation: 01/13/18 Time of Evaluation: 09:00 - Subjective Subjective: CT Surgery Progress Note for Dr. Silva Patient was seen and examined today at bedside in no acute distress. Nurse reports no overnight events. Patient has no new complaints. Denies CP, SOB, f/c , n/v, d/c. Patient is resting comfortably in bed. Objective - Vital Signs/Intake and Output Vital Signs (last 24 hours): Temp Pulse Resp BP Pulse Ox 98.2 F 81 20 110/69 98 01/13/18 15:14 01/13/18 15:14 01/13/18 15:14 01/13/18 15:14 01/13/18 15:14 Intake and Output: 01/13/18 01/13/18 06:59 18:59 Intake Total 1975 Balance 1974 - Medications Medications: Current Medications Colchicine (Colocrys) 0.6 mg PO BID [facility] Last Admin: 01/13/18 09:18 Dose: 0.6 mg Moxifloxacin HCl (Avelox Iv 400mg/250ml Ns) 400 mg in 250 mls @ 167 mls/hr IVPB Q24H AVE PRN Reason: Protocol Last Admin: 01/12/18 22:36 Dose: 167 mls/hr Vancomycin HCl 1 gm/ Sodium (Chloride) 200 mls @ 167 mls/hr IVPB Q8H AVE PRN Reason: Protocol Stop: 01/15/18 16:31 Last Admin: 01/13/18 16:52 Dose: 167 mls/hr Ibuprofen (Motrin Tab) [address] Last Admin: 01/13/18 16:49 Dose: 600 mg Pantoprazole Sodium (Protonix Ec Tab) 40 mg PO DAILY [facility] Last Admin: 01/13/18 09:18 Dose: 40 mg Vitamin A (Vitamin A & D Oint Ud Foilpak) 1 ea TOP Q8 PRN PRN Reason: Dry mouth Last Admin: 01/12/18 19:15 Dose: 1 ea - Labs Labs: 01/13/18 08:02 01/12/18 07:09 PT 16.2 SECONDS (9.7-12.2) H 01/11/18 06:17 INR 1.5 01/11/18 06:17 APTT 27 SECONDS (21-34) 01/11/18 06:17 - Constitutional Appears: Non-toxic, No Acute Distress - Head Exam Head Exam: ATRAUMATIC, NORMOCEPHALIC - Eye Exam Eye Exam: EOMI, Normal appearance - ENT Exam ENT Exam: Mucous Membranes Moist, Normal Exam - Respiratory Exam Respiratory Exam: NORMAL BREATHING PATTERN. absent: Rales, Rhonchi - Cardiovascular Exam Cardiovascular Exam: REGULAR RHYTHM, +S1, +S2 - GI/Abdominal Exam GI & Abdominal Exam: Soft, Normal Bowel Sounds. absent: Tenderness - Neurological Exam Neurological Exam: Alert, Awake, Oriented x3 - Psychiatric Exam Psychiatric exam: Normal Affect, Normal Mood - Skin Skin Exam: Dry, Intact, Normal Color, Warm Assessment and Plan - Assessment and Plan (Free Text) Assessment: 22yoM with pericarditis, pericardial effusion without signs of tamponade on ECHO Plan: - no SOB, no CP - WBC downtrending. 19.1 today from 26.0 yesterday - no surgical intervention at this time - will sign off, please reconsult if necessary - d/w Dr. Shira Perez PGY1
--- NOTE | 2018-01-13 21:05 | PN ---
Copied To: Luke Lu MD Attending MD: Luke Lu MD DATE: 01/13/2018 SUBJECTIVE: The patient was seen and examined at bedside. Events from yesterday noted. Status post IVIG infusion and PRBC transfusion overnight. The patient is feeling much better. Denies any new complaints. Denies any shortness of breath. PHYSICAL EXAMINATION GENERAL: Young male, lying in bed, in no acute distress. VITAL SIGNS: Blood pressure 109/65, pulse 86, respirations 20, temperature 98.2 degrees Fahrenheit, and O2 sat is 98% on room air. HEENT: Pupils equal, round, and reacting to light and accommodation. Extraocular muscles intact. No icterus. Positive pallor. No oral thrush. No pharyngeal congestion.. NECK: Supple. No JVD. LUNGS: Bilateral vesicular breath sounds. No wheezing. No rhonchi. CARDIOVASCULAR SYSTEM: S1 and S2 present. Regular. ABDOMEN: Soft and nontender. Bowel sounds present. No guarding. No rigidity. No rebound tenderness noted. FINANCIAL AID COUNSELOR: Alert, awake, oriented x3. No focal deficits noted. EXTREMITIES: No edema. Palpable peripheral pulses. MEDICATIONS: Include colchicine 0.6 mg orally twice a day, Motrin 600 mg orally every 8 hours, moxifloxacin 400 mg IV daily, Protonix 40 mg daily, and vancomycin 1 g IV every 8 hours. LABORATORY DATA: From this morning; WBC 19.1, hemoglobin 8.2, hematocrit 25.4, and platelets 509. ASSESSMENT AND PLAN: Young male with history of common variable immunodeficiency, asthma, recent admissions for pneumonia x2, admitted for pericarditis, pericardial effusion, bilateral lower lobe infiltrates, Streptococcus pneumoniae sepsis, and anemia. The patient is clinically improving. We will continue with vancomycin and Avelox as per Dr. Croft, received intravenous immunoglobulins yesterday, received 1 unit of PRBC with slightly improved hemoglobin level. We will follow up with Hematology, Cardiology and Thoracic Surgery. We will repeat CT of chest in a.m. Luke Lu MD
[2018-01-13] MEDS: Moxifloxacin IV 400mg/250ml NS 400 MG/250 ML BAG IVPB SCH (21:17)
[2018-01-14] MEDS: Vancomycin 1 GM in Sodium Chloride 0.9% 200 ML IVPB SCH ×4 (00:31→23:57)
[2018-01-14 07:31] LABS: BASO # 0.1 K/uL (0.0-0.2); BASO % 0.5 % (0.0-2.0); EOS # 0.1 K/uL (0.0-0.7); EOS % 0.7 % (0.0-4.0); HEMOGLOBIN 8.4 g/dL (12.0-18.0); LYMPH # 1.6 K/uL (1.0-4.3); LYMPH % 10.1 % (20.0-40.0); MEAN CELL VOLUME 70.2 fL (80.0-94.0); MEAN CORPUSCULAR HEMOGLOBIN 23.1 pg (27.0-31.0); MEAN CORPUSCULAR HGB CONC 32.9 g/dL (33.0-37.0); MEAN PLATELET VOLUME 7.3 fL (7.2-11.7); MONO # 2.1 K/uL (0.0-0.8); MONO % 13.4 % (0.0-10.0); NEUT % 75.3 % (50.0-75.0); NRBC % 0.1 % (0.0-2.0); RBC 3.64 Mil/uL (4.40-5.90); RED CELL DISTRIBUTION WIDTH 18.3 % (11.5-14.5)
[2018-01-14 07:39] LABS: ALB/GLOB RATIO 1.1 (1.0-2.1); ALBUMIN 2.6 g/dL (3.5-5.0); ALT/SGPT 189 U/L (21-72); AST/SGOT 84 U/L (17-59); BLOOD UREA NITROGEN 10 mg/dL (9-20); CALCIUM 8.3 mg/dl (8.6-10.4); GFR AFRICAN-AMERICAN > 60; GFR NON-AFRICAN AMERICAN > 60
[2018-01-14] MEDS: Pantoprazole 40 mg EC Tab PO SCH (09:57)
--- NOTE | 2018-01-14 11:18 | CP.PCM.PN ---
Subjective - Date & Time of Evaluation Date of Evaluation: 01/14/18 Time of Evaluation: 11:17 - Subjective Subjective: Progress note dictated #[id number] Objective - Vital Signs/Intake and Output Vital Signs (last 24 hours): Temp Pulse Resp BP Pulse Ox 98.0 F 73 20 107/67 97 01/14/18 07:35 01/14/18 07:35 01/14/18 07:35 01/14/18 07:35 01/14/18 07:35 Intake and Output: 01/14/18 01/14/18 06:59 18:59 Intake Total 200 Output Total 300 Balance -100 - Medications Medications: Current Medications Colchicine (Colocrys) 0.[address] Last Admin: 01/14/18 09:57 Dose: 0.6 mg Moxifloxacin HCl (Avelox Iv 400mg/250ml Ns) 400 mg in 250 mls @ 167 mls/hr IVPB Q24H AVE PRN Reason: Protocol Last Admin: 01/13/18 21:17 Dose: 167 mls/hr Vancomycin HCl 1 gm/ Sodium (Chloride) 200 mls @ 167 mls/hr IVPB Q8H AVE PRN Reason: Protocol Stop: 01/15/18 16:31 Last Admin: 01/14/18 08:10 Dose: 167 mls/hr Ibuprofen (Motrin Tab) [address] Last Admin: 01/14/18 08:10 Dose: 600 mg Pantoprazole Sodium (Protonix Ec Tab) [address] Last Admin: 01/14/18 09:57 Dose: 40 mg Vitamin A (Vitamin A & D Oint Ud Foilpak) 1 ea TOP Q8 PRN PRN Reason: Dry mouth Last Admin: 01/12/18 19:15 Dose: 1 ea - Labs Labs: 01/14/18 07:09 01/14/18 07:09 PT 16.2 SECONDS (9.7-12.2) H 01/11/18 06:17 INR 1.5 01/11/18 06:17 APTT 27 SECONDS (21-34) 01/11/18 06:17
[2018-01-14] MEDS: Moxifloxacin IV 400mg/250ml NS 400 MG/250 ML BAG IVPB SCH (20:32)
--- NOTE | 2018-01-14 22:39 | CP.PCM.PN ---
Subjective - Date & Time of Evaluation Date of Evaluation: 01/14/18 Time of Evaluation: 12:05 - Subjective Subjective: Patient seen and evaluated Comfortable denies chest pain and dyspne Objective - Vital Signs/Intake and Output Vital Signs (last 24 hours): Temp Pulse Resp BP Pulse Ox 98.0 F 76 20 110/69 98 01/14/18 15:00 01/14/18 15:00 01/14/18 15:00 01/14/18 15:00 01/14/18 15:00 - Medications Medications: Current Medications Colchicine (Colocrys) 0.6 mg PO BID [facility] Last Admin: 01/14/18 18:15 Dose: 0.6 mg Moxifloxacin HCl (Avelox Iv 400mg/250ml Ns) 400 mg in 250 mls @ 167 mls/hr IVPB Q24H AVE PRN Reason: Protocol Last Admin: 01/14/18 20:32 Dose: 167 mls/hr Vancomycin HCl 1 gm/ Sodium (Chloride) 200 mls @ 167 mls/hr IVPB Q8H AVE PRN Reason: Protocol Stop: 01/15/18 16:31 Last Admin: 01/14/18 17:35 Dose: 167 mls/hr Ibuprofen (Motrin Tab) [address] Last Admin: 01/14/18 22:31 Dose: 600 mg Pantoprazole Sodium (Protonix Ec Tab) 40 mg PO DAILY [facility] Last Admin: 01/14/18 09:57 Dose: 40 mg Vitamin A (Vitamin A & D Oint Ud Foilpak) 1 ea TOP Q8 PRN PRN Reason: Dry mouth Last Admin: 01/12/18 19:15 Dose: 1 ea - Labs Labs: 01/14/18 07:09 01/14/18 07:09 PT 16.2 SECONDS (9.7-12.2) H 01/11/18 06:17 INR 1.5 01/11/18 06:17 APTT 27 SECONDS (21-34) 01/11/18 06:17
--- NOTE | 2018-01-15 01:53 | PN ---
Copied To: Luke Lu MD Attending MD: Luke Lu MD DATE: 01/14/2018 SUBJECTIVE: The patient was seen and examined at bedside. The patient is feeling better. Denies any new complaints. All other systems reviewed and were found to be negative. PHYSICAL EXAMINATION: GENERAL: Young male, lying in bed, in no acute distress. VITAL SIGNS: Blood pressure 107/67, pulse 73, respirations 20, temperature 98 degrees Fahrenheit, and O2 sat 97% on room air. HEENT: Pupils are equal, round, and reacting to light and accommodation. Extraocular muscles intact. No icterus. No pallor. No oral thrush. No oropharyngeal congestion. NECK: Supple. No JVD. LUNGS: Bilateral vesicular breath sounds. No wheezing. No rhonchi. CARDIOVASCULAR SYSTEM: S1, S2 present. Regular. ABDOMEN: Soft, nontender. Bowel sounds present. No guarding. No rigidity. No rebound tenderness noted. CENTRAL NERVOUS SYSTEM: Alert, awake, oriented x3. No focal deficits noted. EXTREMITIES: No edema. Palpable peripheral pulses. MEDICATIONS: Include colchicine 0.6 mg p.o. b.i.d., Motrin 600 mg p.o. every 8 hours, Avelox 400 mg daily, Protonix 40 mg p.o. daily, vancomycin 1 g IV every 8 hours. LABORATORY DATA: Labs from this morning: WBC 16, hemoglobin 8.4, hematocrit 25.6, and platelets 511. Sodium 138, potassium 4.2, chloride 104, bicarb 26, BUN 10, creatinine 0.6, glucose 96, calcium 8.3. Total bilirubin 0.4, AST 84, ALT 189, alkaline phosphatase 307, total protein 5, albumin 2.6. Repeat blood cultures negative after three days. ASSESSMENT AND PLAN: A young male with history of common variable immunodeficiency, asthma, recent history of pneumonia with Streptococcus pneumoniae and the last month admitted with bilateral pneumonias with effusion and pericardial effusion, pericarditis, Streptococcus pneumoniae septicemia, anemia. The patient has been improving clinically on current antibiotics. We will continue with vancomycin and Avelox. We will follow up with Dr. Croft regarding the antibiotic coverage. We will request for peripherally inserted central catheter line placement. As repeat blood cultures are remaining negative after three days, discussed with the case management and clinical social work aide for either long-term intravenous antibiotics and subacute rehab place versus home intravenous infusion. The patient is cleared by Thoracic Surgery as no further cardiothoracic intervention recommended at this time. We will follow up with Cardiology regarding discharge planning. The patient needs monthly intravenous immunoglobulin injections as per Hematology. We will repeat CT of the chest for followup of pleural effusion and pericardial effusion. We will obtain serial echocardiograms. If the patient is clinically stable cleared by Infectious Disease, Cardiology and clinical social work aide, we will plan discharging the patient either to subacute rehab or home intravenous infusion. Dr. Croft is recommending possible six weeks of intravenous antibiotic therapy. We will repeat labs in the morning. We will follow up hemoglobin and hematocrit. Luke Lu MD
[2018-01-15] MEDS: Vancomycin 1 GM in Sodium Chloride 0.9% 200 ML IVPB SCH ×2 (08:11→16:04)
[2018-01-15] MEDS: Pantoprazole 40 mg EC Tab PO SCH (09:21)
--- NOTE | 2018-01-15 11:07 | CT ---
Date of service: 01/15/2018 PROCEDURE: CT Chest without contrast HISTORY: follow up of effusion COMPARISON: Comparison is made to the previous exams dated 01/07/2018 and 01/08/2018 TECHNIQUE: Contiguous axial images were obtained through the chest without intravenous contrast enhancement. Sagittal and coronal reconstructions were performed. Radiation dose (DLP): 275.73 mGy-cm. This CT exam was performed using one or more of the following dose reduction techniques: Automated exposure control, adjustment of the mA and/or kV according to patient size, and/or use of iterative reconstruction technique. FINDINGS: LUNGS: Again noted is consolidation at the right mid lung involving the lower portion of the right lung upper lobe and the superior segment of the right lower lobe. There are adjacent smaller opacities also seen in the midportion of the right lung. Again there is a suspicious for abscess formation or localized pleural effusion at the posterior aspect of the mid right chest. There are also small opacities at the mid and lower left lung. MEDIASTINUM: Unremarkable thoracic aorta. No aneurysm. Moderate pericardial effusion is again noted. The heart is upper normal limit in size. Main pulmonary artery unremarkable. No vascular congestion. Mild mediastinal lymphadenopathy is noted. PLEURA: Small bilateral pleural effusions are noted. BONES: No fracture. No destructive lesion. UPPER ABDOMEN: Hepatomegaly is noted. The spleen is normal in size. OTHER FINDINGS: None. IMPRESSION: The assessment is again limited without IV contrast administration. Again noted is thick wall localized pleural effusion versus abscess formation at the posterior mid right chest. The differential consideration includes lung abscess or empyema. Again noted are airspace consolidation at the posterior aspect of the mid lung involving the lower portion of the upper lobe and the upper portion of the lower lobe and surrounding with linear opacities. Small consolidation also noted at the posterior peripheral left mid and lower lung. The possibility of multifocal pneumonia should be considered. Worsening of the consolidation at the left lower lung since the previous exam. Moderate pericardial effusion. Mild mediastinal lymphadenopathy.
--- NOTE | 2018-01-15 13:01 | CP.PCM.PN ---
<Savannah Vargas - Last Filed: 01/15/18 14:05> Subjective - Date & Time of Evaluation Date of Evaluation: 01/15/18 Time of Evaluation: 13:01 - Subjective Subjective: Cardiology Progress Note - Dr Adams Patient seen and examined at bedside. Per nursing no acute events overnight. Patient is doing well, feels better. Ambulating and tolerating diet. Denies chest pain and dyspnea. Objective - Vital Signs/Intake and Output Vital Signs (last 24 hours): Temp Pulse Resp BP Pulse Ox 98.2 F 78 20 111/75 98 01/15/18 07:40 01/15/18 12:00 01/15/18 07:40 01/15/18 07:40 01/15/18 07:40 - Medications Medications: Current Medications Colchicine (Colocrys) 0.6 mg PO BID [facility] Last Admin: 01/15/18 09:21 Dose: 0.6 mg Moxifloxacin HCl (Avelox Iv 400mg/250ml Ns) 400 mg in 250 mls @ 167 mls/hr IVPB Q24H AVE PRN Reason: Protocol Last Admin: 01/14/18 20:32 Dose: 167 mls/hr Vancomycin HCl 1 gm/ Sodium (Chloride) 200 mls @ 167 mls/hr IVPB Q8H AVE PRN Reason: Protocol Stop: 01/15/18 16:31 Last Admin: 01/15/18 08:11 Dose: 167 mls/hr Ibuprofen (Motrin Tab) 600 mg PO Q8H [facility] Last Admin: 01/15/18 08:10 Dose: 600 mg Pantoprazole Sodium (Protonix Ec Tab) 40 mg PO DAILY [facility] Last Admin: 01/15/18 09:21 Dose: 40 mg Vitamin A (Vitamin A & D Oint Ud Foilpak) 1 ea TOP Q8 PRN PRN Reason: Dry mouth Last Admin: 01/12/18 19:15 Dose: 1 ea - Labs Labs: 01/14/18 07:09 01/14/18 07:09 PT 16.2 SECONDS (9.7-12.2) H 01/11/18 06:17 INR 1.5 01/11/18 06:17 APTT 27 SECONDS (21-34) 01/11/18 06:17 - Constitutional Appears: Well, Non-toxic, No Acute Distress - Head Exam Head Exam: ATRAUMATIC, NORMAL INSPECTION - Eye Exam Eye Exam: EOMI, Normal appearance Pupil Exam: NORMAL ACCOMODATION - ENT Exam ENT Exam: Mucous Membranes Moist - Neck Exam Neck Exam: Full ROM - Respiratory Exam Respiratory Exam: Decreased Breath Sounds, NORMAL BREATHING PATTERN. absent: Rales, Rhonchi, Wheezes - Cardiovascular Exam Cardiovascular Exam: REGULAR RHYTHM, +S1, +S2 - GI/Abdominal Exam GI & Abdominal Exam: Soft. absent: Tenderness - Extremities Exam Extremities Exam: Normal Inspection - Neurological Exam Neurological Exam: Alert, Awake, Oriented x3 - Psychiatric Exam Psychiatric exam: Normal Affect, Normal Mood - Skin Skin Exam: Dry, Normal Color, Warm Assessment and Plan - Assessment and Plan (Free Text) Assessment: A/P: Patient is a 22 year old male with past medical history of common variable immunodeficiency who presented with chest pain and shortness of breath. Found to have pericarditis and pneumonia. Pericarditis/Pleural effusion -Stable, Afebrile -Leukocytosis trending down -Pericardiocentesis was unsuccessful 01/08 -Currently, No evidence of cardiac tamponade -Continue IV antibiotics (Avelox and Vancomycin) -Patient is s/p PICC line for detention antibiotics -Repeat echo shows stable pericardial effusion -Dr Silva recommending antibiotics and CVID Rx+ other supportive care, and serial followup reassessments of pericardial effusion with ECHO, and CT chest with contrast for pericardial effusion + lung consolidations and pleural effusion -Pericardial window cancelled at this time -Encourage ambulation Gram + Bacteremia -Blood cultures from admission growing streptococcus pneumonia -Repeat blood cultures negative x 4 days -Continue IV antibiotics -Dr Croft on consult, help appreciated RLL Pneumonia -CXR 01/10 showing RLL consolidation -Sputum cultures negative -Continue IV antibiotics Common Variable Immunodeficiency -S/P IVIG -Per heme/onc, to follow up in 3-4 weeks for outpatient dosing -Dr Rose on consult Anemia -Hgb stable, s/p 1 unit PRBC -Continue to monitor H/H -Dr Rose on consult Transaminitis -LFTs trending down -Continue to monitor Plan discussed with Dr Bryan Vargas DO PGY-2 <Porfirio Adams - Last Filed: 01/15/18 22:25> Objective - Vital Signs/Intake and Output Vital Signs (last 24 hours): Temp Pulse Resp BP Pulse Ox 98.2 F 78 20 111/75 98 08/17/18 07:40 01/15/18 12:00 01/15/18 07:40 01/15/18 07:40 01/15/18 07:40 - Medications Medications: Current Medications Colchicine (Colocrys) 0.6 mg PO BID [facility] Last Admin: 01/15/18 17:54 Dose: 0.6 mg Vancomycin/Sodium Chloride (Vancomycin 1 Gm/Ns 200 Ml) 1 gm in 200 mls @ 133 mls/hr IVPB Q12H AVE PRN Reason: Protocol Stop: 01/21/18 04:01 Ibuprofen (Motrin Tab) 600 mg PO Q8H [facility] Last Admin: 01/15/18 16:03 Dose: 600 mg Pantoprazole Sodium (Protonix Ec Tab) 40 mg PO DAILY [facility] Last Admin: 01/15/18 09:21 Dose: 40 mg Vitamin A (Vitamin A & D Oint Ud Foilpak) 1 ea TOP Q8 PRN PRN Reason: Dry mouth Last Admin: 01/12/18 19:15 Dose: 1 ea - Labs Labs: 01/14/18 07:09 01/14/18 07:09 PT 16.2 SECONDS (9.7-12.2) H 01/11/18 06:17 INR 1.5 01/11/18 06:17 APTT 27 SECONDS (21-34) 01/11/18 06:17 Assessment and Plan - Assessment and Plan (Free Text) Assessment: Patient seen and evaluated personally by me. Plan of care d/w the senior medical billing specialist and as documented
--- NOTE | 2018-01-15 13:47 | RAD ---
Date of service: 01/15/2018 HISTORY: verify right PICC COMPARISON: Comparison chest dated 01/10/2018. Comparison also made with CT chest obtained earlier same day FINDINGS: Interval placement right-sided PICC line with tip in the SVC. LUNGS: Poor inspiration with low lung volumes, crowded bronchovascular markings. Bilateral effusions and bibasilar atelectasis again noted. Suspect small elliptical shaped low-attenuation/proteinaceous fluid collection or abscess right posterior lung zone not less well seen on this exam as compared to high-resolution CT scan. Please refer that study for additional details. PLEURA: As above. No pneumothorax apparent. CARDIOVASCULAR: Pericardial effusion seen on recent CT scan not appreciated on this study. OSSEOUS STRUCTURES: No significant abnormalities. VISUALIZED UPPER ABDOMEN: Normal. OTHER FINDINGS: None. IMPRESSION: Interval placement right-sided PICC line as above. Poor inspiration with low lung volumes, crowded bronchovascular markings. Bilateral effusions and bibasilar atelectasis again noted. Suspect small elliptical shaped low-attenuation/proteinaceous fluid collection or abscess right posterior lung zone not less well seen on this exam as compared to high-resolution CT scan. Please refer that study for additional details. Pericardial effusion not appreciated this study compared to earlier high-resolution CT scan chest
--- NOTE | 2018-01-15 17:18 | CP.PCM.PN ---
Subjective - Date & Time of Evaluation Date of Evaluation: 01/15/18 Time of Evaluation: 17:17 - Subjective Subjective: pt is seen and examined, follow up consult is dictated #[id number] Objective - Vital Signs/Intake and Output Vital Signs (last 24 hours): Temp Pulse Resp BP Pulse Ox 98.2 F 78 20 111/75 98 01/15/18 07:40 01/15/18 12:00 01/15/18 07:40 01/15/18 07:40 01/15/18 07:40 - Medications Medications: Current Medications Colchicine (Colocrys) 0.6 mg PO BID [facility] Last Admin: 01/15/18 09:21 Dose: 0.6 mg Moxifloxacin HCl (Avelox Iv 400mg/250ml Ns) 400 mg in 250 mls @ 167 mls/hr IVPB Q24H AVE PRN Reason: Protocol Last Admin: 01/14/18 20:32 Dose: 167 mls/hr Ibuprofen (Motrin Tab) [address] Last Admin: 01/15/18 16:03 Dose: 600 mg Pantoprazole Sodium (Protonix Ec Tab) 40 mg PO DAILY [facility] Last Admin: 01/15/18 09:21 Dose: 40 mg Vitamin A (Vitamin A & D Oint Ud Foilpak) 1 ea TOP Q8 PRN PRN Reason: Dry mouth Last Admin: 01/12/18 19:15 Dose: 1 ea - Labs Labs: 01/14/18 07:09 01/14/18 07:09 PT 16.2 SECONDS (9.7-12.2) H 01/11/18 06:17 INR 1.5 01/11/18 06:17 APTT 27 SECONDS (21-34) 01/11/18 06:17
--- NOTE | 2018-01-15 20:43 | CP.PCM.PN ---
Subjective - Date & Time of Evaluation Date of Evaluation: 01/13/18 Time of Evaluation: 15:00 - Subjective Subjective: Feeling better. Objective - Vital Signs/Intake and Output Vital Signs (last 24 hours): Temp Pulse Resp BP Pulse Ox 98.2 F 78 20 111/75 98 01/15/18 07:40 01/15/18 12:00 01/15/18 07:40 01/15/18 07:40 01/15/18 07:40 - Medications Medications: Current Medications Colchicine (Colocrys) 0.6 mg PO BID [facility] Last Admin: 01/15/18 17:54 Dose: 0.6 mg Vancomycin/Sodium Chloride (Vancomycin 1 Gm/Ns 200 Ml) 1 gm in 200 mls @ 133 mls/hr IVPB Q12H [facility] PRN Reason: Protocol Stop: 01/21/18 04:01 Ibuprofen (Motrin Tab) 600 mg PO Q8H [facility] Last Admin: 01/15/18 16:03 Dose: 600 mg Pantoprazole Sodium (Protonix Ec Tab) 40 mg PO DAILY [facility] Last Admin: 01/15/18 09:21 Dose: 40 mg Vitamin A (Vitamin A & D Oint Ud Foilpak) 1 ea TOP Q8 PRN PRN Reason: Dry mouth Last Admin: 01/12/18 19:15 Dose: 1 ea - Labs Labs: 01/14/18 07:09 01/14/18 07:09 PT 16.2 SECONDS (9.7-12.2) H 01/11/18 06:17 INR 1.5 01/11/18 06:17 APTT 27 SECONDS (21-34) 01/11/18 06:17 - Head Exam Head Exam: ATRAUMATIC - Eye Exam Eye Exam: Normal appearance - ENT Exam ENT Exam: Mucous Membranes Dry - Respiratory Exam Respiratory Exam: NORMAL BREATHING PATTERN - Cardiovascular Exam Cardiovascular Exam: +S1, +S2 - GI/Abdominal Exam GI & Abdominal Exam: Normal Bowel Sounds Assessment and Plan (1) Common variable immunodeficiency Assessment & Plan: s/p IVIG repeat dosing as outpatient Status: Acute (2) Leukocytosis Assessment & Plan: improving on antibiotics s/p IVIG Status: Acute (3) Anemia Assessment & Plan: anemia of chronic disease Status: Acute (4) Coagulopathy Assessment & Plan: nutritional s/p vit k Status: Acute
--- NOTE | 2018-01-15 20:45 | CP.PCM.PN ---
Subjective - Date & Time of Evaluation Date of Evaluation: 01/14/18 Time of Evaluation: 13:00 - Subjective Subjective: Feeling better Objective - Vital Signs/Intake and Output Vital Signs (last 24 hours): Temp Pulse Resp BP Pulse Ox 98.2 F 78 20 111/75 98 01/15/18 07:40 01/15/18 12:00 01/15/18 07:40 01/15/18 07:40 01/15/18 07:40 - Medications Medications: Current Medications Colchicine (Colocrys) 0.6 mg PO BID [facility] Last Admin: 01/15/18 17:54 Dose: 0.6 mg Vancomycin/Sodium Chloride (Vancomycin 1 Gm/Ns 200 Ml) 1 gm in 200 mls @ 133 mls/hr IVPB Q12H [facility] PRN Reason: Protocol Stop: 01/21/18 04:01 Ibuprofen (Motrin Tab) 600 mg PO Q8H [facility] Last Admin: 01/15/18 16:03 Dose: 600 mg Pantoprazole Sodium (Protonix Ec Tab) 40 mg PO DAILY [facility] Last Admin: 01/15/18 09:21 Dose: 40 mg Vitamin A (Vitamin A & D Oint Ud Foilpak) 1 ea TOP Q8 PRN PRN Reason: Dry mouth Last Admin: 01/12/18 19:15 Dose: 1 ea - Labs Labs: 01/14/18 07:09 01/14/18 07:09 PT 16.2 SECONDS (9.7-12.2) H 01/11/18 06:17 INR 1.5 01/11/18 06:17 APTT 27 SECONDS (21-34) 01/11/18 06:17 - Head Exam Head Exam: ATRAUMATIC - Eye Exam Eye Exam: Normal appearance - ENT Exam ENT Exam: Mucous Membranes Dry - Respiratory Exam Respiratory Exam: NORMAL BREATHING PATTERN - Cardiovascular Exam Cardiovascular Exam: +S1 - GI/Abdominal Exam GI & Abdominal Exam: Normal Bowel Sounds Assessment and Plan (1) Common variable immunodeficiency Assessment & Plan: s/p IVIG outpatient treatment Status: Acute (2) Leukocytosis Assessment & Plan: improving on abx s/p IVIG Status: Acute (3) Anemia Assessment & Plan: chronic disease Status: Acute (4) Coagulopathy Assessment & Plan: nutritional s/p vit k Status: Acute
--- NOTE | 2018-01-15 20:46 | CP.PCM.PN ---
Subjective - Date & Time of Evaluation Date of Evaluation: 01/15/18 Time of Evaluation: 19:00 - Subjective Subjective: Feeling better Objective - Vital Signs/Intake and Output Vital Signs (last 24 hours): Temp Pulse Resp BP Pulse Ox 98.2 F 78 20 111/75 98 01/15/18 07:40 01/15/18 12:00 01/15/18 07:40 01/15/18 07:40 01/15/18 07:40 - Medications Medications: Current Medications Colchicine (Colocrys) 0.6 mg PO BID [facility] Last Admin: 01/15/18 17:54 Dose: 0.6 mg Vancomycin/Sodium Chloride (Vancomycin 1 Gm/Ns 200 Ml) 1 gm in 200 mls @ 133 mls/hr IVPB Q12H [facility] PRN Reason: Protocol Stop: 01/21/18 04:01 Ibuprofen (Motrin Tab) 600 mg PO Q8H [facility] Last Admin: 01/15/18 16:03 Dose: 600 mg Pantoprazole Sodium (Protonix Ec Tab) 40 mg PO DAILY [facility] Last Admin: 01/15/18 09:21 Dose: 40 mg Vitamin A (Vitamin A & D Oint Ud Foilpak) 1 ea TOP Q8 PRN PRN Reason: Dry mouth Last Admin: 01/12/18 19:15 Dose: 1 ea - Labs Labs: 01/14/18 07:09 01/14/18 07:09 PT 16.2 SECONDS (9.7-12.2) H 01/11/18 06:17 INR 1.5 01/11/18 06:17 APTT 27 SECONDS (21-34) 01/11/18 06:17 - Head Exam Head Exam: ATRAUMATIC - Eye Exam Eye Exam: Normal appearance - ENT Exam ENT Exam: Mucous Membranes Dry - Respiratory Exam Respiratory Exam: NORMAL BREATHING PATTERN - Cardiovascular Exam Cardiovascular Exam: +S1, +S2 - GI/Abdominal Exam GI & Abdominal Exam: Normal Bowel Sounds Assessment and Plan (1) Common variable immunodeficiency Assessment & Plan: s/p IVIG outpatient treatment Status: Acute (2) Leukocytosis Assessment & Plan: improving on antibiotics s/p IVIG Status: Acute (3) Anemia Assessment & Plan: chronic disease H/H improved Status: Acute (4) Coagulopathy Assessment & Plan: nutritional Status: Acute
[2018-01-16] MEDS: Vancomycin 1 gm/NS 200 ml 1 GM/200 ML BAG IVPB SCH ×2 (03:46→17:00)
--- NOTE | 2018-01-16 04:39 | PN ---
Copied To: Teresita Lu MD Attending MD: Teresita Lu MD DATE: 01/15/2018 The patient is seen and examined. Dictated for Luke Lu MD. SUBJECTIVE: Mr. Martinez is a young male, , with a past medical history significant for common variable immunodeficiency, asthma, and multiple infections who was recently found to have Strep pneumonia, and admitted to medical center. Subsequently, discharged home on p.o. medications, and the patient presented to the [facility] with worsening symptoms and shortness of breath and found to have pleural effusion and pericardial effusion and also poor LV function. Initially, the patient was admitted to ICU, and status post IV immunoglobulins as per Hematology, the patient is feeling much better now. Denies any chest pain or palpitation. Denies any fever or cough. No abdominal pain. No nausea, vomiting, diarrhea. PHYSICAL EXAMINATION: VITAL SIGNS: As follows: Blood pressure 111/75, pulse 80, respirations 20, temperature 98.2, saturation 98%. Height 6 feet, weight is 160 pounds. GENERAL: Mr. Martinez is 22-year-old young male, moderately built, moderately nourished, not in distress. HEENT: Pupils normal and reactive to light and accommodation. Conjunctivae pink. Sclerae anicteric. Tongue is moist. Trachea is midline. LUNGS: Symmetric on both sides. Bilateral breath sounds present. No crackles. CVS: [place] at the fifth intercostal space, midclavicular line. S1, S2 audible. No murmurs or gallops. ABDOMEN: Normal in appearance, soft, tympanitic. No guarding. No rigidity. No hepatosplenomegaly. NURSING PROGRAM COORDINATOR: The patient is alert, awake, oriented x3. Nonfocal neuro examination. Cranial nerves II through XII grossly intact. Sensory and motor system is within normal limits. EXTREMITIES: No cyanosis, no clubbing, no edema. MEDICATIONS: His current medications include as follows: Colchicine 0.6 mg p.o. b.i.d., ibuprofen 600 mg p.o. every 8 hours, Protonix 40 mg p.o. daily, vancomycin 1 g every 12 hours, vitamin E and D ointment topical. LABORATORY DATA: Include as follows, as of 01/14/2018: WBC 16, hemoglobin 8.4, hematocrit is 25.6, MCV is 70.2, platelets 511. Sodium 138, potassium 4.2, chloride 104, CO2 of 26, BUN 10, creatinine 0.6, glucose is 93, calcium 9.3, total bili 0.4, AST 84, ALT 189, alkaline phosphatase 307, total protein 5, albumin is 2.6. As of 01/07/2018, his blood culture positive for Strep pneumonia, and urine culture was negative as of 01/07/2018, and repeat blood culture from 01/11/2018 is negative. Echocardiogram as of 01/10/2018, left ventricular systolic function is normal, and ejection fraction is about 60% to 65%. There is no echocardiographic indication of cardiac tamponade. There is small to moderate to circumferential pericardial effusion. No change from 01/08/2018. IMPRESSION: In summary, Mr. Martinez is a 22-year-old young male with history of common variable immunodeficiency syndrome, and asthma who was admitted with shortness of breath and weakness and fever and found to have streptococcus pneumonia positive, started on IV antibiotics, and also started on IV immunoglobulin. 1. Status post streptococcus pneumoniae infection and sepsis. 2. Common variable immunodeficiency syndrome, status post IV immunoglobulin. Continue IV antibiotics as per Dr. Croft for total 6 weeks, and continue all his current medications, colchicine, and ibuprofen p.r.n. Also, we will add multivitamin 1 tablet p.o. daily, and will check iron TIBC, ferritin levels for anemia, and low MCV and also hemoglobin electrophoresis if not done yet. The patient is seen and examined. Dictated for Dr. Luke Lu, and follow with Dr. Rose. Teresita Lu MD
[2018-01-16 07:42] LABS: IRON < 10 ug/dL (49-181); TOTAL IRON BINDING CAPACITY 237 ug/dL (250-450)
[2018-01-16 07:47] LABS: % IRON SATURATION 4.22 (20-55)
[2018-01-16] MEDS: Pantoprazole 40 mg EC Tab PO SCH (09:59)
[2018-01-16] MEDS: Multiple Vitamins Tab PO SCH (09:59)
--- NOTE | 2018-01-16 19:46 | CP.PCM.PN ---
Subjective - Date & Time of Evaluation Date of Evaluation: 01/16/18 Time of Evaluation: 19:46 - Subjective Subjective: pt is seen and examined for Dr. Kylah franco#[id number] progress note is dictated # start iv fe Objective - Vital Signs/Intake and Output Vital Signs (last 24 hours): Temp Pulse Resp BP Pulse Ox 98.0 F 72 20 99/61 L 98 01/16/18 15:15 01/16/18 15:15 01/16/18 15:15 01/16/18 15:15 01/16/18 15:15 Intake and Output: 01/16/18 01/17/18 18:59 06:59 Intake Total 400 Balance 400 - Medications Medications: Current Medications Colchicine (Colocrys) 0.6 mg PO BID [facility] Last Admin: 01/16/18 17:44 Dose: 0.6 mg Ferric Sodium Gluconate Complex (Ferrlecit) [address] Stop: 01/25/18 10:01 Vancomycin/Sodium Chloride (Vancomycin 1 Gm/Ns 200 Ml) 1 gm in 200 mls @ 133 mls/hr IVPB Q12H AVE PRN Reason: Protocol Stop: 01/21/18 04:01 Last Admin: 01/16/18 17:00 Dose: 133 mls/hr Ibuprofen (Motrin Tab) [address] Last Admin: 01/16/18 15:08 Dose: 600 mg Multivitamins (Hexavitamin) [address] Last Admin: 01/16/18 09:59 Dose: 1 tab Pantoprazole Sodium (Protonix Ec Tab) 40 mg PO DAILY [facility] Last Admin: 01/16/18 09:59 Dose: 40 mg Vitamin A (Vitamin A & D Oint Ud Foilpak) 1 ea TOP Q8 PRN PRN Reason: Dry mouth Last Admin: 01/12/18 19:15 Dose: 1 ea - Labs Labs: 01/14/18 07:09 01/14/18 07:09 PT 16.2 SECONDS (9.7-12.2) H 01/11/18 06:17 INR 1.5 01/11/18 06:17 APTT 27 SECONDS (21-34) 01/11/18 06:17
--- NOTE | 2018-01-16 20:51 | CP.PCM.PN ---
Subjective - Date & Time of Evaluation Date of Evaluation: 01/16/18 Time of Evaluation: 19:00 - Subjective Subjective: Feeling better. Objective - Vital Signs/Intake and Output Vital Signs (last 24 hours): Temp Pulse Resp BP Pulse Ox 98.0 F 72 20 99/61 L 98 01/16/18 15:15 01/16/18 19:00 01/16/18 15:15 01/16/18 15:15 01/16/18 15:15 Intake and Output: 01/16/18 01/17/18 18:59 06:59 Intake Total 400 Balance 400 - Medications Medications: Current Medications Colchicine (Colocrys) 0.6 mg PO BID [facility] Last Admin: 01/16/18 17:44 Dose: 0.6 mg Vancomycin/Sodium Chloride (Vancomycin 1 Gm/Ns 200 Ml) 1 gm in 200 mls @ 133 mls/hr IVPB Q12H AVE PRN Reason: Protocol Stop: 01/21/18 04:01 Last Admin: 01/16/18 17:00 Dose: 133 mls/hr Ibuprofen (Motrin Tab) 600 mg PO Q8H [facility] Last Admin: 01/16/18 15:08 Dose: 600 mg Multivitamins (Hexavitamin) [address] Last Admin: 01/16/18 09:59 Dose: 1 tab Pantoprazole Sodium (Protonix Ec Tab) 40 mg PO DAILY [facility] Last Admin: 01/16/18 09:59 Dose: 40 mg Vitamin A (Vitamin A & D Oint Ud Foilpak) 1 ea TOP Q8 PRN PRN Reason: Dry mouth Last Admin: 01/12/18 19:15 Dose: 1 ea - Labs Labs: 01/14/18 07:09 01/14/18 07:09 PT 16.2 SECONDS (9.7-12.2) H 01/11/18 06:17 INR 1.5 01/11/18 06:17 APTT 27 SECONDS (21-34) 01/11/18 06:17 - Head Exam Head Exam: ATRAUMATIC - ENT Exam ENT Exam: Mucous Membranes Dry - Respiratory Exam Respiratory Exam: NORMAL BREATHING PATTERN - Cardiovascular Exam Cardiovascular Exam: +S1, +S2 - GI/Abdominal Exam GI & Abdominal Exam: Normal Bowel Sounds Assessment and Plan (1) Common variable immunodeficiency Assessment & Plan: s/p IVIG outpatient redosing Status: Acute (2) Leukocytosis Assessment & Plan: improving on abx s/p IVIG Status: Acute (3) Anemia Assessment & Plan: okay to use PO iron Status: Acute (4) Coagulopathy Assessment & Plan: nutritional Status: Acute
--- NOTE | 2018-01-16 22:10 | CP.PCM.PN ---
Subjective - Date & Time of Evaluation Date of Evaluation: 01/16/18 Time of Evaluation: 17:00 Objective - Vital Signs/Intake and Output Vital Signs (last 24 hours): Temp Pulse Resp BP Pulse Ox 98.0 F 72 20 99/61 L 98 01/16/18 15:15 01/16/18 19:00 01/16/18 15:15 01/16/18 15:15 01/16/18 15:15 Intake and Output: 01/16/18 01/17/18 18:59 06:59 Intake Total 400 Balance 400 - Medications Medications: Current Medications Colchicine (Colocrys) 0.6 mg PO BID [facility] Last Admin: 01/16/18 17:44 Dose: 0.6 mg Vancomycin/Sodium Chloride (Vancomycin 1 Gm/Ns 200 Ml) 1 gm in 200 mls @ 133 mls/hr IVPB Q12H AVE PRN Reason: Protocol Stop: 01/21/18 04:01 Last Admin: 01/16/18 17:00 Dose: 133 mls/hr Ibuprofen (Motrin Tab) 600 mg PO Q8H [facility] Last Admin: 01/16/18 15:08 Dose: 600 mg Multivitamins (Hexavitamin) 1 tab PO DAILY [facility] Last Admin: 01/16/18 09:59 Dose: 1 tab Pantoprazole Sodium (Protonix Ec Tab) 40 mg PO DAILY [facility] Last Admin: 01/16/18 09:59 Dose: 40 mg Vitamin A (Vitamin A & D Oint Ud Foilpak) 1 ea TOP Q8 PRN PRN Reason: Dry mouth Last Admin: 01/12/18 19:15 Dose: 1 ea - Labs Labs: 01/14/18 07:09 01/14/18 07:09 PT 16.2 SECONDS (9.7-12.2) H 01/11/18 06:17 INR 1.5 01/11/18 06:17 APTT 27 SECONDS (21-34) 01/11/18 06:17
[2018-01-17] MEDS: Vancomycin 1 gm/NS 200 ml 1 GM/200 ML BAG IVPB SCH (03:51)
--- NOTE | 2018-01-17 04:08 | PN ---
Copied To: Teresita Lu MD Attending MD: Teresita Lu MD DATE: 01/16/2018 LOCATION: The patient is located in room 670, bed B. The patient is seen and examined. DICTATED FOR: Luke Lu MD SUBJECTIVE: Mr. 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 The patient was given IV antibiotics for a few days and subsequently discharged to home. After few weeks with recurrence of the symptoms and fever and shortness of breath, the patient presented to the [facility] and found to have a pleural effusion and suspected pericardial effusion and was admitted to ICU. The patient was found to have a positive blood culture, positive for Streptococcus pneumoniae and also found to have common variable immunodeficiency syndrome. The patient was seen by quill reamer, Dr. Maximiliano Rose, and the patient was given IV immunoglobulin. The patient is feeling much better, not in acute distress. Denies any chest pain or palpitation. Denies any fever or cough. No abdominal pain. No nausea, vomiting, or diarrhea. PHYSICAL EXAMINATION: VITAL SIGNS: As follows: Blood pressure 99/61, pulse 72, respirations about 20, temperature 98, and saturation 98%. Height 6 feet and weight is 160 pounds. GENERAL: Mr. Martinez is a 22-year-old male, moderately built, moderately nourished, not in distress. HEENT: Pupils are normal and reactive to light and accommodation. Conjunctivae pale. Sclerae anicteric. Tongue is moist and trachea is midline. LUNGS: Symmetric on both sides. Bilateral breath sounds present. No crackles. CARDIOVASCULAR SYSTEM: [place] at the fifth intercostal space, midclavicular line. S1, S2 audible. No murmur or gallop. ABDOMEN: Normal in appearance, soft, tympanitic. No guarding. No rigidity. No hepatosplenomegaly. CENTRAL NERVOUS SYSTEM: The patient is alert, awake, oriented x3. Nonfocal neuro examination. Cranial nerves II-XII grossly intact. Sensory and motor system is within normal limits. EXTREMITIES: No cyanosis, no clubbing, no edema. MEDICATIONS: His current medications include as follows: Colchicine, multivitamin, ibuprofen, Protonix, vancomycin, and vitamin A and D ointment. LABORATORY DATA: Include as follows: WBC 16, hemoglobin 8.4, hematocrit 25.6, and platelets 511. Sodium 138, potassium 4.2, chloride 104, CO2 of 26, BUN 10, creatinine 0.6, glucose 93, calcium 8.3. Total bili 0.4, AST 84, ALT 189, alkaline phosphatase 207, total protein 5, albumin is 2.6. Iron less than 10, TIBC 237, saturation is 4.2, ferritin is 201. B12 is 891 and folic acid is 13. ASSESSMENT AND PLAN: In summary, Mr. Martinez is a 22-year-old male with a history of common variable immunodeficiency syndrome and Streptococcus pneumoniae, pleural effusion, pericardial effusion, and anemia. 1. Common variable immunodeficiency syndrome, status post intravenous immunoglobulin. Continue intravenous immunoglobulin therapy as per Dr. Maximiliano Rose every four to six weeks. 2. Streptococcus pneumoniae sepsis. Continue intravenous antibiotics as per Dr. Croft. The patient is awaiting for the setup for the intravenous antibiotic as an outpatient. Case was discussed with Dr. Maximiliano Rose in rounds. We will discontinue Ferrlecit, and we will just continue oral Nephrocaps or multivitamin one tablet daily. We will follow with you. Thank you for allowing me to participate in your patient's care. The patient is seen and examined. Teresita Lu MD
[2018-01-17] MEDS: Pantoprazole 40 mg EC Tab PO SCH (09:33)
[2018-01-17] MEDS: Multiple Vitamins Tab PO SCH (09:33)
[2018-01-17] MEDS ORDERED: Ferric Sodium Gluconat Complex 62.5 mg/5 ml Vial IVPB SCH (10:00)
--- NOTE | 2018-01-17 15:12 | CP.PCM.PN ---
Subjective - Date & Time of Evaluation Date of Evaluation: 01/17/18 Time of Evaluation: 10:00 - Subjective Subjective: improving on IV rx Objective - Vital Signs/Intake and Output Vital Signs (last 24 hours): Temp Pulse Resp BP Pulse Ox 98.0 F 71 20 114/66 99 01/17/18 07:50 01/17/18 12:00 01/17/18 07:50 01/17/18 07:50 01/17/18 07:50 Intake and Output: 01/17/18 01/17/18 06:59 18:59 Intake Total 700 Output Total 700 Balance 0 - Medications Medications: Current Medications Colchicine (Colocrys) 0.6 mg PO BID [facility] Last Admin: 01/17/18 09:33 Dose: 0.6 mg Vancomycin/Sodium Chloride (Vancomycin 1 Gm/Ns 200 Ml) 1 gm in 200 mls @ 133 mls/hr IVPB Q12H AVE PRN Reason: Protocol Stop: 01/21/18 04:01 Last Admin: 01/17/18 03:51 Dose: 133 mls/hr Ibuprofen (Motrin Tab) [address] Last Admin: 01/17/18 14:49 Dose: 600 mg Multivitamins (Hexavitamin) [address] Last Admin: 01/17/18 09:33 Dose: 1 tab Pantoprazole Sodium (Protonix Ec Tab) 40 mg PO DAILY [facility] Last Admin: 01/17/18 09:33 Dose: 40 mg Vitamin A (Vitamin A & D Oint Ud Foilpak) 1 ea TOP Q8 PRN PRN Reason: Dry mouth Last Admin: 01/12/18 19:15 Dose: 1 ea - Labs Labs: 01/14/18 07:09 01/14/18 07:09 PT 16.2 SECONDS (9.7-12.2) H 01/11/18 06:17 INR 1.5 01/11/18 06:17 APTT 27 SECONDS (21-34) 01/11/18 06:17 - Constitutional Appears: Non-toxic, Chronically Ill - Head Exam Head Exam: NORMOCEPHALIC - Eye Exam Eye Exam: PERRL - ENT Exam ENT Exam: Mucous Membranes Dry - Neck Exam Neck Exam: absent: Lymphadenopathy - Respiratory Exam Respiratory Exam: Decreased Breath Sounds - Cardiovascular Exam Cardiovascular Exam: REGULAR RHYTHM - GI/Abdominal Exam GI & Abdominal Exam: Distended, Soft Assessment and Plan (1) Pericarditis Status: Acute (2) Sepsis Status: Acute (3) Pneumonia Status: Acute (4) Pneumonia Status: Acute (5) Pleurisy with effusion Status: Acute (6) Common variable immunodeficiency Status: Acute
--- NOTE | 2018-01-17 16:15 | CP.PCM.PN ---
Subjective - Date & Time of Evaluation Date of Evaluation: 01/17/18 Time of Evaluation: 16:15 - Subjective Subjective: pt is seen and examined, progress note is dictated #[id number] Objective - Vital Signs/Intake and Output Vital Signs (last 24 hours): Temp Pulse Resp BP Pulse Ox 98.0 F 71 20 114/66 99 01/17/18 07:50 01/17/18 12:00 01/17/18 07:50 01/17/18 07:50 01/17/18 07:50 Intake and Output: 01/17/18 01/17/18 06:59 18:59 Intake Total 700 Output Total 700 Balance 0 - Medications Medications: Current Medications Colchicine (Colocrys) 0.6 mg PO BID [facility] Last Admin: 01/17/18 09:33 Dose: 0.6 mg Telavancin 750 mg/ Dextrose 100 mls @ 100 mls/hr IVPB Q24H AVE PRN Reason: Protocol Ibuprofen (Motrin Tab) 600 mg PO Q8H [facility] Last Admin: 01/17/18 14:49 Dose: 600 mg Multivitamins (Hexavitamin) [address] Last Admin: 01/17/18 09:33 Dose: 1 tab Pantoprazole Sodium (Protonix Ec Tab) [address] Last Admin: 01/17/18 09:33 Dose: 40 mg Vitamin A (Vitamin A & D Oint Ud Foilpak) 1 ea TOP Q8 PRN PRN Reason: Dry mouth Last Admin: 01/12/18 19:15 Dose: 1 ea - Labs Labs: 01/14/18 07:09 01/14/18 07:09 PT 16.2 SECONDS (9.7-12.2) H 01/11/18 06:17 INR 1.5 01/11/18 06:17 APTT 27 SECONDS (21-34) 01/11/18 06:17
[2018-01-17] MEDS: Telavancin Hydrochloride 750 MG in Dextrose 5% In Water 100 ML IVPB SCH (17:00)
--- NOTE | 2018-01-17 22:58 | CP.PCM.PN ---
Subjective - Date & Time of Evaluation Date of Evaluation: 01/17/18 Time of Evaluation: 16:20 - Subjective Subjective: Patient seen and evaluated denies chest pain and dyspnea No cardiac events noted Objective - Vital Signs/Intake and Output Vital Signs (last 24 hours): Temp Pulse Resp BP Pulse Ox 97.7 F 66 20 104/61 99 01/17/18 15:00 01/17/18 15:00 01/17/18 15:00 01/17/18 15:00 01/17/18 15:00 - Medications Medications: Current Medications Colchicine (Colocrys) 0.6 mg PO BID [facility] Last Admin: 01/17/18 17:55 Dose: 0.6 mg Telavancin 750 mg/ Dextrose 100 mls @ 100 mls/hr IVPB Q24H AVE PRN Reason: Protocol Last Admin: 01/17/18 17:00 Dose: 100 mls/hr Ibuprofen (Motrin Tab) [address] Last Admin: 01/17/18 14:49 Dose: 600 mg Multivitamins (Hexavitamin) [address] Last Admin: 01/17/18 09:33 Dose: 1 tab Pantoprazole Sodium (Protonix Ec Tab) 40 mg PO DAILY [facility] Last Admin: 01/17/18 09:33 Dose: 40 mg Vitamin A (Vitamin A & D Oint Ud Foilpak) 1 ea TOP Q8 PRN PRN Reason: Dry mouth Last Admin: 01/12/18 19:15 Dose: 1 ea - Labs Labs: 01/14/18 07:09 01/14/18 07:09 PT 16.2 SECONDS (9.7-12.2) H 01/11/18 06:17 INR 1.5 01/11/18 06:17 APTT 27 SECONDS (21-34) 01/11/18 06:17
--- NOTE | 2018-01-18 07:20 | PN ---
Copied To: Teresita Lu MD Attending MD: Teresita Lu MD DATE: 01/17/2018 FOLLOWUP RENAL CONSULTATION LOCATION: The patient is located in room 670, bed B. SUBJECTIVE: The patient is seen and examined. Mr. Martinez is a 22-year-old young male with past medical history very significant for common variable immunodeficiency syndrome with immunoglobulins and multiple infections, who was initially admitted to this medical center for sepsis and found to have a strep pneumonia and treated with IV antibiotic and then discharged home with p.o. The patient was admitted for a few weeks with similar complaints, shortness of breath, fever, and found to have bilateral effusion and pericardial effusion and found to have positive blood culture Strep pneumonia. The patient was found to have common variable immunodeficiency syndrome. The patient was evaluated by architecture internship, Dr. Maximilaino Rose and given IV immunoglobulins. The patient is feeling much better now. Denies any headache, or dizziness. Denies any chest pain or palpitation. Denies any fever or cough. No abdominal pain. No nausea, vomiting, or diarrhea. PHYSICAL EXAMINATION: VITAL SIGNS: As follows: Blood pressure 104/61, pulse 66, respirations 20, temperature 97.7, saturation 99%. Height 6 feet, weight is 160 pounds. GENERAL: Mr. Martinez is a 22-year-old young male, moderately built, moderately nourished, not in distress. HEENT: Pupils normal and reactive to light and accommodation. Conjunctivae pink. Sclerae anicteric. Tongue is moist. NECK: Trachea is midline. LUNGS: Symmetric on both sides. Bilateral breath sounds present. Clear to auscultation. CVS: [place] at the fifth intercostal space of intermediate midclavicular line. S1, S2 audible. No murmur, no gallop. ABDOMEN: Normal in appearance. Soft, tympanic. No guarding. No rigidity. No hepatosplenomegaly. RISK COMPLIANCE MANAGER: The patient is alert, awake, and oriented x3. Nonfocal neuro examination. Cranial nerves II through XII grossly intact. Sensory motor system is within normal limits. EXTREMITIES: No cyanosis, no clubbing, no edema. IMAGING STUDIES: Include as follows: As of 01/15/2018, chest x-ray: Poor inspiration with low lung volumes, crowded bronchovascular markings, bilateral effusions, and bibasilar atelectasis again noted. Suspect a small elliptical-shaped low attenuation or proteinaceous fluid collection or abscess right posterior lung zone, not less well seen on this exam as compared to the high-resolution CT scan. Please refer that study for additional details. Pericardial effusion not appreciated on this study compared to the earlier high-resolution CT chest. LABORATORY DATA: Include as follows: As of 01/14/2018, WBC 16, hemoglobin 8.4, hematocrit is 25.6, platelets 511. Sodium 138, potassium 4.2, chloride 104, CO2 26, BUN 10, creatinine 0.6, calcium 8.3. CURRENT MEDICATIONS: Include as follows: Colchicine 0.6 mg p.o. b.i.d., multivitamin one tablet p.o. daily, and ibuprofen 600 mg p.o. every 8 hours, Protonix 40 mg p.o. daily, and telavancin 750 mg IV piggyback every 24 hours. and vitamin E and D ointment topical. ASSESSMENT AND PLAN: In summary, Mr. Martinez is a 22-year-old male with common variable immunodeficiency syndrome, status post Strep pneumonia, bilateral effusion, pericardial effusion, on IV antibiotics, status post intravenous immunoglobulin therapy. 1. Common variable immunodeficiency syndrome. 2. Strep pneumonia, sepsis, bilateral effusions, and pericardial effusion. Follow up repeat chest x-ray in a.m. repeat CBC and CMP in a.m. 3. Anemia secondary to sepsis and iron deficiency anemia. Follow with Dr. Maximiliano Rose for further management and continue multivitamin one tablet daily. Follow up hemoglobin and hematocrit. I am waiting for outpatient intravenous antibiotic setup for long-term antibiotic for total of 6 weeks. We will follow with you. The patient is seen and examined for Dr. Luke Lu. Teresita Lu MD
[2018-01-18 08:42] VITALS: O2SAT 99
[2018-01-18] MEDS: Pantoprazole 40 mg EC Tab PO SCH (09:55)
[2018-01-18] MEDS: Multiple Vitamins Tab PO SCH (09:55)
--- NOTE | 2018-01-18 12:21 | CP.PCM.PN ---
Subjective - Date & Time of Evaluation Date of Evaluation: 01/18/18 Time of Evaluation: 12:21 - Subjective Subjective: Progress note dictated # [id number] Objective - Vital Signs/Intake and Output Vital Signs (last 24 hours): Temp Pulse Resp BP Pulse Ox 98.3 F 75 20 114/68 99 01/18/18 08:05 01/18/18 11:36 01/18/18 08:05 01/18/18 08:05 01/18/18 08:05 Intake and Output: 01/18/18 01/18/18 06:59 18:59 Intake Total 580 Balance 580 - Medications Medications: Current Medications Colchicine (Colocrys) 0.6 mg PO BID [facility] Last Admin: 01/18/18 09:55 Dose: 0.6 mg Telavancin 750 mg/ Dextrose 100 mls @ 100 mls/hr IVPB Q24H AVE PRN Reason: Protocol Last Admin: 01/17/18 17:00 Dose: 100 mls/hr Ibuprofen (Motrin Tab) 600 mg PO Q8H [facility] Last Admin: 01/18/18 08:36 Dose: 600 mg Multivitamins (Hexavitamin) [address] Last Admin: 01/18/18 09:55 Dose: 1 tab Pantoprazole Sodium (Protonix Ec Tab) 40 mg PO DAILY [facility] Last Admin: 01/18/18 09:55 Dose: 40 mg Vitamin A (Vitamin A & D Oint Ud Foilpak) 1 ea TOP Q8 PRN PRN Reason: Dry mouth Last Admin: 01/12/18 19:15 Dose: 1 ea - Labs Labs: 01/14/18 07:09 01/14/18 07:09 PT 16.2 SECONDS (9.7-12.2) H 01/11/18 06:17 INR 1.5 01/11/18 06:17 APTT 27 SECONDS (21-34) 01/11/18 06:17
--- NOTE | 2018-01-18 13:45 | CP.PCM.PN ---
Subjective - Date & Time of Evaluation Date of Evaluation: 01/18/18 Time of Evaluation: 09:00 - Subjective Subjective: iv televancin ordered will follow as out pt Objective - Vital Signs/Intake and Output Vital Signs (last 24 hours): Temp Pulse Resp BP Pulse Ox 98.3 F 75 20 114/68 99 01/18/18 08:05 01/18/18 11:36 01/18/18 08:05 01/18/18 08:05 01/18/18 08:05 Intake and Output: 01/18/18 01/18/18 06:59 18:59 Intake Total 580 Balance 580 - Medications Medications: Current Medications Colchicine (Colocrys) 0.6 mg PO BID [facility] Last Admin: 01/18/18 09:55 Dose: 0.6 mg Telavancin 750 mg/ Dextrose 100 mls @ 100 mls/hr IVPB Q24H AVE PRN Reason: Protocol Last Admin: 01/17/18 17:00 Dose: 100 mls/hr Ibuprofen (Motrin Tab) 600 mg PO Q8H [facility] Last Admin: 01/18/18 08:36 Dose: 600 mg Multivitamins (Hexavitamin) [address] Last Admin: 01/18/18 09:55 Dose: 1 tab Pantoprazole Sodium (Protonix Ec Tab) 40 mg PO DAILY [facility] Last Admin: 01/18/18 09:55 Dose: 40 mg Vitamin A (Vitamin A & D Oint Ud Foilpak) 1 ea TOP Q8 PRN PRN Reason: Dry mouth Last Admin: 01/12/18 19:15 Dose: 1 ea - Labs Labs: 01/14/18 07:09 01/14/18 07:09 PT 16.2 SECONDS (9.7-12.2) H 01/11/18 06:17 INR 1.5 01/11/18 06:17 APTT 27 SECONDS (21-34) 01/11/18 06:17 - Constitutional Appears: Non-toxic, Chronically Ill - Head Exam Head Exam: NORMOCEPHALIC - Eye Exam Eye Exam: PERRL - ENT Exam ENT Exam: Mucous Membranes Dry - Neck Exam Neck Exam: absent: Lymphadenopathy - Respiratory Exam Respiratory Exam: Decreased Breath Sounds - Cardiovascular Exam Cardiovascular Exam: REGULAR RHYTHM - GI/Abdominal Exam GI & Abdominal Exam: Distended, Soft - Rectal Exam Rectal Exam: Deferred Assessment and Plan (1) Pericarditis Status: Acute (2) Sepsis Status: Acute (3) Pneumonia Status: Acute (4) Pneumonia Status: Acute (5) Pleurisy with effusion Status: Acute (6) Common variable immunodeficiency Status: Acute
[2018-01-18 14:47] LABS: BASO # 0.2 K/uL (0.0-0.2); BASO % 1.5 % (0.0-2.0); EOS # 0.1 K/uL (0.0-0.7); EOS % 0.5 % (0.0-4.0); HEMOGLOBIN 9.7 g/dL (12.0-18.0); LYMPH # 1.9 K/uL (1.0-4.3); LYMPH % 14.1 % (20.0-40.0); MEAN CELL VOLUME 70.5 fL (80.0-94.0); MEAN CORPUSCULAR HGB CONC 32.6 g/dL (33.0-37.0); MONO # 1.6 K/uL (0.0-0.8); MONO % 11.9 % (0.0-10.0); NEUT # 9.8 K/uL (1.8-7.0); RBC 4.21 Mil/uL (4.40-5.90); RED CELL DISTRIBUTION WIDTH 19.3 % (11.5-14.5); WHITE BLOOD COUNT 13.6 K/uL (4.8-10.8)
[2018-01-18 15:02] LABS: ALB/GLOB RATIO 1.3 (1.0-2.1); ALBUMIN 3.2 g/dL (3.5-5.0); ALT/SGPT 116 U/L (21-72); AST/SGOT 41 U/L (17-59); BLOOD UREA NITROGEN 8 mg/dL (9-20); CALCIUM 8.8 mg/dl (8.6-10.4); GFR AFRICAN-AMERICAN > 60; GFR NON-AFRICAN AMERICAN > 60
--- NOTE | 2018-01-18 15:58 | CP.PCM.PN ---
Subjective - Date & Time of Evaluation Date of Evaluation: 01/18/18 Time of Evaluation: 15:48 - Subjective Subjective: PT CLEARED FOR D/C HOME TODAY AFTER 1600 DOSE OF TELAVANCIN IS COMPLETED. PT TO BE D/C WITH PICC LINE IN PLACE. HE WILL BEGIN INFUSION CENTER FOR TELAVANCIN TOMORROW 12:00 PM. WEEKLY BLOOD WORK PER DR. SALINAS'S REQUEST. RX FOR PT'S PERICARDITIS CLARIFIED WITH DR. SOMMERS AND SENT TO PT'S PHARMACY. ALL D /C INFORMATION DISCUSSED AT LENGTH WITH THE PT AND HE VERBALIZES UNDERSTANDING. [employer] [employer] MADE ALL TRANSPORTATION ARRANGEMENTS FOR THE PT TO BE PICKED UP FOR INFUSION CENTER AND TO RETURN HOME; ALL INFORMATION PROVIDED TO PT. SEE BELOW FOR SPECIFIC D/C INFORMATION. NO FURTHER ORDERS. -FOLLOW UP WITH DR. SANTOS OR YOUR PRIMARY DOCTOR IN THE OFFICE WITHIN 7 DAYS---CALL THE OFFICE TO MAKE YOUR APPT TIME. -FOLLOW UP WITH DR. SAINZ (HEMATOLOGY) IN THE OFFICE WITHIN 7-14 DAYS---CALL THE OFFICE TO MAKE YOUR APPT TIME. -FOLLOW UP WITH DR. SOMMERS (CARDIOLOGY) IN THE OFFICE WITHIN 7-14 DAYS---CALL THE OFFICE TO MAKE YOUR APPT TIME. -STARTING TOMORROW, 01/19/18, AT 12:00PM, YOU WILL BEGIN YOUR ANTIBIOTIC INFUSION AT THE INFUSION CENTER IN [facility]. YOU WILL GO EVERYDAY UNTIL THE LAST DAY OF YOUR ANTIBIOTICS, WHICH IS 02/18/18. -YOUR PICC LINE WILL BE REMOVED AFTER THE LAST DOSE AN ANTIBIOTIC. -EVERY THURSDAY UNTIL YOU FINISH YOUR ANTIBIOTICS, THE NURSE IN THE INFUSION CENTER WILL COLLECT YOUR BLOOD WORK AND YOUR RESULTS WILL BE SENT TO DR. SALINAS. -PER DR. SALINAS, YOU WILL CONTINUE ANTIBIOTICS FOLLOWS: TELAVANCIN 750 MG IV DAILY X 31 MORE DAYS ( THIS IS FOR A TOTAL OF 6 WEEKS OF IV ANTIBIOTICS). -PER DR. SOMMERS, YOU WILL CONTINUE THE FOLLOWING FOR THE INFLAMMATION AROUND YOUR HEART: 1) COLCHICINE 0.6 MG---TAKE 1 TABLET BY MOUTH TWICE A DAY FOR 1 MONTH (MORNING AND EVENING). START 01/19/18-END 02/19/18. 2) MOTRIN 600 MG---TAKE 1 TABLET BY MOUTH THREE TIMES A DAY FOR 1 WEEK (EVERY 8 HOURS; BREAKFAST, LUNCH AND DINNER). START 01/19/18-END 01/26/18. 3) PANTOPRAZOLE (OR SUBSTITUTE) 40 MG---TAKE 1 TABLET BY MOUTH ONCE A DAY FOR 1 MONTH (MORNING). START 01/19/18-END 02/19/18. -FOR FURTHER QUESTIONS OR CONCERNS, CONTACT DR. SANTOS'S OFFICE. Objective - Vital Signs/Intake and Output Vital Signs (last 24 hours): Temp Pulse Resp BP Pulse Ox 98.3 F 75 20 114/68 99 01/18/18 08:05 01/18/18 11:36 01/18/18 08:05 01/18/18 08:05 01/18/18 08:05 Intake and Output: 01/18/18 01/18/18 06:59 18:59 Intake Total 580 720 Output Total 400 Balance 580 320 - Medications Medications: Current Medications Colchicine (Colocrys) 0.6 mg PO BID [facility] Last Admin: 01/18/18 09:55 Dose: 0.6 mg Telavancin 750 mg/ Dextrose 100 mls @ 100 mls/hr IVPB Q24H AVE PRN Reason: Protocol Last Admin: 01/17/18 17:00 Dose: 100 mls/hr Ibuprofen (Motrin Tab) [address] Last Admin: 01/18/18 14:30 Dose: 600 mg Multivitamins (Hexavitamin) [address] Last Admin: 01/18/18 09:55 Dose: 1 tab Pantoprazole Sodium (Protonix Ec Tab) 40 mg PO DAILY [facility] Last Admin: 01/18/18 09:55 Dose: 40 mg Vitamin A (Vitamin A & D Oint Ud Foilpak) 1 ea TOP Q8 PRN PRN Reason: Dry mouth Last Admin: 01/12/18 19:15 Dose: 1 ea - Labs Labs: 01/18/18 14:43 01/18/18 14:43 PT 16.2 SECONDS (9.7-12.2) H 01/11/18 06:17 INR 1.5 01/11/18 06:17 APTT 27 SECONDS (21-34) 01/11/18 06:17
[2018-01-18] MEDS: Telavancin Hydrochloride 750 MG in Dextrose 5% In Water 100 ML IVPB SCH (16:18)
[2018-01-18 16:58] VITALS: BP 97/56; RESP 18; TEMP 98
[2018-01-18 18:12] VITALS: PULSE 86
--- NOTE | 2018-01-19 23:00 | DS ---
Copied To: Luke Lu MD Attending MD: Luke Lu MD DISCHARGE DIAGNOSES: Pericarditis, moderate pericardial effusion, bilateral pleural effusions, loculated effusion, common variable immunodeficiency, asthma, iron deficiency anemia, status post intravenous immunoglobulin infusion and one unit of packed red blood cells infusion. HISTORY OF PRESENT ILLNESS: Mr. Martinez is a 22-year-old male with past medical history of common variable immunodeficiency, asthma, recent admission to the [facility] for pneumonia x2, was found to have Strep pneumoniae bacteremia, was treated with Avelox, came into [facility] for symptoms of chest pain, shortness of breath, and dyspnea on exertion. In the ED, the patient was found to be having pericardial effusion, pericarditis, and bilateral effusions. The patient is being admitted for further management. Today, the patient is feeling better. Denies any headache or dizziness. Denies any chest pain, shortness of breath, or wheezing. Denies any nausea, vomiting, abdominal pain, diarrhea, or constipation. Denies any urinary complaints. Denies any leg pains or leg cramps. Denies any other neurologic symptoms. All other systems reviewed and were found to be negative. PHYSICAL EXAMINATION: GENERAL: Young male, lying in bed, in no acute distress. VITAL SIGNS: Blood pressure 114/68, pulse 73, respirations 20, temperature 98.3 degrees Fahrenheit, O2 sat 99% on room air. HEENT: Pupils equal, round, and reacting to light and accommodation. Extraocular muscles intact. No icterus. Positive pallor. No oral thrush. No pharyngeal congestion. NECK: Supple. No JVD. LUNGS: Bilateral vesicular breath sounds. No wheezing. No rhonchi. CARDIOVASCULAR SYSTEM: S1, S2 present, regular. ABDOMEN: Soft and nontender. Bowel sounds present. No guarding. No rigidity. No rebound tenderness noted. CENTRAL NERVOUS SYSTEM: Alert, awake, oriented x2. No focal deficits noted. EXTREMITIES: No edema. Palpable peripheral pulses. LABORATORY DATA: Labs from this morning: WBC 13.6, hemoglobin 9.7, hematocrit 29.7, platelets 437. Sodium 139, potassium 4.2, chloride 102, bicarb 29, BUN 8, creatinine 0.7, glucose 110, calcium 8.8, phosphorus 4.9, magnesium 1.7. Iron saturation less than 10, TIBC 237, ferritin 201. AST 41, ALT 116, alkaline phosphatase 259. Total protein 5.6, albumin 3.2. Vitamin B12 of 891. Folate 13. Blood cultures on admission, Strep pneumoniae. Repeat cultures are negative. CT of the chest done on 01/15/2018, consistent with bilateral effusions and bibasilar atelectasis small elliptical sheath low attenuation, proteinaceous fluid collection or abscess of right posterior lung zone , pericardial effusion not appreciated. The study compared to earlier high-resolution CT scan of the chest. HOSPITAL COURSE: The patient was admitted to ICU for pericarditis with moderate pericardial effusion and bilateral infiltrates. The patient was started on antibiotics, vancomycin and Avelox. The patient was evaluated by Cardiology and Cardiothoracic Surgery. Cardiothoracic Surgery deferred the procedure of pericardial window, and Dr. Adams tried for pericardiocentesis, but that was unsuccessful. The patient was seen by Dr. Croft for ID. Blood cultures were positive for Strep pneumoniae. The patient's symptoms improved on Avelox and vancomycin. During this hospital course, the patient admitted that he used to get IVIG monthly injection up until two years ago, and he was following up with the primary, and the diagnosis was confirmed with his primary care physician. He was diagnosed with common variable immunodeficiency many years ago, and he stopped getting IVIG injections about two years ago. The patient was evaluated by Hematology. The patient received one dose of IVIG. As his H and H decreased, he also received one unit of PRBC during his hospital course. The patient's symptoms progressively improved on the antibiotics, and Thoracic Surgery deferred the procedure of pericardial window at this time and recommended serial echocardiograms and continuation of the antibiotics. As Cardiothoracic Surgery deferred the procedure and the patient is improving on antibiotics, Dr. Croft recommended six weeks of IV antibiotics. support services coordinator made arrangements for IV infusion at [facility] for the medication, telavancin. The patient received one dose yesterday and second dose today. The patient tolerated the medication. As the patient is supposed to get IV infusion at the center and the patient is cleared by Cardiology, ID, and Hematology, the patient is being discharged. I discussed with the patient at length this morning regarding the need for followup with Cardiology and followup with echocardiogram and weekly blood tests for monitoring his pericardial effusion and pleural effusion. The patient understands the need for followup with all the consultants. I advised the patient to call me if any worsening of the symptoms. CONDITION UPON DISCHARGE: The patient is alert, awake, oriented x3 and hemodynamically stable at the time of discharge. DISCHARGE INSTRUCTIONS: Follow up with PMD. Follow up with ID. Follow up with Cardiology. Follow up with Cardiothoracic Surgery. Follow up with Hematology. Needs serial echocardiogram and serial CBCs. DISCHARGE DIET: Regular diet. ACTIVITY: As tolerated. DISCHARGE MEDICATIONS: Telavancin 750 mg IV daily for 31 days, continue until 02/18/2018; Protonix 40 mg p.o. daily; Motrin 600 mg p.o. every 8 hours; colchicine 0.6 mg p.o. b.i.d., and Ventolin. Needs to get monthly IVIG injections as outpatient. Luke Lu MD
== END 2018-01-18 18:05 | disposition home or self-care (01) | DRG 584 ==
LOC: C.ER 13:49 → C.9I 15:21 → C.6T 01-11 12:28
PROVIDERS: ADMIT Internal Medicine; ATTEND Internal Medicine
PROC: 0W9D3ZZ Drainage of Pericardial Cavity, Percutaneous Approach (ICD-10-PCS; principal; 2018-01-08 09:00)
PROC: 02HV33Z Insertion of Infusion Device into Superior Vena Cava, Percutaneous Approach (ICD-10-PCS; 2018-01-15)
DX: A40.3 Sepsis due to Streptococcus pneumoniae (principal); J15.4 Pneumonia due to other streptococci; D83.9 Common variable immunodeficiency, unspecified; E87.5 Hyperkalemia; I30.9 Acute pericarditis, unspecified; D63.8 Anemia in other chronic diseases classified elsewhere; D68.9 Coagulation defect, unspecified; B96.89 Other specified bacterial agents as the cause of diseases classified elsewhere; D50.9 Iron deficiency anemia, unspecified; I51.7 Cardiomegaly; I11.9 Hypertensive heart disease without heart failure; I70.0 Atherosclerosis of aorta; J45.909 Unspecified asthma, uncomplicated; K27.9 Peptic ulcer, site unspecified, unspecified as acute or chronic, without hemorrhage or perforation